=== PATIENT | female | born 1950 | race Caucasian/White ===

== ENCOUNTER 2025-01-01 12:45 | Inpatient (IN) | payer OTHER ==
[~2025-01-01] VITALS: Ht 154.9 cm; Wt 61.6 kg
[2025-01-01] MEDS: FUROSEMIDE 40 MG/4 ML VIAL IV ONE (13:15)
--- NOTE | 2025-01-01 13:16 | ED.PDOC ---
History of Present Illness HPI Comments 74Y F with PMHx CHF presents to ED for chief complaint abd swelling x4days with weight gain and SOB. Pt states she gained 13pounds over the last few days. Pt reports she is restricted to 15cc of liquid per day but she was recently ill and was consuming more fluids. Pt denies fever, chills, chest pain, and n/v/d. Pt says she usually does not use oxygen supplementation but sometimes uses 3L/min at night. SpO2 during triage 86% on RA. Time Seen by MD: 13:07 Reviewed Notes: Nurses Notes, Medications, Allergies Allergies: Coded Allergies: NO KNOWN ALLERGIES (Unverified , 01/01/25) Home Meds Reported Medications Selexipag (Uptravi) 1,800 Mcg Inj, 1600 MCG IV, TAB 01/01/25 Metoprolol Succinate (Metoprolol Succinate Er) 25 Mg Tab, 25 MG PO DAILY for 30 Days, MG 01/01/25 Ri[place] Base (Adempas) 2.5 Mg Tab, 2.5 MG PO TID, TAB 01/01/25 Apixaban Base (ELIQUIS) 2.5 Mg Tab, 2.5 MG PO BID, TAB 01/01/25 Macitentan (Opsumit) 10 Mg Tab, 10 MG PO, TAB 01/01/25 Omeprazole (Gnp Omeprazole) 20 Mg Tab, 1 TAB PO DAILY, #90 TAB 1 Refill 01/01/25 Spironolactone (Spironolactone) 25 Mg Tab, 1 TAB PO DAILY, #90 TAB 1 Refill 01/01/25 Bumetanide (Bumex Tablet) 1 Mg Tab, 1 MG PO BID, TAB BLK BX WARNING-CAN LEAD TO PROFOUND DIURESIS WITH FLUID- ELECTROLYTE LOSS 01/01/25 Information Source: Patient Mode of Arrival: Ambulatory Severity: Mild Timing: Days Duration: Since onset Past Medical History PAST MEDICAL HISTORY: CHF Surgical History: Denies all surgeries PAPER TWISTER TENDER History: No Pertinent PAPER TWISTER TENDER History Family History Family History: Unknown Social History Smoker: Non-Smoker Alcohol: Denies ETOH Use Drugs: Denies Drug Use Lives In: Home Constitutional: denies: chills, diaphoresis, fatigue, fever, malaise, sweats, weakness, others EENTM: denies: blurred vision, double vision, ear bleeding, ear discharge, ear drainage, ear pain, ear ringing, eye pain, eye redness, hearing loss, mouth pain, mouth swelling, nasal discharge, nose bleeding, nose congestion, nose pain, photophobia, tearing, throat pain, throat swelling, voice changes, others Respiratory: reports: shortness of breath; denies: cough, hemoptysis, orthopnea, SOB at rest, SOB with excertion, stridor, wheezing, others Cardiovascular: reports: edema; denies: chest pain, dizzy spells, diaphoresis, Dyspnea on exertion, irregular heart beat, left arm pain, lightheadedness, palpitations, PND, syncope, others Gastrointestinal: reports: abdomen distended, others (weight gain); denies: abdominal pain, blood streaked bowels, constipated, diarrhea, dysphagia, difficulty swallowing, hematemesis, melena, nausea, poor appetite, poor fluid intake, rectal bleeding, rectal pain, vomiting Genitourinary: denies: abnormal vagina bleeding, burning, dyspareunia, dysuria, flank pain, frequency, hematuria, incontinence, pain, , vagina discharge, urgency, others Neurological: denies: dizziness, fainting, headache, left sided numbness, left sided weakness, numbness, paresthesia, pre-existing deficit, right sided numbness, right sided weakness, seizure, speech problems, tingling, tremors, weakness, others Musculoskeletal: denies: back pain, gout, joint pain, joint swelling, muscle pain, muscle stiffness, neck pain, others Integumetry: denies: bruises, change in color, change in hair/nails, dryness, laceration, lesions, lumps, rash, wounds, others Allergic/Immunocompromised: denies: Difficulty Healing, Frequent Infections, Hives, Itching, others Hematologic/Lymphatic: denies: anemia, blood clots, easy bleeding, easy bruising, swollen glands, others Endocrine: denies: excessive hunger, excessive sweating, excessive thirst, excessive urination, flushing, intolerance to cold, intolerance to heat, unexplained weight gain, unexplained weight loss, others Psychiatric: denies: anxiety, bipolar disorder, depression, hopeless, panic disorder, schizophrenia, sleepless, suicidal, others All Other Systems: Reviewed and Negative Physical Exam General Appearance: No Apparent Distress, Normal HEENT: Normal ENT Inspection, Pharynx Normal, TMs Normal Neck: Full Range of Motion, Non-Tender, Normal, Normal Inspection Respiratory: Chest Non-Tender, Crackles (coarse breath sounds) Cardiovascular: No JVD, No Murmur, No Gallop, Normal Peripheral Pulses, Regular Rate/Rhythm Breast Exam: Deferred Gastrointestinal: No Organomegaly, Non Tender, No Pulsatile Mass, Normal Bowel Sounds, Soft Genitalia: Deferred Pelvic: Deferred Rectal: Deferred Extremities: Leg edema (2+ pitting edema), Normal capillary refill, Normal insp ection, Normal range of motion, Non-tender Musculoskeletal : Apperance: Normal Neurologic: Alert, production corrugator II-XII nml as Tested, No Motor Deficits, Normal Affect, Normal Mood, No Sensory Deficits Cerebellar Function: NOT DONE Reflexes: NOT DONE Skin: Dry, Normal Color, Warm Lymphatic: No Adenopathy Was a procedure done? Was a procedure done?: No Differential Dx Considerations may include: ACS, electrolyte abnormality, CHF exacerbation COPD exacerbation X-Ray, Labs, Meds, VS Vital Signs Date Time Temp Pulse Resp B/P (MAP) Pulse Ox O2 Delivery O2 Flow Rate FiO2 01/01/25 13:42 141 01/01/25 13:27 98.3 147 20 92/64 (73) 88 98.3 01/01/25 13:16 98.1 66 18 109/74 (86) 88 01/01/25 13:15 18 88 Room Air* 0 21 01/01/25 13:15 112/67 Lab Test 01/01/25 14:28 01/01/25 13:33 Range/Units Troponin I High Sensitivity 18 20 </=34 ng/L White Blood Count 6.6 4.4-10.8 10^3/uL Red Blood Count 4.46 4.0-5.20 10^6/uL Hemoglobin 13.3 12.2-16.2 g/dL Hematocrit 42.1 36.0-46.0 % Mean Corpuscular Volume 94.4 80.0-100.0 fL Mean Corpuscular Hemoglobin 29.8 28.0-32.0 pg Mean Corpuscular Hemoglobin Concent 31.5 L 32.0-36.0 g/dL Red Cell Distribution Width 17.1 H 11.8-14.3 % Platelet Count 211 140-450 10^3/uL Mean Platelet Volume 7.2 6.9-10.8 fL Neutrophils (%) (Auto) 37.0-80.0 % Lymphocytes (%) (Auto) 10.0-50.0 % Monocytes (%) (Auto) 0.0-12.0 % Basophils (%) (Auto) 0.0-2.0 % Neutrophils # (Auto) 1.6-8.6 10 ^3/uL Lymphocytes # (Auto) 0.4-5.4 10 ^3/uL Monocytes # (Auto) 0-1.3 10 ^3/uL Differential Total Cells Counted 100.0 100 Neutrophils % (Manual) 66 37.0-80.0 Band Neutrophils % (Manual) 6 Lymphocytes % (Manual) 24 10.0-50.0 Monocytes % (Manual) 4 0-12 Eosinophils % (Manual) 0 0-7 Basophils % (Manual) 0 0.0-2.0 Metamyelocytes % (manual) 0 Myelocytes % (Manual) 0 Promyelocytes % (Manual) 0 Blast Cells % (Manual) 0 Reactive Lymphocytes 0 Platelet Estimate Adequate Prothrombin Time 11.5 9.3-11.8 sec Prothrombin Time INR 1.09 0.9-1.15 Activated Partial Thromboplast Time 34.4 24.5-34.5 SEC Sodium Level 141 136-145 mmol/L Potassium Level 4.2 3.5-5.1 mmol/L Chloride Level 107 98-107 mmol/L Carbon Dioxide Level 26 20-31 mmol/L Anion Gap 8 5-15 Blood Urea Nitrogen 40 H 9-23 mg/dL Creatinine 1.51 H 0.550-1.02 mg/dL Glomerular Filtration Rate Calc 36 >90 mL/min BUN/Creatinine Ratio 26.5 H 10.0-20.0 Serum Glucose 139 H 74-106 mg/dL Calcium Level 9.9 8.7-10.4 mg/dL Magnesium Level 1.6 1.6-2.6 mg/dL Total Bilirubin 0.4 0.2-1.0 mg/dL Aspartate Amino Transferase (AST) 12 L 13-40 U/L Alanine Aminotransferase (ALT) 11 7-40 U/L Alkaline Phosphatase 101 46-116 U/L B-Type Natriuretic Peptide 630.80 0-100 pg/mL Total Protein 6.6 5.7-8.2 g/dL Albumin 4.5 3.2-4.8 g/dL Current Medications Medications (Trade) Dose Ordered Sig/Julian Route Start Time Stop Time Status Last Admin Sodium Chloride (Saline Lock Ns) 10 ml Q8HR IV 01/01/25 14:00 01/01/25 14:39 Furosemide (Lasix Injection) 40 mg ONCE ONCE IV 01/01/25 13:15 01/01/25 13:16 DC 01/01/25 13:15 Sodium Chloride 500 ml @ 500 mls/hr Q1H ONCE IV 01/01/25 13:30 01/01/25 14:29 DC 01/01/25 13:59 [place] [id number] Ph: [phone] DIAGNOSTIC IMAGING Diagnostic Imaging Report : [id number] Signed PATIENT: SAY ROSALES ACCT: [id number] UNIT: [id number] : 1950 LOC: ER ROOM / BED: / AGE / SEX: 74 / F ADM STATUS: REG ER SERVICE 1312 ORDERING PHYSICIAN: ESTELA YOO MD PROCEDURE(s): CXRP - CHEST PORTABLE REASON: sob ORDER NUMBER(s): [id number], ACCESSION NUMBER(s): [id number] CHEST RADIOGRAPH Indication: sob Technique: Single frontal view of the chest was obtained COMPARISON: None FINDINGS: Lines and Tubes: None Lungs: Pulmonary vascular congestion Pleura: No effusion. No pneumothorax. Cardiomediastinal contours: Cardiomegaly Bones: Unremarkable IMPRESSION: Cardiomegaly. Pulmonary vascular congestion. ATED BY: ANGEL LAYTON MD DICTATED DATE/TIME: 01/01/251403 SIGNED BY: ANGEL LAYTON MD SIGNED DATE/TIME: 01/01/251403 CC: Time of 1ST Reevaluation: 13:37 Reevaluation 1ST: Unchanged Patient Education/Counseling: Diagnosis, Treatment Family Education/Counseling: No Family Present Departure 1 Departure Time of Disposition: 16:17 (Patient with a worsening heart failure and volume overload. We will give patient Lasix put on oxygen and admit patient for further workup) Impression: Primary Impression: Acute on chronic systolic (congestive) heart failure Additional Impressions: Shortness of breath Generalized weakness Disposition: 09 ADMITTED INPATIENT Admit to: Tele Condition: Guarded Critical Care Note Critical Care Time?: Yes Critical care comment: Acute heart failure Authorized and Performed by: Estela Yoo MD Total critical care time: Approximately 39 minutes Due to a high probability of clinically significant, life threatening deterioration, the patient required my highest level of preparedness to intervene emergently and I personally spent this critical care time directly and personally managing the patient. This critical care time included obtaining a history; examining the patient; pulse oximetry; ordering and review of studies; arranging urgent treatment with development of a management plan; evaluation of patient's response to treatment; frequent reassessment; and, discussions with other providers. This critical care time was performed to assess and manage the high probability of imminent, life-threatening deterioration that could result in multi-organ failure. It was exclusive of separately billable procedures and treating other patients and teaching time. Please see my other sections and the rest of the note for further information on patient assessment and treatment. Stability Stability form required: No Heart Score Heart Score: Heart Score Response (Comments) Value History N/A 0 EKG N/A 0 Age N/A 0 Risk Factors N/A 0 Troponin N/A 0 Total 0 I personally scribed for ETSELA YOO MD (JOHN) on 01/01/25 at 13:16. Electronically submitted by Audra Appiah (Guerrilla RF). I personally scribed for ESTELA YOO MD (ANUP) on 01/01/25 at 13:48. Electronically submitted by Audra Appiah (Guerrilla RF). I personally scribed for ESTELA YOO MD (ANUP) on 01/01/25 at 14:11. Electronically submitted by Audra Appiah (Guerrilla RF). ESTELA YOO MD Jan 01, 2025 13:16
[2025-01-01 13:48] LABS: Hematocrit 42.1 % (36.0-46.0); Hemoglobin 13.3 g/dL (12.2-16.2); Mean Corpuscular Hemoglobin 29.8 pg (28.0-32.0); Mean Corpuscular Hgb Conc. 31.5 g/dL (32.0-36.0); Mean Corpuscular Volume 94.4 fL (80.0-100.0); Platelet Count (auto) 211 10^3/uL (140-450); Red Blood Cells 4.46 10^6/uL (4.0-5.20); Red Cell Distribution Width 17.1 % (11.8-14.3); White Blood Cell 6.6 10^3/uL (4.4-10.8)
[2025-01-01 13:50] LABS: Basophils % (manual) 0 (0.0-2.0); Blast Cells 0; Eosinophils % (manual) 0 (0-7); Metamyelocytes % 0; Myelocytes % 0; Promyelocytes % 0; Reactive Lymphocytes 0
[2025-01-01] MEDS: SODIUM CHLORIDE 0.9% 500 ML IV ONE (13:59)
[2025-01-01 14:06] LABS: INR 1.09 (0.9-1.15); Partial Thromboplastin Time 34.4 SEC (24.5-34.5); Prothrombin Time 11.5 sec (9.3-11.8)
--- NOTE | 2025-01-01 14:07 | DVH ---
CHEST RADIOGRAPH Indication: sob Technique: Single frontal view of the chest was obtained COMPARISON: None FINDINGS: Lines and Tubes: None Lungs: Pulmonary vascular congestion Pleura: No effusion. No pneumothorax. Cardiomediastinal contours: Cardiomegaly Bones: Unremarkable IMPRESSION: Cardiomegaly. Pulmonary vascular congestion.
[2025-01-01 14:08] LABS: Band Neutrophils % (manual) 6; Lymphocytes % (manual) 24 (10.0-50.0); Monocytes % (manual) 4 (0-12); Platelet Estimate Adequate
[2025-01-01 14:11] LABS: Alanine Aminotransferase 11 U/L (7-40); Albumin 4.5 g/dL (3.2-4.8); Alkaline Phosphatase 101 U/L (46-116); Anion Gap 8 (5-15); BUN/Creatinine Ratio 26.5 (10.0-20.0); Bilirubin, Total 0.4 mg/dL (0.2-1.0); Calcium 9.9 mg/dL (8.7-10.4); Carbon Dioxide 26 mmol/L (20-31); Chloride 107 mmol/L (98-107); Potassium 4.2 mmol/L (3.5-5.1); Sodium 141 mmol/L (136-145); Total Protein 6.6 g/dL (5.7-8.2)
[2025-01-01 14:18] LABS: Aspartate Aminotransferase 12 U/L (13-40); Blood Urea Nitrogen 40 mg/dL (9-23); Glucose 139 mg/dL (74-106); Magnesium 1.6 mg/dL (1.6-2.6)
[2025-01-01] MEDS ORDERED: BUM1T PO (14:19)
[2025-01-01] MEDS ORDERED: METO25TA93 PO (14:25)
[2025-01-01] MEDS ORDERED: SELE IV (14:25)
[2025-01-01] MEDS ORDERED: RIOC1TAB15 PO (14:25)
[2025-01-01] MEDS ORDERED: APIX2.5T PO (14:25)
[2025-01-01] MEDS ORDERED: MACI1TAB2 PO (14:25)
[2025-01-01] MEDS ORDERED: SPIR25TA8 PO (14:25)
[2025-01-01] MEDS ORDERED: OMEP20TA PO (14:25)
[2025-01-01 14:30] VITALS: PULSE 115; RESP 21; O2SAT 92
[2025-01-01] MEDS: SODIUM CHLOR 0.9% PF (SALINE LOCK) 10ML VIAL/SYR IV SCH (14:39)
--- NOTE | 2025-01-01 18:01 | ECG ---
[facility] Test Date: 2025-01-01 Test Time: 13:42:21 Pat Name: SAY ROSALES Department: ER Room: 0297 Gender: F Dials Inspector: FABIO : 1950 Requested By: ESTELA PELAEZ Order Number: [id number] Reading MD: Grant Pacheco Measurements Intervals [place] Rate: 141 P: 0 SC: 0 QRS: 147 QRSD: 110 T: -34 QT: 289 QTc: 443 Interpretive Statements Atrial fibrillation Low voltage, precordial leads RVH with secondary repolarization abnrm Baseline wander in lead(s) V1,V4,V5,V6 Electronically Signed On 01-02-2025 12:00:25 PST by Grant Pacheco Please click the below link to view image of tracing.
[2025-01-01] MEDS ORDERED: ONDANSETRON HCL 4 MG/2 ML VIAL IV PRN (19:15)
[2025-01-01] MEDS ORDERED: ACETAMINOPHEN 325 MG TAB PO PRN (19:15)
[2025-01-01 19:30] VITALS: PULSE 81; RESP 18; O2SAT 94
[2025-01-01] MEDS: APIXABAN 2.5 MG TAB PO SCH (21:55)
--- NOTE | 2025-01-01 21:57 | DVHHP2 ---
History of Present Illness Reason for Visit: Shortness of breath History of Present Illness 74-year-old female presents for evaluation of shortness for breath. The patient endorses a four day history of worsening abdominal distention and gaining approximately 13 lb over the past one-week. Reports chest pressure system. She states breathing becomes difficulty when laying flat. Denies cough or fever. No other acute complaints. Past Medical History Congestive heart failure and hypertension Past Surgical History Denies Family History Noncontributory Smoke: No ALCOHOL: none Drugs: None Lives: with Family Review of Systems Review of Systems Review of systems are currently negative otherwise addressed in HPI. Allergies: Coded Allergies: NO KNOWN ALLERGIES (Unverified , 01/01/25) Medications Current Medications Medications Dose Ordered Sig/Julian Route Start Time Stop Time Status Last Admin Dose Admin Sodium Chloride 10 ml Q8HR IV 01/01/25 14:00 01/01/25 14:39 10 ML Metoprolol Succinate 25 mg DAILY PO 01/02/25 10:00 Spironolactone 25 mg DAILY PO 01/02/25 10:00 Apixaban 2.5 mg BID PO 01/01/25 22:00 Furosemide 20 mg BIDD IV 01/02/25 06:00 Ondansetron HCl 4 mg Q4HP PRN IV 01/01/25 19:15 Acetaminophen 650 mg Q6HP PRN PO 01/01/25 19:15 Exam Vital Signs Vital Signs Date Time Temp Pulse Resp B/P (MAP) Pulse Ox O2 Delivery O2 Flow Rate FiO2 01/01/25 21:00 113 16 105/54 (71) 94 01/01/25 14:30 Nasal Cannula* 3 32 01/01/25 13:27 98.3 98.3 Exam Gen: 74-year-old female in mild distress. Skin: Warm, dry, normal color and texture, no rash. HEENT: Normocephalic atraumatic, mucous membranes moist and pink. Neck: Cervical and supraclavicular nodes normal without enlargement, trachea is midline, thyroid gland is normal without masses. Pulmonary: Clear to auscultation and percussion bilaterally. Cardiac: Regular rate and rhythm. No murmur Abdomen: Soft, nontender, mild distention, bowel sounds present all 4 quadrants, no guarding, no rigidity, no organomegaly. Extremities: No cyanosis, clubbing, no edema Neuro: Cranial nerves II through XII grossly intact, normal affect and speech, no focal motor deficits. Labs/Xrays ORDERING PHYSICIAN: ESTELA PELAEZ MD PROCEDURE(s): CXRP - CHEST PORTABLE REASON: sob ORDER NUMBER(s): [id number], ACCESSION NUMBER(s): [id number] CHEST RADIOGRAPH Indication: sob Technique: Single frontal view of the chest was obtained COMPARISON: None FINDINGS: Lines and Tubes: None Lungs: Pulmonary vascular congestion Pleura: No effusion. No pneumothorax. Cardiomediastinal contours: Cardiomegaly Bones: Unremarkable IMPRESSION: Cardiomegaly. Pulmonary vascular congestion. Labs Test 01/01/25 18:00 01/01/25 13:33 Range/Units Troponin I High Sensitivity 22 </=34 ng/L White Blood Count 6.6 4.4-10.8 10^3/uL Red Blood Count 4.46 4.0-5.20 10^6/uL Hemoglobin 13.3 12.2-16.2 g/dL Hematocrit 42.1 36.0-46.0 % Mean Corpuscular Volume 94.4 80.0-100.0 fL Mean Corpuscular Hemoglobin 29.8 28.0-32.0 pg Mean Corpuscular Hemoglobin Concent 31.5 L 32.0-36.0 g/dL Red Cell Distribution Width 17.1 H 11.8-14.3 % Platelet Count 211 140-450 10^3/uL Mean Platelet Volume 7.2 6.9-10.8 fL Neutrophils (%) (Auto) 37.0-80.0 % Lymphocytes (%) (Auto) 10.0-50.0 % Monocytes (%) (Auto) 0.0-12.0 % Basophils (%) (Auto) 0.0-2.0 % Neutrophils # (Auto) 1.6-8.6 10 ^3/uL Lymphocytes # (Auto) 0.4-5.4 10 ^3/uL Monocytes # (Auto) 0-1.3 10 ^3/uL Differential Total Cells Counted 100.0 100 Neutrophils % (Manual) 66 37.0-80.0 Band Neutrophils % (Manual) 6 Lymphocytes % (Manual) 24 10.0-50.0 Monocytes % (Manual) 4 0-12 Eosinophils % (Manual) 0 0-7 Basophils % (Manual) 0 0.0-2.0 Metamyelocytes % (manual) 0 Myelocytes % (Manual) 0 Promyelocytes % (Manual) 0 Blast Cells % (Manual) 0 Reactive Lymphocytes 0 Platelet Estimate Adequate Prothrombin Time 11.5 9.3-11.8 sec Prothrombin Time INR 1.09 0.9-1.15 Activated Partial Thromboplast Time 34.4 24.5-34.5 SEC Sodium Level 141 136-145 mmol/L Potassium Level 4.2 3.5-5.1 mmol/L Chloride Level 107 98-107 mmol/L Carbon Dioxide Level 26 20-31 mmol/L Anion Gap 8 5-15 Blood Urea Nitrogen 40 H 9-23 mg/dL Creatinine 1.51 H 0.550-1.02 mg/dL Glomerular Filtration Rate Calc 36 >90 mL/min BUN/Creatinine Ratio 26.5 H 10.0-20.0 Serum Glucose 139 H 74-106 mg/dL Calcium Level 9.9 8.7-10.4 mg/dL Magnesium Level 1.6 1.6-2.6 mg/dL Total Bilirubin 0.4 0.2-1.0 mg/dL Aspartate Amino Transferase (AST) 12 L 13-40 U/L Alanine Aminotransferase (ALT) 11 7-40 U/L Alkaline Phosphatase 101 46-116 U/L B-Type Natriuretic Peptide 630.80 0-100 pg/mL Total Protein 6.6 5.7-8.2 g/dL Albumin 4.5 3.2-4.8 g/dL Assessment/Plan Assessment/Plan Assessment Acute on chronic congestive heart failure Hypertension Acute kidney injury Plan Admit the patient to [facility] to the hospitalist Cardiology consultation Echocardiogram pending Resume home medications Continue treatment per orders. Plan discussed with: Patient My Orders Orders - NELA MARIE AGACNP Procedure Category Date Status Time Metoprolol Xl PHA 01/02/25 In Process Succinate (Toprol Xl) 10:00 Spironolactone PHA 01/02/25 In Process (Aldactone) 10:00 Apixaban (Eliquis) PHA 01/01/25 In Process 22:00 Furosemide Injection PHA 01/02/25 In Process (Lasix Injection) 06:00 * Cardiology Consult CONS 01/01/25 Transmitted 19:06 Basic Metabolic Panel LAB 01/02/25 Verified 04:00 Admit ADMIT 01/01/25 Transmitted 19:06 Ondansetron Hcl PHA 01/01/25 In Process (Zofran) 19:15 Cardiac DIET 01/02/25 Transmitted Diet-2gna,Lofat,Lochol Breakfast Echo 2d Mode Cardiac US 01/01/25 Logged DOP 19:06 Condition: Stable DANA 01/01/25 In Process 19:06 Acetaminophen Tablet PHA 01/01/25 In Process (Tylenol Tablet) 19:15 Bedrest With Bathroom DANA 01/01/25 In Process Privileg 19:06 Date of Service: Jan 01, 2025 Billing Provider: NELA MARIE Common Visit Codes: [id number] INP/OBS CARE (HIGH) NELA MARIE Jan 01, 2025 21:57
[2025-01-01 23:43] VITALS: BP 119/65; PULSE 108; RESP 18; TEMP 98.2; O2SAT 91
[2025-01-01 23:53] VITALS: BP 119/65; PULSE 74; RESP 16; RESP 18; TEMP 98.2; O2SAT 91
[2025-01-02 05:00] VITALS: BP 118/60; PULSE 93; RESP 18; TEMP 98.3; O2SAT 95
[2025-01-02] MEDS: FUROSEMIDE 20 MG/2 ML VIAL IV SCH ×2 (05:46→17:52)
[2025-01-02 07:15] LABS: Chloride 105 mmol/L (98-107); Potassium 3.7 mmol/L (3.5-5.1); Sodium 142 mmol/L (136-145)
[2025-01-02 07:16] LABS: Anion Gap 10 (5-15); Carbon Dioxide 27 mmol/L (20-31)
[2025-01-02 07:17] LABS: Calcium 10.2 mg/dL (8.7-10.4)
[2025-01-02 07:21] LABS: BUN/Creatinine Ratio 26.4 (10.0-20.0); Glucose 79 mg/dL (74-106)
[2025-01-02 07:22] LABS: Blood Urea Nitrogen 37 mg/dL (9-23)
[2025-01-02 08:43] VITALS: BP 129/84; PULSE 89; RESP 16; TEMP 98.3; O2SAT 96
[2025-01-02 08:49] LABS: Magnesium 1.5 mg/dL (1.6-2.6)
--- NOTE | 2025-01-02 10:06 | DVHCONRES ---
Date Seen: Jan 02, 2025 Resident Creating Document: CINTIA KAUFMAN RESIDENT Referring Physician GIULIA Cr Reason for Consultation CHF History of Present Illness This is a 74-year-old female who comes into the ED with chief complain of shortness of Breath. She has a past medical history relevant for CHF, hypertension, pulmonary artery hypertension, atrial fibrillation. Denies any past surgical history. Past social history: Prior smoker, quit alcohol use, denies drug use. Home medications: Apixaban 2.5 mg p.o. b.i.d., Bumex 1 mg p.o. b.i.d., macitentan 10 mg p.o. q.d., metoprolol 25 mg p.o. q.d., Aldactone 25 mg p.o. q.d., omeprazole 20 mg p.o. q.d., riociguat 2.5 mg p.o. t.i.d., selexipag 1,800 mcg iv monthly Patient stated that for the last four days she has been having worsening abdominal distention, states gained about 13 lb in one week, she said that yesterday she started experiencing worsening shortness of breath, inability to lay flat. Denies any fever, cough, chest pain, lightheadedness, dizziness. In the ED patient is initially received normal saline, later received Lasix, chest x-ray revealed moderate vascular congestion, blood work revealed CHRISTINA, troponins were negative, BNP was 630. An echocardiogram was ordered. Patient currently states feeling better, vital signs unremarkable, she is currently on nasal cannula 3 L. EKG revealed AFib with RVR at 141, right axis deviation, no ST changes. Currently telemetry shows controlled rate. Allergies: Coded Allergies: NO KNOWN ALLERGIES (Unverified , 01/01/25) Home Meds Reported Medications Selexipag (Uptravi) 1,800 Mcg Inj, 1600 MCG IV, TAB 01/01/25 Metoprolol Succinate (Metoprolol Succinate Er) 25 Mg Tab, 25 MG PO DAILY for 30 Days, MG 01/01/25 Riociguat Base (Adempas) 2.5 Mg Tab, 2.5 MG PO TID, TAB 01/01/25 Apixaban Base (ELIQUIS) 2.5 Mg Tab, 2.5 MG PO BID, TAB 01/01/25 Macitentan (Opsumit) 10 Mg Tab, 10 MG PO, TAB 01/01/25 Omeprazole (Gnp Omeprazole) 20 Mg Tab, 1 TAB PO DAILY, #90 TAB 1 Refill 01/01/25 Spironolactone (Spironolactone) 25 Mg Tab, 1 TAB PO DAILY, #90 TAB 1 Refill 01/01/25 Bumetanide (Bumex Tablet) 1 Mg Tab, 1 MG PO BID, TAB BLK BX WARNING-CAN LEAD TO PROFOUND DIURESIS WITH FLUID- ELECTROLYTE LOSS 01/01/25 Current Medications Current Medications Medications (Trade) Dose Ordered Sig/Julian Route PRN Reason Start Time Stop Time Status Last Admin Sodium Chloride (Saline Lock Ns) 10 ml Q8HR IV 01/01/25 14:00 01/02/25 05:47 Metoprolol Succinate (Toprol Xl) 25 mg DAILY PO 01/02/25 10:00 Spironolactone (Aldactone) 25 mg DAILY PO 01/02/25 10:00 Apixaban (Eliquis) 2.5 mg BID PO 01/01/25 22:00 Furosemide (Lasix Injection) 20 mg BIDD IV 01/02/25 06:00 01/02/25 05:46 Ondansetron HCl (Zofran) 4 mg Q4HP PRN IV NAUSEA / VOMITING 01/01/25 19:15 Acetaminophen (Tylenol Tablet) 650 mg Q6HP PRN PO PAIN SCALE 1-3 OR TEMP>100.4 01/01/25 19:15 Magnesium Sulfate/ Dextrose 100 ml @ 100 mls/hr Q1HR IV 01/02/25 10:00 01/02/25 11:59 Review of Systems Constitutional: Patient denies fevers, chills, sweats and weight changes. Eyes: Patient denies any visual symptoms. Ears, Nose, and Throat: No difficulties with hearing. No symptoms of rhinitis or sore throat. Cardiovascular: Patient denies chest pains, palpitations, orthopnea and paroxysmal nocturnal dyspnea. Respiratory: Shortness of breath GI: Abdominal distention : No urinary hesitancy or dribbling. No nocturia or urinary frequency. No abnormal urethral discharge. Musculoskeletal: No myalgias, arthralgias or edema. Neurologic: No chronic headaches, no seizures. Patient denies numbness, tingling or weakness. Psychiatric: Patient denies problems with mood disturbance. No problems with anxiety. Endocrine: No excessive urination or excessive thirst. Dermatologic: Patient denies any rashes or skin changes. Vital Signs Vital Signs Date Time Temp Pulse Resp B/P (MAP) Pulse Ox O2 Delivery O2 Flow Rate FiO2 01/02/25 08:43 98.3 89 16 129/84 (99) 96 98.3 01/01/25 23:53 Nasal Cannula* 3 32 Physical Exam General: Awake, alert, comfortable appearing, in no acute distress. HEENT: Head is normocephalic and atraumatic. Pupils are equal, round, and reactive to light. Extraocular muscles are intact. No nasal discharge. No facial trauma. Intraoral exam shows moist mucous membranes with no tonsillar enlargement or exudate. Neck: Supple with no cervical lymphadenopathy No meningismus. No goiter. Heart: Regular rate without murmur, rub, or gallop. Lungs: Mild bilateral basal crackles Abdomen: No external sign of injury. Bowel sounds are present. Abdomen is soft, nontender. No rebound, no guarding, no rigidity. There are no palpable masses. There is no flank pain on exam. Extremities: Strong peripheral pulses. There is no clubbing, no cyanosis, and no edema. Skin: No rash. Neurologic: Cranial nerves II-XII intact without motor, sensory, or cerebellar deficit, no asterixis. Labs/Diagnostic Data Labs Test 01/02/25 06:29 01/01/25 18:00 01/01/25 13:33 Range/Units Sodium Level 142 136-145 mmol/L Potassium Level 3.7 3.5-5.1 mmol/L Chloride Level 105 98-107 mmol/L Carbon Dioxide Level 27 20-31 mmol/L Anion Gap 10 5-15 Blood Urea Nitrogen 37 H 9-23 mg/dL Creatinine 1.40 H 0.550-1.02 mg/dL Glomerular Filtration Rate Calc 40 >90 mL/min BUN/Creatinine Ratio 26.4 H 10.0-20.0 Serum Glucose 79 74-106 mg/dL Calcium Level 10.2 8.7-10.4 mg/dL Magnesium Level 1.5 L 1.6-2.6 mg/dL Triglycerides Level 146 < 150 mg/dL Cholesterol Level 159 < 200 mg/dL LDL Cholesterol 91 < 100 mg/dL HDL Cholesterol 46 40-59 mg/dL Troponin I High Sensitivity 22 </=34 ng/L White Blood Count 6.6 4.4-10.8 10^3/uL Red Blood Count 4.46 4.0-5.20 10^6/uL Hemoglobin 13.3 12.2-16.2 g/dL Hematocrit 42.1 36.0-46.0 % Mean Corpuscular Volume 94.4 80.0-100.0 fL Mean Corpuscular Hemoglobin 29.8 28.0-32.0 pg Mean Corpuscular Hemoglobin Concent 31.5 L 32.0-36.0 g/dL Red Cell Distribution Width 17.1 H 11.8-14.3 % Platelet Count 211 140-450 10^3/uL Mean Platelet Volume 7.2 6.9-10.8 fL Neutrophils (%) (Auto) 37.0-80.0 % Lymphocytes (%) (Auto) 10.0-50.0 % Monocytes (%) (Auto) 0.0-12.0 % Basophils (%) (Auto) 0.0-2.0 % Neutrophils # (Auto) 1.6-8.6 10 ^3/uL Lymphocytes # (Auto) 0.4-5.4 10 ^3/uL Monocytes # (Auto) 0-1.3 10 ^3/uL Differential Total Cells Counted 100.0 100 Neutrophils % (Manual) 66 37.0-80.0 Band Neutrophils % (Manual) 6 Lymphocytes % (Manual) 24 10.0-50.0 Monocytes % (Manual) 4 0-12 Eosinophils % (Manual) 0 0-7 Basophils % (Manual) 0 0.0-2.0 Metamyelocytes % (manual) 0 Myelocytes % (Manual) 0 Promyelocytes % (Manual) 0 Blast Cells % (Manual) 0 Reactive Lymphocytes 0 Platelet Estimate Adequate Prothrombin Time 11.5 9.3-11.8 sec Prothrombin Time INR 1.09 0.9-1.15 Activated Partial Thromboplast Time 34.4 24.5-34.5 SEC Total Bilirubin 0.4 0.2-1.0 mg/dL Aspartate Amino Transferase (AST) 12 L 13-40 U/L Alanine Aminotransferase (ALT) 11 7-40 U/L Alkaline Phosphatase 101 46-116 U/L B-Type Natriuretic Peptide 630.80 0-100 pg/mL Total Protein 6.6 5.7-8.2 g/dL Albumin 4.5 3.2-4.8 g/dL Assessment Acute on chronic systolic/diastolic CHF, NYHA class 3 Non-ischemic cardiomyopathy Acute hypoxic respiratory failure Atrial fibrillation with rapid ventricular response, currently controlled rate Hypertension Pulmonary arterial hypertension CHRISTINA, likely prerenal Plan/Recommendation Continue diuresing Lasix 40 mg IV b.i.d. Maintain fluid restrictions and strict I&Os Maintain potassium >4 and magnesium >2 Continue GDMT: Beta-shaun, Aldactone, Jardiance [id number]: 4 points HAS-BLED: 1 point Anticoagulate with Eliquis 2.5mg po bid Continue rate control with beta-shaun Pending echocardiogram Case was discussed with Dr. Ramirez Patient encounter was reviewed and discussed with Dr Xavi Torre, Resident Physician. All history, meds, vitals, labs, and imaging were reviewed with him. I agree with his A/P which was formulated with me. Plan discussed with: Patient CINTIA KAUFMAN RESIDENT Jan 02, 2025 10:06 MODESTO RAMIREZ DO Jan 02, 2025 21:49
[2025-01-02] MEDS: SPIRONOLACTONE 25 MG TAB PO SCH (10:25)
[2025-01-02] MEDS: MAGNESIUM SULFATE 1GM/100ML 100 ML IV SCH (10:25)
[2025-01-02] MEDS: POTASSIUM CHL 20 Meq TABLET PO ONE (10:25)
[2025-01-02] MEDS: METOPROLOL SUCCINATE XL 50 MG TAB PO SCH (10:26)
[2025-01-02] MEDS: FUROSEMIDE 20 MG/2 ML VIAL IV ONE (10:26)
--- NOTE | 2025-01-02 12:08 | DVHPN2 ---
Subjective She came due to feeling full with fluid overload in her stomach and shortness of breaths Changes from previous H/P or p: Changes Objective Vitals Vital Signs Date Time Temp Pulse Resp B/P (MAP) Pulse Ox O2 Delivery O2 Flow Rate FiO2 01/02/25 10:26 129/84 01/02/25 10: 89 01/02/25 08:43 98.3 16 96 98.3 01/01/25 23:53 Nasal Cannula* 3 32 Intake/Output Intake and Output 01/02/25 07:00 Intake Total 100 ml Balance 100 ml Intake Oral 100 ml # Voids 1 General Appearance: Alert, Oriented X3, Cooperative, No acute distress Lungs: Other (Bilateral rhonchi at the bases) Cardiovascular: Regular rate, Normal S1, Normal S2 Abdomen: Normal bowel sounds, Soft, No tenderness Extremities: No edema Medications Current Medications Medications Dose Ordered Sig/Julian Route Start Time Stop Time Status Last Admin Dose Admin Sodium Chloride 10 ml Q8HR IV 01/01/25 14:00 01/02/25 05:47 10 ML Metoprolol Succinate 25 mg DAILY PO 01/02/25 10:00 01/02/25 10:26 25 MG Spironolactone 25 mg DAILY PO 01/02/25 10:00 01/02/25 10:25 25 MG Apixaban 2.5 mg BID PO 01/01/25 22:00 01/02/25 10:25 2.5 MG Ondansetron HCl 4 mg Q4HP PRN IV 01/01/25 19:15 Acetaminophen 650 mg Q6HP PRN PO 01/01/25 19:15 Empaglifozin 10 mg DAILY PO 01/03/25 10:00 Furosemide 40 mg BIDD IV 01/02/25 18:00 Laboratory Results Laboratory Tests 01/01/25 13:33 01/02/25 06:29 Chemistry Test 01/01/25 13:33 01/02/25 06:29 Albumin 4.5 g/dL (3.2-4.8) Calcium Level 9.9 mg/dL (8.7-10.4) 10.2 mg/dL (8.7-10.4) Magnesium Level 1.6 mg/dL (1.6-2.6) 1.5 mg/dL (1.6-2.6) L Total Protein 6.6 g/dL (5.7-8.2) Coagulation Test 01/01/25 13:33 Prothrombin Time 11.5 sec (9.3-11.8) Prothrombin Time INR 1.09 (0.9-1.15) Activated Partial Thromboplast Time 34.4 SEC (24.5-34.5) Lipid panel Test 01/02/25 06:29 Cholesterol Level 159 mg/dL (< 200) HDL Cholesterol 46 mg/dL (40-59) Triglycerides Level 146 mg/dL (< 150) Cardiac Markers Test 01/01/25 13:33 B-Type Natriuretic Peptide 630.80 pg/mL (0-100) LFT Test 01/01/25 13:33 Alanine Aminotransferase (ALT) 11 U/L (7-40) Alkaline Phosphatase 101 U/L (46-116) Aspartate Amino Transferase (AST) 12 U/L (13-40) L Total Bilirubin 0.4 mg/dL (0.2-1.0) HgA1c, TSH Test 01/02/25 06:29 Thyroid Stimulating Hormone (TSH) Pending Assessment/Plan Assessment/Plan Acute on chronic hypoxic respiratory failure Acute on chronic heart failure, systolic versus diastolic COPD on home oxygen Chronic respiratory failure Nonischemic cardiomyopathy Atrial fibrillation, intermittent paroxysmal Hypertension Pulmonary hypertension Acute kidney injury versus chronic kidney disease Plan Continue IV Lasix 40 mg twice a day Metoprolol Aldactone Jardiance Continue Eliquis Cardiology consult Echocardiogram is pending The rest of the management will depend on the hospital course Full code Advance directives discussed for 18 minute Plan discussed with: Patient Date of Service: Jan 02, 2025 Billing Provider: DEENA MCCRAY MD Common Visit Codes: [id number] INP/OBS CARE(HIGH) Secondary Visit Codes: [id number] CARE PLAN 30 MINUTES DEENA MCCRAY MD Jan 02, 2025 12:07
[2025-01-02 13:00] VITALS: BP 108/69; PULSE 85; RESP 16; TEMP 97.5; O2SAT 97
[2025-01-02 16:54] VITALS: BP 118/78; PULSE 86; RESP 16; TEMP 98.4; O2SAT 96
[2025-01-02 20:00] VITALS: PULSE 80; RESP 20; O2SAT 97
[2025-01-02 21:00] VITALS: BP 111/76; PULSE 88; RESP 20; TEMP 97.4; O2SAT 97
--- NOTE | 2025-01-02 21:36 | DVHSR ---
APPROVED REPORT EXAM: Two-dimensional and M-mode echocardiogram with Doppler and color Doppler. Blood Pressure: 118/60 mmHg INDICATION ef RISK FACTORS Height: 5'1, Weight: 139 DIMENSIONS LVDd4.1 (3.8-5.7cm)LA (2D)4.7 (1.9-4.0cm)Aortic Root3.5 (2.0-3.7cm) LVDs2.4 (2.5-4.0cm)LA (MM) (1.9-4.0cm)Aortic Cusp Exc1.3 (1.5-2.0cm) EF (%) 60.0 (55-70%)Rt. Atrium5.3 (1.9-4.0cm)Asc. Aorta cm IVSd0.9 (0.7-1.1cm)RV (D) (1.8-2.4cm) PWd1.1 (0.7-1.1cm) Mitral Valve MitralMitral Stenosis E wave0.72m/sMV Mean GR.mmHg A wavem/sMV Peak GR.86mmHg E/A ratio0.02D MVAcm2 DECEL [id number] 1/2 Timems Aortic Valve Aortic ValveAortic Stenosis V11.04m/Ebonie Mean GR.7mmHg V21.74m/Ebonie Peak GR.12mmHg LVOT Diameter2.1 (1.8-2.4cm)Doppler AVA2.07cm2 Pulmonic Valve V20.96m/s Tricuspid Valve TR Velocity3.70m/s [id number] Conclusion Normal LV size and systolic function. LVEF 60-65%. Abnormal septal motion due to RV pressure and volu me overload. Unable to assess diastolic function due to AF. [id number] RV enlargement with reduced systolic function. Severe RA enlargement. Moderate LA enlargement Trileaflet aortic valve with mild sclerosis. Mild MAC. Mild MR. [id number] eccentric TR. RVSP estimated at 63 mmHg based on an RAP of 8 mmHg. Dilated IVC with normal collapse. Small pericardial effusion. Atrial fibrillation.
[2025-01-03] VITALS (8 sets, daily range): BP systolic 99–133; BP diastolic 43–88; PULSE 70–99; RESP 16–20; TEMP 97.2–98.7; O2SAT 91–98
[2025-01-03 06:33] LABS: Rapid Influenza A Negative (Negative); Rapid Influenza B Negative (Negative)
[2025-01-03 07:35] LABS: Chloride 103 mmol/L (98-107); Potassium 4.3 mmol/L (3.5-5.1); Sodium 140 mmol/L (136-145)
[2025-01-03 07:36] LABS: Anion Gap 8 (5-15); Calcium 9.7 mg/dL (8.7-10.4); Carbon Dioxide 29 mmol/L (20-31)
[2025-01-03 07:41] LABS: BUN/Creatinine Ratio 29.5 (10.0-20.0); Glucose 87 mg/dL (74-106)
[2025-01-03 07:42] LABS: Blood Urea Nitrogen 43 mg/dL (9-23); Magnesium 1.6 mg/dL (1.6-2.6)
[2025-01-03] MEDS: EMPAGLIFLOZIN 10 MG TAB PO SCH (08:25)
--- NOTE | 2025-01-03 12:27 | DVHPN2 ---
Subjective She is feeling better Less edema Changes from previous H/P or p: Changes Objective Vitals Vital Signs Date Time Temp Pulse Resp B/P (MAP) Pulse Ox O2 Delivery O2 Flow Rate FiO2 01/03/25 10:00 70 99/63 01/03/25 08:58 97.9 16 96 97.9 01/03/25 08:00 Nasal Cannula* 3 32 Intake/Output Intake and Output 01/03/25 07:00 Intake Total 1050 ml Output Total 900 ml Balance 150 ml Intake Oral 850 ml IV Total 200 ml Output Urine Total 900 ml # Voids 10 # Bowel Movements 1 General Appearance: Alert, Oriented X3, Cooperative, No acute distress Lungs: Other Cardiovascular: Regular rate, Normal S1, Normal S2 Abdomen: Normal bowel sounds, Soft, No tenderness Extremities: No edema Medications Current Medications Medications Dose Ordered Sig/Julian Route Start Time Stop Time Status Last Admin Dose Admin Sodium Chloride 10 ml Q8HR IV 01/01/25 14:00 01/03/25 11:49 10 ML Metoprolol Succinate 25 mg DAILY PO 01/02/25 10:00 01/02/25 10:26 25 MG Spironolactone 25 mg DAILY PO 01/02/25 10:00 01/03/25 08:25 25 MG Apixaban 2.5 mg BID PO 01/01/25 22:00 01/03/25 08:25 2.5 MG Ondansetron HCl 4 mg Q4HP PRN IV 01/01/25 19:15 Acetaminophen 650 mg Q6HP PRN PO 01/01/25 19:15 Empaglifozin 10 mg DAILY PO 01/03/25 10:00 01/03/25 08:25 10 MG Furosemide 40 mg BIDD IV 01/02/25 18:00 01/03/25 05:38 40 MG Laboratory Results Laboratory Tests 01/01/25 13:33 01/03/25 06:32 Chemistry Test 01/03/25 06:32 Calcium Level 9.7 mg/dL (8.7-10.4) Magnesium Level 1.6 mg/dL (1.6-2.6) Assessment/Plan Assessment/Plan Acute on chronic hypoxic respiratory failure Acute on chronic heart failure, systolic versus diastolic COPD on home oxygen Chronic respiratory failure Nonischemic cardiomyopathy Atrial fibrillation, intermittent paroxysmal Hypertension Pulmonary hypertension Acute kidney injury versus chronic kidney disease Plan Continue IV Lasix 40 mg twice a day Metoprolol Aldactone Jardiance Continue Eliquis Cardiology consult Echocardiogram is pending The rest of the management will depend on the hospital course Full code Advance directives discussed for 18 minute 01/03/2025: Continue diuresis Continue Eliquis Jardiance Aldactone Oxygen as needed Plan discussed with: Patient Date of Service: Jan 03, 2025 Billing Provider: DEENA MCCRAY MD Common Visit Codes: [id number] INP/OBS CARE(HIGH) DEENA MCCRAY MD Jan 03, 2025 12:27
[2025-01-03 16:37] LABS: COVID19 ANTIGEN SOFIA FIA NEGATIVE (NEGATIVE)
--- NOTE | 2025-01-03 18:12 | DVHPN2 ---
Progress Note Date Seen: Jan 03, 2025 Resident Creating Document: CINTIA KAUFMAN RESIDENT Medical Necessity Reason Pt with a Central, PICC or Fol: No Subjective Review of Systems Patient states feeling better, denies any significant shortness of breath. She is currently on room air Objective vital signs Vital Sign Date Time Temp Pulse Resp B/P (MAP) Pulse Ox O2 Delivery O2 Flow Rate FiO2 01/03/25 17:31 118/69 01/03/25 16:58 98.6 99 17 96 98.6 01/03/25 08:00 Nasal Cannula* 3 32 Total Intake and Output 01/02/25 01/02/25 01/03/25 15:00 23:00 07:00 Intake Total 200 ml 700 ml 150 ml Output Total 900 ml Balance 200 ml -200 ml 150 ml medications Current Medications Medications Dose Ordered Sig/Julian Route Start Time Stop Time Status Last Admin Dose Admin Sodium Chloride 10 ml Q8HR IV 01/01/25 14:00 01/03/25 11:49 10 ML Metoprolol Succinate 25 mg DAILY PO 01/02/25 10:00 01/02/25 10:26 25 MG Spironolactone 25 mg DAILY PO 01/02/25 10:00 01/03/25 08:25 25 MG Apixaban 2.5 mg BID PO 01/01/25 22:00 01/03/25 08:25 2.5 MG Ondansetron HCl 4 mg Q4HP PRN IV 01/01/25 19:15 Acetaminophen 650 mg Q6HP PRN PO 01/01/25 19:15 Empaglifozin 10 mg DAILY PO 01/03/25 10:00 01/03/25 08:25 10 MG Furosemide 40 mg BIDD IV 01/02/25 18:00 01/03/25 17:31 40 MG Examination General: Awake, alert, comfortable appearing, in no acute distress. HEENT: Head is normocephalic and atraumatic. Pupils are equal, round, and reactive to light. Extraocular muscles are intact. No nasal discharge. No facial trauma. Intraoral exam shows moist mucous membranes with no tonsillar enlargement or exudate. Neck: Supple with no cervical lymphadenopathy No meningismus. No goiter. Heart: Regular rate without murmur, rub, or gallop. Lungs: Mild bilateral crackles Abdomen: No external sign of injury. Bowel sounds are present. Abdomen is soft, nontender. No rebound, no guarding, no rigidity. There are no palpable masses. There is no flank pain on exam. Extremities: Strong peripheral pulses. There is no clubbing, no cyanosis, and no edema. Skin: No rash. Neurologic: Cranial nerves II-XII intact without motor, sensory, or cerebellar deficit, no asterixis. laboratory and microbiology Laboratory Tests 01/03/25 06:32 01/01/25 13:33 Test 01/03/25 06:32 Range/Units Serum Glucose 87 74-106 mg/dL Labs and/or images reviewed: Labs reviewed by me, Image(s) reviewed by me Problem List/Assessment/Plan Problem List/Assessment/Plan Acute on chronic systolic/diastolic CHF, NYHA class 3 Non-ischemic cardiomyopathy Acute hypoxic respiratory failure Atrial fibrillation with rapid ventricular response, currently controlled rate Hypertension Pulmonary arterial hypertension CHRISTINA, likely prerenal Plan/Recommendation Continue diuresing Lasix 40 mg IV b.i.d. Maintain fluid restrictions and strict I&Os Maintain potassium >4 and magnesium >2 Continue GDMT: Beta-shaun, Aldactone, Jardiance [id number]: 4 points HAS-BLED: 1 point Anticoagulate with Eliquis 2.5mg po bid Continue rate control with beta-shaun Echocardiogram revealed an ejection fraction of 60%, abnormal septal motion due to RV pressure and volume overload, severe RV enlargement and reduced systolic function, severe RA enlargement, small pericardial effusion, RVSP of 63 Thank you for allowing us to participate in the care of this patient. We will sign off from the case Case was discussed with Dr. Brumfield pt seen with CV resident, agree with plan formulated with myself Plan discussed with: Patient CINTIA KAUFMAN RESIDENT Jan 03, 2025 18:12 JAIDA BRUMFIELD MD Jan 04, 2025 12:05
[2025-01-04] VITALS (8 sets, daily range): BP systolic 100–118; BP diastolic 63–80; PULSE 85–104; RESP 15–20; TEMP 97.8–98.3; O2SAT 92–100
[2025-01-04 08:06] LABS: Alkaline Phosphatase 95 U/L (46-116); Anion Gap 10 (5-15); BUN/Creatinine Ratio 29.7 (10.0-20.0); Calcium 9.7 mg/dL (8.7-10.4); Carbon Dioxide 28 mmol/L (20-31); Chloride 99 mmol/L (98-107); Glucose 92 mg/dL (74-106); Potassium 4.2 mmol/L (3.5-5.1); Sodium 137 mmol/L (136-145)
[2025-01-04 08:07] LABS: Albumin 4.1 g/dL (3.2-4.8)
[2025-01-04 08:08] LABS: Bilirubin, Total 0.3 mg/dL (0.2-1.0); Total Protein 6.2 g/dL (5.7-8.2)
[2025-01-04 08:17] LABS: Alanine Aminotransferase 9 U/L (7-40); Aspartate Aminotransferase 10 U/L (13-40); Blood Urea Nitrogen 44 mg/dL (9-23); Magnesium 1.5 mg/dL (1.6-2.6)
--- NOTE | 2025-01-04 12:25 | DVHPN2 ---
Subjective Doing better Changes from previous H/P or p: Changes Objective Vitals Vital Signs Date Time Temp Pulse Resp B/P (MAP) Pulse Ox O2 Delivery O2 Flow Rate FiO2 01/04/25 09:13 91 102/66 01/04/25 09:00 97.8 20 94 97.8 01/03/25 20:00 Nasal Cannula* 3 32 Intake/Output Intake and Output 01/04/25 07:00 Intake Total 950 ml Output Total 2720 ml Balance -1770 ml Intake Oral 950 ml Output Urine Total 2720 ml # Voids 8 # Bowel Movements 3 General Appearance: Alert, Oriented X3, Cooperative, No acute distress Lungs: Other Cardiovascular: Regular rate, Normal S1, Normal S2 Abdomen: Normal bowel sounds, Soft, No tenderness Extremities: No edema Medications Current Medications Medications Dose Ordered Sig/Julian Route Start Time Stop Time Status Last Admin Dose Admin Sodium Chloride 10 ml Q8HR IV 01/01/25 14:00 01/04/25 05:56 10 ML Metoprolol Succinate 25 mg DAILY PO 01/02/25 10:00 01/02/25 10:26 25 MG Spironolactone 25 mg DAILY PO 01/02/25 10:00 01/04/25 11:14 25 MG Apixaban 2.5 mg BID PO 01/01/25 22:00 01/04/25 11:14 2.5 MG Ondansetron HCl 4 mg Q4HP PRN IV 01/01/25 19:15 Acetaminophen 650 mg Q6HP PRN PO 01/01/25 19:15 Empaglifozin 10 mg DAILY PO 01/03/25 10:00 01/04/25 11:14 10 MG Furosemide 40 mg BIDD IV 01/02/25 18:00 01/04/25 05:56 40 MG Laboratory Results Laboratory Tests 01/01/25 13:33 01/04/25 07:01 Chemistry Test 01/04/25 07:01 Albumin 4.1 g/dL (3.2-4.8) Calcium Level 9.7 mg/dL (8.7-10.4) Magnesium Level 1.5 mg/dL (1.6-2.6) L Total Protein 6.2 g/dL (5.7-8.2) LFT Test 01/04/25 07:01 Alanine Aminotransferase (ALT) 9 U/L (7-40) Alkaline Phosphatase 95 U/L (46-116) Aspartate Amino Transferase (AST) 10 U/L (13-40) L Total Bilirubin 0.3 mg/dL (0.2-1.0) Assessment/Plan Assessment/Plan Acute on chronic hypoxic respiratory failure Acute on chronic heart failure, systolic versus diastolic COPD on home oxygen Chronic respiratory failure Nonischemic cardiomyopathy Atrial fibrillation, intermittent paroxysmal Hypertension Pulmonary hypertension Acute kidney injury versus chronic kidney disease Plan Continue IV Lasix 40 mg twice a day Metoprolol Aldactone Jardiance Continue Eliquis Cardiology consult Echocardiogram is pending The rest of the management will depend on the hospital course Full code Advance directives discussed for 18 minute 01/03/2025: Continue diuresis Continue Eliquis Jardiance Aldactone Oxygen as needed 01/04/2025: Continue current management diuresis, Eliquis, Jardiance, Aldactone P.r.n. oxygen Monitor the patient in the hospital 1 more day Discharge planning for tomorrow Plan discussed with: Patient Date of Service: Jan 04, 2025 Billing Provider: DEENA MCCRAY MD Common Visit Codes: [id number] INP/OBS CARE(HIGH) DEENA MCCRAY MD Jan 04, 2025 12:25
[2025-01-04] MEDS: MAGNESIUM OXIDE 400 MG TAB PO ONE (13:46)
[2025-01-05 01:00] VITALS: BP 107/59; PULSE 73; RESP 19; TEMP 97.5; O2SAT 98
[2025-01-05 05:00] VITALS: BP_SYST 117; BP_SYST 89; BP_DIAS 62; BP_DIAS 72; PULSE 66; RESP 20; TEMP 98.1; O2SAT 99
[2025-01-05 08:00] VITALS: RESP 20; O2SAT 98
[2025-01-05 08:55] VITALS: BP 107/69; PULSE 83; RESP 16; TEMP 97.5; O2SAT 100
[2025-01-05] MEDS: MAGNESIUM OXIDE 400 MG TAB PO SCH (10:35)
[2025-01-05] MEDS ORDERED: EMPA1TAB PO (11:16)
[2025-01-05] MEDS ORDERED: BUM1T PO (11:16)
[2025-01-05] MEDS ORDERED: BUDE1AER16 IN (11:18)
--- NOTE | 2025-01-05 11:22 | DVHDS2 ---
Discharge Summary Date of Admission Jan 01, 2025 at 19:06 Date of Discharge: Jan 05, 2025 Labs/Diagnostic Data: Laboratory Results Test 01/04/25 07:01 01/03/25 05:30 01/02/25 15:52 01/02/25 06:29 Sodium Level 137 mmol/L (136-145) Potassium Level 4.2 mmol/L (3.5-5.1) Chloride Level 99 mmol/L (98-107) Carbon Dioxide Level 28 mmol/L (20-31) Anion Gap 10 (5-15) Blood Urea Nitrogen 44 mg/dL (9-23) Creatinine 1.48 mg/dL (0.550-1.02) Glomerular Filtration Rate Calc 37 mL/min (>90) BUN/Creatinine Ratio 29.7 (10.0-20.0) Serum Glucose 92 mg/dL (74-106) Calcium Level 9.7 mg/dL (8.7-10.4) Magnesium Level 1.5 mg/dL (1.6-2.6) Total Bilirubin 0.3 mg/dL (0.2-1.0) Aspartate Amino Transferase (AST) 10 U/L (13-40) Alanine Aminotransferase (ALT) 9 U/L (7-40) Alkaline Phosphatase 95 U/L (46-116) Total Protein 6.2 g/dL (5.7-8.2) Albumin 4.1 g/dL (3.2-4.8) Influenza Type A Antigen Negative (Negative) Influenza Type B Antigen Negative (Negative) SARS-CoV-2 Antigen (Rapid) Negative (NEGATIVE) Triglycerides Level 146 mg/dL (< 150) Cholesterol Level 159 mg/dL (< 200) LDL Cholesterol 91 mg/dL (< 100) HDL Cholesterol 46 mg/dL (40-59) Thyroid Stimulating Hormone (TSH) 3.97 uIU/mL (0.55-4.78) Test 01/01/25 18:00 01/01/25 13:33 Troponin I High Sensitivity 22 ng/L (</=34) White Blood Count 6.6 10^3/uL (4.4-10.8) Red Blood Count 4.46 10^6/uL (4.0-5.20) Hemoglobin 13.3 g/dL (12.2-16.2) Hematocrit 42.1 % (36.0-46.0) Mean Corpuscular Volume 94.4 fL (80.0-100.0) Mean Corpuscular Hemoglobin 29.8 pg (28.0-32.0) Mean Corpuscular Hemoglobin Concent 31.5 g/dL (32.0-36.0) Red Cell Distribution Width 17.1 % (11.8-14.3) Platelet Count 211 10^3/uL (140-450) Mean Platelet Volume 7.2 fL (6.9-10.8) Neutrophils (%) (Auto) % (37.0-80.0) Lymphocytes (%) (Auto) % (10.0-50.0) Monocytes (%) (Auto) % (0.0-12.0) Basophils (%) (Auto) % (0.0-2.0) Neutrophils # (Auto) 10 ^3/uL (1.6-8.6) Lymphocytes # (Auto) 10 ^3/uL (0.4-5.4) Monocytes # (Auto) 10 ^3/uL (0-1.3) Differential Total Cells Counted 100.0 (100) Neutrophils % (Manual) 66 (37.0-80.0) Band Neutrophils % (Manual) 6 Lymphocytes % (Manual) 24 (10.0-50.0) Monocytes % (Manual) 4 (0-12) Eosinophils % (Manual) 0 (0-7) Basophils % (Manual) 0 (0.0-2.0) Metamyelocytes % (manual) 0 Myelocytes % (Manual) 0 Promyelocytes % (Manual) 0 Blast Cells % (Manual) 0 Reactive Lymphocytes 0 Platelet Estimate Adequate Prothrombin Time 11.5 sec (9.3-11.8) Prothrombin Time INR 1.09 (0.9-1.15) Activated Partial Thromboplast Time 34.4 SEC (24.5-34.5) B-Type Natriuretic Peptide 630.80 pg/mL (0-100) Other Laboratory Tests 01/04/25 07:01 01/01/25 13:33 Brief Hx & Hospital Course: Final diagnoses: Acute on chronic heart failure, most likely diastolic COPD on home oxygen Chronic respiratory failure Nonischemic cardiomyopathy Atrial fibrillation, intermittent paroxysmal Hypertension Pulmonary hypertension Chronic kidney disease 74-year-old female who was admitted for shortness of breaths and abdominal distention due to fluid overload She was diuresed here successfully and she felt better She takes Bumex at home She has oxygen at home She is ready to go home now on Bumex 1 mg twice a day, add Jardiance, continue the other home medications Follow up with the primary care physician as soon as possible Condition at Discharge: Stable Final Diagnosis/Problems List Acute on chronic hypoxic respiratory failure Acute on chronic heart failure, most likely diastolic COPD on home oxygen Chronic respiratory failure Nonischemic cardiomyopathy Atrial fibrillation, intermittent paroxysmal Hypertension Pulmonary hypertension Chronic kidney disease Discharge Disposition: Home SNF Discharge Will this Physician continue t: No Discharge Statement: "Patient was advised to return to the ER or call 911 if any headaches, dizziness, shortness of breath, chest pain, abdominal pain, bleeding, fevers, or worsening of medical condition. Patient was counseled about treatment plan, medications, possible side effects, patientverbalized understanding. All questions were answered to the best of my ability. This discharge took greater then 30 minutes in planning, reviewing documentation, counseling the patient, and discussing with other team members." ASSESSMENT ASSESSMENT Assessment Date of Service: Jan 05, 2025 Billing Provider: DEENA MCCRAY MD Common Visit Codes: 14173-BWT/OBS DISCH DAY >30min DEENA MCCRAY MD Jan 05, 2025 11:22
[2025-01-05 13:00] VITALS: BP 126/73; PULSE 90; RESP 18; TEMP 98; O2SAT 95
[2025-01-05 13:09] VITALS: BP 107/69; PULSE 83; RESP 18; TEMP 97.5; O2SAT 95
== END 2025-01-05 14:51 | disposition home or self-care (01) | DRG 291 ==
LOC: ER 12:51 → OVERFLOW 19:06 → WEST WING 23:28
PROVIDERS: ADMIT Internal Medicine Geriatric Medicine; ATTEND Internal Medicine Geriatric Medicine
DX: I13.0 Hypertensive heart and chronic kidney disease with heart failure and stage 1 through stage 4 chronic kidney disease, or unspecified chronic kidney disease (principal); I50.33 Acute on chronic diastolic (congestive) heart failure; J96.21 Acute and chronic respiratory failure with hypoxia; N17.9 Acute kidney failure, unspecified; Z20.822 Contact with and (suspected) exposure to COVID-19; J44.9 Chronic obstructive pulmonary disease, unspecified; I27.21 Secondary pulmonary arterial hypertension; I42.8 Other cardiomyopathies; N18.9 Chronic kidney disease, unspecified; Z99.81 Dependence on supplemental oxygen; Z79.899 Other long term (current) drug therapy; I48.0 Paroxysmal atrial fibrillation
CPT/HCPCS: 36415; 71045; 80048; 80053; 80061; 83735; 83880; 84443; 84484; 85007; 85027; 85610; 85730; 87426; 87804; 93005; 93306; 99291; G0378

== ENCOUNTER 2025-02-04 13:04 | Inpatient (IN) | payer OTHER ==
[2025-02-04] VITALS (25 sets, daily range): BP systolic 79–127; BP diastolic 38–109; PULSE 88–157; RESP 15–31; TEMP 98.4; O2SAT 76–95
[~2025-02-04] VITALS: Ht 152.4 cm; Wt 62.1 kg
[~2025-02-04 13:04] MED LIST: APIX2.5T PO; BUDE1AER16 IN; BUM1T PO; EMPA1TAB PO; MACI1TAB2 PO; METO25TA93 PO; OMEP20TA PO; RIOC1TAB15 PO; SELE IV; SPIR25TA8 PO
[2025-02-04] MEDS: FUROSEMIDE 20 MG/2 ML VIAL IV ONE (13:30)
--- NOTE | 2025-02-04 13:34 | ED.PDOC ---
SOB-HPI HPI Comments 74 year old female presents to the ED with chief complaint of SOB. Patient reports that she has been experiencing SOB for the past 4 days, worsening over time. Patient relays that she is normally only on 3L of O2 in the night, however, she has had to be on 4L all throughout the day. Patient denies any chest pain, cough, fever, chills, congestion, dizziness, or headache. Chief Complaint: Shortness of Breath Time Seen by MD: 13:29 Reviewed notes: Nurses Notes, Medications, Allergies Information Source: Patient Mode of Arrival: Wheelchair Severity: Moderate Timing: Days Duration: Since onset Context: At Rest PE Risk Factors: None History of: COPD, CHF Prehospital treatment: Oxygen Modifying Factors: Nothing Associated Signs and Symptoms: None Past Medical History PAST MEDICAL HISTORY: CHF, COPD, DM, HTN Past Medical History (Other): Pulmonary HTN Surgical History: Denies all surgeries HIM DIRECTOR History: No Pertinent HIM DIRECTOR History Family History Family History: Unknown Social History Smoker: Non-Smoker, Quit Greater Than 1 Year Alcohol: Denies ETOH Use Drugs: Denies Drug Use Lives In: Home Constitutional: denies: chills, diaphoresis, fatigue, fever, malaise, sweats, weakness, others EENTM: denies: blurred vision, double vision, ear bleeding, ear discharge, ear drainage, ear pain, ear ringing, eye pain, eye redness, hearing loss, mouth pain, mouth swelling, nasal discharge, nose bleeding, nose congestion, nose pain , photophobia, tearing, throat pain, throat swelling, voice changes, others Respiratory: reports: shortness of breath; denies: cough, hemoptysis, orthopnea, SOB at rest, SOB with excertion, stridor, wheezing, others Cardiovascular: denies: chest pain, dizzy spells, diaphoresis, Dyspnea on exertion, edema, irregular heart beat, left arm pain, lightheadedness, palpitations, PND, syncope, others Gastrointestinal: denies: abdomen distended, abdominal pain, blood streaked bowels, constipated, diarrhea, dysphagia, difficulty swallowing, hematemesis, melena, nausea, poor appetite, poor fluid intake, rectal bleeding, rectal pain, vomiting, others Genitourinary: denies: abnormal vagina bleeding, burning, dyspareunia, dysuria, flank pain, frequency, hematuria, incontinence, pain, , vagina discharge, urgency, others Neurological: denies: dizziness, fainting, headache, left sided numbness, left sided weakness, numbness, paresthesia, pre-existing deficit, right sided numbness, right sided weakness, seizure, speech problems, tingling, tremors, weakness, others Musculoskeletal: denies: back pain, gout, joint pain, joint swelling, muscle pain, muscle stiffness, neck pain, others Integumetry: denies: bruises, change in color, change in hair/nails, dryness, laceration, lesions, lumps, rash, wounds, others Allergic/Immunocompromised: denies: Difficulty Healing, Frequent Infections, Hives, Itching, others Hematologic/Lymphatic: denies: anemia, blood clots, easy bleeding, easy bruising, swollen glands, others Endocrine: denies: excessive hunger, excessive sweating, excessive thirst, excessive urination, flushing, intolerance to cold, intolerance to heat, unexplained weight gain, unexplained weight loss, others Psychiatric: denies: anxiety, bipolar disorder, depression, hopeless, panic disorder, schizophrenia, sleepless, suicidal, others All Other Systems: Reviewed and Negative Physical Exam General Appearance: Moderate Distress, Thin HEENT: Normal ENT Inspection, PERRL/EOMI Neck: Full Range of Motion, Non-Tender, Normal, Normal Inspection Respiratory: Accessory Muscle Use, Respiratory Distress, Wheezing Cardiovascular: No Edema, No JVD, No Murmur, No Gallop, Normal Peripheral Pulses, Tachycardia Breast Exam: Deferred Gastrointestinal: No Organomegaly, Non Tender, No Pulsatile Mass, Normal Bowel Sounds, Soft Genitalia: Deferred Pelvic: Deferred Rectal: Deferred Extremities: No calf tenderness, Normal capillary refill, Normal inspection, Normal range of motion, Non-tender, No pedal edema Musculoskeletal : Apperance: Normal Neurologic: Alert, director of institutional giving II-XII nml as Tested, No Motor Deficits, Normal Affect, Normal Mood, No Sensory Deficits Cerebellar Function: NOT DONE Reflexes: NOT DONE Skin: Dry, Normal Color, Warm Peripheral Pulses: 3+ Radial (R), 3+ Radial (L) Lymphatic: No Adenopathy Was a procedure done? Was a procedure done?: No Differential Dx Differential Diagnosis: Anxiety, Asthma, Bronchitis, CHF, COPD X-Ray, Labs, Meds, VS Vital Signs Date Time Temp Pulse Resp B/P (MAP) Pulse Ox O2 Delivery O2 Flow Rate FiO2 02/04/25 16:01 86/62 02/04/25 14:00 105 30 81/60 (67) 88 02/04/25 13:36 26 88 Nasal Cannula* 4 36 02/04/25 13:30 86/61 02/04/25 13:29 98.0 99 26 91/61 (71) 88 98.0 Lab Test 02/04/25 15:44 02/04/25 13:40 Range/Units Troponin I High Sensitivity 32 32 </=34 ng/L White Blood Count 7.1 4.4-10.8 10^3/uL Red Blood Count 3.92 L 4.0-5.20 10^6/uL Hemoglobin 12.2 12.2-16.2 g/dL Hematocrit 37.0 36.0-46.0 % Mean Corpuscular Volume 94.5 80.0-100.0 fL Mean Corpuscular Hemoglobin 31.1 28.0-32.0 pg Mean Corpuscular Hemoglobin Concent 32.9 32.0-36.0 g/dL Red Cell Distribution Width 19.3 H 11.8-14.3 % Platelet Count 218 140-450 10^3/uL Mean Platelet Volume 7.0 6.9-10.8 fL Neutrophils (%) (Auto) 79.7 37.0-80.0 % Lymphocytes (%) (Auto) 10.1 10.0-50.0 % Monocytes (%) (Auto) 9.6 0.0-12.0 % Eosinophils (%) (Auto) 0.3 0.0-7.0 % Basophils (%) (Auto) 0.3 0.0-2.0 % Neutrophils # (Auto) 5.7 1.6-8.6 10 ^3/uL Lymphocytes # (Auto) 0.7 0.4-5.4 10 ^3/uL Monocytes # (Auto) 0.7 0-1.3 10 ^3/uL Eosinophils # (Auto) 0 0-0.8 10 ^3/uL Basophils # (Auto) 0 0-0.2 10 ^3/uL Nucleated Red Blood Cells 0.6 % Sodium Level 135 L 136-145 mmol/L Potassium Level 4.1 3.5-5.1 mmol/L Chloride Level 99 98-107 mmol/L Carbon Dioxide Level 26 20-31 mmol/L Anion Gap 10 5-15 Blood Urea Nitrogen 46 H 9-23 mg/dL Creatinine 2.30 H 0.550-1.02 mg/dL Glomerular Filtration Rate Calc 22 >90 mL/min BUN/Creatinine Ratio 20.0 10.0-20.0 Serum Glucose 131 H 74-106 mg/dL Calcium Level 9.3 8.7-10.4 mg/dL Current Medications Medications (Trade) Dose Ordered Sig/Julian Route Start Time Stop Time Status Last Admin Methylprednisolone Sodium Succinate (Solu Medrol) 125 mg ONCE ONCE IV 02/04/25 13:30 02/04/25 13:31 DC 02/04/25 14:09 Magnesium Sulfate/ Dextrose 100 ml @ 100 mls/hr ONCE ONCE IV 02/04/25 13:30 02/04/25 14:29 DC 02/04/25 14:08 Norepinephrine Bitartrate 250 ml @ 3.75 mls/hr Q24H IV 02/04/25 15:45 02/04/25 16:01 Patient alert. Complaining of shortness a breath. Hypotension. Establish intravenous access. Was given fluids. Was given steroid. Was given magnesium. Continues to have shortness a breath. Using accessory muscles. Kidney function elevated. Possible ATN. Placed on oxygen. Reviewed her history. Explained to the patient. Continue cardiac monitoring. EKG reviewed does not show any acute changes. Cardiac marker within normal limits. Heart rate is difficult to control. Patient does not want to be intubated. Time of 1ST Reevaluation: 14:29 Reevaluation 1ST: Unchanged Patient Education/Counseling: Diagnosis, Treatment Family Education/Counseling: No Family Present Additional Information Previous visit documents reviewed: 01/01/25 for CHF The following tests were ordered, and results were reviewed by me: CBC, BMP, UA, Troponin, Chest XR Additional Information was gathered from interviewing the following independent historians: None I reviewed and agreed with the following test results read by other providers: Chest XR I discussed treatment and results with medical personnel and: Patient Departure 1 Departure Time of Disposition: 15:43 Impression: Primary Impression: Acute respiratory failure Qualified Codes: J96.01 - Acute respiratory failure with hypoxia Additional Impressions: Acute tubular necrosis Hypotension Qualified Codes: I95.9 - Hypotension, unspecified Disposition: ADMITTED INPATIENT Admit to: Med Surg Condition: Guarded Critical Care Note Critical Care Time?: Yes (90 min-critical care time only) Critical care comment: Hypotension continue fluids Stability Stability form required: No Heart Score Heart Score: Heart Score Response (Comments) Value History Highly Suspicious 2 EKG Normal 0 Age >65 2 Risk Factors >3 or Hx ASHD 2 Troponin Normal limit 0 Total 6 I personally scribed for MASSIMO MONZON MD ([email or web address]) on 02/04/25 at 13:33. Electronically submitted by Edmundo Burden ([email or web address]). MASSIMO MONZON MD Feb 04, 2025 13:33
[2025-02-04 13:55] LABS: Basophils # (auto) 0 10 ^3/uL (0-0.2); Basophils % (auto) 0.3 % (0.0-2.0); Eosinophils # (auto) 0 10 ^3/uL (0-0.8); Eosinophils % (auto) 0.3 % (0.0-7.0); Hemoglobin 12.2 g/dL (12.2-16.2); Lymphocytes # (auto) 0.7 10 ^3/uL (0.4-5.4); Lymphocytes % (auto) 10.1 % (10.0-50.0); Mean Corpuscular Hemoglobin 31.1 pg (28.0-32.0); Mean Corpuscular Hgb Conc. 32.9 g/dL (32.0-36.0); Mean Corpuscular Volume 94.5 fL (80.0-100.0); Monocytes # (auto) 0.7 10 ^3/uL (0-1.3); Monocytes % (auto) 9.6 % (0.0-12.0); Neutrophils # (auto) 5.7 10 ^3/uL (1.6-8.6); Neutrophils % (auto) 79.7 % (37.0-80.0); Nucleated Red Blood Cells % 0.6 %; Platelet Count (auto) 218 10^3/uL (140-450); Red Blood Cells 3.92 10^6/uL (4.0-5.20); Red Cell Distribution Width 19.3 % (11.8-14.3); White Blood Cell 7.1 10^3/uL (4.4-10.8)
--- NOTE | 2025-02-04 14:03 | DVH ---
CHEST RADIOGRAPH Indication: sob Technique: Single frontal view of the chest was obtained COMPARISON: XY CHEST PORTABLE on DOS: 01/01/25 FINDINGS: Lines and Tubes: None Lungs: Right lower lobe airspace disease. Congestion. Pleura: Small left pleural effusion No pneumothorax. Cardiomediastinal contours: Cardiomegaly Bones: Unremarkable IMPRESSION: Pulmonary vascular congestion. Right lower lobe airspace disease. Small left pleural effusion.
[2025-02-04] MEDS: MAGNESIUM SULFATE 1GM/100ML 100 ML IV ONE (14:08)
[2025-02-04 14:09] LABS: Chloride 99 mmol/L (98-107); Potassium 4.1 mmol/L (3.5-5.1)
[2025-02-04] MEDS: methylPREDNISolone SOD SUCC 125 MG/2 ML VL IV ONE (14:09)
[2025-02-04 14:10] LABS: Anion Gap 10 (5-15); Carbon Dioxide 26 mmol/L (20-31)
[2025-02-04 14:11] LABS: Calcium 9.3 mg/dL (8.7-10.4)
[2025-02-04 14:18] LABS: Blood Urea Nitrogen 46 mg/dL (9-23); Glucose 131 mg/dL (74-106); Sodium 135 mmol/L (136-145)
[2025-02-04] MEDS: NOREPINEPHRINE 8 MG/250ML KIT 250 ML IV ONE (14:58)
[2025-02-04] MEDS: SODIUM CHLORIDE 0.9% 1,000 ML IV ONE (15:48)
[2025-02-04] MEDS: NOREPINEPHRINE 8 MG/250ML KIT 250 ML IV SCH (16:01)
[2025-02-04 16:36] LABS: Base Excess -1.9 mmol/L (-2.0-3.0)
[2025-02-04] MEDS: LORazepam 2MG/ML-1ML VIAL IV ONE ×2 (16:44→18:05)
[2025-02-04] MEDS: ONDANSETRON HCL 4 MG/2 ML VIAL IV ONE (17:22)
[2025-02-04] MEDS: MORPHINE SULFATE INJ 2 MG/ml SYRG IV ONE (17:57)
[2025-02-04] MEDS ORDERED: ACETAMINOPHEN 325 MG TAB PO PRN (19:30)
[2025-02-04] MEDS ORDERED: MORPHINE SULFATE INJ 2 MG/ml SYRG IV PRN (19:30)
[2025-02-04] MEDS ORDERED: NITROGLYCERIN 0.4 MG SL TAB SL PRN (19:30)
[2025-02-04] MEDS ORDERED: ONDANSETRON HCL 4 MG/2 ML VIAL IV PRN (19:30)
[2025-02-04] MEDS ORDERED: DEXTROSE (50%) 50ML SYRG IV PRN (19:30)
[2025-02-04] MEDS: AMIODARONE BOLUS KIT 100 ML IV ONE (21:38)
[2025-02-04] MEDS: methylPREDNISolone SOD SUCC 40 MG/ML VL IV SCH (21:38)
[2025-02-04] MEDS: ACCU-CHEK COMFORT CURVE STRIP VI SCH (21:39)
[2025-02-04] MEDS: AMIODARONE 360mg/200mL PREMIX 200 ML IV ONE (21:39)
[2025-02-04] MEDS: cefTRIAXone 1GM/50ML D5W 50 ML IV ONE (21:39)
[2025-02-04] MEDS: AZITHROMYCIN 500MG/ 250ML 250 ML IV ONE (21:39)
[2025-02-04] MEDS: HYDROcodone-ACET 5/325MG TAB PO PRN (21:45)
[2025-02-04] MEDS: APIXABAN 2.5 MG TAB PO SCH (22:07)
[2025-02-04] MEDS: InsuLIN REG 1unit/0.01ml Soln (100units/ml) SC SCH (22:08)
--- NOTE | 2025-02-04 23:41 | DVHHP2 ---
History of Present Illness Reason for Visit: Shortness for breath History of Present Illness 74-year-old female presents for evaluation of shortness for breath. Patient reports four day history of worsening shortness for breath. Patient reports using oxygen currently at 3 L per nasal cannula. Denies any chest pain. Patient was noted to be in AFib with rapid ventricular response. Denies cough or fever. No abdominal pain. No other acute symptoms. Past Medical History Hypertension, diabetes mellitus, pulmonary hypertension, COPD, CHF Past Surgical History Denies Family History Noncontributory Smoke: No ALCOHOL: none Drugs: None Lives: with Family Review of Systems Review of Systems Review of systems are currently negative otherwise addressed in HPI. Allergies: Coded Allergies: NO KNOWN ALLERGIES (Unverified , 01/01/25) Medications Current Medications Medications Dose Ordered Sig/Julian Route Start Time Stop Time Status Last Admin Dose Admin Norepinephrine Bitartrate 250 ml @ 3.75 mls/hr Q24H IV 02/04/25 15:45 02/04/25 16:01 3.75 MLS/HR Albuterol 2.5 mg Q6HPRN PRN NEB 02/04/25 19:30 Ipratropium [place] 0.5 mg Q6HPRN PRN NEB 02/04/25 19:30 Apixaban 2.5 mg BID PO 02/04/25 22:00 02/04/25 22:07 2.5 MG Furosemide 20 mg BIDD IV 02/05/25 06:00 Empaglifozin 10 mg DAILY PO 02/05/25 10:00 Methylprednisolone Sodium Succinate 40 mg BID IV 02/04/25 22:00 02/04/25 21:38 40 MG Ceftriaxone Sodium 50 ml @ 100 mls/hr DAILY@09 IV 02/05/25 09:00 Azithromycin 250 ml @ 125 mls/hr DAILY IV 02/05/25 10:00 Diagnostic Test (Pha) 1 strip ACHS 02/04/25 22:00 02/04/25 21:39 1 STRIP Insulin Human Regular ACHS SC 02/04/25 22:00 02/04/25 22:08 6 UNITS Dextrose 50 ml UD PRN IV 02/04/25 19:30 Ondansetron HCl 4 mg Q4HP PRN IV 02/04/25 19:30 Acetaminophen 650 mg Q6HP PRN PO 02/04/25 19:30 Nitroglycerin 0.4 mg Q5MINP PRN SL 02/04/25 19:30 Morphine Sulfate 2 mg Q30M PRN IV 02/04/25 19:30 Acetaminophen/ Hydrocodone Bitart 1 tab Q8HPRN PRN PO 02/04/25 21:15 02/04/25 21:45 1 TAB Exam Vital Signs Vital Signs Date Time Temp Pulse Resp B/P (MAP) Pulse Ox O2 Delivery O2 Flow Rate FiO2 02/04/25 23:20 90/50 02/04/25 20:32 130 02/04/25 19:35 16 95 3.0 02/04/25 19:30 Nasal Cannula* 40 02/04/25 19:15 98.9 98.9 Exam Gen: 74-year-old female in mild distress Skin: Warm, dry, normal color and texture, no rash. HEENT: Normocephalic atraumatic, mucous membranes moist and pink. Neck: Cervical and supraclavicular nodes normal without enlargement, trachea is midline, thyroid gland is normal without masses. Pulmonary: Clear to auscultation and percussion bilaterally. Cardiac: Irregular rhythm Abdomen: Soft, nontender, nondistended, bowel sounds present all 4 quadrants, no guarding, no rigidity, no organomegaly. Extremities: No cyanosis, clubbing, no edema Neuro: Cranial nerves II through XII grossly intact, normal affect and speech, no focal motor deficits. Labs/Xrays ORDERING PHYSICIAN: NELA MARIE PROCEDURE(s): ECIDC - ECHO 2D MODE CARDIAC DOP REASON: ef ORDER NUMBER(s): [id number], ACCESSION NUMBER(s): [id number] APPROVED REPORT EXAM: Two-dimensional and M-mode echocardiogram with Doppler and color Doppler. Blood Pressure: 118/60 mmHg INDICATION ef RISK FACTORS Height: 5'1, Weight: 139 DIMENSIONS LVDd 4.1 (3.8-5.7cm) LA (2D) 4.7 (1.9-4.0cm) Aortic Root 3.5 (2.0- 3.7cm) LVDs 2.4 (2.5-4.0cm) LA (MM) (1.9-4.0cm) Aortic Cusp Exc 1.3 (1.5- 2.0cm) EF (%) 60.0 (55-70%) Rt. Atrium 5.3 (1.9-4.0cm) Asc. Aorta cm IVSd 0.9 (0.7-1.1cm) RV (D) (1.8-2.4cm) PWd 1.1 (0.7-1.1cm) Mitral Valve Mitral Mitral Stenosis E wave 0.72m/s MV Mean GR. mmHg A wave m/s MV Peak GR. 86mmHg E/A ratio 0.0 2D MVA cm2 DECEL Time 139ms PRESS 1/2 Time ms Aortic Valve Aortic Valve Aortic Stenosis V1 1.04m/s AO Mean GR. 7mmHg V2 1.74m/s AO Peak GR. 12mmHg LVOT Diameter 2.1 (1.8-2.4cm) Doppler GRETA 2.07cm2 Pulmonic Valve V2 0.96m/s Tricuspid Valve TR Velocity 3.70m/s RVSP 68mmHg Conclusion Normal LV size and systolic function. LVEF 60-65%. Abnormal septal motion due to RV pressure and volume overload. Unable to assess diastolic function due to AF. [id number] RV enlargement with reduced systolic function. Severe RA enlargement. Moderate LA enlargement Trileaflet aortic valve with mild sclerosis. Mild MAC. Mild MR. [id number]-lc-[id number] eccentric TR. RVSP estimated at 63 mmHg based on an RAP of 8 mmHg. Dilated IVC with normal collapse. Small pericardial effusion. Atrial fibrillation. SIGNED BY: MODESTO COX DO SIGNED DATE/TIME: 01/02/25 CC: ORDERING PHYSICIAN: MASSIMO MONZON MD PROCEDURE(s): CXRP - CHEST PORTABLE REASON: sob ORDER NUMBER(s): [id number], ACCESSION NUMBER(s): [id number] CHEST RADIOGRAPH Indication: sob Technique: Single frontal view of the chest was obtained COMPARISON: XY CHEST PORTABLE on DOS: 01/01/25 FINDINGS: Lines and Tubes: None Lungs: Right lower lobe airspace disease. Congestion. Pleura: Small left pleural effusion No pneumothorax. Cardiomediastinal contours: Cardiomegaly Bones: Unremarkable IMPRESSION: Pulmonary vascular congestion. Right lower lobe airspace disease. Small left pleural effusion. Labs Test 02/04/25 22:00 02/04/25 20:00 02/04/25 19:05 02/04/25 16:31 Range/Units POC Glucose 297 H 70-106 mg/dl D-Dimer, Quantitative 1.30 H 0.0-0.49 mg/L FEU Lactic Acid Level 0.9 0.4-2.0 mmol/L B-Type Natriuretic Peptide 317.58 0-100 pg/mL Troponin I High Sensitivity 30 </=34 ng/L Blood Gas Specimen Type Arterial Blood Gas Sample Site Right radial Blood Gas Patient Temperature 37.0 Arterial Blood Date Drawn [id number] Arterial Blood pH 7.480 H 7.350-7.450 Arterial Blood Partial Pressure CO2 28.1 L 32.0-45.0 mmHg Arterial Blood Partial Pressure O2 62.4 L 83.0-108.0 mmHg Arterial Blood HCO3 20.5 L 21.0-28.0 mmol/L Arterial Blood Oxygen Saturation 90.7 L 94.0-98.0 % Arterial Blood Base Excess -1.9 -2.0-3.0 mmol/L Arterial Blood Oxyhemoglobin 89.4 L 94.0-98.0 % Arterial Blood Carboxyhemoglobin 0.8 0.5-1.5 % Arterial Blood Methemoglobin 0.6 0.0-1.5 % Esvin Test Yes Blood Gas Total Hemoglobin 12.40 12.0-16.0 g/dL Blood Gas Liter Flow 6.00 Blood Gas Modality Nasal cannula FiO2 % 44.0 Test 02/04/25 13:40 Range/Units White Blood Count 7.1 4.4-10.8 10^3/uL Red Blood Count 3.92 L 4.0-5.20 10^6/uL Hemoglobin 12.2 12.2-16.2 g/dL Hematocrit 37.0 36.0-46.0 % Mean Corpuscular Volume 94.5 80.0-100.0 fL Mean Corpuscular Hemoglobin 31.1 28.0-32.0 pg Mean Corpuscular Hemoglobin Concent 32.9 32.0-36.0 g/dL Red Cell Distribution Width 19.3 H 11.8-14.3 % Platelet Count 218 140-450 10^3/uL Mean Platelet Volume 7.0 6.9-10.8 fL Neutrophils (%) (Auto) 79.7 37.0-80.0 % Lymphocytes (%) (Auto) 10.1 10.0-50.0 % Monocytes (%) (Auto) 9.6 0.0-12.0 % Eosinophils (%) (Auto) 0.3 0.0-7.0 % Basophils (%) (Auto) 0.3 0.0-2.0 % Neutrophils # (Auto) 5.7 1.6-8.6 10 ^3/uL Lymphocytes # (Auto) 0.7 0.4-5.4 10 ^3/uL Monocytes # (Auto) 0.7 0-1.3 10 ^3/uL Eosinophils # (Auto) 0 0-0.8 10 ^3/uL Basophils # (Auto) 0 0-0.2 10 ^3/uL Nucleated Red Blood Cells 0.6 % Sodium Level 135 L 136-145 mmol/L Potassium Level 4.1 3.5-5.1 mmol/L Chloride Level 99 98-107 mmol/L Carbon Dioxide Level 26 20-31 mmol/L Anion Gap 10 5-15 Blood Urea Nitrogen 46 H 9-23 mg/dL Creatinine 2.30 H 0.550-1.02 mg/dL Glomerular Filtration Rate Calc 22 >90 mL/min BUN/Creatinine Ratio 20.0 10.0-20.0 Serum Glucose 131 H 74-106 mg/dL Calcium Level 9.3 8.7-10.4 mg/dL Assessment/Plan Assessment/Plan Assessment AFib with RVR Community-acquired pneumonia Acute hypoxic respiratory failure CHF Acute on chronic renal failure Plan Admit the patient to ICU to the hospitalist Rocephin/azithromycin Med nebs Amiodarone drip Cardiology consultation Continue treatment per orders. Total critical care time excluding procedures performed this 50 minutes. Plan discussed with: Patient My Orders Orders - NELA MARIE Procedure Category Date Status Time Albuterol Medneb PHA 02/04/25 In Process (Ventolin Medneb) 19:30 Ipratropium Medneb PHA 02/04/25 In Process (Atrovent Medneb) 19:30 Apixaban (Eliquis) PHA 02/04/25 In Process 22:00 Furosemide Injection PHA 02/05/25 In Process (Lasix Injection) 06:00 Empagliflozin PHA 02/05/25 In Process (Jardiance) 10:00 Methylprednisolone PHA 02/04/25 In Process Sod Succ (Solu Medrol 22:00 Ceftriaxone 1gm/50ml PHA 02/05/25 In Process D5w (Rocephin) 09:00 Azithromycin 500mg/ PHA 02/05/25 In Process 250ml (Zithromax 50 10:00 Glucose Blood PHA 02/04/25 In Process (Accu-Chek Comfort 22:00 Insulin R (Human) PHA 02/04/25 In Process (Insulin R) 22:00 Dextrose 50% Syringe PHA 02/04/25 In Process 19:30 Admit ADMIT 02/04/25 Transmitted 19:17 Renal DIET 02/05/25 Transmitted Standard(2gna,3gk,Lopho) Breakfast Ondansetron Hcl PHA 02/04/25 In Process (Zofran) 19:30 Complete Blood Count LAB 02/05/25 Verified 04:00 Comprehensive LAB 02/05/25 Verified Metabolic Panel 04:00 Condition: Critical DANA 02/04/25 In Process 19:17 Acetaminophen Tablet PHA 02/04/25 In Process (Tylenol Tablet) 19:30 Bedrest With Bathroom DANA 02/04/25 In Process Privileg 19:17 Nitroglycerin PHA 02/04/25 In Process Sublingual (Ntrostat 19:30 Morphine Sulfate PHA 02/04/25 In Process Injection 19:30 Stat Ekg For Chest DANA 02/04/25 In Process Pain 19:17 Notify Of Changes DANA 02/04/25 In Process From Base 19:17 Swabber For DANA 02/04/25 In Process 24 Hours 19:17 Emergency Dysrhythmia DANA 02/04/25 In Process Protocol 19:17 Rhythm Strips Once DANA 02/04/25 In Process Every Shift 19:17 Oxygen By Nasal RT 02/04/25 Transmitted Cannula 19:17 Covid19 Antigen Lisseth LAB 02/04/25 In Process Rapid Influenza A&B LAB 02/04/25 In Process 20:58 * Cardiology Consult CONS 02/04/25 Transmitted 21:10 Hydrocodone-Acet PHA 02/04/25 In Process 5/325mg Tab ([place] 21:15 Electrocardigram EKG 02/04/25 Logged 21:09 Amiodarone PHA 02/04/25 In Process 360mg/200ml Premix 21:45 Amiodarone PHA 02/05/25 In Process 360mg/200ml Premix 03:45 PTPTT LAB 02/05/25 Verified 04:00 Nm Vq Scan NM 02/04/25 Logged 23:25 Mrsa Screen RUSTY 02/04/25 In Process 22:00 Date of Service: Feb 04, 2025 Billing Provider: NELA MARIE Common Visit Codes: [id number] CARE 30-74 MIN NELA MARIE Feb 04, 2025 23:41
[2025-02-05] VITALS (95 sets, daily range): BP systolic 80–139; BP diastolic 42–85; PULSE 54–146; RESP 11–30; TEMP 97.4–98.4; O2SAT 78–100
[2025-02-05 00:30] LABS: COVID19 ANTIGEN SOFIA FIA NEGATIVE (NEGATIVE); Rapid Influenza A Negative (Negative); Rapid Influenza B Negative (Negative)
[2025-02-05 01:17] LABS: INR 1.2 (0.9-1.15); Partial Thromboplastin Time 35.3 SEC (24.5-34.5); Prothrombin Time 12.5 sec (9.3-11.8)
--- NOTE | 2025-02-05 01:17 | DVHNC2 ---
UMANG MACEDO [facility] 02/05/25 0117: Procedure - Central Line Procedure Note Date and time: 02/05/2025, at 12:30 a.m. Indication: Vascular Access Central Line Location: Right Internal Jugular Vein Procedure Hydro Station Operator: Umang Macedo, Resident Attending Physician: Dr. Yoo Consent: Consent was obtained from patient prior to the procedure. Indications, risks and benefits were discussed prior to the procedure. Procedure Summary: A time out was performed. My hands were washed immediately prior to the procedure. I wore a surgical cap, mask with protective eyewear, full gown and sterile gloves throughout the procedure. The patient was placed in Trendelenburg position, with head turned 30 degrees away from the insertion site. The Right neck was prepped using chlorhexidine scrub and draped in sterile fashion using a three quarter sheet drape and sterile towels. Skin preparation was allowed to dry prior to skin puncture. Anatomic landmarks were identified. Anesthesia was achieved over the vein using 5 ml of 1% lidocaine. Using real-time ultrasound, with sterile probe cover and sterile gel, the Right or Jugular Vein was identified on ultrasound using the linear ultrasound probe in the transverse orientation. The carotid artery was identified and avoided utilizing color-flow. The Internal Jugular Vein was then placed in the center of the ultrasound field and compressed for patency. The introducer needle was inserted into the vein under direct ultrasound visualization, and a movement artifact was identified as the needle was advanced through the skin toward the vessel. A real-time hyperechoic signal revealed visualization of vascular needle entry into the lumen as blood was noted to flashback in the syringe. The needle was then held in place, the syringe was removed, and the guide wire was advanced through the needle. Direct visualization of the guide wire location within the vein was noted on ultrasound, indicating proper placement. The needle was then removed. A small incision was made at the skin surface with a scalpel, and a skin dilator was advanced over the guide wire. After appropriate dilation was obtained, the dilator was removed, and a triple-lumen catheter was then advanced over the guide wire into proper position. The guide wire was removed and discarded. The ports were aspirated, which showed good blood return, and then carefully flushed with normal saline. The catheter was stabilized and sutured to the skin with 2-0 silk at two anchor points. A sterile op-site was placed over the catheter and biopatch. The patient tolerated the procedure without any hemodynamic c ompromise. Estimated blood loss: 5 ml Post-procedure chest x-ray: Shows proper positioning of the catheter for use. CHUCHO MOSQUEDA MD 02/05/25 1720: Date of Service: Feb 05, 2025 Billing Provider: CHUCHO MOSQUEDA MD Common Visit Codes: PROCEDURE ONLY Procedure Codes: [id number] NON-TUNNEL CV CATH UMANG MACEDO Feb 05, 2025 01:17 CHUCHO MOSQUEDA MD Feb 05, 2025 17:20
--- NOTE | 2025-02-05 01:55 | DVH ---
CHEST RADIOGRAPH Indication: Central Line Placement Confirmation Technique: Single frontal view of the chest was obtained COMPARISON: XY CHEST PORTABLE on DOS: 02/04/25, XY CHEST PORTABLE on DOS: 01/01/25 FINDINGS / IMPRESSION: Lines and Tubes: Interval insertion of right IJ central venous catheter with its tip projecting over SVC. Lungs / Pleura: Atelectasis/consolidation in left mid to lower lung and possible left pleural effusio n with progression compared to the prior chest x-ray from 02/04/25. No evidence of pulmonary edema. No pneumothorax. Cardiomediastinal contours: Marked cardiomegaly.
[2025-02-05] MEDS: AMIODARONE 360mg/200mL PREMIX 200 ML IV SCH (03:31)
[2025-02-05] MEDS: ALBUTEROL SULF 2.5 MG/0.5ML(0.5%) NEB SOLN NEB PRN (04:28)
[2025-02-05 04:59] LABS: Basophils # (auto) 0 10 ^3/uL (0-0.2); Basophils % (auto) 0.1 % (0.0-2.0); Eosinophils # (auto) 0 10 ^3/uL (0-0.8); Eosinophils % (auto) 0.1 % (0.0-7.0); Hematocrit 34.1 % (36.0-46.0); Hemoglobin 10.9 g/dL (12.2-16.2); Lymphocytes # (auto) 0.3 10 ^3/uL (0.4-5.4); Lymphocytes % (auto) 5.9 % (10.0-50.0); Mean Corpuscular Hemoglobin 30.7 pg (28.0-32.0); Mean Corpuscular Volume 95.8 fL (80.0-100.0); Monocytes # (auto) 0.3 10 ^3/uL (0-1.3); Monocytes % (auto) 4.4 % (0.0-12.0); Neutrophils # (auto) 5.3 10 ^3/uL (1.6-8.6); Neutrophils % (auto) 89.5 % (37.0-80.0); Nucleated Red Blood Cells % 0.7 %; Platelet Count (auto) 208 10^3/uL (140-450); Red Blood Cells 3.56 10^6/uL (4.0-5.20); Red Cell Distribution Width 19.2 % (11.8-14.3); White Blood Cell 5.9 10^3/uL (4.4-10.8)
[2025-02-05 05:14] LABS: INR 1.18 (0.9-1.15); Partial Thromboplastin Time 39.4 SEC (24.5-34.5); Prothrombin Time 12.3 sec (9.3-11.8)
[2025-02-05 05:26] LABS: Alanine Aminotransferase 13 U/L (7-40); Albumin 4.4 g/dL (3.2-4.8); Alkaline Phosphatase 109 U/L (46-116); Anion Gap 13 (5-15); BUN/Creatinine Ratio 18.9 (10.0-20.0); Calcium 9.1 mg/dL (8.7-10.4); Carbon Dioxide 23 mmol/L (20-31); Chloride 98 mmol/L (98-107); Potassium 4.1 mmol/L (3.5-5.1)
[2025-02-05 05:47] LABS: Aspartate Aminotransferase < 8 U/L (13-40); Bilirubin, Total 0.3 mg/dL (0.2-1.0); Blood Urea Nitrogen 54 mg/dL (9-23); Glucose 177 mg/dL (74-106); Sodium 134 mmol/L (136-145)
[2025-02-05] MEDS: FUROSEMIDE 20 MG/2 ML VIAL IV SCH (06:20)
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
[2025-02-05] MEDS: cefTRIAXone 1GM/50ML D5W 50 ML IV SCH (07:42)
[2025-02-05] MEDS: EMPAGLIFLOZIN 10 MG TAB PO SCH (09:18)
[2025-02-05] MEDS: AZITHROMYCIN 500MG/ 250ML 250 ML IV SCH (09:20)
--- NOTE | 2025-02-05 11:20 | DVHINCON2 ---
Date Seen: Feb 05, 2025 Referring Physician GIULIA Cr Reason for Consultation A-fib with RVR History of Present Illness This is a 74-year-old female who presented to the emergency room with a chief complaint of shortness of breath for five days. The patient complains of progressive shortness of breath associated with nausea, vomiting, cough and anxiety. Endorses drinking some bacardi rum during the past few days to help with her symptoms. Denies chest pain, palpitations, diaphoresis, dizziness, or syncopal events. Upon arrival to the emergency room she was found with oxygen saturation levels at 88% on room air for which she was provided supplemental oxygenation. She underwent an initial 12 lead electrocardiogram revealing an atrial fibrillation rhythm with a heart rate in the 130s bpm. At time of assessment, she was found with a-fib at a controlled rate and amiodarone drip infusing. Serial troponin levels are negative. Follows up in the outpatient setting with the primary show card writer at [facility]. States she has undergone multiple unspecified invasive cardiac procedures but no history of PCIs with stent placement. Significant medical history includes unspecified atrial fibrillation on Eliquis/metoprolol therapy, congestive heart failure, pulmonary hypertension, hypertension, and COPD. Past Medical History Past medical history reviewed. No other significant than mentioned above. Past Surgical History Left lumpectomy Family History: FH: cancer G8 SISTER Family History Family history reviewed. Social History Denies the use of illicit drugs or tobacco use. Admits to recent alcohol use. Allergies: Coded Allergies: NO KNOWN ALLERGIES (Unverified , 01/01/25) Home Meds Active Scripts Budesonide-Formoterol Fumarate (Breyna 160-4.5 Mcg/Act) 1 Aer Aer, 1 AER IN BID for 30 Days, #1 INHALER Prov:DEENA MCCRAY MD 01/05/25 Empagliflozin (Jardiance) 10 Mg Tab, 10 MG PO DAILY for 30 Days, #30 TAB 5 Refills Prov:DEENA MCCRAY MD 01/05/25 Bumetanide (Bumex Tablet) 1 Mg Tab, 1 MG PO BID for 30 Days, #60 TAB 5 Refills BLK BX WARNING-CAN LEAD TO PROFOUND DIURESIS WITH FLUID- ELECTROLYTE LOSS Prov:DEENA MCCRAY MD 01/05/25 Reported Medications Selexipag (Uptravi) 1,800 Mcg Inj, 1600 MCG IV, TAB 01/01/25 Metoprolol Succinate (Metoprolol Succinate Er) 25 Mg Tab, 25 MG PO DAILY for 30 Days, MG 01/01/25 Riociguat Base (Adempas) 2.5 Mg Tab, 2.5 MG PO TID, TAB 01/01/25 Apixaban Base (ELIQUIS) 2.5 Mg Tab, 2.5 MG PO BID, TAB 01/01/25 Macitentan (Opsumit) 10 Mg Tab, 10 MG PO, TAB 01/01/25 Omeprazole (Gnp Omeprazole) 20 Mg Tab, 1 TAB PO DAILY, #90 TAB 1 Refill 01/01/25 Home Meds Home medications reviewed. Current Medications Current Medications Medications (Trade) Dose Ordered Sig/Julian Route PRN Reason Start Time Stop Time Status Last Admin Norepinephrine Bitartrate 250 ml @ 3.75 mls/hr Q24H IV 02/04/25 15:45 02/05/25 06:44 Albuterol (Ventolin Medneb) 2.5 mg Q6HPRN PRN NEB SHORTNESS OF BREATH 02/04/25 19:30 02/05/25 04:28 Ipratropium [place] (Atrovent Medneb) 0.5 mg Q6HPRN PRN NEB SHORTNESS OF BREATH 02/04/25 19:30 Apixaban (Eliquis) 2.5 mg BID PO 02/04/25 22:00 02/05/25 09:18 Furosemide (Lasix Injection) 20 mg BIDD IV 02/05/25 06:00 02/05/25 06:20 Empaglifozin (Jardiance) 10 mg DAILY PO 02/05/25 10:00 02/05/25 09:18 Methylprednisolone Sodium Succinate (Solu Medrol) 40 mg BID IV 02/04/25 22:00 02/05/25 09:18 Ceftriaxone Sodium 50 ml @ 100 mls/hr DAILY@09 IV 02/05/25 09:00 02/05/25 07:42 Azithromycin 250 ml @ 125 mls/hr DAILY IV 02/05/25 10:00 02/05/25 09:20 Diagnostic Test (Pha) (Accu-Chek Comfort Curve T) 1 strip ACHS 02/04/25 22:00 02/05/25 06:09 Insulin Human Regular (InsuLIN R) ACHS SC 02/04/25 22:00 02/05/25 06:15 Dextrose 50 ml UD PRN IV Blood Sugar LESS THAN 60 02/04/25 19:30 Ondansetron HCl (Zofran) 4 mg Q4HP PRN IV NAUSEA / VOMITING 02/04/25 19:30 Acetaminophen (Tylenol Tablet) 650 mg Q6HP PRN PO PAIN SCALE 1-3 OR TEMP>100.4 02/04/25 19:30 Nitroglycerin (Ntrostat Sublingual) 0.4 mg Q5MINP PRN SL FOR CHEST PAIN 02/04/25 19:30 Morphine Sulfate 2 mg Q30M PRN IV FOR CHEST PAIN 02/04/25 19:30 Acetaminophen/ Hydrocodone Bitart ([place] 5/325MG Tab) 1 tab Q8HPRN PRN PO MODERATE PAIN (4-6 PAIN SCALE) 02/04/25 21:15 02/05/25 09:29 Review of Systems Constitutional: No symptom reported Ears, Nose, & Throat: No symptom reported Eyes: No symptom reported Neurological: No symptoms reported Pulmonary/Respiratory: SOB Cardiovascular: No symptom reported Gastrointestinal: N/V Genitourinary: No symptom reported Musculoskeletal: No symptom reported Skin: No symptom reported Psychiatric: No symptom reported Endocrine: No symptom reported Hemotologic/Lymphatic: No symptom reported Vital Signs Vital Signs Date Time Temp Pulse Resp B/P (MAP) Pulse Ox O2 Delivery O2 Flow Rate FiO2 02/05/25 10:00 86 18 99/58 (72) 92 02/05/25 10:00 Oxymizer 12 N/A 02/05/25 04:00 98.4 98.4 Physical Exam General Appearance: Cooperative. Well developed. Well nourished. In no acute distress Head Exam: Normal inspection Neck Exam: Normal inspection. Non-tender. Normal alignment Pulmonary/Respiratory: Chest non-tender. Crackles to bilateral breath sounds Cardiovascular/Chest: Irregularly irregular rate and rhythm. AFib, controlled rate. No murmurs. No JVD. Peripheral Pulses: 2+ Radial (R). 2+ Radial (L). 2+ Pedal (R). 2+ Pedal (L) Abdominal Exam: Normal bowel sounds. Soft. Nontender. No hepatospenomegaly. No masses Ankle Exam: Negative ankle edema Lower extremities: Negative lower extremity edema Neuro/Mental Status: A&O x4. Coherent Thoughts/Psych: Normal thought pattern. Appropriate mood and affect. Good judgement and insight Appearance: In no acute distress Skin Exam: Normal inspection. Normal color. Warm. Dry Labs/Diagnostic Data Labs Test 02/05/25 06:00 02/05/25 04:33 02/04/25 22:00 02/04/25 20:00 Range/Units POC Glucose 168 H 70-106 mg/dl White Blood Count 5.9 4.4-10.8 10^3/uL Red Blood Count 3.56 L 4.0-5.20 10^6/uL Hemoglobin 10.9 L 12.2-16.2 g/dL Hematocrit 34.1 L 36.0-46.0 % Mean Corpuscular Volume 95.8 80.0-100.0 fL Mean Corpuscular Hemoglobin 30.7 28.0-32.0 pg Mean Corpuscular Hemoglobin Concent 32.0 32.0-36.0 g/dL Red Cell Distribution Width 19.2 H 11.8-14.3 % Platelet Count 208 140-450 10^3/uL Mean Platelet Volume 7.3 6.9-10.8 fL Neutrophils (%) (Auto) 89.5 H 37.0-80.0 % Lymphocytes (%) (Auto) 5.9 L 10.0-50.0 % Monocytes (%) (Auto) 4.4 0.0-12.0 % Eosinophils (%) (Auto) 0.1 0.0-7.0 % Basophils (%) (Auto) 0.1 0.0-2.0 % Neutrophils # (Auto) 5.3 1.6-8.6 10 ^3/uL Lymphocytes # (Auto) 0.3 L 0.4-5.4 10 ^3/uL Monocytes # (Auto) 0.3 0-1.3 10 ^3/uL Eosinophils # (Auto) 0 0-0.8 10 ^3/uL Basophils # (Auto) 0 0-0.2 10 ^3/uL Nucleated Red Blood Cells 0.7 % Prothrombin Time 12.3 H 9.3-11.8 sec Prothrombin Time INR 1.18 H 0.9-1.15 Activated Partial Thromboplast Time 39.4 H 24.5-34.5 SEC Sodium Level 134 L 136-145 mmol/L Potassium Level 4.1 3.5-5.1 mmol/L Chloride Level 98 98-107 mmol/L Carbon Dioxide Level 23 20-31 mmol/L Anion Gap 13 5-15 Blood Urea Nitrogen 54 H 9-23 mg/dL Creatinine 2.86 H 0.550-1.02 mg/dL Glomerular Filtration Rate Calc 17 >90 mL/min BUN/Creatinine Ratio 18.9 10.0-20.0 Serum Glucose 177 H 74-106 mg/dL Calcium Level 9.1 8.7-10.4 mg/dL Total Bilirubin 0.3 0.2-1.0 mg/dL Aspartate Amino Transferase (AST) < 8 L 13-40 U/L Alanine Aminotransferase (ALT) 13 7-40 U/L Alkaline Phosphatase 109 46-116 U/L Total Protein 7.0 5.7-8.2 g/dL Albumin 4.4 3.2-4.8 g/dL Influenza Type A Antigen Negative Negative Influenza Type B Antigen Negative Negative SARS-CoV-2 Antigen (Rapid) Negative NEGATIVE D-Dimer, Quantitative 1.30 H 0.0-0.49 mg/L FEU Lactic Acid Level 0.9 0.4-2.0 mmol/L B-Type Natriuretic Peptide 317.58 0-100 pg/mL Test 02/04/25 19:05 02/04/25 16:31 Range/Units Troponin I High Sensitivity 30 </=34 ng/L Blood Gas Specimen Type Arterial Blood Gas Sample Site Right radial Blood Gas Patient Temperature 37.0 Arterial Blood Date Drawn [id number] Arterial Blood pH 7.480 H 7.350-7.450 Arterial Blood Partial Pressure CO2 28.1 L 32.0-45.0 mmHg Arterial Blood Partial Pressure O2 62.4 L 83.0-108.0 mmHg Arterial Blood HCO3 20.5 L 21.0-28.0 mmol/L Arterial Blood Oxygen Saturation 90.7 L 94.0-98.0 % Arterial Blood Base Excess -1.9 -2.0-3.0 mmol/L Arterial Blood Oxyhemoglobin 89.4 L 94.0-98.0 % Arterial Blood Carboxyhemoglobin 0.8 0.5-1.5 % Arterial Blood Methemoglobin 0.6 0.0-1.5 % Esvin Test Yes Blood Gas Total Hemoglobin 12.40 12.0-16.0 g/dL Blood Gas Liter Flow 6.00 Blood Gas Modality Nasal cannula FiO2 % 44.0 Assessment Acute on chronic decompensated HFpEF, NYHA Class III Unspecified atrial fibrillation with rapid ventricular rate, now with controlled rate (on Eliquis/metoprolol) Unspecified pulmonary hypertension, severe Acute on chronic hypoxic respiratory failure Hypertension ?Acute alcohol intoxication Plan/Recommendation (Dr. Pacheco) Recent transthoracic echocardiogram revealed EF 60-65% with abnormal septal motion due to RV pressure and volume overload. Moderate to severe RV enlargement with reduced systolic function. Severe RA and moderate LA enlargement. Mild to moderate eccentric TR. RVSP 63 mmHg. Continue preload reduction and initiate afterload with stable BP. Maintain fluid restrictions and strict I&Os. Titrate off vasopressor as tolerated, currently on Levophed drip. Continue amiodarone drip per protocol as well as low-dose Eliquis therapy ([id number] Score: 4 points. HAS-BLED Score: 1 point). Replete electrolytes as necessary, K>4 and Mg>2. Obtain blood alcohol level. Monitor ECG changes closely and notify. Follow-up with primary show card writer at [facility] as scheduled. Thank you for allowing us to participate in this patient's care. Please call if you have any questions or concerns. Critical care time: 40 min. This medical document was created using an electronic medical record system with voice recognition software and computerized dictation system. Although this document has been carefully reviewed, there might still be some phonetic and typographical errors. Occasio nal wrong-word or ``sound-alike substitutions may have occurred due to the inherent limitations of voice recognition software. These areas are purely typographical due to imperfections of the software programs and do not reflect any compromise in the patient's medical care. Please read the chart carefully and recognize, using context, where these substitutions have occurred. Plan discussed with: Patient, Other NYHA Physical activity limitations: Class3(Marked) ordinary (activity causes symtoms) Date of Service: Feb 05, 2025 Billing Provider: MORGAN MERA Cardiology Common Codes: [id number] CARE 30-74 MIN MORGAN MERA Feb 05, 2025 11:20
--- NOTE | 2025-02-05 16:41 | DVHPN2 ---
Subjective Patient continues reporting shortness of breath. Reviewed: Care Plan, H&P, Medications Changes from previous H/P or p: No Changes General: Per HPI Objective Vitals Vital Signs Date Time Temp Pulse Resp B/P (MAP) Pulse Ox O2 Delivery O2 Flow Rate FiO2 02/05/25 16:17 117/68 02/05/25 16:00 62 02/05/25 15:30 19 86 02/05/25 14:00 98.2 98.2 02/05/25 14:00 Oxymizer 12 N/A Intake/Output Intake and Output 02/05/25 07:00 Intake Total 986.415 ml Output Total 100 ml Balance 886.415 ml IV Total 986.415 ml Output Urine Total 100 ml General Appearance: Alert, Oriented X3, Cooperative, mild distress HEENT: Atraumatic, PERRLA Lungs: Clear to auscultation, Normal air movement Cardiovascular: Normal S1, Normal S2 Abdomen: Normal bowel sounds, Soft, No tenderness, No hepatospenomegaly, No masses Genitourinary: No Apparent Abnormalities Musculoskeletal: Normal sensory function, Normal motor function Neuro: Normal gait, Normal speech Skin: Dry, Intact Psych/Mental Status: Mental status NL, Mood NL Medications Current Medications Medications Dose Ordered Sig/Julian Route Start Time Stop Time Status Last Admin Dose Admin Norepinephrine Bitartrate 250 ml @ 3.75 mls/hr Q24H IV 02/04/25 15:45 02/05/25 16:17 33.75 MLS/HR Albuterol 2.5 mg Q6HPRN PRN NEB 02/04/25 19:30 02/05/25 04:28 2.5 MG Ipratropium [place] 0.5 mg Q6HPRN PRN NEB 02/04/25 19:30 Apixaban 2.5 mg BID PO 02/04/25 22:00 02/05/25 09:18 2.5 MG Furosemide 20 mg BIDD IV 02/05/25 06:00 02/05/25 06:20 20 MG Methylprednisolone Sodium Succinate 40 mg BID IV 02/04/25 22:00 02/05/25 09:18 40 MG Ceftriaxone Sodium 50 ml @ 100 mls/hr DAILY@09 IV 02/05/25 09:00 02/05/25 07:42 100 MLS/HR Azithromycin 250 ml @ 125 mls/hr DAILY IV 02/05/25 10:00 02/05/25 09:20 125 MLS/HR Diagnostic Test (Pha) 1 strip ACHS 02/04/25 22:00 02/05/25 11:43 1 STRIP Insulin Human Regular ACHS SC 02/04/25 22:00 02/05/25 06:15 3 UNITS Dextrose 50 ml UD PRN IV 02/04/25 19:30 Ondansetron HCl 4 mg Q4HP PRN IV 02/04/25 19:30 Acetaminophen 650 mg Q6HP PRN PO 02/04/25 19:30 Nitroglycerin 0.4 mg Q5MINP PRN SL 02/04/25 19:30 Morphine Sulfate 2 mg Q30M PRN IV 02/04/25 19:30 Acetaminophen/ Hydrocodone Bitart 1 tab Q8HPRN PRN PO 02/04/25 21:15 02/05/25 09:29 1 TAB Laboratory Results Laboratory Tests 02/05/25 04:33 Chemistry Test 02/05/25 04:33 Albumin 4.4 g/dL (3.2-4.8) Calcium Level 9.1 mg/dL (8.7-10.4) Magnesium Level 2.3 mg/dL (1.6-2.6) Total Protein 7.0 g/dL (5.7-8.2) Coagulation Test 02/04/25 20:00 02/05/25 00:51 02/05/25 04:33 D-Dimer, Quantitative 1.30 mg/L FEU (0.0-0.49) H Prothrombin Time 12.5 sec (9.3-11.8) H 12.3 sec (9.3-11.8) H Prothrombin Time INR 1.20 (0.9-1.15) H 1.18 (0.9-1.15) H Activated Partial Thromboplast Time 35.3 SEC (24.5-34.5) H 39.4 SEC (24.5-34.5) H Cardiac Markers Test 02/04/25 20:00 B-Type Natriuretic Peptide 317.58 pg/mL (0-100) LFT Test 02/05/25 04:33 Alanine Aminotransferase (ALT) 13 U/L (7-40) Alkaline Phosphatase 109 U/L (46-116) Aspartate Amino Transferase (AST) < 8 U/L (13-40) L Total Bilirubin 0.3 mg/dL (0.2-1.0) Microbiology Microbiology Date/Time Source Procedure Growth Status 02/04/25 22:00 Nose MRSA Screen - Final Methicillin Resistant S.aureus Complete Labs and/or images reviewed: Labs reviewed by me, Image(s) reviewed by me Assessment/Plan Assessment/Plan Impression: -AFib with RVR -acute on chronic hypoxic respiratory failure -pulmonary hypertension -acute decompensated right ventricular failure -shock, questionable sepsis etiology -large left pleural effusion -COPD -acute kidney injury, vasomotor nephropathy -primary hypertension Plan: -block cultures -stop amiodarone drip, switched to p.o. 400 mg p.o. daily -cardiology consultation -renal ultrasound -chest ultrasound reviewed: Large left pleural effusion -bronchodilators, Pulmicort -check ESR, CRP, blood and urine cultures -continue norepinephrine keep map greater than 65 mmHg -continue anticoagulation with Eliquis -repeat labs in a.m. Critical care time spent with patient discussing and formulating plan of care: 40 minutes. This does not include time spent performing procedures. This medical document was created using an electronic medical record system with CME dictation system. Although this document has been carefully reviewed, there may still be some phonetic and typographical errors. These areas are purely typographical due to imperfections of the software programs, and do not reflect any compromise in the patient's medical care. Plan discussed with: Patient, Other (RN) My Orders Orders - JIN GANN NP Procedure Category Date Status Time Chest Ultrasound US 02/05/25 Taken 15:37 Amiodarone Tablet PHA 02/06/25 Logged (Cordarone Tablet) 10:00 Blood Culture RUSTY 02/05/25 Transmitted 16:31 Urine Bacterial RUSTY 02/05/25 Transmitted Culture 16:31 Urinalysis LAB 02/05/25 Transmitted 16:31 Kidney US 02/05/25 Logged 16:31 *Dr. [facility] CONS 02/05/25 Transmitted -[place] 16:31 Basic Metabolic Panel LAB 02/06/25 Verified 04:00 C-Reactive Protein LAB 02/06/25 Verified 04:00 Date of Service: Feb 05, 2025 Billing Provider: JIN GANN NP Common Visit Codes: [id number] CARE 30-74 MIN JIN GANN NP Feb 05, 2025 16:41
--- NOTE | 2025-02-05 17:35 | DVH ---
Left Chest Sonogram Date: 02/05/2025 04:08 PM Clinical history: pleural effusion Findings: Limited sonographic evaluation of the left chest was performed to localize and daniel fluid for thorace ntesis. There is a moderate pleural effusion. IMPRESSION: moderate left effusion END IMPRESSION:
--- NOTE | 2025-02-05 17:48 | DVH ---
INDICATION: CHRISTINA TECHNIQUE: Multiple real-time sonographic images of the kidneys and bladder were obtained. COMPARISON: None FINDINGS: RIGHT kidney measures 8.1 cm in length. No hydronephrosis. LEFT kidney measures 8.2 cm in length. No hydronephrosis. Increased echogenicity of bilateral kidneys. No large intraluminal masses are seen in the bladder. IMPRESSION: 1. Increased echogenicity of bilateral kidneys can be seen in chronic medical renal disease.
[2025-02-05] MEDS: HYDROcodone-ACET 5/325MG TAB PO PRN (18:04)
[2025-02-05] MEDS: ALPRAZolam 0.25 MG TAB PO ONE (18:05)
[2025-02-05 22:57] LABS: Urine Bacteria None Seen /hpf (None Seen)
[2025-02-05 23:23] LABS: Urine Blood Negative /uL (Negative); Urine Clarity Clear (Clear); Urine Color Yellow (Yellow); Urine Hyaline Cast MOD /lpf (0 - 2); Urine Mucus FEW (None Seen); Urine Protein, UAD TRACE (Negative); Urine Specific Gravity 1.017 (1.001-1.035); Urine Squamous Epithelial Cell FEW /hpf (<5); Urine Urobilinogen Normal (Negative); Urine WBC 5 /HPF (0-5)
[2025-02-05 23:27] LABS: Amphetamine Screen, Urine Neg (NEGATIVE); Barbiturate Scree,Urine Neg (NEGATIVE); Benzodiazephine Screen, Urine Neg (NEGATIVE); Cannabinoid Screen, Urine Pos (NEGATIVE); Cocaine Screen, Urine Neg (NEGATIVE); Opiate Scree,Urine Pos (NEGATIVE)
[2025-02-05 23:28] LABS: Phencyclidine Screen, Urine Neg (NEGATIVE)
[2025-02-06] VITALS (108 sets, daily range): BP systolic 86–125; BP diastolic 49–88; PULSE 48–138; RESP 9–28; TEMP 97.4–97.8; O2SAT 77–95
[2025-02-06 04:56] LABS: Basophils # (auto) 0.2 10 ^3/uL (0-0.2); Eosinophils # (auto) 0 10 ^3/uL (0-0.8); Hematocrit 30.5 % (36.0-46.0); Hemoglobin 9.8 g/dL (12.2-16.2); Lymphocytes # (auto) 0.5 10 ^3/uL (0.4-5.4); Lymphocytes % (auto) 5.4 % (10.0-50.0); Mean Corpuscular Hgb Conc. 32.2 g/dL (32.0-36.0); Mean Corpuscular Volume 96.1 fL (80.0-100.0); Monocytes # (auto) 0.5 10 ^3/uL (0-1.3); Monocytes % (auto) 6.1 % (0.0-12.0); Neutrophils # (auto) 7.6 10 ^3/uL (1.6-8.6); Neutrophils % (auto) 86.5 % (37.0-80.0); Platelet Count (auto) 171 10^3/uL (140-450); Red Blood Cells 3.17 10^6/uL (4.0-5.20); Red Cell Distribution Width 18.7 % (11.8-14.3); White Blood Cell 8.7 10^3/uL (4.4-10.8)
[2025-02-06 05:08] LABS: Chloride 101 mmol/L (98-107)
[2025-02-06 05:09] LABS: Calcium 8.7 mg/dL (8.7-10.4); Carbon Dioxide 23 mmol/L (20-31)
--- NOTE | 2025-02-06 05:13 | DVH ---
CHEST RADIOGRAPH Indication: f/u pleural effusion Technique: Single frontal view of the chest was obtained COMPARISON: XY CHEST XRAY 1 VIEW on DOS: 02/05/25, XY CHEST PORTABLE on DOS: 02/04/25, XY CHEST PORTABL E on DOS: 01/01/25 FINDINGS: Lines and Tubes: Right central venous catheter in satisfactory position. Lungs: Congestion Pleura: Small left pleural effusion No pneumothorax. Cardiomediastinal contours: Cardiomegaly Bones: Unremarkable IMPRESSION: Pulmonary vascular congestion
[2025-02-06 05:14] LABS: BUN/Creatinine Ratio 20.5 (10.0-20.0)
[2025-02-06 05:15] LABS: Magnesium 2.3 mg/dL (1.6-2.6)
[2025-02-06 05:20] LABS: Blood Urea Nitrogen 67 mg/dL (9-23); Glucose 159 mg/dL (74-106)
[2025-02-06 05:21] LABS: Anion Gap 10 (5-15); Potassium 5.3 mmol/L (3.5-5.1); Sodium 134 mmol/L (136-145)
[2025-02-06 05:32] LABS: CRP High Sensitivity 14.15 mg/dL (<1.0)
[2025-02-06] MEDS: SODIUM ZIRCONIUM CYCL 10 GM PAK PO ONE (06:02)
[2025-02-06] MEDS: IPRATROPIUM BROM 0.5 MG/2.5ML INH SOL NEB PRN (06:53)
--- NOTE | 2025-02-06 08:22 | DVHPN2 ---
Consult Progress Note Date Seen: Feb 06, 2025 Subjective Patient reports: Feels better Review of Systems: CVS:Normal, RESPIRATORY:Normal, NEURO:Normal Other Systems: States feeling better Objective vital signs Vital Sign Date Time Temp Pulse Resp B/P (MAP) Pulse Ox O2 Delivery O2 Flow Rate FiO2 02/06/25 07:15 64 16 109/68 (82) 89 02/06/25 06:55 Oxymizer 13.0 02/06/25 06:55 N/A 02/06/25 04:00 97.4 97.4 Total Intake and Output 02/05/25 02/05/25 02/06/25 15:00 23:00 07:00 Intake Total 923.78 ml 532.48 ml 542.50 ml Output Total 640 ml Balance 923.78 ml 532.48 ml -97.50 ml medications Current Medications Medications Dose Ordered Sig/Julian Route Start Time Stop Time Status Last Admin Dose Admin Norepinephrine Bitartrate 250 ml @ 3.75 mls/hr Q24H IV 02/04/25 15:45 02/06/25 00:12 30 MLS/HR Albuterol 2.5 mg Q6HPRN PRN NEB 02/04/25 19:30 02/06/25 06:53 2.5 MG Ipratropium [place] 0.5 mg Q6HPRN PRN NEB 02/04/25 19:30 02/06/25 06:53 0.5 MG Apixaban 2.5 mg BID PO 02/04/25 22:00 02/05/25 22:29 2.5 MG Furosemide 20 mg BIDD IV 02/05/25 06:00 02/06/25 06:03 20 MG Methylprednisolone Sodium Succinate 40 mg BID IV 02/04/25 22:00 02/05/25 22:29 40 MG Ceftriaxone Sodium 50 ml @ 100 mls/hr DAILY@09 IV 02/05/25 09:00 02/05/25 07:42 100 MLS/HR Azithromycin 250 ml @ 125 mls/hr DAILY IV 02/05/25 10:00 02/05/25 09:20 125 MLS/HR Diagnostic Test (Pha) 1 strip ACHS 02/04/25 22:00 02/06/25 06:50 1 STRIP Insulin Human Regular ACHS SC 02/04/25 22:00 02/06/25 06:50 3 UNITS Dextrose 50 ml UD PRN IV 02/04/25 19:30 Ondansetron HCl 4 mg Q4HP PRN IV 02/04/25 19:30 Acetaminophen 650 mg Q6HP PRN PO 02/04/25 19:30 Nitroglycerin 0.4 mg Q5MINP PRN SL 02/04/25 19:30 Morphine Sulfate 2 mg Q30M PRN IV 02/04/25 19:30 Amiodarone HCl 400 mg DAILY PO 02/06/25 10:00 Acetaminophen/ Hydrocodone Bitart 1 tab Q6HPRN PRN PO 02/05/25 18:00 02/06/25 00:12 1 TAB Examination: LUNGS:Abnormal (O2 via oxymizer at 14 LPM), CVS:Abnormal (On low dose levophed drip. A-fib 90s-100s bpm), NEURO:Normal laboratory and microbiology Laboratory Tests 02/06/25 04:38 Test 02/06/25 04:38 Range/Units Serum Glucose 159 H 74-106 mg/dL Problem List/Assessment/Plan Problem List/Assessment/Plan Acute on chronic decompensated HFpEF, NYHA Class III Unspecified atrial fibrillation with rapid ventricular rate, now with controlled rate (on Eliquis/metoprolol) Unspecified pulmonary hypertension, severe Acute on chronic hypoxic respiratory failure Hypertension Plan/Recommendation (Dr. Pacheco) Recent transthoracic echocardiogram revealed EF 60-65% with abnormal septal motion due to RV pressure and volume overload. Moderate to severe RV enlargement with reduced systolic function. RVSP 63 mmHg. Continue preload reduction and initiate afterload with stable BP. Maintain fluid restrictions and strict I&Os. Titrate off vasopressor as tolerated, currently on Levophed drip. Transition to Flecainide therapy and continue low-dose Eliquis therapy ([id number] Score: 4 points. HAS-BLED Score: 1 point). Replete electrolytes as necessary, K>4 and Mg>2. Monitor ECG changes closely and notify. Continue Nephrology recommendations and avoid nephrotoxic agents. Obtain ABG. Follow-up with primary wool fleece grader at [facility] as scheduled. Thank you for allowing us to participate in this patient's care. Please call if you have any questions or concerns. Critical care time: 30 min. This medical document was created using an electronic medical record system with voice recognition software and computerized dictation system. Although this document has been carefully reviewed, there might still be some phonetic and typographical errors. Occasional wrong-word or ``sound-alike substitutions may have occurred due to the inherent limitations of voice recognition software. These areas are purely typographical due to imperfections of the software programs and do not reflect any compromise in the patient's medical care. Please read the chart carefully and recognize, using context, where these substitutions have occurred. Plan discussed with: Patient, Other Date of Service: Feb 06, 2025 Billing Provider: MORGAN MERA Cardiology Common Codes: 33925-VLVEACEQ CARE 30-74 MIN MORGAN MERA Feb 06, 2025 08:22
[2025-02-06 08:41] LABS: Base Excess -6.1 mmol/L (-2.0-3.0)
--- NOTE | 2025-02-06 09:30 | DVHPN2 ---
Subjective Patient continues reporting shortness of breath. Reviewed: Care Plan, H&P, Medications Changes from previous H/P or p: No Changes General: Per HPI Objective Vitals Vital Signs Date Time Temp Pulse Resp B/P (MAP) Pulse Ox O2 Delivery O2 Flow Rate FiO2 02/06/25 08:00 97.6 59 12 104/66 (79) 88 97.6 02/06/25 06:55 Oxymizer 13.0 02/06/25 06:55 N/A Intake/Output Intake and Output 02/06/25 07:00 Intake Total 1998.76 ml Output Total 640 ml Balance 1358.76 ml Intake Oral 740 ml IV Total 1258.76 ml Output Urine Total 640 ml # Voids 2 General Appearance: Alert, Oriented X3, Cooperative, mild distress HEENT: Atraumatic, PERRLA Lungs: Clear to auscultation, Normal air movement Cardiovascular: Normal S1, Normal S2 Abdomen: Normal bowel sounds, Soft, No tenderness, No hepatospenomegaly, No masses Genitourinary: No Apparent Abnormalities Musculoskeletal: Normal sensory function, Normal motor function Neuro: Normal gait, Normal speech Skin: Dry, Intact Psych/Mental Status: Mental status NL, Mood NL Medications Current Medications Medications Dose Ordered Sig/Julian Route Start Time Stop Time Status Last Admin Dose Admin Norepinephrine Bitartrate 250 ml @ 3.75 mls/hr Q24H IV 02/04/25 15:45 02/06/25 00:12 30 MLS/HR Albuterol 2.5 mg Q6HPRN PRN NEB 02/04/25 19:30 02/06/25 06:53 2.5 MG Ipratropium [place] 0.5 mg Q6HPRN PRN NEB 02/04/25 19:30 02/06/25 06:53 0.5 MG Apixaban 2.5 mg BID PO 02/04/25 22:00 02/05/25 22:29 2.5 MG Furosemide 20 mg BIDD IV 02/05/25 06:00 02/06/25 06:03 20 MG Methylprednisolone Sodium Succinate 40 mg BID IV 02/04/25 22:00 02/05/25 22:29 40 MG Ceftriaxone Sodium 50 ml @ 100 mls/hr DAILY@09 IV 02/05/25 09:00 02/06/25 08:50 100 MLS/HR Azithromycin 250 ml @ 125 mls/hr DAILY IV 02/05/25 10:00 02/05/25 09:20 125 MLS/HR Diagnostic Test (Pha) 1 strip ACHS 02/04/25 22:00 02/06/25 06:50 1 STRIP Insulin Human Regular ACHS SC 02/04/25 22:00 02/06/25 06:50 3 UNITS Dextrose 50 ml UD PRN IV 02/04/25 19:30 Ondansetron HCl 4 mg Q4HP PRN IV 02/04/25 19:30 Acetaminophen 650 mg Q6HP PRN PO 02/04/25 19:30 Nitroglycerin 0.4 mg Q5MINP PRN SL 02/04/25 19:30 Morphine Sulfate 2 mg Q30M PRN IV 02/04/25 19:30 Acetaminophen/ Hydrocodone Bitart 1 tab Q6HPRN PRN PO 02/05/25 18:00 02/06/25 08:48 1 TAB Flecainide Acetate 100 mg Q12HR PO 02/06/25 10:00 Laboratory Results Laboratory Tests 02/06/25 04:38 Chemistry Test 02/06/25 04:38 Calcium Level 8.7 mg/dL (8.7-10.4) Magnesium Level 2.3 mg/dL (1.6-2.6) Urinalysis Test 02/05/25 22:00 Urine Color Yellow (Yellow) Urine Clarity Clear (Clear) Urine pH 5.0 (5.0-9.0) Urine Specific [place] 1.017 (1.001-1.035) Urine Protein Trace (Negative) H Urine Ketones Negative (Negative) Urine Blood Negative /uL (Negative) Urine Nitrite Negative (Negative) Urine Bilirubin Negative (Negative) Urine Urobilinogen Normal mg/dL (Negative) Urine Leukocyte Esterase Negative /uL (Negative) Urine RBC None seen /hpf (0 - 4) Urine Microscopic WBC 5 /HPF (0-5) Urine Squamous Epithelial Cells Few /hpf (<5) Urine Bacteria None seen /hpf (None Seen) Urine Hyaline Casts Mod /lpf (0 - 2) Urine Mucus Few (None Seen) Urine Glucose Normal mg/dL (Normal) Blood Gas Results Test 02/06/25 08:34 Arterial Blood pH 7.291 (7.350-7.450) FiO2 % 82.0 Microbiology Microbiology Date/Time Source Procedure Growth Status 02/04/25 22:00 Nose MRSA Screen - Final Methicillin Resistant S.aureus Complete Labs and/or images reviewed: Labs reviewed by me, Image(s) reviewed by me Assessment/Plan Assessment/Plan Impression: -AFib with RVR -acute on chronic hypoxic respiratory failure -pulmonary hypertension -acute decompensated right ventricular failure -shock, questionable sepsis etiology -large left pleural effusion -COPD -acute kidney injury, vasomotor nephropathy -primary hypertension Plan: Events: Decreased vasopressor therapy. Worsening renal function. Atrial fibrillation controlled. Continues to be are increased O2 requirements. -radiology consultation for possible thoracentesis. Note patient was on Eliquis. -cardiology consultation: Recommendations reviewed -renal ultrasound: Results reviewed -bronchodilators, Pulmicort -check ESR, CRP, blood and urine cultures -continue norepinephrine keep map greater than 65 mmHg -continue anticoagulation with Eliquis -repeat labs in a.m. Critical care time spent with patient discussing and formulating plan of care: 40 minutes. This does not include time spent performing procedures. This medical document was created using an electronic medical record system with paOnde dictation system. Although this document has been carefully reviewed, there may still be some phonetic and typographical errors. These areas are purely typographical due to imperfections of the software programs, and do not reflect any compromise in the patient's medical care. Plan discussed with: Patient, Other (RN) My Orders Orders - JIN GANN NP Procedure Category Date Status Time Chest Ultrasound US 02/05/25 Resulted 15:37 Blood Culture RUSTY 02/05/25 In Process 16:31 Urine Bacterial RUSTY 02/05/25 In Process Culture 16:31 Kidney US 02/05/25 Resulted 16:31 *Dr. [facility] CONS 02/05/25 Transmitted -[place] 16:31 Alprazolam Tablet PHA 02/06/25 Verified (Xanax Tablet) 09:30 * Radiation Therapy CONS 02/06/25 Verified Consult 09:22 Date of Service: Feb 06, 2025 Billing Provider: JIN GANN NP Common Visit Codes: [id number] CARE 30-74 MIN JIN GANN NP Feb 06, 2025 09:30
[2025-02-06] MEDS: FLECAINIDE ACETATE 50 MG TAB PO SCH (09:48)
[2025-02-06] MEDS: PANTOPRAZOLE 40 MG TAB PO SCH (09:59)
[2025-02-06] MEDS ORDERED: AMIODARONE HCL 200 MG TAB PO SCH (10:00)
--- NOTE | 2025-02-06 10:43 | CONS ---
Pharmacy Clinical Information: From Heart Failure Fallout Report on CQM Application, Alida Radha Hermosillo is a 74 year old female with PMH of HTN, DM, PH, COPD, CHF, Afib. Her LFTs are WNL and lipid panel from 01/02/25 is WNL. Per 2024 ADA guidelines, in adults with diabetes aged >75 years, it may be reasonable to initiate moderate-intensity statin therapy after discussion of potential benefits and risks. JARETT DURBIN PHARMACIST Feb 06, 2025 10:43
[2025-02-06] MEDS: ALBUTEROL SULF 2.5 MG/0.5ML(0.5%) NEB SOLN NEB SCH (12:01)
[2025-02-06] MEDS: IPRATROPIUM BROM 0.5 MG/2.5ML INH SOL NEB SCH (12:01)
[2025-02-06] MEDS: ALPRAZolam 0.25 MG TAB PO PRN (14:58)
[2025-02-06] MEDS ORDERED: FUROSEMIDE INJECTION 100 MG in SODIUM CHL 0.9% 100 ML IV SCH (17:00)
[2025-02-06] MEDS: DEXTROSE (50%) 50ML SYRG IV ONE (17:45)
[2025-02-06] MEDS: InsuLIN REG 1unit/0.01ml Soln (100units/ml) IV ONE (17:45)
[2025-02-06] MEDS: SODIUM BICARB 8.4% 50Meq/50ml SYR INJ IV ONE (17:45)
--- NOTE | 2025-02-06 18:22 | DVHCONRES ---
Date Seen: Feb 06, 2025 Resident Creating Document: [facility] L[facility] RESIDENT Referring Physician Dr. Jones Reason for Consultation CHRISTINA History of Present Illness Ms. Irwin, a 74-year-old female with a complex medical history including atrial fibrillation, congestive heart failure, pulmonary hypertension, hypertension, and COPD, presented to the emergency room with shortness of breath for five days, requiring supplemental oxygen and amiodarone drip for controlled A-fib, and has a history of unspecified invasive cardiac procedures and a left lumpectomy. The patient has acute on chronic decompensated heart failure with preserved ejection fraction (HFpEF), classified as NYHA Class III. She also has unspecified atrial fibrillation with a previously rapid ventricular rate, now controlled with Eliquis and metoprolol. Additionally, she suffers from severe unspecified pulmonary hypertension, acute on chronic hypoxic respiratory failure, and hypertension with worsening renal function. Past Medical History atrial fibrillation, congestive heart failure, pulmonary hypertension, hypertension, chronic hypoxic respiratory failure 3L NC and COPD Past Surgical History Lumpectomy Family History: FH: cancer G8 SISTER Family History Unremarkable. Social History Denies the use of illicit drugs or tobacco use. Admits to recent alcohol use. Lives at home with family. Allergies: Coded Allergies: NO KNOWN ALLERGIES (Unverified , 01/01/25) Home Meds Active Scripts Budesonide-Formoterol Fumarate (Breyna 160-4.5 Mcg/Act) 1 Aer Aer, 1 AER IN BID for 30 Days, #1 INHALER Prov:DEENA MCCRAY MD 01/05/25 Empagliflozin (Jardiance) 10 Mg Tab, 10 MG PO DAILY for 30 Days, #30 TAB 5 Refills Prov:DEENA MCCRAY MD 01/05/25 Bumetanide (Bumex Tablet) 1 Mg Tab, 1 MG PO BID for 30 Days, #60 TAB 5 Refills BLK BX WARNING-CAN LEAD TO PROFOUND DIURESIS WITH FLUID- ELECTROLYTE LOSS Prov:DEENA MCCRAY MD 01/05/25 Reported Medications Selexipag (Uptravi) 1,800 Mcg Inj, 1600 MCG IV, TAB 01/01/25 Metoprolol Succinate (Metoprolol Succinate Er) 25 Mg Tab, 25 MG PO DAILY for 30 Days, MG 01/01/25 Ri[place]at Base (Adempas) 2.5 Mg Tab, 2.5 MG PO TID, TAB 01/01/25 Apixaban Base (ELIQUIS) 2.5 Mg Tab, 2.5 MG PO BID, TAB 01/01/25 Macitentan (Opsumit) 10 Mg Tab, 10 MG PO, TAB 01/01/25 Omeprazole (Gnp Omeprazole) 20 Mg Tab, 1 TAB PO DAILY, #90 TAB 1 Refill 01/01/25 Current Medications Current Medications Medications (Trade) Dose Ordered Sig/Julian Route PRN Reason Start Time Stop Time Status Last Admin Amiodarone HCl (Cordarone Tablet) 400 mg DAILY PO 02/06/25 10:00 02/06/25 08:22 DC Acetaminophen/ Hydrocodone Bitart ([place] 5/325MG Tab) 1 tab Q6HPRN PRN PO MODERATE PAIN (4-6 PAIN SCALE) 02/05/25 18:00 02/06/25 08:48 Flecainide Acetate (Tambocor Tablet) 100 mg Q12HR PO 02/06/25 10:00 02/06/25 09:48 Alprazolam (Xanax Tablet) 0.25 mg Q8HP PRN PO ANXIETY 02/06/25 09:30 02/06/25 14:58 Albuterol (Ventolin Medneb) 2.5 mg Q6HWA NEB 02/06/25 12:00 02/06/25 12:01 Ipratropium [place] (Atrovent Medneb) 0.5 mg Q6HWA NEB 02/06/25 12:00 02/06/25 12:01 Pantoprazole Sodium (Protonix Tablet) 40 mg DAILY@0600 PO 02/06/25 09:30 02/06/25 09:59 Furosemide 100 mg/ Sodium Chloride 110 ml @ 5.5 mls/hr Q20H IV 02/06/25 17:00 Zirconium Oxide (Lokelma) 10 gm TID PO 02/06/25 22:00 02/08/25 14:01 UNV Furosemide 100 mg/ Sodium Chloride 110 ml @ 5.5 mls/hr Q20H IV 02/06/25 17:45 UNV Review of Systems Moderate distress, HEENT:Normal, NC CVS:Normal, RESPIRATORY:Normal, on 15 L, mild distress GI:Normal, :Normal, MSK:Normal NEURO:Normal Vital Signs Vital Signs Date Time Temp Pulse Resp B/P (MAP) Pulse Ox O2 Delivery O2 Flow Rate FiO2 02/06/25 13:00 86 13 108/65 (79) 88 02/06/25 12:05 Hi-Flow NC 12 N/A 02/06/25 12:00 97.7 97.7 Physical Exam GENERAL: moderate distress, she was tearful, anxious and reported 'overwhelmed' HEENT:Normal, NECK:Normal, LUNGS:15 L b/l crackles CVS:Normal Afib rvr, ABDOMEN:Normal, MSK:Abnormal, SKIN:Normal, NEURO:Normal, :Normal Not on foelys. Labs/Diagnostic Data Labs Test 02/06/25 11:41 02/06/25 08:34 02/06/25 04:38 02/05/25 22:00 Range/Units POC Glucose 209 H 70-106 mg/dl Blood Gas Specimen Type Arterial Blood Gas Sample Site Right radial Blood Gas Patient Temperature 37.0 Arterial Blood Date Drawn [id number] Arterial Blood pH 7.291 L 7.350-7.450 Arterial Blood Partial Pressure CO2 42.7 32.0-45.0 mmHg Arterial Blood Partial Pressure O2 57.5 L 83.0-108.0 mmHg Arterial Blood HCO3 20.1 L 21.0-28.0 mmol/L Arterial Blood Oxygen Saturation 82.6 *L 94.0-98.0 % Arterial Blood Base Excess -6.1 L -2.0-3.0 mmol/L Arterial Blood Oxyhemoglobin 82.1 L 94.0-98.0 % Arterial Blood Carboxyhemoglobin 0.2 L 0.5-1.5 % Arterial Blood Methemoglobin 0.4 0.0-1.5 % Esvin Test Yes Blood Gas Total Hemoglobin 10.90 L 12.0-16.0 g/dL Blood Gas Liter Flow 12.00 Blood Gas Modality Oxymizer FiO2 % 82.0 Blood Gas Critical Value Read Back Yes Blood Gas Notified Whom S kaelyn kuhn Blood Gas Notified Time [id number] Blood Gas Notified By Meal Attendant erik cheema White Blood Count 8.7 # 4.4-10.8 10^3/uL Red Blood Count 3.17 L 4.0-5.20 10^6/uL Hemoglobin 9.8 L 12.2-16.2 g/dL Hematocrit 30.5 #L 36.0-46.0 % Mean Corpuscular Volume 96.1 80.0-100.0 fL Mean Corpuscular Hemoglobin 31.0 28.0-32.0 pg Mean Corpuscular Hemoglobin Concent 32.2 32.0-36.0 g/dL Red Cell Distribution Width 18.7 H 11.8-14.3 % Platelet Count 171 140-450 10^3/uL Mean Platelet Volume 7.7 6.9-10.8 fL Neutrophils (%) (Auto) 86.5 H 37.0-80.0 % Lymphocytes (%) (Auto) 5.4 L 10.0-50.0 % Monocytes (%) (Auto) 6.1 0.0-12.0 % Eosinophils (%) (Auto) 0.0 0.0-7.0 % Basophils (%) (Auto) 2.0 0.0-2.0 % Neutrophils # (Auto) 7.6 1.6-8.6 10 ^3/uL Lymphocytes # (Auto) 0.5 0.4-5.4 10 ^3/uL Monocytes # (Auto) 0.5 0-1.3 10 ^3/uL Eosinophils # (Auto) 0 0-0.8 10 ^3/uL Basophils # (Auto) 0.2 0-0.2 10 ^3/uL Nucleated Red Blood Cells 3.0 % Sodium Level 134 L 136-145 mmol/L Potassium Level 5.3 H 3.5-5.1 mmol/L Chloride Level 101 98-107 mmol/L Carbon Dioxide Level 23 20-31 mmol/L Anion Gap 10 5-15 Blood Urea Nitrogen 67 #H 9-23 mg/dL Creatinine 3.27 H 0.550-1.02 mg/dL Glomerular Filtration Rate Calc 14 >90 mL/min BUN/Creatinine Ratio 20.5 H 10.0-20.0 Serum Glucose 159 H 74-106 mg/dL Calcium Level 8.7 8.7-10.4 mg/dL Magnesium Level 2.3 1.6-2.6 mg/dL C-Reactive Protein High Sensitivity 14.15 H <1.0 mg/dL Urine Color Yellow Yellow Urine Clarity Clear Clear Urine pH 5.0 5.0-9.0 Urine Specific [place] 1.017 1.001-1.035 Urine Protein Trace H Negative Urine Ketones Negative Negative Urine Blood Negative Negative /uL Urine Nitrite Negative Negative Urine Bilirubin Negative Negative Urine Urobilinogen Normal Negative mg/dL Urine Leukocyte Esterase Negative Negative /uL Urine RBC None seen 0 - 4 /hpf Urine Microscopic WBC 5 0-5 /HPF Urine Squamous Epithelial Cells Few <5 /hpf Urine Bacteria None seen None Seen /hpf Urine Hyaline Casts Mod 0 - 2 /lpf Urine Mucus Few None Seen Urine Glucose Normal Normal mg/dL Urine Opiates Screen Pos NEGATIVE Urine Fentanyl Screen Neg NEGATIVE Urine Barbiturates Screen Neg NEGATIVE Urine Phencyclidine Screen Neg NEGATIVE Urine Amphetamines Screen Neg NEGATIVE Urine Benzodiazepines Screen Neg NEGATIVE Urine Cocaine Screen Neg NEGATIVE Urine Cannabinoids Screen Pos NEGATIVE Test 02/05/25 04:33 02/04/25 22:00 02/04/25 20:00 02/04/25 19:05 Range/Units Prothrombin Time 12.3 H 9.3-11.8 sec Prothrombin Time INR 1.18 H 0.9-1.15 Activated Partial Thromboplast Time 39.4 H 24.5-34.5 SEC Total Bilirubin 0.3 0.2-1.0 mg/dL Aspartate Amino Transferase (AST) < 8 L 13-40 U/L Alanine Aminotransferase (ALT) 13 7-40 U/L Alkaline Phosphatase 109 46-116 U/L Total Protein 7.0 5.7-8.2 g/dL Albumin 4.4 3.2-4.8 g/dL Plasma/Serum Blood Alcohol 3.4 <10 mg/dL Influenza Type A Antigen Negative Negative Influenza Type B Antigen Negative Negative SARS-CoV-2 Antigen (Rapid) Negative NEGATIVE D-Dimer, Quantitative 1.30 H 0.0-0.49 mg/L FEU Lactic Acid Level 0.9 0.4-2.0 mmol/L B-Type Natriuretic Peptide 317.58 0-100 pg/mL Troponin I High Sensitivity 30 </=34 ng/L Microbiology Date/Time Source Procedure Growth Status 02/04/25 22:00 Nose MRSA Screen - Final Methicillin Resistant S.aureus Complete Assessment # CHRISTINA hemodynamic mediated etiology in the setting of AFib with RVR and shock, # CKD stage III A/B # mild hyponatremia # hyperkalemia # metabolic acidosis, NAGMA # CHF exacerbation, decompensated heart failure HFpEF # Cardiogenic shock higer on d/d with hypotension on levophed 6 # 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 # Acute on chronic hypoxic respiratory failure now on NIPPV/ 15 L # Worsening pulmonary edema # Normocytic anemia, likely anemia of chronic disease # polysubstance abuse, ETOH, marijuana # MRSA +ve # moderate left pleural effusion # EtoH abuse, continues use. # Medical nonadherence Findings: #Fluid status: overall +ve fluid #GFR: 22>17>14 #Creatinine: 2.30 >2.86 >3.27 #BUN: 46>54>67 #potassium 5.3 #BUN: CR: 20.5 likely prerenal. #UA -ve #US kidney: Increased echogenicity of bilateral kidneys can be seen in chronic medical renal disease. #I&O: =(+[phone]) no Alonso's. Plan/Recommendation #Hyperkalemia protocol started, lokelma tid and bicarb repeat K pending. #Hold home Bumex 1mg bid, Jardiance 10 mg daily given acute renal injury. #Lasix drip 5mg/hr to accelerate diuretics to accelerate net negative balace, cardiac diet, 2g/24 hour salt restriction. #Strict I&O and check Daily weight, Avoid Nephrotoxics, Avoid hyper/hypo tension, keep map>65, Fluid Restriction 1 L / 24 hour. please use quad conc. of levophed only. #Daily BMP, close followup of Urine, Na, K, Urine electrolytes, osmolality pending. #Close management in JABIER/ICU level of care. Look for alcohol withdrawal symptoms. Rest of the treatment as per primary team, cardiology. Thank you for the opportunity to follow up on your patient. In case of any question feel free to reach out to the Nephrology team. Will follow up. Discussed with Nephrology attending Dr. Cheng. Addendum Patient seen and examined, plan discussed with resident. Agree with above, we will follow closely Hyperkalemia medical management as ordered Lasix drip at 5 mg/hour up titrate diuretics as needed daily based on hemodynamics Amiodarone drip has been turned off Currently on Levophed Patient on high-flow nasal cannula -- Plan discussed with: Patient, Other (RN, primary team. ) [facility] L[facility] RESIDENT Feb 06, 2025 18:22 COREY CHENG MD Feb 06, 2025 21:24
[2025-02-06] MEDS: NOREPINEPHRINE BITARTRATE 32 MG in SODIUM CHL 0.9% 218 ML IV SCH (18:30)
[2025-02-06] MEDS: FUROSEMIDE INJECTION 100 MG in SODIUM CHL 0.9% 100 ML IV SCH (18:33)
[2025-02-06 20:06] LABS: Chloride 100 mmol/L (98-107); Potassium 4.2 mmol/L (3.5-5.1)
[2025-02-06 20:07] LABS: Anion Gap 12 (5-15); Carbon Dioxide 22 mmol/L (20-31)
[2025-02-06 20:12] LABS: BUN/Creatinine Ratio 23.4 (10.0-20.0)
[2025-02-06 20:14] LABS: Blood Urea Nitrogen 71 mg/dL (9-23); Calcium 8.5 mg/dL (8.7-10.4); Glucose 146 mg/dL (74-106); Sodium 134 mmol/L (136-145)
[2025-02-06] MEDS: SODIUM ZIRCONIUM CYCL 10 GM PAK PO SCH (22:00)
[2025-02-07] VITALS (97 sets, daily range): BP systolic 57–129; BP diastolic 30–87; PULSE 71–146; RESP 10–26; TEMP 97.6–98.4; O2SAT 15–93
[2025-02-07 05:13] LABS: Hematocrit 27.7 % (36.0-46.0); Mean Corpuscular Hgb Conc. 32.6 g/dL (32.0-36.0); Mean Corpuscular Volume 95.1 fL (80.0-100.0); Platelet Count (auto) 172 10^3/uL (140-450); Red Blood Cells 2.91 10^6/uL (4.0-5.20); Red Cell Distribution Width 18.8 % (11.8-14.3); White Blood Cell 5.3 10^3/uL (4.4-10.8)
[2025-02-07 05:26] LABS: Anion Gap 10 (5-15); Carbon Dioxide 23 mmol/L (20-31); Chloride 100 mmol/L (98-107); Potassium 4.2 mmol/L (3.5-5.1)
[2025-02-07 05:31] LABS: Basophils % (manual) 0 (0.0-2.0); Blast Cells 0; Eosinophils % (manual) 0 (0-7); Myelocytes % 0; Promyelocytes % 0; Reactive Lymphocytes 0
[2025-02-07 05:32] LABS: BUN/Creatinine Ratio 25.7 (10.0-20.0)
[2025-02-07 05:33] LABS: Blood Urea Nitrogen 73 mg/dL (9-23); Calcium 8.6 mg/dL (8.7-10.4); Glucose 140 mg/dL (74-106); Sodium 133 mmol/L (136-145)
--- NOTE | 2025-02-07 05:52 | DVH ---
EXAM: XR Chest, 1 View CLINICAL INDICATION: PROTOCOL TECHNIQUE: Frontal view of the chest. COMPARISON: XY CHEST XRAY 1 VIEW on DOS: 02/06/25, XY CHEST XRAY 1 VIEW on DOS: 02/05/25, XY CHEST PO RTABLE on DOS: 02/04/25, XY CHEST PORTABLE on DOS: 01/01/25 FINDINGS: LUNGS AND PLEURAL SPACES: See below. HEART: Cardiomegaly with mild congestion. MEDIASTINUM: Unremarkable. Normal mediastinal contour. BONES/JOINTS: Unremarkable. No acute fracture. TUBES, LINES AND DEVICES: Right internal jugular central venous catheter tip in the superior vena c severiano. OTHER FINDINGS: . . IMPRESSION: Cardiomegaly with mild congestion.
[2025-02-07 06:41] LABS: Band Neutrophils % (manual) 5; Lymphocytes % (manual) 7 (10.0-50.0); Metamyelocytes % 2; Monocytes % (manual) 3 (0-12)
[2025-02-07 06:42] LABS: Platelet Estimate Adequate
--- NOTE | 2025-02-07 08:50 | MEDREC ---
[facility] ASP Intervention Section I [facility] Intervention: Review courses of therapy (The MRSA screen was positive on 02/05. Please consider adding Bactroban ointment for patient. ) LIZANDRO COBB [facility] Feb 07, 2025 08:50
--- NOTE | 2025-02-07 10:38 | DVHPN2 ---
Subjective Patient continues reporting shortness of breath. Reviewed: Care Plan, H&P, Medications Changes from previous H/P or p: No Changes General: Per HPI Objective Vitals Vital Signs Date Time Temp Pulse Resp B/P (MAP) Pulse Ox O2 Delivery O2 Flow Rate FiO2 02/07/25 08:00 97.6 78 15 98/62 (74) 88 97.6 02/07/25 06:00 Hi-Flow Heated NC+ 15 100 100 Intake/Output Intake and Output 02/07/25 06:59 Intake Total 1617.0 ml Output Total 1950 ml Balance -333.0 ml Intake Oral 1191 ml IV Total 426.0 ml Output Urine Total 1950 ml # Voids 4 General Appearance: Alert, Oriented X3, Cooperative, mild distress HEENT: Atraumatic, PERRLA Lungs: Clear to auscultation, Normal air movement Cardiovascular: Normal S1, Normal S2 Abdomen: Normal bowel sounds, Soft, No tenderness, No hepatospenomegaly, No masses Genitourinary: No Apparent Abnormalities Musculoskeletal: Normal sensory function, Normal motor function Neuro: Normal gait, Normal speech Skin: Dry, Intact Psych/Mental Status: Mental status NL, Mood NL Medications Current Medications Medications Dose Ordered Sig/Julian Route Start Time Stop Time Status Last Admin Dose Admin Apixaban 2.5 mg BID PO 02/04/25 22:00 02/07/25 10:31 2.5 MG Methylprednisolone Sodium Succinate 40 mg BID IV 02/04/25 22:00 02/07/25 09:22 40 MG Ceftriaxone Sodium 50 ml @ 100 mls/hr DAILY@09 IV 02/05/25 09:00 02/07/25 09:01 100 MLS/HR Azithromycin 250 ml @ 125 mls/hr DAILY IV 02/05/25 10:00 02/07/25 09:23 125 MLS/HR Diagnostic Test (Pha) 1 strip ACHS 02/04/25 22:00 02/07/25 06:08 1 STRIP Insulin Human Regular ACHS SC 02/04/25 22:00 02/07/25 06:08 2 UNITS Dextrose 50 ml UD PRN IV 02/04/25 19:30 Ondansetron HCl 4 mg Q4HP PRN IV 02/04/25 19:30 Acetaminophen 650 mg Q6HP PRN PO 02/04/25 19:30 Nitroglycerin 0.4 mg Q5MINP PRN SL 02/04/25 19:30 Morphine Sulfate 2 mg Q30M PRN IV 02/04/25 19:30 Acetaminophen/ Hydrocodone Bitart 1 tab Q6HPRN PRN PO 02/05/25 18:00 02/07/25 05:48 1 TAB Flecainide Acetate 100 mg Q12HR PO 02/06/25 10:00 02/07/25 09:23 100 MG Alprazolam 0.25 mg Q8HP PRN PO 02/06/25 09:30 02/06/25 22:58 0.25 MG Albuterol 2.5 mg Q6HWA NEB 02/06/25 12:00 02/07/25 06:59 2.5 MG Ipratropium [place] 0.5 mg Q6HWA NEB 02/06/25 12:00 02/07/25 06:59 0.5 MG Pantoprazole Sodium 40 mg DAILY@0600 PO 02/06/25 09:30 02/07/25 05:47 40 MG Furosemide 100 mg/ Sodium Chloride 110 ml @ 5.5 mls/hr Q20H IV 02/06/25 17:00 Hold Zirconium Oxide 10 gm TID PO 02/06/25 22:00 02/08/25 14:01 02/06/25 22:00 10 GM Furosemide 100 mg/ Sodium Chloride 110 ml @ 5.5 mls/hr Q20H IV 02/06/25 17:45 02/06/25 18:33 5.5 MLS/HR Norepinephrine Bitartrate 32 mg/ Sodium Chloride 250 ml @ 0.938 mls/ hr Q24H IV 02/06/25 18:30 Laboratory Results Laboratory Tests 02/07/25 05:00 Chemistry Test 02/06/25 19:49 02/07/25 05:00 Calcium Level 8.5 mg/dL (8.7-10.4) L 8.6 mg/dL (8.7-10.4) L Magnesium Level Pending Phosphorus Level Pending Urinalysis Test 02/05/25 22:00 Urine Color Yellow (Yellow) Urine Clarity Clear (Clear) Urine pH 5.0 (5.0-9.0) Urine Specific [place] 1.017 (1.001-1.035) Urine Protein Trace (Negative) H Urine Ketones Negative (Negative) Urine Blood Negative /uL (Negative) Urine Nitrite Negative (Negative) Urine Bilirubin Negative (Negative) Urine Urobilinogen Normal mg/dL (Negative) Urine Leukocyte Esterase Negative /uL (Negative) Urine RBC None seen /hpf (0 - 4) Urine Microscopic WBC 5 /HPF (0-5) Urine Squamous Epithelial Cells Few /hpf (<5) Urine Bacteria None seen /hpf (None Seen) Urine Hyaline Casts Mod /lpf (0 - 2) Urine Mucus Few (None Seen) Urine Glucose Normal mg/dL (Normal) Microbiology Microbiology Date/Time Source Procedure Growth Status 02/05/25 22:00 Voided Urine Urine Culture - Preliminary Resulted 02/05/25 18:30 Blood Blood Culture - Preliminary NO GROWTH AFTER 24 HOURS OF INCUBATION. Resulted 02/04/25 22:00 Nose MRSA Screen - Final Methicillin Resistant S.aureus Complete Labs and/or images reviewed: Labs reviewed by me, Image(s) reviewed by me Assessment/Plan Assessment/Plan Impression: -AFib with RVR -acute on chronic hypoxic respiratory failure -pulmonary hypertension -acute decompensated right ventricular failure -shock, questionable sepsis etiology -large left pleural effusion -COPD -acute kidney injury, vasomotor nephropathy -primary hypertension Plan: Events: Patient off of norepinephrine. AFib uncontrolled now. Patient 100% FiO2 with saturation 87%. Patient refusing high-flow nasal cannula. Discussion made with the patient regarding code status and plan of care. Patient is requesting to be DNR, DNI status. Continue current medical modalities. Vasopressors are okay. Defer to Cardiology for rate control given patient was placed on flecainide yesterday. -radiology consultation for possible thoracentesis. Note patient was on Eliquis. -cardiology consultation: Recommendations reviewed -renal ultrasound: Results reviewed -bronchodilators, Pulmicort -check ESR, CRP, blood and urine cultures -continue norepinephrine keep map greater than 65 mmHg -continue anticoagulation with Eliquis -repeat labs in a.m. Critical care time spent with patient discussing and formulating plan of care: 40 minutes. This does not include time spent performing procedures. This medical document was created using an electronic medical record system with [employer] system. Although this document has been carefully reviewed, there may still be some phonetic and typographical errors. These areas are purely typographical due to imperfections of the software programs, and do not reflect any compromise in the patient's medical care. Patient refusing to be placed Plan discussed with: Patient, Other (RN) My Orders Orders - JIN GANN NP Procedure Category Date Status Time Renal DIET 02/06/25 Transmitted Standard(2gna,3gk,Lopho) Dinner Chest Portable XY 02/07/25 Resulted 04:00 Oxygen By High-Flow RT 02/07/25 Transmitted 09:11 Parathyroid Hormone LAB 02/07/25 In Process Intact 10:24 Code Status CODE 02/07/25 Transmitted 10:33 Date of Service: Feb 07, 2025 Billing Provider: JIN GANN NP Common Visit Codes: [id number] CARE 30-74 MIN JIN GANN NP Feb 07, 2025 10:37
[2025-02-07 10:47] LABS: Magnesium 2.1 mg/dL (1.6-2.6)
[2025-02-07 10:49] LABS: Phosphorus 6.4 mg/dL (2.4-5.1)
--- NOTE | 2025-02-07 13:42 | DVHPNRES ---
Progress Note Date Seen: Feb 07, 2025 Resident Creating Document: CUCO LEVY RESIDENT Has the PT tested + for MRSA If YES, has PT been informed?: Yes Medical Necessity Reason Pt with a Central, PICC or Fol: No Subjective Other Systems: Patient seen and examined by myself today in round with the resident, I agree with his assessment and plan Objective vital signs Vital Sign Date Time Temp Pulse Resp B/P (MAP) Pulse Ox O2 Delivery O2 Flow Rate FiO2 02/07/25 13:00 79 14 99/57 (71) 89 02/07/25 12:00 Hi-Flow Heated NC+ 15 100 100 02/07/25 11:59 98.0 98.0 Total Intake and Output 02/06/25 02/06/25 02/07/25 15:00 23:00 07:00 Intake Total 1041.0 ml 282.5 ml 284.0 ml Output Total 500 ml 250 ml 1200 ml Balance 541.0 ml 32.5 ml -916.0 ml medications Current Medications Medications Dose Ordered Sig/Julian Route Start Time Stop Time Status Last Admin Dose Admin Apixaban 2.5 mg BID PO 02/04/25 22:00 02/07/25 10:31 2.5 MG Methylprednisolone Sodium Succinate 40 mg BID IV 02/04/25 22:00 02/07/25 09:22 40 MG Ceftriaxone Sodium 50 ml @ 100 mls/hr DAILY@09 IV 02/05/25 09:00 02/07/25 09:01 100 MLS/HR Azithromycin 250 ml @ 125 mls/hr DAILY IV 02/05/25 10:00 02/07/25 09:23 125 MLS/HR Diagnostic Test (Pha) 1 strip ACHS 02/04/25 22:00 02/07/25 12:10 1 STRIP Insulin Human Regular ACHS SC 02/04/25 22:00 02/07/25 12:11 4 UNITS Dextrose 50 ml UD PRN IV 02/04/25 19:30 Ondansetron HCl 4 mg Q4HP PRN IV 02/04/25 19:30 Acetaminophen 650 mg Q6HP PRN PO 02/04/25 19:30 Nitroglycerin 0.4 mg Q5MINP PRN SL 02/04/25 19:30 Morphine Sulfate 2 mg Q30M PRN IV 02/04/25 19:30 Acetaminophen/ Hydrocodone Bitart 1 tab Q6HPRN PRN PO 02/05/25 18:00 02/07/25 12:10 1 TAB Flecainide Acetate 100 mg Q12HR PO 02/06/25 10:00 02/07/25 09:23 100 MG Alprazolam 0.25 mg Q8HP PRN PO 02/06/25 09:30 02/07/25 11:04 0.25 MG Albuterol 2.5 mg Q6HWA NEB 02/06/25 12:00 02/07/25 11:21 2.5 MG Ipratropium [place] 0.5 mg Q6HWA NEB 02/06/25 12:00 02/07/25 11:21 0.5 MG Pantoprazole Sodium 40 mg DAILY@0600 PO 02/06/25 09:30 02/07/25 05:47 40 MG Furosemide 100 mg/ Sodium Chloride 110 ml @ 5.5 mls/hr Q20H IV 02/06/25 17:00 Hold Zirconium Oxide 10 gm TID PO 02/06/25 22:00 02/08/25 14:01 02/06/25 22:00 10 GM Furosemide 100 mg/ Sodium Chloride 110 ml @ 5.5 mls/hr Q20H IV 02/06/25 17:45 02/06/25 18:33 5.5 MLS/HR Norepinephrine Bitartrate 32 mg/ Sodium Chloride 250 ml @ 0.938 mls/ hr Q24H IV 02/06/25 18:30 laboratory and microbiology Laboratory Tests 02/07/25 05:00 Test 02/07/25 05:00 Range/Units Serum Glucose 140 H 74-106 mg/dL Microbiology Date/Time Source Procedure Growth Status 02/05/25 22:00 Voided Urine Urine Culture - Preliminary Resulted 02/05/25 18:30 Blood Blood Culture - Preliminary NO GROWTH AFTER 24 HOURS OF INCUBATION. Resulted 02/04/25 22:00 Nose MRSA Screen - Final Methicillin Resistant S.aureus Complete Labs and/or images reviewed: Labs reviewed by me, Image(s) reviewed by me Problem List/Assessment/Plan Problem List/Assessment/Plan Ms. Irwin, a 74-year-old female with a complex medical history including atrial fibrillation, congestive heart failure, pulmonary hypertension, hypertension, and COPD, presented to the emergency room with shortness of breath for five days, requiring supplemental oxygen and amiodarone drip for controlled A-fib, and has a history of unspecified invasive cardiac procedures and a left lumpectomy. The patient has acute on chronic decompensated heart failure with preserved ejection fraction (HFpEF), classified as NYHA Class III. She also has unspecified atrial fibrillation with a previously rapid ventricular rate, now controlled with Eliquis and metoprolol. Additionally, she suffers from severe unspecified pulmonary hypertension, acute on chronic hypoxic respiratory failure, and hypertension with worsening renal function. She is now modified chemical code and verbally denies to intubation. Ativan helped to reduce anxiety. Last alcohol intake about a week ago. Assessment # CHRISTINA hemodynamic mediated etiology in the setting of AFib with RVR and shock, # CKD stage III A/B # mild hyponatremia # hyperkalemia , improving # hyperphosphatemia # hypovitaminosis D # secondary hyperparthyroidsm. 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 # Acute on chronic hypoxic respiratory failure now on NIPPV/ 15 L # Worsening pulmonary edema # Normocytic anemia, likely anemia of chronic disease # polysubstance abuse, ETOH, marijuana # MRSA +ve # moderate left pleural effusion # EtoH abuse, continues use. # Medical nonadherence Findings: #Fluid status: overall +ve fluid #GFR: 22>17>14>17 #Creatinine: 2.30 >2.86 >3.27>2.84 (1.4) #BUN: 46>54>67 #potassium 5.3>4.2 #Ca: 8.6, Na 133 #BUN: CR: 20.5 likely prerenal. #UA -ve #US kidney: Increased echogenicity of bilateral kidneys can be seen in chronic medical renal disease. #I&O: [id number]=-[id number] no Alonso's. #phosphorus 6.4 #calcium: 8.7> 8.6>8.5 #vit d 22.9 #PTH 818.3 Plan/Recommendation: #Hyperkalemia, improving protocol to complete, K improved. add sevelamer 1200 TID add vitamin D supplement. #Lasix drip 5mg/hr to accelerate diuretics to continue, cardiac diet, 2g/24 hour salt restriction. #Hold home Bumex 1mg bid, Jardiance 10 mg daily given acute renal injury. #Strict I&O and check Daily weight, Avoid Nephrotoxics, Avoid hyper/hypo tension, keep map>65, Fluid Restriction 1 L / 24 hour. please use quad conc. of levophed only. #Daily BMP, close followup of Urine, Na, K, Urine electrolytes, osmolality pending, ur: cr ratio. #Close management in JABIER/ICU level of care. Look for alcohol withdrawal symptoms. Rest of the treatment as per primary team, cardiology. Thank you for the opportunity to follow up on your patient. In case of any question feel free to reach out to the Nephrology team. Will follow up. Discussed with Nephrology attending Dr. Oh. Plan discussed with: Patient, Other My Orders My Orders Orders - CUCO LEVY Procedure Category Date Status Time Sodium Zirconium PHA 02/06/25 In Process Cyclosilicate 22:00 Sodium Chl 0.9% PHA 02/06/25 In Process (So... W/Furosemide 17:45 Osmolality Urine LAB 02/06/25 Logged 18:01 Urine Sodium LAB 02/06/25 Logged 18:01 Urine Protein LAB 02/06/25 Logged 18:01 Urine Potassium LAB 02/06/25 Logged 18:01 Urine Creatinine LAB 02/06/25 Logged 18:01 Urine Dip ED NURSING 02/06/25 Transmitted Sodium Chl 0.9% PHA 02/06/25 In Process (Ns... 18:30 Dietary Evaluation Review Comments: 1) CCHO 60gm + renal specific 40gm protein 2) Refer Private Investigator Surveillance on DC 3) Continue current plan of care Expected Outcomes/Goals: Pt will meet >75% estimated needs Fu 3-5 days CUCO LEVY Feb 07, 2025 13:42 FLYNN OH MD Feb 07, 2025 16:27
--- NOTE | 2025-02-07 16:24 | DVHPN2 ---
Consult Progress Note Subjective Other Systems: Patient remains in atrial fibrillation, now with controlled rate on potline monitor at time of assessment. Objective vital signs Vital Sign Date Time Temp Pulse Resp B/P (MAP) Pulse Ox O2 Delivery O2 Flow Rate FiO2 02/07/25 14:00 15 88 Hi-Flow Heated NC+ 15 100 100 02/07/25 14:00 93 02/07/25 13:00 99/57 (71) 02/07/25 11:59 98.0 98.0 Total Intake and Output 02/06/25 02/06/25 02/07/25 15:00 23:00 07:00 Intake Total 1041.0 ml 282.5 ml 284.0 ml Output Total 500 ml 250 ml 1200 ml Balance 541.0 ml 32.5 ml -916.0 ml medications Current Medications Medications Dose Ordered Sig/Julian Route Start Time Stop Time Status Last Admin Dose Admin Apixaban 2.5 mg BID PO 02/04/25 22:00 02/07/25 10:31 2.5 MG Methylprednisolone Sodium Succinate 40 mg BID IV 02/04/25 22:00 02/07/25 09:22 40 MG Ceftriaxone Sodium 50 ml @ 100 mls/hr DAILY@09 IV 02/05/25 09:00 02/07/25 09:01 100 MLS/HR Azithromycin 250 ml @ 125 mls/hr DAILY IV 02/05/25 10:00 02/07/25 09:23 125 MLS/HR Diagnostic Test (Pha) 1 strip ACHS 02/04/25 22:00 02/07/25 12:10 1 STRIP Insulin Human Regular ACHS SC 02/04/25 22:00 02/07/25 12:11 4 UNITS Dextrose 50 ml UD PRN IV 02/04/25 19:30 Ondansetron HCl 4 mg Q4HP PRN IV 02/04/25 19:30 Acetaminophen 650 mg Q6HP PRN PO 02/04/25 19:30 Nitroglycerin 0.4 mg Q5MINP PRN SL 02/04/25 19:30 Morphine Sulfate 2 mg Q30M PRN IV 02/04/25 19:30 Acetaminophen/ Hydrocodone Bitart 1 tab Q6HPRN PRN PO 02/05/25 18:00 02/07/25 12:10 1 TAB Flecainide Acetate 100 mg Q12HR PO 02/06/25 10:00 02/07/25 09:23 100 MG Alprazolam 0.25 mg Q8HP PRN PO 02/06/25 09:30 02/07/25 11:04 0.25 MG Albuterol 2.5 mg Q6HWA NEB 02/06/25 12:00 02/07/25 11:21 2.5 MG Ipratropium [place] 0.5 mg Q6HWA NEB 02/06/25 12:00 02/07/25 11:21 0.5 MG Pantoprazole Sodium 40 mg DAILY@0600 PO 02/06/25 09:30 02/07/25 05:47 40 MG Furosemide 100 mg/ Sodium Chloride 110 ml @ 5.5 mls/hr Q20H IV 02/06/25 17:00 Hold Zirconium Oxide 10 gm TID PO 02/06/25 22:00 02/08/25 14:01 02/06/25 22:00 10 GM Furosemide 100 mg/ Sodium Chloride 110 ml @ 5.5 mls/hr Q20H IV 02/06/25 17:45 02/06/25 18:33 5.5 MLS/HR Norepinephrine Bitartrate 32 mg/ Sodium Chloride 250 ml @ 0.938 mls/ hr Q24H IV 02/06/25 18:30 Sevelamer HCl 1,200 mg TIDWM PO 02/07/25 18:00 Ergocalciferol 50,000 unit Q7D PO 02/07/25 13:45 Examination: GENERAL:Abnormal (Generalized weakness), LUNGS:Normal, CVS:Normal, NEURO:Normal laboratory and microbiology Laboratory Tests 02/07/25 05:00 Test 02/07/25 05:00 Range/Units Serum Glucose 140 H 74-106 mg/dL Problem List/Assessment/Plan Problem List/Assessment/Plan Acute on chronic decompensated HFpEF, NYHA Class III Unspecified atrial fibrillation with rapid ventricular rate, now with controlled rate (on Eliquis/metoprolol) Unspecified pulmonary hypertension, severe Acute on chronic hypoxic respiratory failure Hypertension Left pleural effusion Acute kidney injury Plan/Recommendation (Dr. Pacheco) Recent transthoracic echocardiogram revealed EF 60-65% with abnormal septal motion due to RV pressure and volume overload. Moderate to severe RV enlargement with reduced systolic function. RVSP 63 mmHg. Continue preload reduction and initiate afterload with stable BP. Maintain fluid restrictions and strict I&Os. Transition to Flecainide therapy and continue low-dose Eliquis therapy ([id number]-NRSq Score: 4 points. HAS-BLED Score: 1 point). Patient now off of vasopressor therapy, BP readings still on lower side. Will initiate low dose beta shaun with stable BP. Replete electrolytes as necessary, K>4 and Mg>2. Monitor ECG changes closely and notify. Continue Nephrology recommendations and avoid nephrotoxic agents. Follow-up with primary boring machine set up operator jig at [facility] as scheduled. Thank you for allowing us to participate in this patient's care. Please call if you have any questions or concerns. Critical care time: 30 min. This medical document was created using an electronic medical record system with voice recognition software and computerized dictation system. Although this document has been carefully reviewed, there might still be some phonetic and typographical errors. Occasional wrong-word or ``sound-alike substitutions may have occurred due to the inherent limitations of voice recognition software. These areas are purely typographical due to imperfections of the software programs and do not reflect any compromise in the patient's medical care. Please read the chart carefully and recognize, using context, where these substitutions have occurred. Plan discussed with: Patient Dietary Evaluation Review Comments: 1) CCHO 60gm + renal specific 40gm protein 2) Refer Express Clerk on DC 3) Continue current plan of care Expected Outcomes/Goals: Pt will meet >75% estimated needs Fu 3-5 days Date of Service: Feb 07, 2025 Billing Provider: URI JAUREGUI Common Visit Codes: [id number] CARE 30-74 MIN URI JAUREGUI Feb 07, 2025 16:24
[2025-02-07] MEDS: SEVELAMER 800 MG TAB PO ONE (17:09)
[2025-02-07] MEDS: ERGOCALCIFEROL 50,000 UNIT(1.25MG) CAP PO SCH (17:10)
[2025-02-07] MEDS: SEVELAMER 800 MG TAB PO SCH (17:21)
[2025-02-07] MEDS: MILK OF MAGNESIA 30ML SUSP PO PRN (22:26)
[2025-02-08] VITALS (91 sets, daily range): BP systolic 90–132; BP diastolic 48–93; PULSE 67–162; RESP 12–26; TEMP 97.6–98.6; O2SAT 7–94
[2025-02-08 06:11] LABS: Anion Gap 10 (5-15)
[2025-02-08 06:12] LABS: Calcium 8.8 mg/dL (8.7-10.4); Carbon Dioxide 25 mmol/L (20-31); Chloride 100 mmol/L (98-107); Potassium 4.1 mmol/L (3.5-5.1); Sodium 135 mmol/L (136-145)
[2025-02-08 06:20] LABS: Glucose 144 mg/dL (74-106)
[2025-02-08 06:22] LABS: Blood Urea Nitrogen 88 mg/dL (9-23)
--- NOTE | 2025-02-08 10:39 | DVHPN2 ---
Progress Note Date Seen: Feb 08, 2025 Has the PT tested + for MRSA If YES, has PT been informed?: Yes Medical Necessity Reason Pt with a Central, PICC or Fol: No Subjective Review of Systems: RESPIRATORY:Abnormal Other Systems: Patient seen and examined by myself today in follow-up Objective vital signs Vital Sign Date Time Temp Pulse Resp B/P (MAP) Pulse Ox O2 Delivery O2 Flow Rate FiO2 02/08/25 08:45 98 17 86 02/08/25 08:00 Hi-Flow Heated NC+ 15 100 100 02/08/25 08:00 97.8 97.8 Total Intake and Output 02/07/25 02/07/25 02/08/25 15:00 23:00 07:00 Intake Total 584.0 ml 278.5 ml 284.0 ml Output Total 500 ml 2200 ml Balance 584.0 ml -221.5 ml -1916.0 ml medications Current Medications Medications Dose Ordered Sig/Julian Route Start Time Stop Time Status Last Admin Dose Admin Apixaban 2.5 mg BID PO 02/04/25 22:00 02/08/25 09:12 2.5 MG Methylprednisolone Sodium Succinate 40 mg BID IV 02/04/25 22:00 02/08/25 09:12 40 MG Ceftriaxone Sodium 50 ml @ 100 mls/hr DAILY@09 IV 02/05/25 09:00 02/08/25 07:51 100 MLS/HR Azithromycin 250 ml @ 125 mls/hr DAILY IV 02/05/25 10:00 02/08/25 09:12 125 MLS/HR Diagnostic Test (Pha) 1 strip ACHS 02/04/25 22:00 02/08/25 06:10 1 STRIP Insulin Human Regular ACHS SC 02/04/25 22:00 02/08/25 06:09 2 UNITS Dextrose 50 ml UD PRN IV 02/04/25 19:30 Ondansetron HCl 4 mg Q4HP PRN IV 02/04/25 19:30 Acetaminophen 650 mg Q6HP PRN PO 02/04/25 19:30 Nitroglycerin 0.4 mg Q5MINP PRN SL 02/04/25 19:30 Morphine Sulfate 2 mg Q30M PRN IV 02/04/25 19:30 Acetaminophen/ Hydrocodone Bitart 1 tab Q6HPRN PRN PO 02/05/25 18:00 02/08/25 02:25 1 TAB Flecainide Acetate 100 mg Q12HR PO 02/06/25 10:00 02/08/25 09:12 100 MG Alprazolam 0.25 mg Q8HP PRN PO 02/06/25 09:30 02/08/25 09:11 0.25 MG Albuterol 2.5 mg Q6HWA [facility] 02/06/25 12:00 02/08/25 06:56 2.5 MG Ipratropium [place] 0.5 mg Q6HWA NEB 02/06/25 12:00 02/08/25 06:56 0.5 MG Pantoprazole Sodium 40 mg DAILY@0600 PO 02/06/25 09:30 02/08/25 06:09 40 MG Furosemide 100 mg/ Sodium Chloride 110 ml @ 5.5 mls/hr Q20H IV 02/06/25 17:00 Hold Zirconium Oxide 10 gm TID PO 02/06/25 22:00 02/08/25 14:01 02/06/25 22:00 10 GM Furosemide 100 mg/ Sodium Chloride 110 ml @ 5.5 mls/hr Q20H IV 02/06/25 17:45 02/07/25 17:20 5.5 MLS/HR Norepinephrine Bitartrate 32 mg/ Sodium Chloride 250 ml @ 0.938 mls/ hr Q24H IV 02/06/25 18:30 Sevelamer HCl 1,200 mg TIDWM PO 02/07/25 18:00 02/08/25 07:51 1,200 MG Ergocalciferol 50,000 unit Q7D PO 02/07/25 13:45 02/07/25 17:10 50,000 UNIT Magnesium Hydroxide 30 ml DAILYP PRN PO 02/07/25 21:30 02/07/25 22:26 30 ML Examination: LUNGS:Normal, CVS:Normal, MSK:Normal laboratory and microbiology Laboratory Tests 02/08/25 04:51 02/07/25 05:00 Test 02/08/25 04:51 Range/Units Serum Glucose 144 H 74-106 mg/dL Microbiology Date/Time Source Procedure Growth Status 02/05/25 22:00 Voided Urine Urine Culture - Preliminary Resulted 02/05/25 18:30 Blood Blood Culture - Preliminary NO GROWTH AFTER 48 HOURS OF INCUBATION. Resulted 02/04/25 22:00 Nose MRSA Screen - Final Methicillin Resistant S.aureus Complete Problem List/Assessment/Plan Problem List/Assessment/Plan Acute kidney injury superimposed Chronic Kidney Disease secondary hemodynamic mediated Acute on chronic respiratory failure, on high-flow oxygen Congestive heart failure exacerbation AFib with RVR mild hyponatremia secondary to excess H2O hyperkalemia , improving hyperphosphatemia hypovitaminosis D Chronic alcohol abuse Large left pleural effusion MRSA positive Recommendation Kidney function slightly improving Increased urine output Strict I&Os Continue furosemide drip KCL replacement Fluid restrictions Thoracentesis We will continue to follow Plan discussed with: Patient Dietary Evaluation Review Comments: 1) CCHO 60gm + renal specific 40gm protein 2) Refer Plumbing Drafter on DC 3) Continue current plan of care Expected Outcomes/Goals: Pt will meet >75% estimated needs Fu 3-5 days FLYNN HOROWITZ MD Feb 08, 2025 10:39
--- NOTE | 2025-02-08 15:07 | DVHPN2 ---
Assessment/Plan Assessment/Plan ICU progress note interval off pressor, improving, tachy when active physical exam aox3 scattered rhonchi, basilar crackles s1 s2 tachy irregular abdomen soft speaking in short sentences no LE edema labs ekg imaging reviewed assesssment and plan AFib with RVR acute on chronic hypoxic respiratory failure pulmonary hypertension acute decompensated right ventricular failure shock, questionable sepsis etiology large left pleural effusion COPD acute kidney injury, vasomotor nephropathy primary hypertension Plan: Events: Decreased vasopressor therapy. Worsening renal function. Atrial fibrillation controlled. Continues to be are increased O2 requirements. -radiology consultation for possible thoracentesis. Note patient was on Eliquis. -cardiology consultation: Recommendations reviewed -renal ultrasound: Results reviewed -bronchodilators, Pulmicort -check ESR, CRP, blood and urine cultures -continue norepinephrine keep map greater than 65 mmHg -continue anticoagulation with Eliquis -repeat labs in a.m. dc levo off pressors c/w bubbler transfer to step down maintain spo2 88% code status DNR DNI prognosis poor 38 minutes critical care tiem spent Plan discussed with: Patient Date of Service: Feb 08, 2025 Billing Provider: MARGAUX BAUTISTA MD Common Visit Codes: [id number] CARE 30-74 MIN MARGAUX BAUTISTA MD Feb 08, 2025 15:07
--- NOTE | 2025-02-08 17:54 | DVHPN2 ---
Consult Progress Note Date Seen: Feb 08, 2025 Subjective Review of Systems: CVS:Normal, RESPIRATORY:Abnormal, NEURO:Normal Other Systems: C/o mild SOB Objective vital signs Vital Sign Date Time Temp Pulse Resp B/P (MAP) Pulse Ox O2 Delivery O2 Flow Rate FiO2 02/08/25 16:30 83 15 78 02/08/25 16:00 Hi-Flow Heated NC+ 15 100 100 02/08/25 12:00 98.5 98.5 Total Intake and Output 02/07/25 02/07/25 02/08/25 15:00 23:00 07:00 Intake Total 584.0 ml 278.5 ml 284.0 ml Output Total 500 ml 2200 ml Balance 584.0 ml -221.5 ml -1916.0 ml medications Current Medications Medications Dose Ordered Sig/Julian Route Start Time Stop Time Status Last Admin Dose Admin Apixaban 2.5 mg BID PO 02/04/25 22:00 02/08/25 09:12 2.5 MG Methylprednisolone Sodium Succinate 40 mg BID IV 02/04/25 22:00 02/08/25 09:12 40 MG Ceftriaxone Sodium 50 ml @ 100 mls/hr DAILY@09 IV 02/05/25 09:00 02/08/25 07:51 100 MLS/HR Azithromycin 250 ml @ 125 mls/hr DAILY IV 02/05/25 10:00 02/08/25 09:12 125 MLS/HR Diagnostic Test (Pha) 1 strip ACHS 02/04/25 22:00 02/08/25 16:59 1 STRIP Insulin Human Regular ACHS SC 02/04/25 22:00 02/08/25 17:02 2 UNITS Dextrose 50 ml UD PRN IV 02/04/25 19:30 Ondansetron HCl 4 mg Q4HP PRN IV 02/04/25 19:30 Acetaminophen 650 mg Q6HP PRN PO 02/04/25 19:30 Nitroglycerin 0.4 mg Q5MINP PRN SL 02/04/25 19:30 Morphine Sulfate 2 mg Q30M PRN IV 02/04/25 19:30 Acetaminophen/ Hydrocodone Bitart 1 tab Q6HPRN PRN PO 02/05/25 18:00 02/08/25 11:11 1 TAB Flecainide Acetate 100 mg Q12HR PO 02/06/25 10:00 02/08/25 09:12 100 MG Alprazolam 0.25 mg Q8HP PRN PO 02/06/25 09:30 02/08/25 17:04 0.25 MG Albuterol 2.5 mg Q6HWA NEB 02/06/25 12:00 02/08/25 12:41 2.5 MG Ipratropium Margaret 0.5 mg Q6HWA NEB 02/06/25 12:00 02/08/25 12:41 0.5 MG Pantoprazole Sodium 40 mg DAILY@0600 PO 02/06/25 09:30 02/08/25 06:09 40 MG Zirconium Oxide 10 gm TID PO 02/06/25 22:00 Hold 02/06/25 22:00 10 GM Furosemide 100 mg/ Sodium Chloride 110 ml @ 5.5 mls/hr Q20H IV 02/06/25 17:45 02/08/25 13:59 5.5 MLS/HR Sevelamer HCl 1,200 mg TIDWM PO 02/07/25 18:00 02/08/25 17:04 1,200 MG Ergocalciferol 50,000 unit Q7D PO 02/07/25 13:45 02/07/25 17:10 50,000 UNIT Magnesium Hydroxide 30 ml DAILYP PRN PO 02/07/25 21:30 02/07/25 22:26 30 ML Examination: GENERAL:Abnormal, LUNGS:Abnormal (High flow O2 associated hypoxia), CVS:Normal (Paroxysmal A-fib), NEURO:Normal laboratory and microbiology Laboratory Tests 02/08/25 04:51 02/07/25 05:00 Test 02/08/25 04:51 Range/Units Serum Glucose 144 H 74-106 mg/dL Problem List/Assessment/Plan Problem List/Assessment/Plan Acute on chronic decompensated HFpEF, NYHA Class III Unspecified atrial fibrillation with rapid ventricular rate, now with controlled rate (on Eliquis/metoprolol) Unspecified pulmonary hypertension, severe Acute on chronic hypoxic respiratory failure Hypertension Plan/Recommendation (Dr. Pacheco) Recent transthoracic echocardiogram revealed EF 60-65% with abnormal septal motion due to RV pressure and volume overload. Moderate to severe RV enlargement with reduced systolic function. RVSP 63 mmHg. Continue preload reduction and initiate afterload with stable BP. Maintain fluid restrictions and strict I&Os. Continue Flecainide and low-dose Eliquis therapy ([id number]- VASc Score: 4 points. HAS-BLED Score: 1 point). Replete electrolytes as necessary, K>4 and Mg>2. Monitor ECG changes closely and notify. Continue Nephrology recommendations and avoid nephrotoxic agents. Follow-up with primary industrial relations counselor at [facility] as scheduled. Thank you for allowing us to participate in this patient's care. Please call if you have any questions or concerns. Critical care time: 30 min. This medical document was created using an electronic medical record system with voice recognition software and computerized dictation system. Although this document has been carefully reviewed, there might still be some phonetic and typographical errors. Occasional wrong-word or ``sound-alike substitutions may have occurred due to the inherent limitations of voice recognition software. These areas are purely typographical due to imperfections of the software programs and do not reflect any compromise in the patient's medical care. Please read the chart carefully and recognize, using context, where these substitutions have occurred. Plan discussed with: Patient, Other Dietary Evaluation Review Comments: 1) CCHO 60gm + renal specific 40gm protein 2) Refer [employer] on DC 3) Continue current plan of care Expected Outcomes/Goals: Pt will meet >75% estimated needs Fu 3-5 days Date of Service: Feb 08, 2025 Billing Provider: MORGAN MERA Cardiology Common Codes: 56178-ORBWOUXI CARE 30-74 MIN MORGAN MERA Feb 08, 2025 17:54
--- NOTE | 2025-02-08 21:08 | DVHINCON2 ---
Date of service: Feb 08, 2025 Referring Physician Pranay Ramirez NP Reason for Consultation Acute on chronic hypoxic respiratory failure, pulmonary hypertension. History of Present Illness A 74-year-old woman with PMHx of pulmonary hypertension, COPD, hypertension, diabetes mellitus, and CHF who presented to ED on 02/04/25 for evaluation of shortness of breath. Patient reported 4-day history of worsening shortness of b reath, using 3 L per nasal cannula at home. She denied any chest pain, cough, fever, abdominal pain or other acute symptoms. Patient was noted to be in AFib with rapid ventricular response. Patient was admitted for further care, and pulmonary consultation is requested for evaluation and management of acute hypoxic respiratory failure and pulmonary hypertension. Review of Systems: 14-point review of systems negative unless otherwise noted above. Past Medical History: Hypertension, diabetes mellitus, pulmonary hypertension, COPD, CHF Past Surgical History: None Medications: Reviewed. Allergies: No known drug allergies. Family History: Cancer. Social History: Nonsmoker. No alcohol or illicit drug use. Family History: FH: cancer G8 SISTER Allergies: Coded Allergies: NO KNOWN ALLERGIES (Unverified , 01/01/25) Home Meds Active Scripts Budesonide-Formoterol Fumarate (Breyna 160-4.5 Mcg/Act) 1 Aer Aer, 1 AER IN BID for 30 Days, #1 INHALER Prov:DEENA MCCRAY MD 01/05/25 Empagliflozin (Jardiance) 10 Mg Tab, 10 MG PO DAILY for 30 Days, #30 TAB 5 Refills Prov:DEENA MCCRAY MD 01/05/25 Bumetanide (Bumex Tablet) 1 Mg Tab, 1 MG PO BID for 30 Days, #60 TAB 5 Refills BLK BX WARNING-CAN LEAD TO PROFOUND DIURESIS WITH FLUID- ELECTROLYTE LOSS Prov:DEENA MCCRAY MD 01/05/25 Reported Medications Selexipag (Uptravi) 1,800 Mcg Inj, 1600 MCG IV, TAB 01/01/25 Metoprolol Succinate (Metoprolol Succinate Er) 25 Mg Tab, 25 MG PO DAILY for 30 Days, MG 01/01/25 Riociguat Base (Adempas) 2.5 Mg Tab, 2.5 MG PO TID, TAB 01/01/25 Apixaban Base (ELIQUIS) 2.5 Mg Tab, 2.5 MG PO BID, TAB 01/01/25 Macitentan (Opsumit) 10 Mg Tab, 10 MG PO, TAB 01/01/25 Omeprazole (Gnp Omeprazole) 20 Mg Tab, 1 TAB PO DAILY, #90 TAB 1 Refill 01/01/25 Current Medications Current Medications Medications (Trade) Dose Ordered Sig/Julian Route PRN Reason Start Time Stop Time Status Last Admin Magnesium Hydroxide (Milk Of Magnesia Oral Suspension) 30 ml DAILYP PRN PO FOR CONSTIPATION 02/07/25 21:30 02/07/25 22:26 Vital Signs Vital Signs Date Time Temp Pulse Resp B/P (MAP) Pulse Ox O2 Delivery O2 Flow Rate FiO2 02/08/25 20:00 97.6 86 15 108/72 (84) 87 97.6 02/08/25 18:45 Nasal Cannula 15.0 02/08/25 18:45 N/A Physical Exam Gen.: Patient lying in bed in no apparent distress. On supplemental oxygen. Head: Normocephalic, atraumatic. Eyes: EOMI/PERRLA. Ears: Normal hearing. Normal anatomy. Neck/trachea: Trachea midline, supple. Nose: Normal external anatomy. Mouth: Moist mucous membranes. Chest: Decreased air entry bilaterally. No wheezing or rhonchi. Cardiovascular: Positive S1, positive S2. Regular rate and rhythm. Abdomen: Positive bowel sounds in all 4 quadrants. Soft, non-tender, non- distended. : Deferred. Rectal: Deferred. Skin: Warm, dry. Intact. Extremities: 2+ radial pulses bilaterally. No lower extremity edema. Neuro: Awake, alert, oriented x3. No gross motor or sensory deficits. Cranial nerves II through XII intact. Gait not assessed. Labs/Diagnostic Data Labs Test 02/08/25 16:58 02/08/25 04:51 02/07/25 10:55 02/07/25 05:00 Range/Units POC Glucose 146 H 70-106 mg/dl Sodium Level 135 L 136-145 mmol/L Potassium Level 4.1 3.5-5.1 mmol/L Chloride Level 100 98-107 mmol/L Carbon Dioxide Level 25 20-31 mmol/L Anion Gap 10 5-15 Blood Urea Nitrogen 88 #*H 9-23 mg/dL Creatinine 2.67 H 0.550-1.02 mg/dL Glomerular Filtration Rate Calc 18 >90 mL/min BUN/Creatinine Ratio 33.0 H 10.0-20.0 Serum Glucose 144 H 74-106 mg/dL Calcium Level 8.8 8.7-10.4 mg/dL Parathyroid Hormone (Intact) 818.3 H 18.4-80.1 pg/mL White Blood Count 5.3 # 4.4-10.8 10^3/uL Red Blood Count 2.91 L 4.0-5.20 10^6/uL Hemoglobin 9.0 L 12.2-16.2 g/dL Hematocrit 27.7 L 36.0-46.0 % Mean Corpuscular Volume 95.1 80.0-100.0 fL Mean Corpuscular Hemoglobin 31.0 28.0-32.0 pg Mean Corpuscular Hemoglobin Concent 32.6 32.0-36.0 g/dL Red Cell Distribution Width 18.8 H 11.8-14.3 % Platelet Count 172 140-450 10^3/uL Mean Platelet Volume 7.2 6.9-10.8 fL Neutrophils (%) (Auto) 37.0-80.0 % Lymphocytes (%) (Auto) 10.0-50.0 % Monocytes (%) (Auto) 0.0-12.0 % Basophils (%) (Auto) 0.0-2.0 % Neutrophils # (Auto) 1.6-8.6 10 ^3/uL Lymphocytes # (Auto) 0.4-5.4 10 ^3/uL Monocytes # (Auto) 0-1.3 10 ^3/uL Differential Total Cells Counted 100.0 100 Neutrophils % (Manual) 83 H 37.0-80.0 Band Neutrophils % (Manual) 5 Lymphocytes % (Manual) 7 L 10.0-50.0 Monocytes % (Manual) 3 0-12 Eosinophils % (Manual) 0 0-7 Basophils % (Manual) 0 0.0-2.0 Metamyelocytes % (manual) 2 Myelocytes % (Manual) 0 Promyelocytes % (Manual) 0 Blast Cells % (Manual) 0 Nucleated Red Blood Cells 9.0 % Reactive Lymphocytes 0 Platelet Estimate Adequate Phosphorus Level 6.4 H 2.4-5.1 mg/dL Magnesium Level 2.1 1.6-2.6 mg/dL Vitamin D 25-Hydroxy 22.9 L 30.0-100 ng/mL Test 02/06/25 08:34 02/06/25 04:38 02/05/25 22:00 02/05/25 04:33 Range/Units Blood Gas Specimen Type Arterial Blood Gas Sample Site Right radial Blood Gas Patient Temperature 37.0 Arterial Blood Date Drawn [id number] Arterial Blood pH 7.291 L 7.350-7.450 Arterial Blood Partial Pressure CO2 42.7 32.0-45.0 mmHg Arterial Blood Partial Pressure O2 57.5 L 83.0-108.0 mmHg Arterial Blood HCO3 20.1 L 21.0-28.0 mmol/L Arterial Blood Oxygen Saturation 82.6 *L 94.0-98.0 % Arterial Blood Base Excess -6.1 L -2.0-3.0 mmol/L Arterial Blood Oxyhemoglobin 82.1 L 94.0-98.0 % Arterial Blood Carboxyhemoglobin 0.2 L 0.5-1.5 % Arterial Blood Methemoglobin 0.4 0.0-1.5 % Esvin Test Yes Blood Gas Total Hemoglobin 10.90 L 12.0-16.0 g/dL Blood Gas Liter Flow 12.00 Blood Gas Modality Oxymizer FiO2 % 82.0 Blood Gas Critical Value Read Back Yes Blood Gas Notified Whom S kaelyn kuhn Blood Gas Notified Time [id number] Blood Gas Notified By Patrol Lady erik cheema Eosinophils (%) (Auto) 0.0 0.0-7.0 % Eosinophils # (Auto) 0 0-0.8 10 ^3/uL Basophils # (Auto) 0.2 0-0.2 10 ^3/uL C-Reactive Protein High Sensitivity 14.15 H <1.0 mg/dL Urine Color Yellow Yellow Urine Clarity Clear Clear Urine pH 5.0 5.0-9.0 Urine Specific [place] 1.017 1.001-1.035 Urine Protein Trace H Negative Urine Ketones Negative Negative Urine Blood Negative Negative /uL Urine Nitrite Negative Negative Urine Bilirubin Negative Negative Urine Urobilinogen Normal Negative mg/dL Urine Leukocyte Esterase Negative Negative /uL Urine RBC None seen 0 - 4 /hpf Urine Microscopic WBC 5 0-5 /HPF Urine Squamous Epithelial Cells Few <5 /hpf Urine Bacteria None seen None Seen /hpf Urine Hyaline Casts Mod 0 - 2 /lpf Urine Mucus Few None Seen Urine Glucose Normal Normal mg/dL Urine Opiates Screen Pos NEGATIVE Urine Fentanyl Screen Neg NEGATIVE Urine Barbiturates Screen Neg NEGATIVE Urine Phencyclidine Screen Neg NEGATIVE Urine Amphetamines Screen Neg NEGATIVE Urine Benzodiazepines Screen Neg NEGATIVE Urine Cocaine Screen Neg NEGATIVE Urine Cannabinoids Screen Pos NEGATIVE Prothrombin Time 12.3 H 9.3-11.8 sec Prothrombin Time INR 1.18 H 0.9-1.15 Activated Partial Thromboplast Time 39.4 H 24.5-34.5 SEC Total Bilirubin 0.3 0.2-1.0 mg/dL Aspartate Amino Transferase (AST) < 8 L 13-40 U/L Alanine Aminotransferase (ALT) 13 7-40 U/L Alkaline Phosphatase 109 46-116 U/L Total Protein 7.0 5.7-8.2 g/dL Albumin 4.4 3.2-4.8 g/dL Plasma/Serum Blood Alcohol 3.4 <10 mg/dL Test 02/04/25 22:00 02/04/25 20:00 02/04/25 19:05 Range/Units Influenza Type A Antigen Negative Negative Influenza Type B Antigen Negative Negative SARS-CoV-2 Antigen (Rapid) Negative NEGATIVE D-Dimer, Quantitative 1.30 H 0.0-0.49 mg/L FEU Lactic Acid Level 0.9 0.4-2.0 mmol/L B-Type Natriuretic Peptide 317.58 0-100 pg/mL Troponin I High Sensitivity 30 </=34 ng/L Microbiology Date/Time Source Procedure Growth Status 02/05/25 22:00 Voided Urine Urine Culture - Final Complete 02/05/25 18:30 Blood Blood Culture - Preliminary NO GROWTH AFTER 72 HOURS OF INCUBATION. Resulted 02/04/25 22:00 Nose MRSA Screen - Final Methicillin Resistant S.aureus Complete Assessment Impression: Acute on chronic hypoxic respiratory failure Dependence on supplemental oxygen Acute on chronic CHF Sepsis Atrial fibrillation with RVR, currently rate controlled Pulmonary hypertension, severe Hypertension Plan: Supplemental oxygen 15 LPM humidified O2 Titrate to keep O2 sats above 92%. Taper O2 as tolerated. Monitor respiratory status closely Continue antibiotics Diurese to euvolemia w/ Lasix drip Monitor renal function. Monitor electrolytes. Supplement as necessary. Monitor ins and outs. Nephrology recs appreciated. On Xanax, anxiolytic DVT prophylaxis. Prognosis: Poor given patient's multiple co-morbidities. Rest of plan per hospitalist and other consultants. Thank you, GIULIA Ramirez, for allowing me to participate in this patient's care. Further recommendations will depend on the patient's clinical course. Please do not hesitate to contact me if you have any questions or concerns. This medical document was created using an electronic medical record system with [employer] dictation system. Although these documentations are being carefully reviewed, there may still be some phonetic and typographical changes. The errors are purely typographical, due to imperfection on the software program, and do not reflect any compromise in the patient's medical care. Plan discussed with: Other (VERNON Lynn/GIULIA Ramirez/) LUIS WOODS MD Feb 08, 2025 21:08
[2025-02-09] VITALS (68 sets, daily range): BP systolic 97–144; BP diastolic 53–95; PULSE 66–157; RESP 12–28; TEMP 97.6–98.5; O2SAT 79–99
[2025-02-09 05:26] LABS: Hematocrit 29.1 % (36.0-46.0); Hemoglobin 9.5 g/dL (12.2-16.2); Mean Corpuscular Hemoglobin 31.1 pg (28.0-32.0); Mean Corpuscular Hgb Conc. 32.8 g/dL (32.0-36.0); Mean Corpuscular Volume 94.8 fL (80.0-100.0); Platelet Count (auto) 246 10^3/uL (140-450); Red Blood Cells 3.07 10^6/uL (4.0-5.20); White Blood Cell 5.3 10^3/uL (4.4-10.8)
[2025-02-09 05:35] LABS: Anion Gap 12 (5-15); Carbon Dioxide 28 mmol/L (20-31); Potassium 4.1 mmol/L (3.5-5.1); Sodium 136 mmol/L (136-145)
[2025-02-09 05:36] LABS: Calcium 9.6 mg/dL (8.7-10.4)
[2025-02-09 05:41] LABS: BUN/Creatinine Ratio 36.3 (10.0-20.0); Band Neutrophils % (manual) 0; Basophils % (manual) 0 (0.0-2.0); Blast Cells 0; Eosinophils % (manual) 0 (0-7); Metamyelocytes % 0; Myelocytes % 0; Promyelocytes % 0; Reactive Lymphocytes 0
[2025-02-09 05:42] LABS: Magnesium 2.6 mg/dL (1.6-2.6)
[2025-02-09 05:43] LABS: Phosphorus 3.9 mg/dL (2.4-5.1)
[2025-02-09 05:44] LABS: Chloride 96 mmol/L (98-107); Glucose 163 mg/dL (74-106)
[2025-02-09 05:45] LABS: Blood Urea Nitrogen 87 mg/dL (9-23)
--- NOTE | 2025-02-09 06:10 | DVH ---
CHEST RADIOGRAPH Indication: SOB Technique: Frontal view of the chest. COMPARISON: XY CHEST PORTABLE on DOS: 02/07/25, XY CHEST XRAY 1 VIEW on DOS: 02/06/25, XY CHEST XRAY 1 VIEW on DOS: 02/05/25, XY CHEST PORTABLE on DOS: 02/04/25, XY CHEST PORTABLE on DOS: 01/01/25, XY CHEST PORTABLE on DOS: 02/07/25 FINDINGS: Lines and Tubes: Right central venous catheter in satisfactory position. Lungs: Congestion Pleura: Small to moderate left pleural effusion. No pneumothorax. Cardiomediastinal contours: Cardiomegaly. Bones: Unremarkable IMPRESSION: No significant interval change.
[2025-02-09 06:16] LABS: Lymphocytes % (manual) 32 (10.0-50.0); Monocytes % (manual) 2 (0-12); Platelet Estimate Adequate
[2025-02-09 07:24] LABS: Base Excess -0.3 mmol/L (-2.0-3.0)
--- NOTE | 2025-02-09 10:01 | DVHPN2 ---
Progress Note Date Seen: Feb 09, 2025 Has the PT tested + for MRSA If YES, has PT been informed?: Yes Medical Necessity Reason Pt with a Central, PICC or Fol: No Subjective Review of Systems: RESPIRATORY:Abnormal Other Systems: Patient seen and examined by myself today in follow-up Patient remained on high flow O2 Objective vital signs Vital Sign Date Time Temp Pulse Resp B/P (MAP) Pulse Ox O2 Delivery O2 Flow Rate FiO2 02/09/25 08:30 98 15 108/53 (71) 89 02/09/25 08:00 97.8 97.8 02/09/25 08:00 Hi-Flow Heated NC+ 15 100 100 Total Intake and Output 02/08/25 02/08/25 02/09/25 15:00 23:00 07:00 Intake Total 344.0 ml 544.0 ml 278.5 ml Output Total 1300 ml 2700 ml Balance 344.0 ml -756.0 ml -2421.5 ml medications Current Medications Medications Dose Ordered Sig/Julian Route Start Time Stop Time Status Last Admin Dose Admin Apixaban 2.5 mg BID PO 02/04/25 22:00 02/08/25 21:23 2.5 MG Methylprednisolone Sodium Succinate 40 mg BID IV 02/04/25 22:00 02/08/25 21:23 40 MG Ceftriaxone Sodium 50 ml @ 100 mls/hr DAILY@09 IV 02/05/25 09:00 02/09/25 08:59 100 MLS/HR Azithromycin 250 ml @ 125 mls/hr DAILY IV 02/05/25 10:00 02/08/25 09:12 125 MLS/HR Diagnostic Test (Pha) 1 strip ACHS 02/04/25 22:00 02/09/25 05:47 1 STRIP Insulin Human Regular ACHS SC 02/04/25 22:00 02/09/25 05:45 3 UNITS Dextrose 50 ml UD PRN IV 02/04/25 19:30 Ondansetron HCl 4 mg Q4HP PRN IV 02/04/25 19:30 Acetaminophen 650 mg Q6HP PRN PO 02/04/25 19:30 Nitroglycerin 0.4 mg Q5MINP PRN SL 02/04/25 19:30 Morphine Sulfate 2 mg Q30M PRN IV 02/04/25 19:30 Acetaminophen/ Hydrocodone Bitart 1 tab Q6HPRN PRN PO 02/05/25 18:00 02/09/25 05:44 1 TAB Flecainide Acetate 100 mg Q12HR PO 02/06/25 10:00 02/08/25 21:18 100 MG Alprazolam 0.25 mg Q8HP PRN PO 02/06/25 09:30 02/09/25 01:03 0.25 MG Albuterol 2.5 mg Q6HWA NEB 02/06/25 12:00 02/09/25 06:43 2.5 MG Ipratropium [place] 0.5 mg Q6HWA NEB 02/06/25 12:00 02/09/25 06:43 0.5 MG Pantoprazole Sodium 40 mg DAILY@0600 PO 02/06/25 09:30 02/09/25 05:45 40 MG Zirconium Oxide 10 gm TID PO 02/06/25 22:00 Hold 02/06/25 22:00 10 GM Furosemide 100 mg/ Sodium Chloride 110 ml @ 5.5 mls/hr Q20H IV 02/06/25 17:45 02/08/25 13:59 5.5 MLS/HR Sevelamer HCl 1,200 mg TIDWM PO 02/07/25 18:00 02/09/25 07:38 1,200 MG Ergocalciferol 50,000 unit Q7D PO 02/07/25 13:45 02/07/25 17:10 50,000 UNIT Magnesium Hydroxide 30 ml DAILYP PRN PO 02/07/25 21:30 02/08/25 21:22 30 ML Examination: LUNGS:Normal, CVS:Normal, MSK:Normal laboratory and microbiology Laboratory Tests 02/09/25 04:47 Test 02/09/25 04:47 Range/Units Serum Glucose 163 H 74-106 mg/dL Microbiology Date/Time Source Procedure Growth Status 02/05/25 22:00 Voided Urine Urine Culture - Final Complete 02/05/25 18:30 Blood Blood Culture - Preliminary NO GROWTH AFTER 72 HOURS OF INCUBATION. Resulted 02/04/25 22:00 Nose MRSA Screen - Final Methicillin Resistant S.aureus Complete Problem List/Assessment/Plan Problem List/Assessment/Plan Acute kidney injury superimposed Chronic Kidney Disease secondary hemodynamic mediated Acute on chronic respiratory failure, on high-flow oxygen Congestive heart failure exacerbation AFib with RVR mild hyponatremia secondary to excess H2O hyperkalemia , improving hyperphosphatemia hypovitaminosis D Chronic alcohol abuse Large left pleural effusion MRSA positive Recommendation Kidney function slightly improving Increased urine output Hyponatremia resolved Strict I&Os Continue furosemide drip KCL replacement Fluid restrictions Thoracentesis We will continue to follow Plan discussed with: Patient, Other (Nurse) Dietary Evaluation Review Comments: 1) CCHO 60gm + renal specific 40gm protein 2) Refer [employer] on DC 3) Continue current plan of care Expected Outcomes/Goals: Pt will meet >75% estimated needs Fu 3-5 days FLYNN HOROWITZ MD Feb 09, 2025 10:01
--- NOTE | 2025-02-09 13:54 | DVHPN2 ---
Assessment/Plan Assessment/Plan ICU progress note interval still on lasix drip, improving physical exam aox3 scattered rhonchi, basilar crackles s1 s2 tachy irregular abdomen soft speaking in short sentences no LE edema labs ekg imaging reviewed assesssment and plan AFib with RVR acute on chronic hypoxic respiratory failure pulmonary hypertension acute decompensated right ventricular failure shock, questionable sepsis etiology large left pleural effusion COPD acute kidney injury, vasomotor nephropathy primary hypertension Plan: Events: Decreased vasopressor therapy. Worsening renal function. Atrial fibrillation controlled. Continues to be are increased O2 requirements. -radiology consultation for possible thoracentesis. Note patient was on Eliquis. -cardiology consultation: Recommendations reviewed -renal ultrasound: Results reviewed -bronchodilators, Pulmicort -check ESR, CRP, blood and urine cultures -continue norepinephrine keep map greater than 65 mmHg -continue anticoagulation with Eliquis -repeat labs in a.m. dc levo off pressors c/w bubbler transfer to step down maintain spo2 88% code status DNR DNI prognosis poor 36 minutes critical care tiem spent Plan discussed with: Patient My Orders Orders - MARGAUX BAUTISTA MD Procedure Category Date Status Time Transfer Orders XFER 02/08/25 Transmitted 15:05 Date of Service: Feb 09, 2025 Billing Provider: MARGAUX BAUTISTA MD Common Visit Codes: [id number] CARE 30-74 MIN MARGAUX BAUTISTA MD Feb 09, 2025 13:54
--- NOTE | 2025-02-09 17:03 | DVHPN2 ---
Consult Progress Note Subjective Other Systems: Patient remains in atrial fibrillation with uncontrolled rate Objective vital signs Vital Sign Date Time Temp Pulse Resp B/P (MAP) Pulse Ox O2 Delivery O2 Flow Rate FiO2 02/09/25 16:00 20 88 Hi-Flow Heated NC+ 15 100 100 02/09/25 15:27 103/67 02/09/25 15:00 82 02/09/25 12:00 98.3 98.3 Total Intake and Output 02/08/25 02/08/25 02/09/25 15:00 23:00 07:00 Intake Total 344.0 ml 544.0 ml 278.5 ml Output Total 1300 ml 2700 ml Balance 344.0 ml -756.0 ml -2421.5 ml medications Current Medications Medications Dose Ordered Sig/Julian Route Start Time Stop Time Status Last Admin Dose Admin Apixaban 2.5 mg BID PO 02/04/25 22:00 02/09/25 10:02 2.5 MG Methylprednisolone Sodium Succinate 40 mg BID IV 02/04/25 22:00 02/09/25 10:01 40 MG Ceftriaxone Sodium 50 ml @ 100 mls/hr DAILY@09 IV 02/05/25 09:00 02/09/25 08:59 100 MLS/HR Azithromycin 250 ml @ 125 mls/hr DAILY IV 02/05/25 10:00 02/09/25 10:02 125 MLS/HR Diagnostic Test (Pha) 1 strip ACHS 02/04/25 22:00 02/09/25 11:40 1 STRIP Insulin Human Regular ACHS SC 02/04/25 22:00 02/09/25 11:41 3 UNITS Dextrose 50 ml UD PRN IV 02/04/25 19:30 Ondansetron HCl 4 mg Q4HP PRN IV 02/04/25 19:30 Acetaminophen 650 mg Q6HP PRN PO 02/04/25 19:30 Nitroglycerin 0.4 mg Q5MINP PRN SL 02/04/25 19:30 Morphine Sulfate 2 mg Q30M PRN IV 02/04/25 19:30 Acetaminophen/ Hydrocodone Bitart 1 tab Q6HPRN PRN PO 02/05/25 18:00 02/09/25 15:26 1 TAB Flecainide Acetate 100 mg Q12HR PO 02/06/25 10:00 02/09/25 10:03 100 MG Alprazolam 0.25 mg Q8HP PRN PO 02/06/25 09:30 02/09/25 10:13 0.25 MG Albuterol 2.5 mg Q6HWA NEB 02/06/25 12:00 02/09/25 12:21 2.5 MG Ipratropium [place] 0.5 mg Q6HWA NEB 02/06/25 12:00 02/09/25 12:21 0.5 MG Pantoprazole Sodium 40 mg DAILY@0600 PO 02/06/25 09:30 02/09/25 05:45 40 MG Zirconium Oxide 10 gm TID PO 02/06/25 22:00 Hold 02/06/25 22:00 10 GM Furosemide 100 mg/ Sodium Chloride 110 ml @ 5.5 mls/hr Q20H IV 02/06/25 17:45 02/09/25 15:27 5.5 MLS/HR Sevelamer HCl 1,200 mg TIDWM PO 02/07/25 18:00 02/09/25 11:41 1,200 MG Ergocalciferol 50,000 unit Q7D PO 02/07/25 13:45 02/07/25 17:10 50,000 UNIT Magnesium Hydroxide 30 ml DAILYP PRN PO 02/07/25 21:30 02/08/25 21:22 30 ML Examination: GENERAL:Abnormal (Generalized weakness), LUNGS:Normal, CVS:Abnormal (Atrial fibrillation with uncontrolled rate), NEURO:Normal laboratory and microbiology Laboratory Tests 02/09/25 04:47 Test 02/09/25 04:47 Range/Units Serum Glucose 163 H 74-106 mg/dL Problem List/Assessment/Plan Problem List/Assessment/Plan Acute on chronic decompensated HFpEF, NYHA Class III Unspecified atrial fibrillation with rapid ventricular rate (on Eliquis/metoprolol) Unspecified pulmonary hypertension, severe Acute on chronic hypoxic respiratory failure Hypertension Plan/Recommendation (Dr. Pacheco) Recent transthoracic echocardiogram revealed EF 60-65% with abnormal septal motion due to RV pressure and volume overload. Moderate to severe RV enlargement with reduced systolic function. RVSP 63 mmHg. Maintain fluid restrictions and strict I&Os. Continue Flecainide and low-dose Eliquis therapy ([id number] Score: 4 points. HAS-BLED Score: 1 point). Initiate low-dose beta-shaun now that patient was off of vasopressor therapy. Replete electrolytes as necessary, K>4 and Mg>2. Monitor ECG changes closely and notify. Continue Nephrology recommendations and avoid nephrotoxic agents. Follow-up with primary physical chemistry professor at [facility] as scheduled. Thank you for allowing us to participate in this patient's care. Please call if you have any questions or concerns. Critical care time: 30 min. This medical document was created using an electronic medical record system with voice recognition software and computerized dictation system. Although this document has been carefully reviewed, there might still be some phonetic and typographical errors. Occasional wrong-word or ``sound-alike substitutions may have occurred due to the inherent limitations of voice recognition software. These areas are purely typographical due to imperfections of the software programs and do not reflect any compromise in the patient's medical care. Please read the chart carefully and recognize, using context, where these substitutions have occurred. Plan discussed with: Patient Dietary Evaluation Review Comments: 1) CCHO 60gm + renal specific 40gm protein 2) Refer Biostatistics Teacher on DC 3) Continue current plan of care Expected Outcomes/Goals: Pt will meet >75% estimated needs Fu 3-5 days Date of Service: Feb 09, 2025 Billing Provider: MOLLY PACHECO Sr., MD Common Visit Codes: [id number] CARE 30-74 MIN URI JAUREGUI Feb 09, 2025 17:03
[2025-02-09] MEDS: METOPROLOL TARTRATE 25 MG TAB PO SCH (22:02)
--- NOTE | 2025-02-09 23:27 | DVHPN2 ---
Progress Note - Dictate Date Seen: Feb 09, 2025 Has the PT tested + for MRSA If YES, has PT been informed?: Yes Medical Necessity Reason Pt with a Central, PICC or Fol: No Subjective Patient seen and examined at bedside. Remains on supplemental oxygen Overnight events reviewed. vital signs Vital Sign Date Time Temp Pulse Resp B/P (MAP) Pulse Ox O2 Delivery O2 Flow Rate FiO2 02/09/25 23:02 75 110/59 02/09/25 23:00 14 97 02/09/25 22:00 Hi-Flow Heated NC+ 15 100 100 02/09/25 20:00 97.6 97.6 Total Intake and Output 02/08/25 02/08/25 02/09/25 15:00 23:00 07:00 Intake Total 344.0 ml 544.0 ml 278.5 ml Output Total 1300 ml 2700 ml Balance 344.0 ml -756.0 ml -2421.5 ml medications Current Medications Medications Dose Ordered Sig/Julian Route Start Time Stop Time Status Last Admin Dose Admin Apixaban 2.5 mg BID PO 02/04/25 22:00 02/09/25 22:03 2.5 MG Methylprednisolone Sodium Succinate 40 mg BID IV 02/04/25 22:00 02/09/25 22:03 40 MG Ceftriaxone Sodium 50 ml @ 100 mls/hr DAILY@09 IV 02/05/25 09:00 02/09/25 08:59 100 MLS/HR Azithromycin 250 ml @ 125 mls/hr DAILY IV 02/05/25 10:00 02/09/25 10:02 125 MLS/HR Diagnostic Test (Pha) 1 strip ACHS 02/04/25 22:00 02/09/25 22:04 1 STRIP Insulin Human Regular ACHS SC 02/04/25 22:00 02/09/25 17:56 3 UNITS Dextrose 50 ml UD PRN IV 02/04/25 19:30 Ondansetron HCl 4 mg Q4HP PRN IV 02/04/25 19:30 Acetaminophen 650 mg Q6HP PRN PO 02/04/25 19:30 Nitroglycerin 0.4 mg Q5MINP PRN SL 02/04/25 19:30 Morphine Sulfate 2 mg Q30M PRN IV 02/04/25 19:30 Acetaminophen/ Hydrocodone Bitart 1 tab Q6HPRN PRN PO 02/05/25 18:00 02/09/25 22:05 1 TAB Flecainide Acetate 100 mg Q12HR PO 02/06/25 10:00 02/09/25 22:23 100 MG Alprazolam 0.25 mg Q8HP PRN PO 02/06/25 09:30 02/09/25 20:48 0.25 MG Albuterol 2.5 mg Q6HWA NEB 02/06/25 12:00 02/09/25 18:36 2.5 MG Ipratropium [place] 0.5 mg Q6HWA NEB 02/06/25 12:00 02/09/25 18:36 0.5 MG Pantoprazole Sodium 40 mg DAILY@0600 PO 02/06/25 09:30 02/09/25 05:45 40 MG Zirconium Oxide 10 gm TID PO 02/06/25 22:00 Hold 02/06/25 22:00 10 GM Furosemide 100 mg/ Sodium Chloride 110 ml @ 5.5 mls/hr Q20H IV 02/06/25 17:45 02/09/25 15:27 5.5 MLS/HR Sevelamer HCl 1,200 mg TIDWM PO 02/07/25 18:00 02/09/25 17:56 1,200 MG Ergocalciferol 50,000 unit Q7D PO 02/07/25 13:45 02/07/25 17:10 50,000 UNIT Magnesium Hydroxide 30 ml DAILYP PRN PO 02/07/25 21:30 02/08/25 21:22 30 ML Metoprolol Tartrate 12.5 mg BID PO 02/09/25 22:00 02/09/25 22:02 12.5 MG objective Gen.: Patient lying in bed in no apparent distress. On supplemental oxygen. Head: Normocephalic, atraumatic. Eyes: EOMI/PERRLA. Ears: Normal hearing. Normal anatomy. Neck/trachea: Trachea midline, supple. Nose: Normal external anatomy. Mouth: Moist mucous membranes. Chest: Decreased air entry bilaterally. No wheezing or rhonchi. Cardiovascular: Positive S1, positive S2. Regular rate and rhythm. Abdomen: Positive bowel sounds in all 4 quadrants. Soft, non-tender, non- distended. : Deferred. Rectal: Deferred. Skin: Warm, dry. Intact. Extremities: 2+ radial pulses bilaterally. No lower extremity edema. Neuro: Awake, alert, oriented x3. No gross motor or sensory deficits. Cranial nerves II through XII intact. Gait not assessed. laboratory and microbiology Laboratory Tests 02/09/25 04:47 Test 02/09/25 04:47 Range/Units Serum Glucose 163 H 74-106 mg/dL Assessment/Plan Impression: Acute on chronic hypoxic respiratory failure Dependence on supplemental oxygen Acute on chronic CHF Sepsis Atrial fibrillation with RVR, currently rate controlled Pulmonary hypertension, severe Hypertension Events: Remains on supplemental oxygen Currently at 15 LPM - on bubbler Taper O2 as tolerated Monitor respiratory status closely. Continue antibiotics Diurese as tolerated - on Lasix drip Monitor renal function. Monitor electrolytes. Supplement as necessary. Monitor ins and outs. Nephrology recs appreciated. Continue anxiolytic, Xanax CXR demonstrates small to moderate left pleural effusion, congestion. No significant interval change. Labs and imaging reviewed. Rest of plan as noted below. Plan: Supplemental oxygen Titrate to keep O2 sats above 92%. Monitor respiratory status closely Continue antibiotics Diurese to euvolemia w/ Lasix drip Monitor renal function. Monitor electrolytes. Supplement as necessary. Monitor ins and outs. Nephrology recs appreciated. On Xanax, anxiolytic DVT prophylaxis. Prognosis: Poor given patient's multiple co-morbidities. Condition: Critical Rest of plan per hospitalist and other consultants. A total of 35 minutes of critical care time was spent reviewing the patient record, examining the patient, making a diagnostic and therapeutic plan, discussing this plan with the medical personnel, following up on diagnostic studies and following the patient for clinical stability excluding any and all procedures. At least 50% of this time was spent in direct, [id number] contact. Thank you, GIULIA Ramirez, for allowing me to participate in this patient's care. Further recommendations will depend on the patient's clinical course. Please do not hesitate to contact me if you have any questions or concerns. This medical document was created using an electronic medical record system with [employer] system. Although these documentations are being carefully reviewed, there may still be some phonetic and typographical changes. The errors are purely typographical, due to imperfection on the software program, and do not reflect any compromise in the patient's medical care. Dietary Evaluation Review Comments: 1) CCHO 60gm + renal specific 40gm protein 2) Refer Cushion Maker Hand on DC 3) Continue current plan of care Expected Outcomes/Goals: Pt will meet >75% estimated needs Fu 3-5 days Plan discussed with: Other (VERNON Don) Critical Care Time(min): 35 LUIS WOODS MD Feb 09, 2025 23:27
[2025-02-10] VITALS (72 sets, daily range): BP systolic 110–140; BP diastolic 62–86; PULSE 59–112; RESP 12–23; TEMP 97.3–98.2; O2SAT 79–100
[2025-02-10] MEDS: diphenhdrAMINE HCL 25 MG CAP PO PRN (01:44)
[2025-02-10 05:18] LABS: Potassium 4.1 mmol/L (3.5-5.1)
[2025-02-10 05:19] LABS: Anion Gap 10 (5-15); Carbon Dioxide 29 mmol/L (20-31)
[2025-02-10 05:20] LABS: Calcium 10.3 mg/dL (8.7-10.4)
[2025-02-10 05:23] LABS: Chloride 96 mmol/L (98-107); Sodium 135 mmol/L (136-145)
[2025-02-10 05:24] LABS: BUN/Creatinine Ratio 42.3 (10.0-20.0)
[2025-02-10 05:27] LABS: Glucose 164 mg/dL (74-106)
[2025-02-10 05:29] LABS: Blood Urea Nitrogen 90 mg/dL (9-23)
--- NOTE | 2025-02-10 10:20 | DVHPN2 ---
Subjective Patient continues reporting shortness of breath. Reviewed: Care Plan, H&P, Medications Changes from previous H/P or p: No Changes General: Per HPI Objective Vitals Vital Signs Date Time Temp Pulse Resp B/P (MAP) Pulse Ox O2 Delivery O2 Flow Rate FiO2 02/10/25 08:00 76 17 97 Hi-Flow Heated NC+ 6 100 100 02/10/25 08:00 98.0 110/81 (91) 98.0 Intake/Output Intake and Output 02/10/25 07:00 Intake Total 1222.0 ml Output Total 4600 ml Balance -3378.0 ml Intake Oral 790 ml IV Total 432.0 ml Output Urine Total 4600 ml # Voids 8 # Bowel Movements 7 General Appearance: Alert, Oriented X3, Cooperative, mild distress HEENT: Atraumatic, PERRLA Lungs: Clear to auscultation, Normal air movement Cardiovascular: Normal S1, Normal S2 Abdomen: Normal bowel sounds, Soft, No tenderness, No hepatospenomegaly, No masses Genitourinary: No Apparent Abnormalities Musculoskeletal: Normal sensory function, Normal motor function Neuro: Normal gait, Normal speech, Cranial nerves 3-12 NL Skin: Dry, Intact Psych/Mental Status: Mental status NL, Mood NL Medications Current Medications Medications Dose Ordered Sig/Julian Route Start Time Stop Time Status Last Admin Dose Admin Apixaban 2.5 mg BID PO 02/04/25 22:00 02/09/25 22:03 2.5 MG Methylprednisolone Sodium Succinate 40 mg BID IV 02/04/25 22:00 02/09/25 22:03 40 MG Ceftriaxone Sodium 50 ml @ 100 mls/hr DAILY@09 IV 02/05/25 09:00 02/10/25 09:00 100 MLS/HR Azithromycin 250 ml @ 125 mls/hr DAILY IV 02/05/25 10:00 02/09/25 10:02 125 MLS/HR Diagnostic Test (Pha) 1 strip ACHS 02/04/25 22:00 02/10/25 05:55 1 STRIP Insulin Human Regular ACHS SC 02/04/25 22:00 02/10/25 06:06 3 UNITS Dextrose 50 ml UD PRN IV 02/04/25 19:30 Ondansetron HCl 4 mg Q4HP PRN IV 02/04/25 19:30 Acetaminophen 650 mg Q6HP PRN PO 02/04/25 19:30 Nitroglycerin 0.4 mg Q5MINP PRN SL 02/04/25 19:30 Morphine Sulfate 2 mg Q30M PRN IV 02/04/25 19:30 Acetaminophen/ Hydrocodone Bitart 1 tab Q6HPRN PRN PO 02/05/25 18:00 02/09/25 22:05 1 TAB Flecainide Acetate 100 mg Q12HR PO 02/06/25 10:00 02/09/25 22:23 100 MG Alprazolam 0.25 mg Q8HP PRN PO 02/06/25 09:30 02/09/25 20:48 0.25 MG Albuterol 2.5 mg Q6HWA NEB 02/06/25 12:00 02/10/25 06:29 2.5 MG Ipratropium [place] 0.5 mg Q6HWA NEB 02/06/25 12:00 02/10/25 06:29 0.5 MG Pantoprazole Sodium 40 mg DAILY@0600 PO 02/06/25 09:30 02/10/25 06:05 40 MG Zirconium Oxide 10 gm TID PO 02/06/25 22:00 Hold 02/06/25 22:00 10 GM Furosemide 100 mg/ Sodium Chloride 110 ml @ 5.5 mls/hr Q20H IV 02/06/25 17:45 02/10/25 06:44 5.5 MLS/HR Sevelamer HCl 1,200 mg TIDWM PO 02/07/25 18:00 02/10/25 07:57 1,200 MG Ergocalciferol 50,000 unit Q7D PO 02/07/25 13:45 02/07/25 17:10 50,000 UNIT Magnesium Hydroxide 30 ml DAILYP PRN PO 02/07/25 21:30 02/08/25 21:22 30 ML Metoprolol Tartrate 12.5 mg BID PO 02/09/25 22:00 02/09/25 22:02 12.5 MG Diphenhydramine HCl 50 mg ONCE PRN PO 02/10/25 01:30 02/10/25 01:44 50 MG Laboratory Results Laboratory Tests 02/09/25 04:47 02/10/25 04:51 Chemistry Test 02/10/25 04:51 Calcium Level 10.3 mg/dL (8.7-10.4) Urinalysis Test 02/05/25 22:00 Urine Color Yellow (Yellow) Urine Clarity Clear (Clear) Urine pH 5.0 (5.0-9.0) Urine Specific [place] 1.017 (1.001-1.035) Urine Protein Trace (Negative) H Urine Ketones Negative (Negative) Urine Blood Negative /uL (Negative) Urine Nitrite Negative (Negative) Urine Bilirubin Negative (Negative) Urine Urobilinogen Normal mg/dL (Negative) Urine Leukocyte Esterase Negative /uL (Negative) Urine RBC None seen /hpf (0 - 4) Urine Microscopic WBC 5 /HPF (0-5) Urine Squamous Epithelial Cells Few /hpf (<5) Urine Bacteria None seen /hpf (None Seen) Urine Hyaline Casts Mod /lpf (0 - 2) Urine Mucus Few (None Seen) Urine Glucose Normal mg/dL (Normal) Microbiology Microbiology Date/Time Source Procedure Growth Status 02/05/25 22:00 Voided Urine Urine Culture - Final Complete 02/05/25 18:30 Blood Blood Culture - Preliminary NO GROWTH AFTER 72 HOURS OF INCUBATION. Resulted 02/04/25 22:00 Nose MRSA Screen - Final Methicillin Resistant S.aureus Complete Labs and/or images reviewed: Labs reviewed by me, Image(s) reviewed by me Assessment/Plan Assessment/Plan Impression: -AFib with RVR -acute on chronic hypoxic respiratory failure -pulmonary hypertension -acute decompensated right ventricular failure -shock, questionable sepsis etiology -large left pleural effusion -COPD -acute kidney injury, vasomotor nephropathy -primary hypertension Plan: Events: Improvement with respiratory status. AFib/flutter now with controlled rate. Improved oxygenation. -continue Lasix drip per Nephrology. -stop azithromycin given completed course. Continue Rocephin -cardiology consultation: Continue rate control per their recommendations, Eliquis -renal ultrasound: Results reviewed -bronchodilators, Pulmicort -continue Solu-Medrol -continue anticoagulation with Eliquis -repeat labs in a.m. Critical care time spent with patient discussing and formulating plan of care: 40 minutes. This does not include time spent performing procedures. This medical document was created using an electronic medical record system with [employer] dictation system. Although this document has been carefully reviewed, there may still be some phonetic and typographical errors. These areas are purely typographical due to imperfections of the software programs, and do not reflect any compromise in the patient's medical care. Patient refusing to be placed Plan discussed with: Patient, Other (RN) Date of Service: Feb 10, 2025 Billing Provider: JIN GANN NP Common Visit Codes: [id number] CARE 30-74 MIN JIN GANN NP Feb 10, 2025 10:20
--- NOTE | 2025-02-10 13:53 | DVHPN2 ---
Progress Note Date Seen: Feb 10, 2025 Has the PT tested + for MRSA If YES, has PT been informed?: Yes Medical Necessity Reason Pt with a Central, PICC or Fol: No Subjective Patient reports: Feels better Review of Systems: RESPIRATORY:Abnormal Objective vital signs Vital Sign Date Time Temp Pulse Resp B/P (MAP) Pulse Ox O2 Delivery O2 Flow Rate FiO2 02/10/25 12:15 76 16 98 02/10/25 12:08 Nasal Cannula 6.0 02/10/25 12:08 55 55 02/10/25 12:00 118/62 (80) 02/10/25 08:00 98.0 98.0 Total Intake and Output 02/09/25 02/09/25 02/10/25 15:00 23:00 07:00 Intake Total 344.0 ml 584.0 ml 294.0 ml Output Total 1800 ml 2800 ml Balance 344.0 ml -1216.0 ml -2506.0 ml medications Current Medications Medications Dose Ordered Sig/Julian Route Start Time Stop Time Status Last Admin Dose Admin Apixaban 2.5 mg BID PO 02/04/25 22:00 02/10/25 10:27 2.5 MG Methylprednisolone Sodium Succinate 40 mg BID IV 02/04/25 22:00 02/10/25 10:27 40 MG Ceftriaxone Sodium 50 ml @ 100 mls/hr DAILY@09 IV 02/05/25 09:00 02/10/25 09:00 100 MLS/HR Diagnostic Test (Pha) 1 strip ACHS 02/04/25 22:00 02/10/25 11:37 1 STRIP Insulin Human Regular ACHS SC 02/04/25 22:00 02/10/25 11:41 3 UNITS Dextrose 50 ml UD PRN IV 02/04/25 19:30 Ondansetron HCl 4 mg Q4HP PRN IV 02/04/25 19:30 Acetaminophen 650 mg Q6HP PRN PO 02/04/25 19:30 Nitroglycerin 0.4 mg Q5MINP PRN SL 02/04/25 19:30 Morphine Sulfate 2 mg Q30M PRN IV 02/04/25 19:30 Acetaminophen/ Hydrocodone Bitart 1 tab Q6HPRN PRN PO 02/05/25 18:00 02/09/25 22:05 1 TAB Flecainide Acetate 100 mg Q12HR PO 02/06/25 10:00 02/10/25 10:54 100 MG Alprazolam 0.25 mg Q8HP PRN PO 02/06/25 09:30 02/10/25 11:01 0.25 MG Albuterol 2.5 mg Q6HWA [facility] 02/06/25 12:00 02/10/25 12:07 2.5 MG Ipratropium [place] 0.5 mg Q6HWA [facility] 02/06/25 12:00 02/10/25 12:07 0.5 MG Pantoprazole Sodium 40 mg DAILY@0600 PO 02/06/25 09:30 02/10/25 06:05 40 MG Zirconium Oxide 10 gm TID PO 02/06/25 22:00 Hold 02/06/25 22:00 10 GM Furosemide 100 mg/ Sodium Chloride 110 ml @ 5.5 mls/hr Q20H IV 02/06/25 17:45 02/10/25 06:44 5.5 MLS/HR Sevelamer HCl 1,200 mg TIDWM PO 02/07/25 18:00 02/10/25 11:37 1,200 MG Ergocalciferol 50,000 unit Q7D PO 02/07/25 13:45 02/07/25 17:10 50,000 UNIT Magnesium Hydroxide 30 ml DAILYP PRN PO 02/07/25 21:30 02/08/25 21:22 30 ML Metoprolol Tartrate 12.5 mg BID PO 02/09/25 22:00 02/10/25 10:27 12.5 MG Diphenhydramine HCl 50 mg ONCE PRN PO 02/10/25 01:30 02/10/25 01:44 50 MG Examination: GENERAL:Abnormal, LUNGS:Abnormal, CVS:Abnormal laboratory and microbiology Laboratory Tests 02/10/25 04:51 02/09/25 04:47 Test 02/10/25 04:51 Range/Units Serum Glucose 164 H 74-106 mg/dL Microbiology Date/Time Source Procedure Growth Status 02/05/25 22:00 Voided Urine Urine Culture - Final Complete 02/05/25 18:30 Blood Blood Culture - Preliminary NO GROWTH AFTER 72 HOURS OF INCUBATION. Resulted 02/04/25 22:00 Nose MRSA Screen - Final Methicillin Resistant S.aureus Complete Problem List/Assessment/Plan Problem List/Assessment/Plan Acute kidney injury superimposed Chronic Kidney Disease secondary hemodynamic mediated Acute on chronic respiratory failure, on high-flow oxygen Congestive heart failure exacerbation AFib with RVR mild hyponatremia secondary to excess H2O hyperkalemia , improving hyperphosphatemia hypovitaminosis D Chronic alcohol abuse Large left pleural effusion MRSA positive Azotemia from diuresis and steroids stop lasix drip will discuss reduction based on assessment, convert to bumex 1mg IV q 12. for outpatient goal dose po will be 1-1.5mg po BID Increased urine output Strict I&Os KCL replacement Fluid restrictions stop phos binder, check phos tomorrow Plan discussed with: Patient Dietary Evaluation Review Comments: 1) CCHO 60gm + renal specific 40gm protein 2) Refer Boom Man on DC 3) Continue current plan of care Expected Outcomes/Goals: Pt will meet >75% estimated needs Fu 3-5 days KRISTINE VERDIN MD Feb 10, 2025 13:53
--- NOTE | 2025-02-10 15:03 | DVHPN2 ---
Consult Progress Note Subjective Other Systems: Patient in atrial flutter on secured entrance monitor with controlled rate Objective vital signs Vital Sign Date Time Temp Pulse Resp B/P (MAP) Pulse Ox O2 Delivery O2 Flow Rate FiO2 02/10/25 14:00 19 87 Hi-Flow Heated NC+ 6 55 55 02/10/25 14:00 91 02/10/25 14:00 120/74 (89) 02/10/25 08:00 98.0 98.0 Total Intake and Output 02/09/25 02/09/25 02/10/25 15:00 23:00 07:00 Intake Total 344.0 ml 584.0 ml 294.0 ml Output Total 1800 ml 2800 ml Balance 344.0 ml -1216.0 ml -2506.0 ml medications Current Medications Medications Dose Ordered Sig/Julian Route Start Time Stop Time Status Last Admin Dose Admin Apixaban 2.5 mg BID PO 02/04/25 22:00 02/10/25 10:27 2.5 MG Methylprednisolone Sodium Succinate 40 mg BID IV 02/04/25 22:00 02/10/25 10:27 40 MG Ceftriaxone Sodium 50 ml @ 100 mls/hr DAILY@09 IV 02/05/25 09:00 02/10/25 09:00 100 MLS/HR Diagnostic Test (Pha) 1 strip ACHS 02/04/25 22:00 02/10/25 11:37 1 STRIP Insulin Human Regular ACHS SC 02/04/25 22:00 02/10/25 11:41 3 UNITS Dextrose 50 ml UD PRN IV 02/04/25 19:30 Ondansetron HCl 4 mg Q4HP PRN IV 02/04/25 19:30 Acetaminophen 650 mg Q6HP PRN PO 02/04/25 19:30 Nitroglycerin 0.4 mg Q5MINP PRN SL 02/04/25 19:30 Morphine Sulfate 2 mg Q30M PRN IV 02/04/25 19:30 Acetaminophen/ Hydrocodone Bitart 1 tab Q6HPRN PRN PO 02/05/25 18:00 02/09/25 22:05 1 TAB Flecainide Acetate 100 mg Q12HR PO 02/06/25 10:00 02/10/25 10:54 100 MG Alprazolam 0.25 mg Q8HP PRN PO 02/06/25 09:30 02/10/25 11:01 0.25 MG Albuterol 2.5 mg Q6HWA NEB 02/06/25 12:00 02/10/25 12:07 2.5 MG Ipratropium [place] 0.5 mg Q6HWA NEB 02/06/25 12:00 02/10/25 12:07 0.5 MG Pantoprazole Sodium 40 mg DAILY@0600 PO 02/06/25 09:30 02/10/25 06:05 40 MG Zirconium Oxide 10 gm TID PO 02/06/25 22:00 Hold 02/06/25 22:00 10 GM Ergocalciferol 50,000 unit Q7D PO 02/07/25 13:45 02/07/25 17:10 50,000 UNIT Magnesium Hydroxide 30 ml DAILYP PRN PO 02/07/25 21:30 02/08/25 21:22 30 ML Metoprolol Tartrate 12.5 mg BID PO 02/09/25 22:00 02/10/25 10:27 12.5 MG Diphenhydramine HCl 50 mg ONCE PRN PO 02/10/25 01:30 02/10/25 01:44 50 MG Bumetanide 1 mg BIDD IV 02/10/25 18:00 Examination: GENERAL:Normal, LUNGS:Abnormal (on 6L bubbler), CVS:Normal, NEURO:Normal laboratory and microbiology Laboratory Tests 02/10/25 04:51 02/09/25 04:47 Test 02/10/25 04:51 Range/Units Serum Glucose 164 H 74-106 mg/dL Problem List/Assessment/Plan Problem List/Assessment/Plan Acute on chronic decompensated HFpEF, NYHA Class III Unspecified atrial fibrillation with rapid ventricular rate, now with controlled rate (on Eliquis/metoprolol) Unspecified pulmonary hypertension, severe Acute on chronic hypoxic respiratory failure Hypertension Left pleural effusion Acute kidney injury Plan/Recommendation (Dr. Pacheco) Recent transthoracic echocardiogram revealed EF 60-65% with abnormal septal motion due to RV pressure and volume overload. Moderate to severe RV enlargement with reduced systolic function. RVSP 63 mmHg. Maintain fluid restrictions and strict I&Os. Continue Flecainide and low-dose Eliquis therapy ([id number] Score: 4 points. HAS-BLED Score: 1 point). Continue with beta- shaun and up-titrate dose as tolerated. Replete electrolytes as necessary, K>4 and Mg>2. Monitor ECG changes closely and notify. Continue Nephrology recommendations and avoid nephrotoxic agents. There is no further inpatient cardiac workup indicated at this time. Please reconsult if needed. Follow-up with primary journeyman carpenter at [facility] as scheduled. Thank you for allowing us to participate in this patient's care. Please call if you have any questions or concerns. Critical care time: 30 min. This medical document was created using an electronic medical record system with voice recognition software and computerized dictation system. Although this document has been carefully reviewed, there might still be some phonetic and typographical errors. Occasional wrong-word or ``sound-alike substitutions may have occurred due to the inherent limitations of voice recognition software. These areas are purely typographical due to imperfections of the software programs and do not reflect any compromise in the patient's medical care. Please read the chart carefully and recognize, using context, where these substitutions have occurred. Plan discussed with: Patient Dietary Evaluation Review Comments: 1) CCHO 60gm + renal specific 40gm protein 2) Refer Agency Sales Development Associate on DC 3) Continue current plan of care Expected Outcomes/Goals: Pt will meet >75% estimated needs Fu 3-5 days Date of Service: Feb 10, 2025 Billing Provider: URI JAUREGUI Common Visit Codes: [id number] INP/OBS CARE(HIGH) URI JAUREGUI Feb 10, 2025 15:03
[2025-02-10] MEDS: BUMETANIDE 1mg/4ml VIAL (0.25mg/ml) IV SCH (17:53)
--- NOTE | 2025-02-10 23:07 | DVHPN2 ---
Progress Note - Dictate Date Seen: Feb 10, 2025 Has the PT tested + for MRSA If YES, has PT been informed?: Yes Medical Necessity Reason Pt with a Central, PICC or Fol: No Subjective Patient seen and examined at bedside. Remains on supplemental oxygen Overnight events reviewed. vital signs Vital Sign Date Time Temp Pulse Resp B/P (MAP) Pulse Ox O2 Delivery O2 Flow Rate FiO2 02/10/25 22:00 16 88 Hi-Flow Heated NC+ 6 55 55 02/10/25 22:00 100 120/78 (92) 02/10/25 20:00 97.8 97.8 Total Intake and Output 02/09/25 02/09/25 02/10/25 15:00 23:00 07:00 Intake Total 344.0 ml 584.0 ml 294.0 ml Output Total 1800 ml 2800 ml Balance 344.0 ml -1216.0 ml -2506.0 ml medications Current Medications Medications Dose Ordered Sig/Julian Route Start Time Stop Time Status Last Admin Dose Admin Apixaban 2.5 mg BID PO 02/04/25 22:00 02/10/25 21:25 2.5 MG Methylprednisolone Sodium Succinate 40 mg BID IV 02/04/25 22:00 02/10/25 21:25 40 MG Ceftriaxone Sodium 50 ml @ 100 mls/hr DAILY@09 IV 02/05/25 09:00 02/10/25 09:00 100 MLS/HR Diagnostic Test (Pha) 1 strip ACHS 02/04/25 22:00 02/10/25 21:27 1 STRIP Insulin Human Regular ACHS SC 02/04/25 22:00 02/10/25 21:34 2 UNITS Dextrose 50 ml UD PRN IV 02/04/25 19:30 Ondansetron HCl 4 mg Q4HP PRN IV 02/04/25 19:30 Acetaminophen 650 mg Q6HP PRN PO 02/04/25 19:30 Nitroglycerin 0.4 mg Q5MINP PRN SL 02/04/25 19:30 Morphine Sulfate 2 mg Q30M PRN IV 02/04/25 19:30 Acetaminophen/ Hydrocodone Bitart 1 tab Q6HPRN PRN PO 02/05/25 18:00 02/10/25 21:26 1 TAB Flecainide Acetate 100 mg Q12HR PO 02/06/25 10:00 02/10/25 21:27 100 MG Alprazolam 0.25 mg Q8HP PRN PO 02/06/25 09:30 02/10/25 11:01 0.25 MG Albuterol 2.5 mg Q6HWA NEB 02/06/25 12:00 02/10/25 18:42 2.5 MG Ipratropium [place] 0.5 mg Q6HWA NEB 02/06/25 12:00 02/10/25 18:42 0.5 MG Pantoprazole Sodium 40 mg DAILY@0600 PO 02/06/25 09:30 02/10/25 06:05 40 MG Zirconium Oxide 10 gm TID PO 02/06/25 22:00 Hold 02/06/25 22:00 10 GM Ergocalciferol 50,000 unit Q7D PO 02/07/25 13:45 02/07/25 17:10 50,000 UNIT Magnesium Hydroxide 30 ml DAILYP PRN PO 02/07/25 21:30 02/08/25 21:22 30 ML Metoprolol Tartrate 12.5 mg BID PO 02/09/25 22:00 02/10/25 21:26 12.5 MG Diphenhydramine HCl 50 mg ONCE PRN PO 02/10/25 01:30 02/10/25 01:44 50 MG Bumetanide 1 mg BIDD IV 02/10/25 18:00 02/10/25 17:53 1 MG objective Gen.: Patient lying in bed in no apparent distress. On supplemental oxygen. Head: Normocephalic, atraumatic. Eyes: EOMI/PERRLA. Ears: Normal hearing. Normal anatomy. Neck/trachea: Trachea midline, supple. Nose: Normal external anatomy. Mouth: Moist mucous membranes. Chest: Decreased air entry bilaterally. No wheezing or rhonchi. Cardiovascular: Positive S1, positive S2. Regular rate and rhythm. Abdomen: Positive bowel sounds in all 4 quadrants. Soft, non-tender, non- distended. : Deferred. Rectal: Deferred. Skin: Warm, dry. Intact. Extremities: 2+ radial pulses bilaterally. No lower extremity edema. Neuro: Awake, alert, oriented x3. No gross motor or sensory deficits. Cranial nerves II through XII intact. Gait not assessed. laboratory and microbiology Laboratory Tests 02/10/25 04:51 02/09/25 04:47 Test 02/10/25 04:51 Range/Units Serum Glucose 164 H 74-106 mg/dL Assessment/Plan Impression: Acute on chronic hypoxic respiratory failure Dependence on supplemental oxygen Acute on chronic CHF Sepsis Atrial fibrillation with RVR, currently rate controlled Pulmonary hypertension, severe Hypertension Events: Remains on supplemental oxygen Currently at 6 LPM HFO2 Taper O2 as tolerated - improving O2 requirements. Monitor respiratory status closely. Consider resuming pulmonary hypertension medications one at a time to see if blood pressure tolerates. Continue antibiotics Diurese as tolerated - on Lasix drip Monitor renal function. Monitor electrolytes. Supplement as necessary. Monitor ins and outs. Nephrology recs appreciated. Continue anxiolytic, Xanax Labs and imaging reviewed. Rest of plan as noted below. Plan: Supplemental oxygen Titrate to keep O2 sats above 92%. Monitor respiratory status closely Continue antibiotics Diurese to euvolemia w/ Lasix drip Monitor renal function. Monitor electrolytes. Supplement as necessary. Monitor ins and outs. Nephrology recs appreciated. On Xanax, anxiolytic DVT prophylaxis. Prognosis: Poor given patient's multiple co-morbidities. Rest of plan per hospitalist and other consultants. Thank you, GIULIA Ramirez, for allowing me to participate in this patient's care. Further recommendations will depend on the patient's clinical course. Please do not hesitate to contact me if you have any questions or concerns. This medical document was created using an electronic medical record system with [employer] dictation system. Although these documentations are being carefully reviewed, there may still be some phonetic and typographical changes. The errors are purely typographical, due to imperfection on the software program, and do not reflect any compromise in the patient's medical care. Dietary Evaluation Review Comments: 1) CCHO 60gm + renal specific 40gm protein 2) Refer Telephone Answerer on DC 3) Continue current plan of care Expected Outcomes/Goals: Pt will meet >75% estimated needs Fu 3-5 days Plan discussed with: Patient, Other (VERNON Lala) LUIS WOODS MD Feb 10, 2025 23:07
[2025-02-11] VITALS (33 sets, daily range): BP systolic 107–135; BP diastolic 52–88; PULSE 66–101; RESP 12–20; TEMP 97.1–98.8; O2SAT 83–99
[2025-02-11] MEDS: diphenhdrAMINE HCL 25 MG CAP PO ONE (01:24)
[2025-02-11 05:51] LABS: Potassium 3.6 mmol/L (3.5-5.1)
[2025-02-11 05:52] LABS: Anion Gap 9 (5-15); Carbon Dioxide 32 mmol/L (20-31); Chloride 94 mmol/L (98-107); Sodium 135 mmol/L (136-145)
[2025-02-11 05:57] LABS: BUN/Creatinine Ratio 45.1 (10.0-20.0)
[2025-02-11 05:58] LABS: Glucose 149 mg/dL (74-106)
[2025-02-11 05:59] LABS: Blood Urea Nitrogen 92 mg/dL (9-23)
[2025-02-11 06:12] LABS: Calcium 10.1 mg/dL (8.7-10.4)
--- NOTE | 2025-02-11 09:58 | DVHPN2 ---
Subjective Patient continues reporting shortness of breath. Reviewed: Care Plan, H&P, Medications Changes from previous H/P or p: No Changes General: Per HPI Objective Vitals Vital Signs Date Time Temp Pulse Resp B/P (MAP) Pulse Ox O2 Delivery O2 Flow Rate FiO2 02/11/25 08:00 98.7 86 14 127/75 (92) 89 98.7 02/11/25 08:00 Hi-Flow Heated NC+ 6 55 55 Intake/Output Intake and Output 02/11/25 07:00 Intake Total 1048.5 ml Output Total 3750 ml Balance -2701.5 ml Intake Oral 960 ml IV Total 88.5 ml Output Urine Total 3750 ml # Voids 5 # Bowel Movements 5 General Appearance: Alert, Oriented X3, Cooperative, mild distress HEENT: Atraumatic, PERRLA Lungs: Clear to auscultation, Normal air movement Cardiovascular: Normal S1, Normal S2 Abdomen: Normal bowel sounds, Soft, No tenderness, No hepatospenomegaly, No masses Genitourinary: No Apparent Abnormalities Musculoskeletal: Normal sensory function, Normal motor function Neuro: Normal gait, Normal speech, Cranial nerves 3-12 NL Skin: Dry, Intact Psych/Mental Status: Mental status NL, Mood NL Medications Current Medications Medications Dose Ordered Sig/Julian Route Start Time Stop Time Status Last Admin Dose Admin Apixaban 2.5 mg BID PO 02/04/25 22:00 02/10/25 21:25 2.5 MG Methylprednisolone Sodium Succinate 40 mg BID IV 02/04/25 22:00 02/10/25 21:25 40 MG Ceftriaxone Sodium 50 ml @ 100 mls/hr DAILY@09 IV 02/05/25 09:00 02/11/25 08:59 100 MLS/HR Diagnostic Test (Pha) 1 strip ACHS 02/04/25 22:00 02/11/25 06:33 1 STRIP Insulin Human Regular ACHS SC 02/04/25 22:00 02/11/25 06:33 2 UNITS Dextrose 50 ml UD PRN IV 02/04/25 19:30 Ondansetron HCl 4 mg Q4HP PRN IV 02/04/25 19:30 Acetaminophen 650 mg Q6HP PRN PO 02/04/25 19:30 Nitroglycerin 0.4 mg Q5MINP PRN SL 02/04/25 19:30 Morphine Sulfate 2 mg Q30M PRN IV 02/04/25 19:30 Acetaminophen/ Hydrocodone Bitart 1 tab Q6HPRN PRN PO 02/05/25 18:00 02/11/25 05:54 1 TAB Flecainide Acetate 100 mg Q12HR PO 02/06/25 10:00 02/10/25 21:27 100 MG Alprazolam 0.25 mg Q8HP PRN PO 02/06/25 09:30 02/10/25 11:01 0.25 MG Albuterol 2.5 mg Q6HWA NEB 02/06/25 12:00 02/11/25 07:04 2.5 MG Ipratropium [place] 0.5 mg Q6HWA NEB 02/06/25 12:00 02/11/25 07:04 0.5 MG Pantoprazole Sodium 40 mg DAILY@0600 PO 02/06/25 09:30 02/11/25 05:53 40 MG Zirconium Oxide 10 gm TID PO 02/06/25 22:00 Hold 02/06/25 22:00 10 GM Ergocalciferol 50,000 unit Q7D PO 02/07/25 13:45 02/07/25 17:10 50,000 UNIT Magnesium Hydroxide 30 ml DAILYP PRN PO 02/07/25 21:30 02/08/25 21:22 30 ML Metoprolol Tartrate 12.5 mg BID PO 02/09/25 22:00 02/10/25 21:26 12.5 MG Diphenhydramine HCl 50 mg ONCE PRN PO 02/10/25 01:30 02/10/25 01:44 50 MG Patient Own Medication 2.5 mg TID PO 02/11/25 14:00 UNV Bumetanide 1 mg DAILY IV 02/11/25 10:00 UNV Laboratory Results Laboratory Tests 02/09/25 04:47 02/11/25 05:00 Chemistry Test 02/11/25 05:00 Calcium Level 10.1 mg/dL (8.7-10.4) Phosphorus Level 4.2 mg/dL (2.4-5.1) Urinalysis Test 02/05/25 22:00 Urine Color Yellow (Yellow) Urine Clarity Clear (Clear) Urine pH 5.0 (5.0-9.0) Urine Specific [place] 1.017 (1.001-1.035) Urine Protein Trace (Negative) H Urine Ketones Negative (Negative) Urine Blood Negative /uL (Negative) Urine Nitrite Negative (Negative) Urine Bilirubin Negative (Negative) Urine Urobilinogen Normal mg/dL (Negative) Urine Leukocyte Esterase Negative /uL (Negative) Urine RBC None seen /hpf (0 - 4) Urine Microscopic WBC 5 /HPF (0-5) Urine Squamous Epithelial Cells Few /hpf (<5) Urine Bacteria None seen /hpf (None Seen) Urine Hyaline Casts Mod /lpf (0 - 2) Urine Mucus Few (None Seen) Urine Glucose Normal mg/dL (Normal) Microbiology Microbiology Date/Time Source Procedure Growth Status 02/05/25 22:00 Voided Urine Urine Culture - Final Complete 02/05/25 18:30 Blood Blood Culture - Final NO GROWTH AFTER 5 DAYS OF INCUBATION. Complete 02/04/25 22:00 Nose MRSA Screen - Final Methicillin Resistant S.aureus Complete Labs and/or images reviewed: Labs reviewed by me, Image(s) reviewed by me Assessment/Plan Assessment/Plan Impression: -AFib with RVR -acute on chronic hypoxic respiratory failure -pulmonary hypertension -acute decompensated right ventricular failure -shock, questionable sepsis etiology -large left pleural effusion -COPD -acute kidney injury, vasomotor nephropathy -primary hypertension Plan: Events: No events overnight. Continues to be on 6 L via high-flow bubbler. Pulmonology recommendations reviewed. Will attempt to get patient is PAH medications from home. -continue Lasix drip per Nephrology. -stop azithromycin given completed course. Continue Rocephin -cardiology consultation: Continue rate control per their recommendations, Eliquis -renal ultrasound: Results reviewed -bronchodilators, Pulmicort -continue Solu-Medrol -continue anticoagulation with Eliquis -repeat labs in a.m. Critical care time spent with patient discussing and formulating plan of care: 40 minutes. This does not include time spent performing procedures. This medical document was created using an electronic medical record system with [employer] system. Although this document has been carefully reviewed, there may still be some phonetic and typographical errors. These areas are purely typographical due to imperfections of the software programs, and do not reflect any compromise in the patient's medical care. Patient refusing to be placed Plan discussed with: Patient, Other (RN) My Orders Orders - JIN GANN NP Procedure Category Date Status Time Oob To Chair DANA 02/10/25 In Process 10:11 Renal DIET 02/10/25 Transmitted Standard(2gna,3gk,Lopho) Dinner *Consult CONS 02/10/25 Transmitted / 13:52 (Nf) [employer] PHA 02/11/25 Logged (Nia) 14:00 Date of Service: Feb 11, 2025 Billing Provider: JIN GANN NP Common Visit Codes: [id number] CARE 30-74 MIN JIN GANN NP Feb 11, 2025 09:58
[2025-02-11] MEDS ORDERED: BUMETANIDE 1mg/4ml VIAL (0.25mg/ml) IV SCH (10:00)
--- NOTE | 2025-02-11 11:11 | DVHPN2 ---
Progress Note Date Seen: Feb 11, 2025 Has the PT tested + for MRSA If YES, has PT been informed?: Yes Medical Necessity Reason Pt with a Central, PICC or Fol: No Subjective Patient reports: Feels better Objective vital signs Vital Sign Date Time Temp Pulse Resp B/P (MAP) Pulse Ox O2 Delivery O2 Flow Rate FiO2 02/11/25 10:09 102 131/87 02/11/25 08:00 98.7 14 89 98.7 02/11/25 08:00 Hi-Flow Heated NC+ 6 55 55 Total Intake and Output 02/10/25 02/10/25 02/11/25 15:00 23:00 07:00 Intake Total 88.5 ml 720 ml 240 ml Output Total 2150 ml 1600 ml Balance 88.5 ml -1430 ml -1360 ml medications Current Medications Medications Dose Ordered Sig/Julian Route Start Time Stop Time Status Last Admin Dose Admin Apixaban 2.5 mg BID PO 02/04/25 22:00 02/11/25 10:09 2.5 MG Methylprednisolone Sodium Succinate 40 mg BID IV 02/04/25 22:00 02/11/25 10:09 40 MG Ceftriaxone Sodium 50 ml @ 100 mls/hr DAILY@09 IV 02/05/25 09:00 02/11/25 08:59 100 MLS/HR Diagnostic Test (Pha) 1 strip ACHS 02/04/25 22:00 02/11/25 06:33 1 STRIP Insulin Human Regular ACHS SC 02/04/25 22:00 02/11/25 06:33 2 UNITS Dextrose 50 ml UD PRN IV 02/04/25 19:30 Ondansetron HCl 4 mg Q4HP PRN IV 02/04/25 19:30 Acetaminophen 650 mg Q6HP PRN PO 02/04/25 19:30 Nitroglycerin 0.4 mg Q5MINP PRN SL 02/04/25 19:30 Morphine Sulfate 2 mg Q30M PRN IV 02/04/25 19:30 Acetaminophen/ Hydrocodone Bitart 1 tab Q6HPRN PRN PO 02/05/25 18:00 02/11/25 05:54 1 TAB Flecainide Acetate 100 mg Q12HR PO 02/06/25 10:00 02/11/25 10:09 100 MG Alprazolam 0.25 mg Q8HP PRN PO 02/06/25 09:30 02/11/25 10:16 0.25 MG Albuterol 2.5 mg Q6HWA NEB 02/06/25 12:00 02/11/25 07:04 2.5 MG Ipratropium [place] 0.5 mg Q6HWA NEB 02/06/25 12:00 02/11/25 07:04 0.5 MG Pantoprazole Sodium 40 mg DAILY@0600 PO 02/06/25 09:30 02/11/25 05:53 40 MG Zirconium Oxide 10 gm TID PO 02/06/25 22:00 Hold 02/06/25 22:00 10 GM Ergocalciferol 50,000 unit Q7D PO 02/07/25 13:45 02/07/25 17:10 50,000 UNIT Magnesium Hydroxide 30 ml DAILYP PRN PO 02/07/25 21:30 02/08/25 21:22 30 ML Metoprolol Tartrate 12.5 mg BID PO 02/09/25 22:00 02/11/25 10:09 12.5 MG Diphenhydramine HCl 50 mg ONCE PRN PO 02/10/25 01:30 02/10/25 01:44 50 MG Patient Own Medication 2.5 mg TID PO 02/11/25 14:00 Bumetanide 1 mg DAILY IV 02/12/25 10:00 laboratory and microbiology Laboratory Tests 02/11/25 05:00 02/09/25 04:47 Test 02/11/25 05:00 Range/Units Serum Glucose 149 H 74-106 mg/dL Microbiology Date/Time Source Procedure Growth Status 02/05/25 22:00 Voided Urine Urine Culture - Final Complete 02/05/25 18:30 Blood Blood Culture - Final NO GROWTH AFTER 5 DAYS OF INCUBATION. Complete 02/04/25 22:00 Nose MRSA Screen - Final Methicillin Resistant S.aureus Complete Problem List/Assessment/Plan Problem List/Assessment/Plan Acute kidney injury superimposed Chronic Kidney Disease secondary hemodynamic mediated Acute on chronic respiratory failure, on high-flow oxygen Congestive heart failure exacerbation AFib with RVR mild hyponatremia secondary to excess H2O hyperkalemia , improving hyperphosphatemia hypovitaminosis D Chronic alcohol abuse Large left pleural effusion MRSA positive Azotemia from diuresis and steroids bumex reduced to bumex IV today for outpatient goal dose po will be 1-1.5mg po BID Increased urine output Strict I&Os KCL replacement Fluid restrictions stop phos binder Plan discussed with: Patient My Orders My Orders Orders - KRISTINE VERDIN MD Procedure Category Date Status Time Bumetanide Injection PHA 02/12/25 In Process (Bumex Injection) 10:00 Dietary Evaluation Review Comments: 1) CCHO 60gm + renal specific 40gm protein 2) Refer Skip Locator on DC 3) Continue current plan of care Expected Outcomes/Goals: Pt will meet >75% estimated needs Fu 3-5 days KRISTINE VERDIN MD Feb 11, 2025 11:11
[2025-02-11] MEDS: POTASSIUM CHL 20 Meq TABLET PO ONE (11:45)
[2025-02-11] MEDS: RIOCIGUAT BASE 2.5 MG PO SCH (14:00)
[2025-02-12] VITALS (32 sets, daily range): BP systolic 99–135; BP diastolic 51–93; PULSE 62–96; RESP 13–92; TEMP 97.1–98.7; O2SAT 85–98
[2025-02-12 05:41] LABS: Anion Gap 8 (5-15); Carbon Dioxide 30 mmol/L (20-31); Potassium 3.8 mmol/L (3.5-5.1)
[2025-02-12 05:43] LABS: Chloride 97 mmol/L (98-107); Sodium 135 mmol/L (136-145)
[2025-02-12 05:47] LABS: BUN/Creatinine Ratio 39.8 (10.0-20.0)
[2025-02-12 06:03] LABS: Blood Urea Nitrogen 84 mg/dL (9-23); Glucose 179 mg/dL (74-106)
[2025-02-12] MEDS: BUMETANIDE 1mg/4ml VIAL (0.25mg/ml) IV SCH (10:15)
--- NOTE | 2025-02-12 11:05 | DVHPN2 ---
Subjective Patient continues reporting shortness of breath. Reviewed: Care Plan, H&P, Medications Changes from previous H/P or p: No Changes General: Per HPI Objective Vitals Vital Signs Date Time Temp Pulse Resp B/P (MAP) Pulse Ox O2 Delivery O2 Flow Rate FiO2 02/12/25 10:17 95 124/81 02/12/25 10:00 92 Nasal Cannula* 4 36 02/12/25 10:00 18 02/12/25 08:00 97.9 97.9 Intake/Output Intake and Output 02/12/25 07:00 Intake Total 1250 ml Output Total 2100 ml Balance -850 ml Intake Oral 1200 ml IV Total 50 ml Output Urine Total 2100 ml # Voids 4 # Bowel Movements 1 General Appearance: Alert, Oriented X3, Cooperative, mild distress HEENT: Atraumatic, PERRLA Lungs: Clear to auscultation, Normal air movement Cardiovascular: Normal S1, Normal S2 Abdomen: Normal bowel sounds, Soft, No tenderness, No hepatospenomegaly, No masses Genitourinary: No Apparent Abnormalities Musculoskeletal: Normal sensory function, Normal motor function Neuro: Normal gait, Normal speech, Cranial nerves 3-12 NL Skin: Dry, Intact Psych/Mental Status: Mental status NL, Mood NL Medications Current Medications Medications Dose Ordered Sig/Julian Route Start Time Stop Time Status Last Admin Dose Admin Apixaban 2.5 mg BID PO 02/04/25 22:00 02/12/25 10:17 2.5 MG Methylprednisolone Sodium Succinate 40 mg BID IV 02/04/25 22:00 02/12/25 10:16 40 MG Ceftriaxone Sodium 50 ml @ 100 mls/hr DAILY@09 IV 02/05/25 09:00 02/12/25 08:33 100 MLS/HR Diagnostic Test (Pha) 1 strip ACHS 02/04/25 22:00 02/12/25 06:06 1 STRIP Insulin Human Regular ACHS SC 02/04/25 22:00 02/12/25 06:07 3 UNITS Dextrose 50 ml UD PRN IV 02/04/25 19:30 Ondansetron HCl 4 mg Q4HP PRN IV 02/04/25 19:30 Acetaminophen 650 mg Q6HP PRN PO 02/04/25 19:30 Nitroglycerin 0.4 mg Q5MINP PRN SL 02/04/25 19:30 Hold Morphine Sulfate 2 mg Q30M PRN IV 02/04/25 19:30 Acetaminophen/ Hydrocodone Bitart 1 tab Q6HPRN PRN PO 02/05/25 18:00 02/12/25 08:32 1 TAB Flecainide Acetate 100 mg Q12HR PO 02/06/25 10:00 02/12/25 10:17 100 MG Alprazolam 0.25 mg Q8HP PRN PO 02/06/25 09:30 02/12/25 03:39 0.25 MG Albuterol 2.5 mg Q6HWA NEB 02/06/25 12:00 02/12/25 06:09 2.5 MG Ipratropium [place] 0.5 mg Q6HWA NEB 02/06/25 12:00 02/12/25 06:09 0.5 MG Pantoprazole Sodium 40 mg DAILY@0600 PO 02/06/25 09:30 02/12/25 06:06 40 MG Ergocalciferol 50,000 unit Q7D PO 02/07/25 13:45 02/07/25 17:10 50,000 UNIT Magnesium Hydroxide 30 ml DAILYP PRN PO 02/07/25 21:30 02/08/25 21:22 30 ML Metoprolol Tartrate 12.5 mg BID PO 02/09/25 22:00 02/12/25 10:17 12.5 MG Diphenhydramine HCl 50 mg ONCE PRN PO 02/10/25 01:30 02/10/25 01:44 50 MG Patient Own Medication 2.5 mg TID PO 02/11/25 14:00 Bumetanide 1 mg DAILY IV 02/12/25 10:00 02/12/25 10:15 1 MG Laboratory Results Laboratory Tests 02/09/25 04:47 02/12/25 05:00 Chemistry Test 02/12/25 05:00 Calcium Level 9.0 mg/dL (8.7-10.4) Urinalysis Test 02/05/25 22:00 Urine Color Yellow (Yellow) Urine Clarity Clear (Clear) Urine pH 5.0 (5.0-9.0) Urine Specific [place] 1.017 (1.001-1.035) Urine Protein Trace (Negative) H Urine Ketones Negative (Negative) Urine Blood Negative /uL (Negative) Urine Nitrite Negative (Negative) Urine Bilirubin Negative (Negative) Urine Urobilinogen Normal mg/dL (Negative) Urine Leukocyte Esterase Negative /uL (Negative) Urine RBC None seen /hpf (0 - 4) Urine Microscopic WBC 5 /HPF (0-5) Urine Squamous Epithelial Cells Few /hpf (<5) Urine Bacteria None seen /hpf (None Seen) Urine Hyaline Casts Mod /lpf (0 - 2) Urine Mucus Few (None Seen) Urine Glucose Normal mg/dL (Normal) Microbiology Microbiology Date/Time Source Procedure Growth Status 02/05/25 22:00 Voided Urine Urine Culture - Final Complete 02/05/25 18:30 Blood Blood Culture - Final NO GROWTH AFTER 5 DAYS OF INCUBATION. Complete 02/04/25 22:00 Nose MRSA Screen - Final Methicillin Resistant S.aureus Complete Labs and/or images reviewed: Labs reviewed by me, Image(s) reviewed by me Assessment/Plan Assessment/Plan Impression: -AFib with RVR -acute on chronic hypoxic respiratory failure -pulmonary hypertension -acute decompensated right ventricular failure -shock, questionable sepsis etiology -large left pleural effusion -COPD -acute kidney injury, vasomotor nephropathy -primary hypertension Plan: Events: No events overnight. Patient was assessed sitting in a chair. Currently on 4 L via nasal cannula with saturation 91%. Patient clinically states she was feeling better. Family was unable to bring in pulmonary hypertension medications from home. Discussed with the patient that medication should be restarted in the hospital to assure that she does not have any further bouts of hypotension. Patient was agreeable to this plan of care. -PT consultation -continue diuresis per Nephrology -stop azithromycin given completed course. Continue Rocephin -cardiology consultation: Continue rate control per their recommendations, Eliquis -renal ultrasound: Results reviewed -bronchodilators, Pulmicort -continue Solu-Medrol, wean -continue anticoagulation with Eliquis -repeat labs in a.m. Total time spent with patient discussing and formulating plan of care: 35 minutes. This medical document was created using an electronic medical record system with [employer] system. Although this document has been carefully reviewed, there may still be some phonetic and typographical errors. These areas are purely typographical due to imperfections of the software programs, and do not reflect any compromise in the patient's medical care. Patient refusing to be placed Plan discussed with: Patient, Other (RN) My Orders Orders - JIN GANN NP Procedure Category Date Status Time Renal DIET 02/12/25 Transmitted Standard(2gna,3gk,Lopho) Lunch Date of Service: Feb 12, 2025 Billing Provider: JIN GANN NP Common Visit Codes: [id number] INP/OBS CARE(HIGH) JIN GANN NP Feb 12, 2025 11:05
--- NOTE | 2025-02-12 11:38 | DVHPN2 ---
Progress Note - Dictate Date Seen: Feb 11, 2025 Has the PT tested + for MRSA If YES, has PT been informed?: Yes Medical Necessity Reason Pt with a Central, PICC or Fol: No Subjective Patient seen and examined at bedside. Remains on supplemental oxygen Overnight events reviewed. vital signs Vital Sign Date Time Temp Pulse Resp B/P (MAP) Pulse Ox O2 Delivery O2 Flow Rate FiO2 02/12/25 11:17 78 120/84 02/12/25 10:00 92 Nasal Cannula* 4 36 02/12/25 10:00 18 02/12/25 08:00 97.9 97.9 Total Intake and Output 02/11/25 02/11/25 02/12/25 15:00 23:00 07:00 Intake Total 50 ml 720 ml 480 ml Output Total 1200 ml 900 ml Balance 50 ml -480 ml -420 ml medications Current Medications Medications Dose Ordered Sig/Julian Route Start Time Stop Time Status Last Admin Dose Admin Apixaban 2.5 mg BID PO 02/04/25 22:00 02/12/25 10:17 2.5 MG Ceftriaxone Sodium 50 ml @ 100 mls/hr DAILY@09 IV 02/05/25 09:00 02/12/25 08:33 100 MLS/HR Diagnostic Test (Pha) 1 strip ACHS 02/04/25 22:00 02/12/25 06:06 1 STRIP Insulin Human Regular ACHS SC 02/04/25 22:00 02/12/25 06:07 3 UNITS Dextrose 50 ml UD PRN IV 02/04/25 19:30 Ondansetron HCl 4 mg Q4HP PRN IV 02/04/25 19:30 Acetaminophen 650 mg Q6HP PRN PO 02/04/25 19:30 Nitroglycerin 0.4 mg Q5MINP PRN SL 02/04/25 19:30 Hold Morphine Sulfate 2 mg Q30M PRN IV 02/04/25 19:30 Acetaminophen/ Hydrocodone Bitart 1 tab Q6HPRN PRN PO 02/05/25 18:00 02/12/25 08:32 1 TAB Flecainide Acetate 100 mg Q12HR PO 02/06/25 10:00 02/12/25 10:17 100 MG Alprazolam 0.25 mg Q8HP PRN PO 02/06/25 09:30 02/12/25 03:39 0.25 MG Albuterol 2.5 mg Q6HWA NEB 02/06/25 12:00 02/12/25 06:09 2.5 MG Ipratropium [place] 0.5 mg Q6HWA NEB 02/06/25 12:00 02/12/25 06:09 0.5 MG Pantoprazole Sodium 40 mg DAILY@0600 PO 02/06/25 09:30 02/12/25 06:06 40 MG Ergocalciferol 50,000 unit Q7D PO 02/07/25 13:45 02/07/25 17:10 50,000 UNIT Magnesium Hydroxide 30 ml DAILYP PRN PO 02/07/25 21:30 02/08/25 21:22 30 ML Metoprolol Tartrate 12.5 mg BID PO 02/09/25 22:00 02/12/25 10:17 12.5 MG Diphenhydramine HCl 50 mg ONCE PRN PO 02/10/25 01:30 02/10/25 01:44 50 MG Patient Own Medication 2.5 mg TID PO 02/11/25 14:00 Bumetanide 1 mg DAILY IV 02/12/25 10:00 02/12/25 10:15 1 MG Methylprednisolone Sodium Succinate 20 mg BID IV 02/12/25 22:00 objective Gen.: Patient lying in bed in no apparent distress. On supplemental oxygen. Head: Normocephalic, atraumatic. Eyes: EOMI/PERRLA. Ears: Normal hearing. Normal anatomy. Neck/trachea: Trachea midline, supple. Nose: Normal external anatomy. Mouth: Moist mucous membranes. Chest: Decreased air entry bilaterally. No wheezing or rhonchi. Cardiovascular: Positive S1, positive S2. Regular rate and rhythm. Abdomen: Positive bowel sounds in all 4 quadrants. Soft, non-tender, non- distended. : Deferred. Rectal: Deferred. Skin: Warm, dry. Intact. Extremities: 2+ radial pulses bilaterally. No lower extremity edema. Neuro: Awake, alert, oriented x3. No gross motor or sensory deficits. Cranial nerves II through XII intact. Gait not assessed. laboratory and microbiology Laboratory Tests 02/12/25 05:00 02/09/25 04:47 Test 02/12/25 05:00 Range/Units Serum Glucose 179 H 74-106 mg/dL Assessment/Plan Impression: Acute on chronic hypoxic respiratory failure Dependence on supplemental oxygen Acute on chronic CHF Sepsis Atrial fibrillation with RVR, currently rate controlled Pulmonary hypertension, severe Hypertension Events: Remains on supplemental oxygen Currently at 6 LPM NC bubbler Taper O2 as tolerated - improving O2 requirements. Monitor respiratory status closely. Resume pulmonary hypertension medications one at a time to see if blood pressure tolerates. Continue antibiotics Follow up Cardiology recommendations Diurese as tolerated - on Lasix drip Monitor renal function. Monitor electrolytes. Supplement as necessary. Monitor ins and outs. Nephrology recs appreciated. Anxiolytic PRN Labs and imaging reviewed. Rest of plan as noted below. Plan: Supplemental oxygen Titrate to keep O2 sats above 92%. Monitor respiratory status closely Continue antibiotics Diurese to euvolemia w/ Lasix drip Monitor renal function. Monitor electrolytes. Supplement as necessary. Monitor ins and outs. Nephrology recs appreciated. DVT prophylaxis. Prognosis: Poor given patient's multiple co-morbidities. Rest of plan per hospitalist and other consultants. Thank you, GIULIA Ramirez, for allowing me to participate in this patient's care. Further recommendations will depend on the patient's clinical course. Please do not hesitate to contact me if you have any questions or concerns. This medical document was created using an electronic medical record system with [employer] dictation system. Although these documentations are being carefully reviewed, there may still be some phonetic and typographical changes. The errors are purely typographical, due to imperfection on the software program, and do not reflect any compromise in the patient's medical care. Dietary Evaluation Review Comments: 1) CCHO 60gm + renal specific 40gm protein 2) Refer Slip Cover Seamstress on DC 3) Continue current plan of care Expected Outcomes/Goals: Pt will meet >75% estimated needs Fu 3-5 days Plan discussed with: Patient, Other (VERNON Lala) LUIS WOODS MD Feb 12, 2025 11:38
--- NOTE | 2025-02-12 15:01 | DVHPN2 ---
Progress Note Date Seen: Feb 12, 2025 Has the PT tested + for MRSA If YES, has PT been informed?: Yes Medical Necessity Reason Pt with a Central, PICC or Fol: No Subjective Patient reports: Feels better Objective vital signs Vital Sign Date Time Temp Pulse Resp B/P (MAP) Pulse Ox O2 Delivery O2 Flow Rate FiO2 02/12/25 14:00 20 94 Nasal Cannula* 3 32 02/12/25 14:00 87 02/12/25 13:00 115/75 (88) 02/12/25 11:48 98.7 98.7 Total Intake and Output 02/11/25 02/11/25 02/12/25 15:00 23:00 07:00 Intake Total 50 ml 720 ml 480 ml Output Total 1200 ml 900 ml Balance 50 ml -480 ml -420 ml medications Current Medications Medications Dose Ordered Sig/Julian Route Start Time Stop Time Status Last Admin Dose Admin Apixaban 2.5 mg BID PO 02/04/25 22:00 02/12/25 10:17 2.5 MG Ceftriaxone Sodium 50 ml @ 100 mls/hr DAILY@09 IV 02/05/25 09:00 02/12/25 08:33 100 MLS/HR Diagnostic Test (Pha) 1 strip ACHS 02/04/25 22:00 02/12/25 11:37 1 STRIP Insulin Human Regular ACHS SC 02/04/25 22:00 02/12/25 11:36 3 UNITS Dextrose 50 ml UD PRN IV 02/04/25 19:30 Ondansetron HCl 4 mg Q4HP PRN IV 02/04/25 19:30 Acetaminophen 650 mg Q6HP PRN PO 02/04/25 19:30 Nitroglycerin 0.4 mg Q5MINP PRN SL 02/04/25 19:30 Hold Morphine Sulfate 2 mg Q30M PRN IV 02/04/25 19:30 Acetaminophen/ Hydrocodone Bitart 1 tab Q6HPRN PRN PO 02/05/25 18:00 02/12/25 08:32 1 TAB Flecainide Acetate 100 mg Q12HR PO 02/06/25 10:00 02/12/25 10:17 100 MG Alprazolam 0.25 mg Q8HP PRN PO 02/06/25 09:30 02/12/25 11:42 0.25 MG Albuterol 2.5 mg Q6HWA NEB 02/06/25 12:00 02/12/25 12:34 2.5 MG Ipratropium [place] 0.5 mg Q6HWA NEB 02/06/25 12:00 02/12/25 12:34 0.5 MG Pantoprazole Sodium 40 mg DAILY@0600 PO 02/06/25 09:30 02/12/25 06:06 40 MG Ergocalciferol 50,000 unit Q7D PO 02/07/25 13:45 02/07/25 17:10 50,000 UNIT Magnesium Hydroxide 30 ml DAILYP PRN PO 02/07/25 21:30 02/08/25 21:22 30 ML Metoprolol Tartrate 12.5 mg BID PO 02/09/25 22:00 02/12/25 10:17 12.5 MG Diphenhydramine HCl 50 mg ONCE PRN PO 02/10/25 01:30 02/10/25 01:44 50 MG Patient Own Medication 2.5 mg TID PO 02/11/25 14:00 02/12/25 13:42 2.5 MG Methylprednisolone Sodium Succinate 20 mg BID IV 02/12/25 22:00 Bumetanide 1 mg DAILY PO 02/13/25 10:00 Examination: GENERAL:Abnormal, LUNGS:Abnormal, CVS:Abnormal laboratory and microbiology Laboratory Tests 02/12/25 05:00 02/09/25 04:47 Test 02/12/25 05:00 Range/Units Serum Glucose 179 H 74-106 mg/dL Microbiology Date/Time Source Procedure Growth Status 02/05/25 22:00 Voided Urine Urine Culture - Final Complete 02/05/25 18:30 Blood Blood Culture - Final NO GROWTH AFTER 5 DAYS OF INCUBATION. Complete 02/04/25 22:00 Nose MRSA Screen - Final Methicillin Resistant S.aureus Complete Problem List/Assessment/Plan Problem List/Assessment/Plan Acute kidney injury superimposed Chronic Kidney Disease secondary hemodynamic mediated Acute on chronic respiratory failure, on high-flow oxygen Congestive heart failure exacerbation AFib with RVR mild hyponatremia secondary to excess H2O hyperkalemia , improving hyperphosphatemia hypovitaminosis D Chronic alcohol abuse Large left pleural effusion MRSA positive Azotemia from diuresis and steroids bumex reduced to bumex IV today tomorrow po started for outpatient goal dose po will be 1-1.5mg po BID Increased urine output Strict I&Os KCL replacement Fluid restrictions stop phos binder Plan discussed with: Patient My Orders My Orders Orders - KRISTINE VERDIN MD Procedure Category Date Status Time Potassium Er Tablet PHA 02/12/25 Logged (Klor-Con Tablet) 15:00 Bumetanide Tablet PHA 02/13/25 In Process (Bumex Tablet) 10:00 Dietary Evaluation Review Comments: 1) CCHO 60gm + renal specific 40gm protein 2) Refer Director Of Clinical Applications on DC 3) Continue current plan of care Expected Outcomes/Goals: Pt will meet >75% estimated needs Fu 3-5 days KRISTINE VERDIN MD Feb 12, 2025 15:01
[2025-02-12] MEDS: POTASSIUM CHL 20 Meq TABLET PO ONE (15:13)
[2025-02-12] MEDS: methylPREDNISolone SOD SUCC 40 MG/ML VL IV SCH (21:34)
--- NOTE | 2025-02-12 23:25 | DVHPN2 ---
Progress Note - Dictate Date Seen: Feb 12, 2025 Has the PT tested + for MRSA If YES, has PT been informed?: Yes Medical Necessity Reason Pt with a Central, PICC or Fol: No Subjective Patient seen and examined at bedside. Remains on supplemental oxygen Overnight events reviewed. vital signs Vital Sign Date Time Temp Pulse Resp B/P (MAP) Pulse Ox O2 Delivery O2 Flow Rate FiO2 02/12/25 23:00 74 14 99/56 (70) 96 02/12/25 22:00 Nasal Cannula* 3 32 02/12/25 16:00 98.4 98.4 Total Intake and Output 02/11/25 02/11/25 02/12/25 14:59 22:59 06:59 Intake Total 50 ml 720 ml 480 ml Output Total 1200 ml 900 ml Balance 50 ml -480 ml -420 ml medications Current Medications Medications Dose Ordered Sig/Julian Route Start Time Stop Time Status Last Admin Dose Admin Apixaban 2.5 mg BID PO 02/04/25 22:00 02/12/25 21:31 2.5 MG Ceftriaxone Sodium 50 ml @ 100 mls/hr DAILY@09 IV 02/05/25 09:00 02/12/25 08:33 100 MLS/HR Diagnostic Test (Pha) 1 strip ACHS 02/04/25 22:00 02/12/25 21:28 1 STRIP Insulin Human Regular ACHS SC 02/04/25 22:00 02/12/25 21:30 3 UNITS Dextrose 50 ml UD PRN IV 02/04/25 19:30 Ondansetron HCl 4 mg Q4HP PRN IV 02/04/25 19:30 Acetaminophen 650 mg Q6HP PRN PO 02/04/25 19:30 Nitroglycerin 0.4 mg Q5MINP PRN SL 02/04/25 19:30 Hold Morphine Sulfate 2 mg Q30M PRN IV 02/04/25 19:30 Acetaminophen/ Hydrocodone Bitart 1 tab Q6HPRN PRN PO 02/05/25 18:00 02/12/25 22:31 1 TAB Flecainide Acetate 100 mg Q12HR PO 02/06/25 10:00 02/12/25 21:32 100 MG Alprazolam 0.25 mg Q8HP PRN PO 02/06/25 09:30 02/12/25 21:21 0.25 MG Albuterol 2.5 mg Q6HWA NEB 02/06/25 12:00 02/12/25 18:14 2.5 MG Ipratropium [place] 0.5 mg Q6HWA NEB 02/06/25 12:00 02/12/25 18:14 0.5 MG Pantoprazole Sodium 40 mg DAILY@0600 PO 02/06/25 09:30 02/12/25 06:06 40 MG Ergocalciferol 50,000 unit Q7D PO 02/07/25 13:45 02/07/25 17:10 50,000 UNIT Magnesium Hydroxide 30 ml DAILYP PRN PO 02/07/25 21:30 02/08/25 21:22 30 ML Metoprolol Tartrate 12.5 mg BID PO 02/09/25 22:00 02/12/25 22:31 12.5 MG Diphenhydramine HCl 50 mg ONCE PRN PO 02/10/25 01:30 02/10/25 01:44 50 MG Patient Own Medication 2.5 mg TID PO 02/11/25 14:00 02/12/25 21:33 2.5 MG Methylprednisolone Sodium Succinate 20 mg BID IV 02/12/25 22:00 02/12/25 21:34 20 MG Bumetanide 1 mg DAILY PO 02/13/25 10:00 objective Gen.: Patient lying in bed in no apparent distress. On supplemental oxygen. Head: Normocephalic, atraumatic. Eyes: EOMI/PERRLA. Ears: Normal hearing. Normal anatomy. Neck/trachea: Trachea midline, supple. Nose: Normal external anatomy. Mouth: Moist mucous membranes. Chest: Decreased air entry bilaterally. No wheezing or rhonchi. Cardiovascular: Positive S1, positive S2. Regular rate and rhythm. Abdomen: Positive bowel sounds in all 4 quadrants. Soft, non-tender, non- distended. : Deferred. Rectal: Deferred. Skin: Warm, dry. Intact. Extremities: 2+ radial pulses bilaterally. No lower extremity edema. Neuro: Awake, alert, oriented x3. No gross motor or sensory deficits. Cranial nerves II through XII intact. Gait not assessed. laboratory and microbiology Laboratory Tests 02/12/25 05:00 02/09/25 04:47 Test 02/12/25 05:00 Range/Units Serum Glucose 179 H 74-106 mg/dL Assessment/Plan Impression: Acute on chronic hypoxic respiratory failure Dependence on supplemental oxygen Acute on chronic CHF Sepsis Atrial fibrillation with RVR, currently rate controlled Pulmonary hypertension, severe Hypertension Events: Remains on supplemental oxygen Currently at 3-4 LPM NC Taper O2 as tolerated - improving O2 requirements. Resume [place] for pulmonary hypertension Continue antibiotics Cardiology recommendations appreciated Diurese as tolerated - on Bumex Off Lasix drip Monitor renal function. Monitor electrolytes. Supplement as necessary. Monitor ins and outs. Nephrology recs appreciated. Anxiolytic/Xanax Labs and imaging reviewed. Rest of plan as noted below. Plan: Supplemental oxygen Titrate to keep O2 sats between 88-94%. Monitor respiratory status closely Continue antibiotics Diurese to euvolemia Monitor renal function. Monitor electrolytes. Supplement as necessary. Monitor ins and outs. Nephrology recs appreciated. DVT prophylaxis. Prognosis: Poor given patient's multiple co-morbidities. Rest of plan per hospitalist and other consultants. Thank you, GIULIA Ramirez, for allowing me to participate in this patient's care. Further recommendations will depend on the patient's clinical course. Please do not hesitate to contact me if you have any questions or concerns. This medical document was created using an electronic medical record system with [employer] computerized dictation system. Although these documentations are being carefully reviewed, there may still be some phonetic and typographical changes. The errors are purely typographical, due to imperfection on the software program, and do not reflect any compromise in the patient's medical care. Dietary Evaluation Review Comments: 1) CCHO 60gm + renal specific 40gm protein 2) Refer Pencil Sorter on DC 3) Continue current plan of care Expected Outcomes/Goals: Pt will meet >75% estimated needs Fu 3-5 days Plan discussed with: Patient, Other (RN Chiquita) LUIS WOODS MD Feb 12, 2025 23:25
[2025-02-13] VITALS (27 sets, daily range): BP systolic 90–118; BP diastolic 49–81; PULSE 69–102; RESP 12–20; TEMP 97.7–98.2; O2SAT 83–98
[2025-02-13 06:43] LABS: Chloride 99 mmol/L (98-107); Potassium 4.9 mmol/L (3.5-5.1)
[2025-02-13 06:45] LABS: Anion Gap 6 (5-15); Carbon Dioxide 29 mmol/L (20-31); Sodium 134 mmol/L (136-145)
[2025-02-13 06:49] LABS: BUN/Creatinine Ratio 39.6 (10.0-20.0)
[2025-02-13 06:53] LABS: Glucose 138 mg/dL (74-106)
[2025-02-13 06:55] LABS: Blood Urea Nitrogen 89 mg/dL (9-23)
[2025-02-13 07:02] LABS: Hemoglobin 10.7 g/dL (12.2-16.2); Mean Corpuscular Hemoglobin 32.4 pg (28.0-32.0); Mean Corpuscular Hgb Conc. 33.6 g/dL (32.0-36.0); Mean Corpuscular Volume 96.4 fL (80.0-100.0); Platelet Count (auto) 341 10^3/uL (140-450); Red Blood Cells 3.32 10^6/uL (4.0-5.20); White Blood Cell 10.1 10^3/uL (4.4-10.8)
[2025-02-13 07:16] LABS: Basophils % (manual) 0 (0.0-2.0); Blast Cells 0; Eosinophils % (manual) 0 (0-7); Metamyelocytes % 0; Myelocytes % 0; Promyelocytes % 0; Reactive Lymphocytes 0
[2025-02-13 07:23] LABS: Calcium 9.2 mg/dL (8.7-10.4)
--- NOTE | 2025-02-13 07:48 | DVHPN2 ---
Subjective Patient reports that her shortness of breath has improved. She now reports that she was able to get out of bed to a chair without assistance. Reviewed: Care Plan, H&P, Medications Changes from previous H/P or p: Changes General: Per HPI Objective Vitals Vital Signs Date Time Temp Pulse Resp B/P (MAP) Pulse Ox O2 Delivery O2 Flow Rate FiO2 02/13/25 07:00 79 15 104/67 (79) 88 02/13/25 06:05 Nasal Cannula* 3 32 02/13/25 04:00 97.7 97.7 Intake/Output Intake and Output 02/13/25 07:00 Intake Total 1300 ml Output Total 2150 ml Balance -850 ml Intake Oral 1250 ml IV Total 50 ml Output Urine Total 2150 ml # Voids 5 # Bowel Movements 2 General Appearance: Alert, Oriented X3, Cooperative, No acute distress HEENT: Atraumatic, PERRLA Lungs: Clear to auscultation, Normal air movement Cardiovascular: Normal S1, Normal S2 Abdomen: Normal bowel sounds, Soft, No tenderness, No hepatospenomegaly, No masses Genitourinary: No Apparent Abnormalities Musculoskeletal: Normal sensory function, Normal motor function Neuro: Normal gait, Normal speech, Cranial nerves 3-12 NL Skin: Dry, Intact Psych/Mental Status: Mental status NL, Mood NL Medications Current Medications Medications Dose Ordered Sig/Julian Route Start Time Stop Time Status Last Admin Dose Admin Apixaban 2.5 mg BID PO 02/04/25 22:00 02/12/25 21:31 2.5 MG Ceftriaxone Sodium 50 ml @ 100 mls/hr DAILY@09 IV 02/05/25 09:00 02/12/25 08:33 100 MLS/HR Diagnostic Test (Pha) 1 strip ACHS 02/04/25 22:00 02/13/25 06:18 1 STRIP Insulin Human Regular ACHS SC 02/04/25 22:00 02/13/25 06:19 2 UNITS Dextrose 50 ml UD PRN IV 02/04/25 19:30 Ondansetron HCl 4 mg Q4HP PRN IV 02/04/25 19:30 Acetaminophen 650 mg Q6HP PRN PO 02/04/25 19:30 Nitroglycerin 0.4 mg Q5MINP PRN SL 02/04/25 19:30 Hold Morphine Sulfate 2 mg Q30M PRN IV 02/04/25 19:30 Acetaminophen/ Hydrocodone Bitart 1 tab Q6HPRN PRN PO 02/05/25 18:00 02/12/25 22:31 1 TAB Flecainide Acetate 100 mg Q12HR PO 02/06/25 10:00 02/12/25 21:32 100 MG Alprazolam 0.25 mg Q8HP PRN PO 02/06/25 09:30 02/13/25 04:24 0.25 MG Albuterol 2.5 mg Q6HWA NEB 02/06/25 12:00 02/13/25 06:02 2.5 MG Ipratropium [place] 0.5 mg Q6HWA NEB 02/06/25 12:00 02/13/25 06:02 0.5 MG Pantoprazole Sodium 40 mg DAILY@0600 PO 02/06/25 09:30 02/13/25 06:15 40 MG Ergocalciferol 50,000 unit Q7D PO 02/07/25 13:45 02/07/25 17:10 50,000 UNIT Magnesium Hydroxide 30 ml DAILYP PRN PO 02/07/25 21:30 02/08/25 21:22 30 ML Metoprolol Tartrate 12.5 mg BID PO 02/09/25 22:00 02/12/25 22:31 12.5 MG Diphenhydramine HCl 50 mg ONCE PRN PO 02/10/25 01:30 02/10/25 01:44 50 MG Patient Own Medication 2.5 mg TID PO 02/11/25 14:00 02/13/25 06:15 2.5 MG Methylprednisolone Sodium Succinate 20 mg BID IV 02/12/25 22:00 02/12/25 21:34 20 MG Bumetanide 1 mg DAILY PO 02/13/25 10:00 Laboratory Results Laboratory Tests 02/13/25 06:15 Chemistry Test 02/13/25 06:15 Calcium Level 9.2 mg/dL (8.7-10.4) Urinalysis Test 02/05/25 22:00 Urine Color Yellow (Yellow) Urine Clarity Clear (Clear) Urine pH 5.0 (5.0-9.0) Urine Specific [place] 1.017 (1.001-1.035) Urine Protein Trace (Negative) H Urine Ketones Negative (Negative) Urine Blood Negative /uL (Negative) Urine Nitrite Negative (Negative) Urine Bilirubin Negative (Negative) Urine Urobilinogen Normal mg/dL (Negative) Urine Leukocyte Esterase Negative /uL (Negative) Urine RBC None seen /hpf (0 - 4) Urine Microscopic WBC 5 /HPF (0-5) Urine Squamous Epithelial Cells Few /hpf (<5) Urine Bacteria None seen /hpf (None Seen) Urine Hyaline Casts Mod /lpf (0 - 2) Urine Mucus Few (None Seen) Urine Glucose Normal mg/dL (Normal) Microbiology Microbiology Date/Time Source Procedure Growth Status 02/05/25 22:00 Voided Urine Urine Culture - Final Complete 02/05/25 18:30 Blood Blood Culture - Final NO GROWTH AFTER 5 DAYS OF INCUBATION. Complete 02/04/25 22:00 Nose MRSA Screen - Final Methicillin Resistant S.aureus Complete Labs and/or images reviewed: Labs reviewed by me, Image(s) reviewed by me Assessment/Plan Assessment/Plan Impression: -AFib with RVR -acute on chronic hypoxic respiratory failure -pulmonary hypertension -acute decompensated right ventricular failure -shock, questionable sepsis etiology -large left pleural effusion -COPD -acute kidney injury, vasomotor nephropathy -primary hypertension Plan: Events: Adempas was restarted yesterday with patient's blood pressure tolerating it. Now on nasal cannula 3 L/min. -PT consultation: Pending -continue diuresis per Nephrology -continue IV Rocephin -bronchodilators -continue Solu-Medrol, wean -continue anticoagulation with Eliquis -repeat labs in a.m. -discontinue central line. -transfer to telemetry unit Total time spent with patient discussing and formulating plan of care: 35 minutes. This medical document was created using an electronic medical record system with [employer] dictation system. Although this document has been carefully reviewed, there may still be some phonetic and typographical errors. These areas are purely typographical due to imperfections of the software programs, and do not reflect any compromise in the patient's medical care. Patient refusing to be placed Plan discussed with: Patient, Other (RN) My Orders Orders - JIN GANN GRADES 1 THRU 6 HOME TEACHER Procedure Category Date Status Time Renal DIET 02/12/25 Transmitted Standard(2gna,3gk,Lopho) Lunch Pt Request For Service PT 02/12/25 Logged 11:02 Methylprednisolone PHA 02/12/25 In Process Sod Succ (Solu Medrol 22:00 Complete Blood Count LAB 02/13/25 In Process 05:00 Manual Differential LAB 02/13/25 In Process 06:15 Communication Order ORDERS 02/13/25 Transmitted 07:43 Basic Metabolic Panel LAB 02/14/25 Verified 04:00 Magnesium LAB 02/14/25 Verified 04:00 Transfer Orders XFER 02/13/25 Transmitted 07:45 Date of Service: Feb 13, 2025 Billing Provider: JIN GANN NP Common Visit Codes: [id number] INP/OBS CARE(HIGH) JIN GANN NP Feb 13, 2025 07:48
[2025-02-13 08:36] LABS: Band Neutrophils % (manual) 1; Lymphocytes % (manual) 13 (10.0-50.0); Monocytes % (manual) 1 (0-12); Platelet Estimate Adequate
[2025-02-13] MEDS: BUMETANIDE 1 MG TAB PO SCH (10:06)
--- NOTE | 2025-02-13 13:22 | DVHPN2 ---
Progress Note Date Seen: Feb 13, 2025 Has the PT tested + for MRSA If YES, has PT been informed?: Yes Medical Necessity Reason Pt with a Central, PICC or Fol: No Subjective Patient reports: Feels better Review of Systems: RESPIRATORY:Abnormal Objective vital signs Vital Sign Date Time Temp Pulse Resp B/P (MAP) Pulse Ox O2 Delivery O2 Flow Rate FiO2 02/13/25 12:00 16 94 Nasal Cannula* 3 32 02/13/25 12:00 98.0 87 108/65 (79) 98.0 Total Intake and Output 02/12/25 02/12/25 02/13/25 15:00 23:00 07:00 Intake Total 50 ml 650 ml 600 ml Output Total 1800 ml 350 ml Balance 50 ml -1150 ml 250 ml medications Current Medications Medications Dose Ordered Sig/Julian Route Start Time Stop Time Status Last Admin Dose Admin Apixaban 2.5 mg BID PO 02/04/25 22:00 02/13/25 09:51 2.5 MG Ceftriaxone Sodium 50 ml @ 100 mls/hr DAILY@09 IV 02/05/25 09:00 02/13/25 08:25 100 MLS/HR Diagnostic Test (Pha) 1 strip ACHS 02/04/25 22:00 02/13/25 11:43 1 STRIP Insulin Human Regular ACHS SC 02/04/25 22:00 02/13/25 11:45 2 UNITS Dextrose 50 ml UD PRN IV 02/04/25 19:30 Ondansetron HCl 4 mg Q4HP PRN IV 02/04/25 19:30 Acetaminophen 650 mg Q6HP PRN PO 02/04/25 19:30 Morphine Sulfate 2 mg Q30M PRN IV 02/04/25 19:30 Acetaminophen/ Hydrocodone Bitart 1 tab Q6HPRN PRN PO 02/05/25 18:00 02/13/25 11:43 1 TAB Flecainide Acetate 100 mg Q12HR PO 02/06/25 10:00 02/13/25 09:51 100 MG Alprazolam 0.25 mg Q8HP PRN PO 02/06/25 09:30 02/13/25 04:24 0.25 MG Albuterol 2.5 mg Q6HWA NEB 02/06/25 12:00 02/13/25 11:21 2.5 MG Ipratropium [place] 0.5 mg Q6HWA NEB 02/06/25 12:00 02/13/25 11:21 0.5 MG Pantoprazole Sodium 40 mg DAILY@0600 PO 02/06/25 09:30 02/13/25 06:15 40 MG Ergocalciferol 50,000 unit Q7D PO 02/07/25 13:45 02/07/25 17:10 50,000 UNIT Magnesium Hydroxide 30 ml DAILYP PRN PO 02/07/25 21:30 02/08/25 21:22 30 ML Metoprolol Tartrate 12.5 mg BID PO 02/09/25 22:00 02/13/25 09:55 12.5 MG Diphenhydramine HCl 50 mg ONCE PRN PO 02/10/25 01:30 02/10/25 01:44 50 MG Patient Own Medication 2.5 mg TID PO 02/11/25 14:00 02/13/25 06:15 2.5 MG Methylprednisolone Sodium Succinate 20 mg BID IV 02/12/25 22:00 02/13/25 09:56 20 MG Bumetanide 1 mg DAILY PO 02/13/25 10:00 02/13/25 10:06 1 MG Examination: GENERAL:Abnormal, LUNGS:Abnormal, CVS:Abnormal laboratory and microbiology Laboratory Tests 02/13/25 06:15 Test 02/13/25 06:15 Range/Units Serum Glucose 138 H 74-106 mg/dL Microbiology Date/Time Source Procedure Growth Status 02/05/25 22:00 Voided Urine Urine Culture - Final Complete 02/05/25 18:30 Blood Blood Culture - Final NO GROWTH AFTER 5 DAYS OF INCUBATION. Complete 02/04/25 22:00 Nose MRSA Screen - Final Methicillin Resistant S.aureus Complete Problem List/Assessment/Plan Problem List/Assessment/Plan Acute kidney injury superimposed Chronic Kidney Disease secondary hemodynamic mediated Acute on chronic respiratory failure, on high-flow oxygen Congestive heart failure exacerbation AFib with RVR mild hyponatremia secondary to excess H2O hyperkalemia , improving hyperphosphatemia hypovitaminosis D Chronic alcohol abuse Large left pleural effusion MRSA positive Azotemia from diuresis and steroids bumex reduced to po 1mg daily continue this dose outpatient. advise patient to take additional dose outpatient PRN if has sob Increased urine output Strict I&Os Fluid restrictions Plan discussed with: Patient My Orders My Orders Orders - KRISTINE VERDIN MD Procedure Category Date Status Time Bumetanide Tablet PHA 02/13/25 In Process (Bumex Tablet) 10:00 Dietary Evaluation Review Comments: 1) CCHO 60gm + renal specific 40gm protein 2) Refer Coremaker Helper on DC 3) Continue current plan of care Expected Outcomes/Goals: Pt will meet >75% estimated needs Fu 3-5 days KRISTINE VERDIN MD Feb 13, 2025 13:22
--- NOTE | 2025-02-13 23:29 | DVHPN2 ---
Progress Note - Dictate Date Seen: Feb 13, 2025 Has the PT tested + for MRSA If YES, has PT been informed?: Yes Medical Necessity Reason Pt with a Central, PICC or Fol: No Subjective Patient seen and examined at bedside. Remains on supplemental oxygen Overnight events reviewed. vital signs Vital Sign Date Time Temp Pulse Resp B/P (MAP) Pulse Ox O2 Delivery O2 Flow Rate FiO2 02/13/25 22:17 98 110/78 02/13/25 21:00 98.0 18 90 98.0 02/13/25 19:20 3.0 32 02/13/25 19:03 Nasal Cannula* Total Intake and Output 02/12/25 02/12/25 02/13/25 14:59 22:59 06:59 Intake Total 50 ml 650 ml 600 ml Output Total 1800 ml 350 ml Balance 50 ml -1150 ml 250 ml medications Current Medications Medications Dose Ordered Sig/Julian Route Start Time Stop Time Status Last Admin Dose Admin Apixaban 2.5 mg BID PO 02/04/25 22:00 02/13/25 22:15 2.5 MG Ceftriaxone Sodium 50 ml @ 100 mls/hr DAILY@09 IV 02/05/25 09:00 02/13/25 08:25 100 MLS/HR Diagnostic Test (Pha) 1 strip ACHS 02/04/25 22:00 02/13/25 22:17 1 STRIP Insulin Human Regular ACHS SC 02/04/25 22:00 02/13/25 22:18 3 UNITS Dextrose 50 ml UD PRN IV 02/04/25 19:30 Ondansetron HCl 4 mg Q4HP PRN IV 02/04/25 19:30 Acetaminophen 650 mg Q6HP PRN PO 02/04/25 19:30 Morphine Sulfate 2 mg Q30M PRN IV 02/04/25 19:30 Acetaminophen/ Hydrocodone Bitart 1 tab Q6HPRN PRN PO 02/05/25 18:00 02/13/25 18:18 1 TAB Flecainide Acetate 100 mg Q12HR PO 02/06/25 10:00 02/13/25 22:17 100 MG Alprazolam 0.25 mg Q8HP PRN PO 02/06/25 09:30 02/13/25 23:14 0.25 MG Albuterol 2.5 mg Q6HWA NEB 02/06/25 12:00 02/13/25 19:06 2.5 MG Ipratropium [place] 0.5 mg Q6HWA NEB 02/06/25 12:00 02/13/25 19:06 0.5 MG Pantoprazole Sodium 40 mg DAILY@0600 PO 02/06/25 09:30 02/13/25 06:15 40 MG Ergocalciferol 50,000 unit Q7D PO 02/07/25 13:45 02/07/25 17:10 50,000 UNIT Magnesium Hydroxide 30 ml DAILYP PRN PO 02/07/25 21:30 02/13/25 22:16 30 ML Metoprolol Tartrate 12.5 mg BID PO 02/09/25 22:00 02/13/25 22:17 12.5 MG Diphenhydramine HCl 50 mg ONCE PRN PO 02/10/25 01:30 02/10/25 01:44 50 MG Patient Own Medication 2.5 mg TID PO 02/11/25 14:00 02/13/25 14:13 2.5 MG Methylprednisolone Sodium Succinate 20 mg BID IV 02/12/25 22:00 02/13/25 22:16 20 MG Bumetanide 1 mg DAILY PO 02/13/25 10:00 02/13/25 10:06 1 MG objective Gen.: Patient lying in bed in no apparent distress. On supplemental oxygen. Head: Normocephalic, atraumatic. Eyes: EOMI/PERRLA. Ears: Normal hearing. Normal anatomy. Neck/trachea: Trachea midline, supple. Nose: Normal external anatomy. Mouth: Moist mucous membranes. Chest: Decreased air entry bilaterally. No wheezing or rhonchi. Cardiovascular: Positive S1, positive S2. Regular rate and rhythm. Abdomen: Positive bowel sounds in all 4 quadrants. Soft, non-tender, non- distended. : Deferred. Rectal: Deferred. Skin: Warm, dry. Intact. Extremities: 2+ radial pulses bilaterally. No lower extremity edema. Neuro: Awake, alert, oriented x3. No gross motor or sensory deficits. Cranial nerves II through XII intact. Gait not assessed. laboratory and microbiology Laboratory Tests 02/13/25 06:15 Test 02/13/25 06:15 Range/Units Serum Glucose 138 H 74-106 mg/dL Assessment/Plan Impression: Acute on chronic hypoxic respiratory failure Dependence on supplemental oxygen Acute on chronic CHF Sepsis Atrial fibrillation with RVR, currently rate controlled Pulmonary hypertension, severe Hypertension Events: Remains on supplemental oxygen On 3 LPM NC Taper O2 as tolerated Continue Adempas for pulmonary hypertension Continue antibiotics Bronchodilators Cardiology recommendations appreciated Diurese as tolerated - on Bumex Monitor renal function. Monitor electrolytes. Supplement as necessary. Monitor ins and outs. Nephrology recs appreciated. Anxiolytic/Xanax Patient is stable for downgrade from the pulmonary standpoint. Labs and imaging reviewed. Rest of plan as noted below. Plan: Supplemental oxygen Titrate to keep O2 sats between 88-94%. Monitor respiratory status closely Continue antibiotics Diurese to euvolemia Monitor renal function. Monitor electrolytes. Supplement as necessary. Monitor ins and outs. Nephrology recs appreciated. DVT prophylaxis. Prognosis: Poor given patient's multiple co-morbidities. Rest of plan per hospitalist and other consultants. Thank you, GIULIA Ramirez, for allowing me to participate in this patient's care. Further recommendations will depend on the patient's clinical course. Please do not hesitate to contact me if you have any questions or concerns. This medical document was created using an electronic medical record system with [employer] dictation system. Although these documentations are being carefully reviewed, there may still be some phonetic and typographical changes. The errors are purely typographical, due to imperfection on the software program, and do not reflect any compromise in the patient's medical care. Dietary Evaluation Review Comments: 1) CCHO 60gm + renal specific 40gm protein 2) Refer [employer] Driving Technician on DC 3) Continue current plan of care Expected Outcomes/Goals: Pt will meet >75% estimated needs Fu 3-5 days Plan discussed with: Patient, Other (VERNON Gilman) LUIS WOODS MD Feb 13, 2025 23:29
[2025-02-14] VITALS (11 sets, daily range): BP systolic 103–125; BP diastolic 52–70; PULSE 56–99; RESP 16–18; TEMP 97.7–98.4; O2SAT 92–95
[2025-02-14 05:58] LABS: Anion Gap 9 (5-15); Carbon Dioxide 27 mmol/L (20-31); Potassium 4.8 mmol/L (3.5-5.1)
[2025-02-14 05:59] LABS: Calcium 9.3 mg/dL (8.7-10.4)
[2025-02-14 06:04] LABS: BUN/Creatinine Ratio 44.7 (10.0-20.0); Magnesium 2.2 mg/dL (1.6-2.6)
[2025-02-14 06:19] LABS: Chloride 97 mmol/L (98-107); Glucose 133 mg/dL (74-106); Sodium 133 mmol/L (136-145)
[2025-02-14 06:22] LABS: Blood Urea Nitrogen 97 mg/dL (9-23)
--- NOTE | 2025-02-14 11:05 | DVHPN2 ---
Reviewed: Care Plan, H&P, Medications General: Per HPI Objective Vitals Vital Signs Date Time Temp Pulse Resp B/P (MAP) Pulse Ox O2 Delivery O2 Flow Rate FiO2 02/14/25 09:41 78 125/52 02/14/25 07:36 98.4 18 95 98.4 02/14/25 06:52 Nasal Cannula* 3 32 Intake/Output Intake and Output 02/14/25 06:59 Intake Total 750 ml Output Total 100 ml Balance 650 ml Intake Oral 650 ml IV Total 100 ml Output Urine Total 100 ml # Voids 2 # Bowel Movements 1 General Appearance: Alert, Oriented X3, Cooperative, No acute distress HEENT: Atraumatic, PERRLA Lungs: Clear to auscultation, Normal air movement Cardiovascular: Normal S1, Normal S2 Abdomen: Normal bowel sounds, Soft, No tenderness, No hepatospenomegaly, No masses Genitourinary: No Apparent Abnormalities Musculoskeletal: Normal sensory function, Normal motor function Neuro: Normal gait, Normal speech, Cranial nerves 3-12 NL Skin: Dry, Intact Psych/Mental Status: Mental status NL, Mood NL Medications Current Medications Medications Dose Ordered Sig/Julian Route Start Time Stop Time Status Last Admin Dose Admin Apixaban 2.5 mg BID PO 02/04/25 22:00 02/14/25 09:24 2.5 MG Ceftriaxone Sodium 50 ml @ 100 mls/hr DAILY@09 IV 02/05/25 09:00 02/14/25 09:23 100 MLS/HR Diagnostic Test (Pha) 1 strip ACHS 02/04/25 22:00 02/14/25 05:58 1 STRIP Insulin Human Regular ACHS SC 02/04/25 22:00 02/14/25 06:07 2 UNITS Dextrose 50 ml UD PRN IV 02/04/25 19:30 Ondansetron HCl 4 mg Q4HP PRN IV 02/04/25 19:30 Acetaminophen 650 mg Q6HP PRN PO 02/04/25 19:30 Morphine Sulfate 2 mg Q30M PRN IV 02/04/25 19:30 Acetaminophen/ Hydrocodone Bitart 1 tab Q6HPRN PRN PO 02/05/25 18:00 02/14/25 10:04 1 TAB Flecainide Acetate 100 mg Q12HR PO 02/06/25 10:00 02/14/25 09:32 100 MG Alprazolam 0.25 mg Q8HP PRN PO 02/06/25 09:30 02/14/25 07:23 0.25 MG Albuterol 2.5 mg Q6HWA NEB 02/06/25 12:00 02/14/25 06:52 2.5 MG Ipratropium [place] 0.5 mg Q6HWA NEB 02/06/25 12:00 02/14/25 06:52 0.5 MG Pantoprazole Sodium 40 mg DAILY@0600 PO 02/06/25 09:30 02/14/25 05:57 40 MG Ergocalciferol 50,000 unit Q7D PO 02/07/25 13:45 02/07/25 17:10 50,000 UNIT Magnesium Hydroxide 30 ml DAILYP PRN PO 02/07/25 21:30 02/13/25 22:16 30 ML Metoprolol Tartrate 12.5 mg BID PO 02/09/25 22:00 02/14/25 09:41 12.5 MG Diphenhydramine HCl 50 mg ONCE PRN PO 02/10/25 01:30 02/10/25 01:44 50 MG Patient Own Medication 2.5 mg TID PO 02/11/25 14:00 02/14/25 07:23 2.5 MG Methylprednisolone Sodium Succinate 20 mg BID IV 02/12/25 22:00 02/14/25 09:36 20 MG Bumetanide 1 mg DAILY PO 02/13/25 10:00 02/14/25 09:28 1 MG Laboratory Results Laboratory Tests 02/13/25 06:15 02/14/25 05:09 Chemistry Test 02/14/25 05:09 Calcium Level 9.3 mg/dL (8.7-10.4) Magnesium Level 2.2 mg/dL (1.6-2.6) Urinalysis Test 02/05/25 22:00 Urine Color Yellow (Yellow) Urine Clarity Clear (Clear) Urine pH 5.0 (5.0-9.0) Urine Specific [place] 1.017 (1.001-1.035) Urine Protein Trace (Negative) H Urine Ketones Negative (Negative) Urine Blood Negative /uL (Negative) Urine Nitrite Negative (Negative) Urine Bilirubin Negative (Negative) Urine Urobilinogen Normal mg/dL (Negative) Urine Leukocyte Esterase Negative /uL (Negative) Urine RBC None seen /hpf (0 - 4) Urine Microscopic WBC 5 /HPF (0-5) Urine Squamous Epithelial Cells Few /hpf (<5) Urine Bacteria None seen /hpf (None Seen) Urine Hyaline Casts Mod /lpf (0 - 2) Urine Mucus Few (None Seen) Urine Glucose Normal mg/dL (Normal) Microbiology Microbiology Date/Time Source Procedure Growth Status 02/05/25 22:00 Voided Urine Urine Culture - Final Complete 02/05/25 18:30 Blood Blood Culture - Final NO GROWTH AFTER 5 DAYS OF INCUBATION. Complete 02/04/25 22:00 Nose MRSA Screen - Final Methicillin Resistant S.aureus Complete Assessment/Plan Assessment/Plan -AFib with RVR -acute on chronic hypoxic respiratory failure -pulmonary hypertension -acute decompensated right ventricular failure -shock, questionable sepsis etiology -large left pleural effusion -COPD -acute kidney injury, vasomotor nephropathy -primary hypertension Plan: Events: Adempas was restarted yesterday with patient's blood pressure tolerating it. Now on nasal cannula 3 L/min. -PT consultation: Pending -continue diuresis per Nephrology -continue IV Rocephin -bronchodilators -continue Solu-Medrol, wean -continue anticoagulation with Eliquis -repeat labs in a.m. -discontinue central line. -transfer to telemetry unit Total time spent with patient discussing and formulating plan of care: 35 minutes. Plan discussed with: Patient CINDI TROTTER MD Feb 14, 2025 11:05
--- NOTE | 2025-02-14 11:27 | DVHDS2 ---
Discharge Summary Date of Admission Feb 04, 2025 at 19:17 Date of Discharge: Feb 14, 2025 Admitting Diagnosis -AFib with RVR -acute on chronic hypoxic respiratory failure -pulmonary hypertension -acute decompensated right ventricular failure -shock, questionable sepsis etiology -large left pleural effusion -COPD -acute kidney injury, vasomotor nephropathy -primary hypertension Labs/Diagnostic Data: Laboratory Results Test 02/14/25 05:41 02/14/25 05:09 02/13/25 06:15 02/11/25 05:00 POC Glucose 144 mg/dl (70-106) Sodium Level 133 mmol/L (136-145) Potassium Level 4.8 mmol/L (3.5-5.1) Chloride Level 97 mmol/L (98-107) Carbon Dioxide Level 27 mmol/L (20-31) Anion Gap 9 (5-15) Blood Urea Nitrogen 97 mg/dL (9-23) Creatinine 2.17 mg/dL (0.550-1.02) Glomerular Filtration Rate Calc 23 mL/min (>90) BUN/Creatinine Ratio 44.7 (10.0-20.0) Serum Glucose 133 mg/dL (74-106) Calcium Level 9.3 mg/dL (8.7-10.4) Magnesium Level 2.2 mg/dL (1.6-2.6) White Blood Count 10.1 10^3/uL (4.4-10.8) Red Blood Count 3.32 10^6/uL (4.0-5.20) Hemoglobin 10.7 g/dL (12.2-16.2) Hematocrit 32.0 % (36.0-46.0) Mean Corpuscular Volume 96.4 fL (80.0-100.0) Mean Corpuscular Hemoglobin 32.4 pg (28.0-32.0) Mean Corpuscular Hemoglobin Concent 33.6 g/dL (32.0-36.0) Red Cell Distribution Width 19.0 % (11.8-14.3) Platelet Count 341 10^3/uL (140-450) Mean Platelet Volume 7.6 fL (6.9-10.8) Neutrophils (%) (Auto) % (37.0-80.0) Lymphocytes (%) (Auto) % (10.0-50.0) Monocytes (%) (Auto) % (0.0-12.0) Basophils (%) (Auto) % (0.0-2.0) Neutrophils # (Auto) 10 ^3/uL (1.6-8.6) Lymphocytes # (Auto) 10 ^3/uL (0.4-5.4) Monocytes # (Auto) 10 ^3/uL (0-1.3) Differential Total Cells Counted 100.0 (100) Neutrophils % (Manual) 85 (37.0-80.0) Band Neutrophils % (Manual) 1 Lymphocytes % (Manual) 13 (10.0-50.0) Monocytes % (Manual) 1 (0-12) Eosinophils % (Manual) 0 (0-7) Basophils % (Manual) 0 (0.0-2.0) Metamyelocytes % (manual) 0 Myelocytes % (Manual) 0 Promyelocytes % (Manual) 0 Blast Cells % (Manual) 0 Nucleated Red Blood Cells 16.0 % Reactive Lymphocytes 0 Platelet Estimate Adequate Phosphorus Level 4.2 mg/dL (2.4-5.1) Test 02/09/25 07:10 02/07/25 10:55 02/07/25 05:00 02/06/25 04:38 Blood Gas Specimen Type Arterial Blood Gas Sample Site Right radial Blood Gas Patient Temperature 37.0 Arterial Blood Date Drawn [id number] Arterial Blood pH 7.427 (7.350-7.450) Arterial Blood Partial Pressure CO2 36.9 mmHg (32.0-45.0) Arterial Blood Partial Pressure O2 44.6 mmHg (83.0-108.0) Arterial Blood HCO3 23.8 mmol/L (21.0-28.0) Arterial Blood Oxygen Saturation 75.6 % (94.0-98.0) Arterial Blood Base Excess -0.3 mmol/L (-2.0-3.0) Arterial Blood Oxyhemoglobin 74.5 % (94.0-98.0) Arterial Blood Carboxyhemoglobin 0.9 % (0.5-1.5) Arterial Blood Methemoglobin 0.6 % (0.0-1.5) Esvin Test Yes Blood Gas Total Hemoglobin 10.80 g/dL (12.0-16.0) Blood Gas Liter Flow 15.00 Blood Gas Modality High flow FiO2 % 76.0 Blood Gas Comments Bubble high flow Blood Gas Critical Value Read Back Yes Blood Gas Notified Whom Cooley, a ventilation worker Blood Gas Notified Time [id number] Blood Gas Notified By Weight Checker genie zuniga Parathyroid Hormone (Intact) 818.3 pg/mL (18.4-80.1) Vitamin D 25-Hydroxy 22.9 ng/mL (30.0-100) Eosinophils (%) (Auto) 0.0 % (0.0-7.0) Eosinophils # (Auto) 0 10 ^3/uL (0-0.8) Basophils # (Auto) 0.2 10 ^3/uL (0-0.2) C-Reactive Protein High Sensitivity 14.15 mg/dL (<1.0) Test 02/05/25 22:00 02/05/25 04:33 02/04/25 22:00 02/04/25 20:00 Urine Color Yellow (Yellow) Urine Clarity Clear (Clear) Urine pH 5.0 (5.0-9.0) Urine Specific Cameron 1.017 (1.001-1.035) Urine Protein Trace (Negative) Urine Ketones Negative (Negative) Urine Blood Negative /uL (Negative) Urine Nitrite Negative (Negative) Urine Bilirubin Negative (Negative) Urine Urobilinogen Normal mg/dL (Negative) Urine Leukocyte Esterase Negative /uL (Negative) Urine RBC None seen /hpf (0 - 4) Urine Microscopic WBC 5 /HPF (0-5) Urine Squamous Epithelial Cells Few /hpf (<5) Urine Bacteria None seen /hpf (None Seen) Urine Hyaline Casts Mod /lpf (0 - 2) Urine Mucus Few (None Seen) Urine Glucose Normal mg/dL (Normal) Urine Opiates Screen Pos (NEGATIVE) Urine Fentanyl Screen Neg (NEGATIVE) Urine Barbiturates Screen Neg (NEGATIVE) Urine Phencyclidine Screen Neg (NEGATIVE) Urine Amphetamines Screen Neg (NEGATIVE) Urine Benzodiazepines Screen Neg (NEGATIVE) Urine Cocaine Screen Neg (NEGATIVE) Urine Cannabinoids Screen Pos (NEGATIVE) Prothrombin Time 12.3 sec (9.3-11.8) Prothrombin Time INR 1.18 (0.9-1.15) Activated Partial Thromboplast Time 39.4 SEC (24.5-34.5) Total Bilirubin 0.3 mg/dL (0.2-1.0) Aspartate Amino Transferase (AST) < 8 U/L (13-40) Alanine Aminotransferase (ALT) 13 U/L (7-40) Alkaline Phosphatase 109 U/L (46-116) Total Protein 7.0 g/dL (5.7-8.2) Albumin 4.4 g/dL (3.2-4.8) Plasma/Serum Blood Alcohol 3.4 mg/dL (<10) Influenza Type A Antigen Negative (Negative) Influenza Type B Antigen Negative (Negative) SARS-CoV-2 Antigen (Rapid) Negative (NEGATIVE) D-Dimer, Quantitative 1.30 mg/L FEU (0.0-0.49) Lactic Acid Level 0.9 mmol/L (0.4-2.0) B-Type Natriuretic Peptide 317.58 pg/mL (0-100) Test 02/04/25 19:05 Troponin I High Sensitivity 30 ng/L (</=34) Other Laboratory Tests 02/14/25 05:09 02/13/25 06:15 Brief Hx & Hospital Course: This is a 74 years old female come to emergency department because severe shortness a breath. The patient apparently had four day history of worsening shortness for breath. The patient using oxygen 3 L nasal cannula at home. The patient was admitted. The patient was found to have atrial fibrillation with RVR. The patient was put on amiodarone drip and subsequently switched to oral amiodarone and flecainide. The patient also required vasopressor and slowly weaned off vasopressor. The patient also was started on IV antibiotics Rocephin and Zithromax. The patient also on Bumex, metoprolol, and Eliquis. Today the patient doing better. Her shortness a breath improved. Her oxygen requirement back to her baseline. I am going to discharge her home. Advised her to follow up with public health teacher per schedule. Follow up with her truckman at [facility] per schedule. Follow up with her primary care physician 1- 2 weeks. Activity as tolerated. Diet per home diet. Recommend low-salt low- cholesterol renal diet. Physical exam: HEENT: Normocephalic atraumatic pupils equal react to light and accommodation. Extraocular muscles intact, conjunctiva pink, oropharynx moist, no thrush, no exudate. Lymphatic: No lymphadenopathy Cardiovascular exam: S1, S2 was heard. No murmurs, rubs, gallops Lung: Clear on auscultation bilaterally, no wheeze, rale, rhonchi. GI: Abdominal soft, nondistended, nontenderness, positive bowel sounds. Extremity: No crepitus, cyanosis, edema. Pedal pulses present bilateral. Full range of motion. Skin: Normal turgor, no rash. Psych: Alert, oriented x3. Neurology: No focal deficits, cranial nerve II to XII grossly intact. This medical document was created using an electronic medical record system with [employer] direct computerized dictation system. Although this document has been carefully reviewed, there may still be some phonetic and typographical errors. These areas are purely typographical due to imperfections of the software programs, and do not reflect any compromise in the patient's medical care. Condition at Discharge: Stable Final Diagnosis/Problems List -AFib with RVR -acute on chronic hypoxic respiratory failure -pulmonary hypertension -acute decompensated right ventricular failure -shock, questionable sepsis etiology -large left pleural effusion -COPD -acute kidney injury, vasomotor nephropathy -primary hypertension Discharge Disposition: Home Discharge Instruct/Medications Diet: Cardiac 2g Na,low cholest, Renal Activity: No Restrictions, As Tolerated Discharge Statement: "Patient was advised to return to the ER or call 911 if any headaches, dizziness, shortness of breath, chest pain, abdominal pain, bleeding, fevers, or worsening of medical condition. Patient was counseled about treatment plan, medications, possible side effects, patientverbalized understanding. All questions were answered to the best of my ability. This discharge took greater then 30 minutes in planning, reviewing documentation, counseling the patient, and discussing with other team members." ASSESSMENT ASSESSMENT Assessment Date of Service: Feb 14, 2025 Billing Provider: CINDI TROTTER MD Common Visit Codes: 62393-WBB/OBS DISCH DAY >30min CINDI TROTTER MD Feb 14, 2025 11:27
[2025-02-14] MEDS ORDERED: METH4PAK PO (11:28)
[2025-02-14] MEDS ORDERED: AZIT-185 PO (11:36)
--- NOTE | 2025-02-14 23:35 | DVHPN2 ---
Progress Note - Dictate Date Seen: Feb 14, 2025 Has the PT tested + for MRSA If YES, has PT been informed?: Yes Medical Necessity Reason Pt with a Central, PICC or Fol: No Subjective Patient seen and examined at bedside. Remains on supplemental oxygen Overnight events reviewed. vital signs Vital Sign Date Time Temp Pulse Resp B/P (MAP) Pulse Ox O2 Delivery O2 Flow Rate FiO2 02/14/25 13:54 97.9 80 18 92 02/14/25 13:00 114/68 (83) 02/14/25 12:18 Nasal Cannula 3.0 02/14/25 12:18 32 Total Intake and Output 02/13/25 02/13/25 02/14/25 15:00 23:00 07:00 Intake Total 100 ml 250 ml 400 ml Output Total 0 ml 100 ml Balance 100 ml 250 ml 300 ml objective Gen.: Patient lying in bed in no apparent distress. On supplemental oxygen. Head: Normocephalic, atraumatic. Eyes: EOMI/PERRLA. Ears: Normal hearing. Normal anatomy. Neck/trachea: Trachea midline, supple. Nose: Normal external anatomy. Mouth: Moist mucous membranes. Chest: Decreased air entry bilaterally. No wheezing or rhonchi. Cardiovascular: Positive S1, positive S2. Regular rate and rhythm. Abdomen: Positive bowel sounds in all 4 quadrants. Soft, non-tender, non- distended. : Deferred. Rectal: Deferred. Skin: Warm, dry. Intact. Extremities: 2+ radial pulses bilaterally. No lower extremity edema. Neuro: Awake, alert, oriented x3. No gross motor or sensory deficits. Cranial nerves II through XII intact. Gait not assessed. laboratory and microbiology Laboratory Tests 02/14/25 05:09 02/13/25 06:15 Test 02/14/25 05:09 Range/Units Serum Glucose 133 H 74-106 mg/dL Assessment/Plan Impression: Acute on chronic hypoxic respiratory failure Dependence on supplemental oxygen Acute on chronic CHF Sepsis Atrial fibrillation with RVR, currently rate controlled Pulmonary hypertension, severe Hypertension Events: Remains on supplemental oxygen On 3 LPM NC Taper O2 as tolerated Continue meds for pulmonary hypertension Continue antibiotics Continue bronchodilators IV steroids Cardiology recommendations appreciated Diurese as tolerated - on Bumex PO Monitor renal function. Monitor electrolytes. Supplement as necessary. Monitor ins and outs. Nephrology recs appreciated. Anxiolytic/Xanax Accu-Cheks, ISS. Disposition per hospitalist. Labs and imaging reviewed. Rest of plan as noted below. Plan: Supplemental oxygen Titrate to keep O2 sats between 88-94%. Monitor respiratory status closely Continue antibiotics Diurese to euvolemia Monitor renal function. Monitor electrolytes. Supplement as necessary. Monitor ins and outs. Nephrology recs appreciated. DVT prophylaxis. Prognosis: Guarded given patient's multiple co-morbidities. Rest of plan per hospitalist and other consultants. Thank you, GIULIA Ramirez, for allowing me to participate in this patient's care. Further recommendations will depend on the patient's clinical course. Please do not hesitate to contact me if you have any questions or concerns. This medical document was created using an electronic medical record system with [employer] dictation system. Although these documentations are being carefully reviewed, there may still be some phonetic and typographical changes. The errors are purely typographical, due to imperfection on the software program, and do not reflect any compromise in the patient's medical care. Dietary Evaluation Review Comments: 1) CCHO 60gm + renal specific 40gm protein 2) Refer Certified Lactation Counselor on DC 3) Continue current plan of care Expected Outcomes/Goals: Pt will meet >75% estimated needs Fu 3-5 days Plan discussed with: Patient, Other (RN Suhas) LUIS WOODS MD Feb 14, 2025 23:35
[2025-02-17] MEDS ORDERED: FLEC100T PO (07:52)
== END 2025-02-14 15:00 | disposition home or self-care (01) | DRG 871 ==
LOC: ER 13:04 → OVERFLOW 19:17 → DOU IN ICU 02-05 17:00 → ICU CENTRL 02-05 18:55 → DOU IN ICU 02-08 15:46 → TELE-EAST 02-13 14:25
PROVIDERS: ADMIT Internal Medicine; ATTEND Internal Medicine
PROC: 02HV33Z Insertion of Infusion Device into Superior Vena Cava, Percutaneous Approach (ICD-10-PCS; principal; 2025-02-05)
PROC: B548ZZA Ultrasonography of Superior Vena Cava, Guidance (ICD-10-PCS; 2025-02-05)
PROC: 5A0945A Assistance with Respiratory Ventilation, 24-96 Consecutive Hours, High Flow/Velocity Cannula (ICD-10-PCS; 2025-02-05)
PROC: 5A0935A Assistance with Respiratory Ventilation, Less than 24 Consecutive Hours, High Flow/Velocity Cannula (ICD-10-PCS; 2025-02-07)
DX: A41.9 Sepsis, unspecified organism (principal); I50.33 Acute on chronic diastolic (congestive) heart failure; J15.69 Pneumonia due to other Gram-negative bacteria; J96.21 Acute and chronic respiratory failure with hypoxia; N17.0 Acute kidney failure with tubular necrosis; R65.21 Severe sepsis with septic shock; J15.9 Unspecified bacterial pneumonia; I13.0 Hypertensive heart and chronic kidney disease with heart failure and stage 1 through stage 4 chronic kidney disease, or unspecified chronic kidney disease; J44.0 Chronic obstructive pulmonary disease with (acute) lower respiratory infection; E87.1 Hypo-osmolality and hyponatremia; I48.91 Unspecified atrial fibrillation; N18.9 Chronic kidney disease, unspecified; E11.22 Type 2 diabetes mellitus with diabetic chronic kidney disease; I27.20 Pulmonary hypertension, unspecified; Z20.822 Contact with and (suspected) exposure to COVID-19; E83.39 Other disorders of phosphorus metabolism; E87.5 Hyperkalemia; F19.10 Other psychoactive substance abuse, uncomplicated; F10.10 Alcohol abuse, uncomplicated; Z79.01 Long term (current) use of anticoagulants; Z79.2 Long term (current) use of antibiotics; Z79.899 Other long term (current) drug therapy; Z99.81 Dependence on supplemental oxygen; Z91.199 Patient's noncompliance with other medical treatment and regimen due to unspecified reason; Z80.8 Family history of malignant neoplasm of other organs or systems; Y90.0 Blood alcohol level of less than 20 mg/100 ml
CPT/HCPCS: 36415; 36556; 36600; 71045; 76604; 76775; 80048; 80053; 80307; 80320; 81001; 82306; 82805; 82962; 83605; 83735; 83880; 83970; 84100; 84132; 84484; 85007; 85025; 85027; 85379; 85610; 85730; 86141; 87040; 87081; 87086; 87426; 87804; 93005; 94640; 96365; 96367; 96375; 96376; 97110; 97116; 97163; 97530; 99291; 99292; G0378; J1815; J2405

== ENCOUNTER 2025-07-11 13:52 | Inpatient (IN) | payer OTHER, MEDICAID ==
[~2025-07-11] VITALS: Ht 154.9 cm; Wt 58.9 kg
[~2025-07-11 13:52] MED LIST changes: +AZIT-185 PO; +FLEC100T PO; +METH4PAK PO; -SPIR25TA8 PO
--- NOTE | 2025-07-11 14:40 | DVH ---
INDICATION: sob TECHNIQUE: Frontal view of the chest. COMPARISON: XY CHEST PORTABLE on DOS: 02/09/25, XY CHEST PORTABLE on DOS: 02/07/25, XY CHEST XRAY 1 VIE W on DOS: 02/06/25, US CHEST ULTRASOUND on DOS: 02/05/25, XY CHEST XRAY 1 VIEW on DOS: 02/05/25 FINDINGS: . Cardiomegaly.. There is no evidence of pleural disease. The lungs are clear. The bony structure s of the chest are intact without fracture. IMPRESSION: 1. Cardiomegaly with CHF.
--- NOTE | 2025-07-11 14:53 | ED.PDOC ---
SOB-HPI HPI Comments 74 y.o female with PMHx of HTN, DM, CHF, COPD, AFIB, presents to the ED for a chief complaint of SOB that started 3 days ago. Patient reports she is on 3 liters of oxygen at home which she has been using and additionally has been using her machine but denies any relief. Daughter who brought patient in to the ED today states that patient is in the process of moving from one family members household to hers and between those days, has not taken any of her home medication. Patient denies any chest pain, fever, chills, or a cough. Chief Complaint: Shortness of Breath Time Seen by MD: 14:42 Reviewed notes: Nurses Notes, Medications, Allergies Information Source: Patient Mode of Arrival: Ambulatory Severity: Moderate Timing: Days (3) Duration: Since onset PE Risk Factors: None History of: COPD, CHF Associated Signs and Symptoms: None Past Medical History PAST MEDICAL HISTORY: AFIB, CHF, COPD, DM, HTN Surgical History: Denies all surgeries SENIOR DESIGN ENGINEERING SPECIALIST History: No Pertinent SENIOR DESIGN ENGINEERING SPECIALIST History Family History Family History: Unknown Social History Smoker: Non-Smoker, Quit Greater Than 1 Year Alcohol: Denies ETOH Use Drugs: Denies Drug Use Lives In: Home Constitutional: denies: chills, diaphoresis, fatigue, fever, malaise, sweats, weakness, others EENTM: denies: blurred vision, double vision, ear bleeding, ear discharge, ear drainage, ear pain, ear ringing, eye pain, eye redness, hearing loss, mouth pain, mouth swelling, nasal discharge, nose bleeding, nose congestion, nose pain, photophobia, tearing, throat pain, throat swelling, voice changes, others Respiratory: reports: SOB at rest, shortness of breath, SOB with excertion; denies: cough, hemoptysis, orthopnea, stridor, wheezing, others Cardiovascular: denies: chest pain, dizzy spells, diaphoresis, Dyspnea on exert ion, edema, irregular heart beat, left arm pain, lightheadedness, palpitations, PND, syncope, others Gastrointestinal: denies: abdomen distended, abdominal pain, blood streaked bowels, constipated, diarrhea, dysphagia, difficulty swallowing, hematemesis, melena, nausea, poor appetite, poor fluid intake, rectal bleeding, rectal pain, vomiting, others Genitourinary: denies: abnormal vagina bleeding, burning, dyspareunia, dysuria, flank pain, frequency, hematuria, incontinence, pain, , vagina discharge, urgency, others Neurological: denies: dizziness, fainting, headache, left sided numbness, left sided weakness, numbness, paresthesia, pre-existing deficit, right sided numbness, right sided weakness, seizure, speech problems, tingling, tremors, weakness, others Musculoskeletal: denies: back pain, gout, joint pain, joint swelling, muscle pain, muscle stiffness, neck pain, others Allergic/Immunocompromised: denies: Difficulty Healing, Frequent Infections, Hives, Itching, others Hematologic/Lymphatic: denies: anemia, blood clots, easy bleeding, easy bruising, swollen glands, others Endocrine: denies: excessive hunger, excessive sweating, excessive thirst, excessive urination, flushing, intolerance to cold, intolerance to heat, unexpl ained weight gain, unexplained weight loss, others Psychiatric: denies: anxiety, bipolar disorder, depression, hopeless, panic disorder, schizophrenia, sleepless, suicidal, others All Other Systems: Reviewed and Negative Physical Exam General Appearance: Mild Distress HEENT: Other (Pupils and face symmetric. Moist mucous membranes.) Neck: Full Range of Motion, Normal Inspection Respiratory: Decreased Breath Sounds, No Accessory Muscle Use, Respiratory Distress (Mild) Cardiovascular: No JVD, Regular Rate/Rhythm Breast Exam: Deferred Gastrointestinal: Non Tender, Soft Genitalia: Deferred Pelvic: Deferred Rectal: Deferred Extremities: Leg edema, Normal range of motion, Pedal edema Neurologic: Alert (Oriented x3), Other (Moves all extremities and follows commands) Cerebellar Function: NOT DONE Reflexes: NOT DONE Skin: Dry, Pallor, Warm Lymphatic: NOT DONE EKG EKG : Comments Sinus rhythm, rate 89, normal intervals, normal axis, normal QRS, anteroseptal T inversion. Multiple PACs and PVCs Was a procedure done? Was a procedure done?: No Differential Dx Differential Diagnosis: Asthma, Bronchitis, CHF, COPD, Dysrhythmia, Pneumonia, Respiratory Distress, URI X-Ray, Labs, Meds, VS Vital Signs Date Time Temp Pulse Resp B/P (MAP) Pulse Ox O2 Delivery O2 Flow Rate FiO2 07/11/25 20:00 106 07/11/25 19:00 67 17 124/85 (98) 98 07/11/25 18:57 90 124/85 07/11/25 18:00 134/68 07/11/25 17:57 154 196/102 07/11/25 17:43 152 07/11/25 16:14 165/96 07/11/25 16:02 14 97 Nasal Cannula* 4 36 07/11/25 16:00 105 24 95 Nasal Cannula* 3 32 07/11/25 16:00 24 95 Nasal Cannula* 3 32 07/11/25 16:00 97.9 105 24 165/96 (119) 95 97.9 07/11/25 15:54 89 07/11/25 15:01 20 96 Nasal Cannula* 4 36 07/11/25 13:57 98.2 104 22 165/94 92 98.2 Lab Test 07/11/25 16:27 07/11/25 16:02 07/11/25 16:01 07/11/25 14:43 Range/Units Urine Color Yellow Yellow Urine Clarity Clear Clear Urine pH 6.0 5.0-9.0 Urine Specific [place] 1.026 1.001-1.035 Urine Protein 3+ H Negative Urine Ketones Negative Negative Urine Blood Trace H Negative /uL Urine Nitrite Negative Negative Urine Bilirubin Negative Negative Urine Urobilinogen Normal Negative mg/dL Urine Leukocyte Esterase 1+ Negative /uL Urine RBC 6 0 - 4 /hpf Urine Microscopic WBC 18 H 0-5 /HPF Urine Squamous Epithelial Cells Few <5 /hpf Urine Bacteria Few H None Seen /hpf Urine Glucose Normal Normal mg/dL POC Glucose 84 70-106 mg/dl Potassium Level 5.7 *H 6.0 *H 3.5-5.1 mmol/L Troponin I High Sensitivity 32 32 </=34 ng/L White Blood Count 6.8 4.4-10.8 10^3/uL Red Blood Count 4.02 4.0-5.20 10^6/uL Hemoglobin 11.9 L 12.2-16.2 g/dL Hematocrit 36.8 36.0-46.0 % Mean Corpuscular Volume 91.3 80.0-100.0 fL Mean Corpuscular Hemoglobin 29.5 28.0-32.0 pg Mean Corpuscular Hemoglobin Concent 32.3 32.0-36.0 g/dL Red Cell Distribution Width 20.4 H 11.8-14.3 % Platelet Count 303 140-450 10^3/uL Mean Platelet Volume 7.3 6.9-10.8 fL Neutrophils (%) (Auto) 70.7 37.0-80.0 % Lymphocytes (%) (Auto) 14.0 10.0-50.0 % Monocytes (%) (Auto) 11.3 0.0-12.0 % Eosinophils (%) (Auto) 2.8 0.0-7.0 % Basophils (%) (Auto) 1.2 0.0-2.0 % Neutrophils # (Auto) 4.8 1.6-8.6 10 ^3/uL Lymphocytes # (Auto) 1.0 0.4-5.4 10 ^3/uL Monocytes # (Auto) 0.8 0-1.3 10 ^3/uL Eosinophils # (Auto) 0.2 0-0.8 10 ^3/uL Basophils # (Auto) 0.1 0-0.2 10 ^3/uL Nucleated Red Blood Cells 0.3 % Sodium Level 138 136-145 mmol/L Chloride Level 110 H 98-107 mmol/L Carbon Dioxide Level 19 L 20-31 mmol/L Anion Gap 9 5-15 Blood Urea Nitrogen 45 H 9-23 mg/dL Creatinine 1.31 H 0.550-1.02 mg/dL Glomerular Filtration Rate Calc 43 >90 mL/min BUN/Creatinine Ratio 34.4 H 10.0-20.0 Serum Glucose 84 74-106 mg/dL Calcium Level 9.3 8.7-10.4 mg/dL B-Type Natriuretic Peptide 1189.97 0-100 pg/mL Current Medications Medications (Trade) Dose Ordered Sig[facility] Route Start Time Stop Time Status Last Admin Ipratropium [place] (Atrovent Medneb) 0.5 mg ONCE ONCE NEB 07/11/25 15:00 07/11/25 15:01 DC 07/11/25 15:00 Methylprednisolone Sodium Succinate (Solu Medrol) 125 mg ONCE ONCE IV 07/11/25 15:00 07/11/25 15:01 DC 07/11/25 16:15 Bumetanide (Bumex Injection) 1 mg ONCE ONCE IV 07/11/25 15:00 07/11/25 15:01 DC 07/11/25 16:14 Levalbuterol HCl (Xopenex Medneb) 1.25 mg ONCE ONCE NEB 07/11/25 15:00 07/11/25 15:01 DC 07/11/25 15:00 Zirconium Oxide (Lokelma) 10 gm ONCE ONCE PO 07/11/25 15:45 07/11/25 15:48 DC 07/11/25 16:14 Insulin Human Regular (InsuLIN R) 10 units ONCE ONCE IV 07/11/25 15:45 07/11/25 15:48 DC 07/11/25 16:16 Dextrose 50 ml ONCE ONCE IV 07/11/25 15:45 07/11/25 15:48 DC 07/11/25 16:14 Sodium Bicarbonate 50 ml ONCE ONCE IV 07/11/25 15:45 07/11/25 15:48 DC 07/11/25 16:13 Calcium Gluconate/ Sodium Chloride 50 ml @ 100 mls/hr ONCE ONCE IV 07/11/25 15:45 07/11/25 16:14 DC 07/11/25 16:14 Albuterol (Ventolin Medneb) 5 mg ONCE ONCE NEB 07/11/25 15:45 07/11/25 15:48 DC 07/11/25 16:07 Furosemide (Lasix Injection) 40 mg BIDD IV 07/11/25 18:00 07/11/25 18:00 Amiodarone HCl 100 ml @ 600 mls/hr ONCE ONCE IV 07/11/25 17:45 07/11/25 17:54 DC 07/11/25 18:06 Metoprolol Tartrate (Lopressor) 1.25 mg ONCE ONCE IV 07/11/25 18:00 07/11/25 18:01 DC 07/11/25 17:57 Zirconium Oxide (Lokelma) 20 gm ONCE ONCE PO 07/11/25 20:00 07/11/25 21:26 DC 07/11/25 20:00 PROCEDURE(s): HWOCT - HEAD WITHOUT CONTRAST REASON: confusion ORDER NUMBER(s): [id number], ACCESSION NUMBER(s): [id number] CT HEAD WITHOUT CONTRAST INDICATION: confusion COMPARISON: None TECHNIQUE: CT of the head without intravenous contrast. RADIATION DOSE: CTDIvol: 61.33 mGy, DLP: 61.33 mGy*cm FINDINGS: There is no evidence of acute intracranial hemorrhage, extra-axial collection, mass effect, midline shift, herniation or hydrocephalus. The ventricles, sulci and cisterns are age appropriate. The brown-white differentiation is intact. The visualized paranasal sinuses and mastoid air cells are clear. The surrounding soft tissues and osseous structures are unremarkable. IMPRESSION: 1. No evidence of acute intracranial hemorrhage, mass effect or hydrocephalus. EDURE(s): CXRP - CHEST PORTABLE REASON: sob ORDER NUMBER(s): [id number], ACCESSION NUMBER(s): [id number] INDICATION: sob TECHNIQUE: Frontal view of the chest. COMPARISON: XY CHEST PORTABLE on DOS: 02/09/25, XY CHEST PORTABLE on DOS: 02/07/25, XY CHEST XRAY 1 VIEW on DOS: 02/06/25, US CHEST ULTRASOUND on DOS: 02/05/25, XY CHEST XRAY 1 VIEW on DOS: 02/05/25 FINDINGS: . Cardiomegaly.. There is no evidence of pleural disease. The lungs are clear. The bony structures of the chest are intact without fracture. IMPRESSION: 1. Cardiomegaly with CHF. X-Ray, Labs, Meds, VS Comment 74 y.o female with PMHx of HTN, DM, CKD, CHF, COPD, AFIB, presents to the ED for a chief complaint of SOB Vitals remarkable for heart rate 105, respiratory rate 24, BP 165/96 Exam remarkable for respiratory distress and breath sounds Rhythm strip independently interpreted by me: Sinus rhythm, rate 89, multiple PACs and PVCs Head CT IMPRESSION: 1. No evidence of acute intracranial hemorrhage, mass effect or hydrocephalus. Chest x-ray IMPRESSION: 1. Cardiomegaly with CHF. CBC unremarkable, metabolic panel remarkable for potassium 6, BUN 45, creatinine 1.31, BNP 1189.97, troponin 32 Patient treated with the following in the ED: Xopenex 1.25/Atrovent 0.5 mg nebulized, Solu-Medrol 125 mg IV, Bumex 1 mg IV, Lokelma 10 g p.o., regular insulin 10 units IV D50 50 mL IV, calcium gluconate 1 g IV, sodium bicarb 50 mL IV, albuterol 5 mg nebulized On re-evaluation, respiratory status has improved, but patient was becoming confused Heart rate increased to the 150s, and patient was noted to be in rapid AFib with multiple PVCs. She was started on the IV amiodarone protocol and also given metoprolol 1.25 mg IV On re-evaluation, patient's heart rate improved to 85, sinus arrhythmia with occasional PVCs, and blood pressure was 124/85. Plan is to admit the patient for electrolyte correction, respiratory support, diuresis and Cardiology evaluation. Time of 1ST Reevaluation: 15:40 Reevaluation 1ST: Unchanged Patient Education/Counseling: Diagnosis, Treatment, Prognosis Family Education/Counseling: Diagnosis, Treatment, Prognosis SEPSIS Sepsis Screen Date sepsis recognized/suspect: Jul 11, 2025 Time Sepsis recognized/suspect: 1401 Recent Procedure: No (N) On Antibiotic Therapy: No Respiratory Rate >20: No Heart Rate >90: No Temp<36 C (96.8 F) or >38.3 C: No SBP <90 or MAP <65 mmHG: No New Acute Mental Status Change: No Is the patient on CPAP, BIPAP,: No Physician Orders Chest Portable (07/11/25 14:06) Electrocardigram (07/11/25 14:06) Saline Lock (07/11/25 15:31) Furosemide Injection (Lasix Injection) (07/11/25 18:00) Urine Bacterial Culture (07/11/25 17:22) Methylprednisolone Sod Succ (Solu Medrol (07/11/25 22:00) Apixaban (Eliquis) (07/11/25 22:00) Empagliflozin (Jardiance) (07/12/25 10:00) Metoprolol Xl Succinate (Toprol Xl) (07/12/25 10:00) Pantoprazole Tablet (Protonix Tablet) (07/12/25 10:00) Comprehensive Metabolic Panel (07/12/25 05:00) Comprehensive Metabolic Panel (07/13/25 05:00) Comprehensive Metabolic Panel (07/14/25 05:00) Comprehensive Metabolic Panel (07/15/25 05:00) Comprehensive Metabolic Panel (07/16/25 05:00) Complete Blood Count (07/12/25 05:00) Complete Blood Count (07/13/25 05:00) Complete Blood Count (07/14/25 05:00) Complete Blood Count (07/15/25 05:00) Complete Blood Count (07/16/25 05:00) Magnesium (07/12/25 05:00) Magnesium (07/13/25 05:00) Magnesium (07/14/25 05:00) Magnesium (07/15/25 05:00) Magnesium (07/16/25 05:00) Daily Weight (07/11/25 17:22) Maintain Fluid Restrictions QSHIFT (07/11/25 17:22) Strict I & O QSHIFT (07/11/25 17:22) *[facility] (07/11/25 17:22) Head Without Contrast (07/11/25 17:35) Amiodarone 360mg/200ml Premix (Nexterone (07/12/25 00:00) Amiodarone 360mg/200ml Premix (Nexterone (07/11/25 18:00) Flecainide Tablet (Tambocor Tablet) (07/12/25 10:00) Vital Signs Date Time Temp Pulse Resp B/P (MAP) Pulse Ox O2 Delivery O2 Flow Rate FiO2 07/11/25 20:00 106 07/11/25 19:00 67 17 124/85 (98) 98 07/11/25 18:57 90 124/85 07/11/25 18:00 134/68 07/11/25 17:57 154 196/102 07/11/25 17:43 152 07/11/25 16:14 165/96 07/11/25 16:02 14 97 Nasal Cannula* 4 36 07/11/25 16:00 105 24 95 Nasal Cannula* 3 32 07/11/25 16:00 24 95 Nasal Cannula* 3 32 07/11/25 16:00 97.9 105 24 165/96 (119) 95 97.9 07/11/25 15:54 89 07/11/25 15:01 20 96 Nasal Cannula* 4 36 07/11/25 13:57 98.2 104 22 165/94 92 98.2 Laboratory Tests Test 07/11/25 14:43 White Blood Count 6.8 10^3/uL (4.4-10.8) Medications Medications Dose Ordered Sig/Julian Route Start Time Stop Time Status Last Admin Dose Admin Albuterol 5 mg ONCE ONCE NEB 07/11/25 15:45 07/11/25 15:48 DC 07/11/25 16:07 Amiodarone HCl 100 ml @ 600 mls/hr ONCE ONCE IV 07/11/25 17:45 07/11/25 17:54 DC 07/11/25 18:06 Bumetanide 1 mg ONCE ONCE IV 07/11/25 15:00 07/11/25 15:01 OR 07/11/25 16:14 Calcium Gluconate/ Sodium Chloride 50 ml @ 100 mls/hr ONCE ONCE IV 07/11/25 15:45 07/11/25 16:14 DC 07/11/25 16:14 Dextrose 50 ml ONCE ONCE IV 07/11/25 15:45 07/11/25 15:48 OR 07/11/25 16:14 Furosemide 40 mg BIDD IV 07/11/25 18:00 07/11/25 18:00 Insulin Human Regular 10 units ONCE ONCE IV 07/11/25 15:45 07/11/25 15:48 OR 07/11/25 16:16 Ipratropium [place] 0.5 mg ONCE ONCE NEB 07/11/25 15:00 07/11/25 15:01 OR 07/11/25 15:00 Levalbuterol HCl 1.25 mg ONCE ONCE NEB 07/11/25 15:00 07/11/25 15:01 OR 07/11/25 15:00 Methylprednisolone Sodium Succinate 125 mg ONCE ONCE IV 07/11/25 15:00 07/11/25 15:01 OR 07/11/25 16:15 Metoprolol Tartrate 1.25 mg ONCE ONCE IV 07/11/25 18:00 07/11/25 18:01 OR 07/11/25 17:57 Sodium Bicarbonate 50 ml ONCE ONCE IV 07/11/25 15:45 07/11/25 15:48 OR 07/11/25 16:13 Zirconium Oxide 10 gm ONCE ONCE PO 07/11/25 15:45 07/11/25 15:48 OR 07/11/25 16:14 Zirconium Oxide 20 gm ONCE ONCE PO 07/11/25 20:00 07/11/25 21:26 OR 07/11/25 20:00 Departure 1 Departure Time of Disposition: 18:00 Impression: Primary Impression: Acute hypoxic respiratory failure Additional Impressions: CHF exacerbation Qualified Codes: I50.9 - Heart failure, unspecified COPD exacerbation Hyperkalemia Rapid atrial fibrillation Encephalopathy acute Disposition: 09 ADMITTED INPATIENT Admit to: [facility] Condition: Serious Critical Care Note Critical Care Time?: Yes (45 min-critical care time only) Critical care comment: Critical care time including multiple bedside re-evaluations, review of lab and imaging studies, and discussion of the case with the admitting provider. Patient is high risk for hemodynamic, respiratory and/or neurologic decompensation. Stability Stability form required: No Heart Score Heart Score: Heart Score Response (Comments) Value History N/A 0 EKG N/A 0 Age N/A 0 Risk Factors N/A 0 Troponin N/A 0 Total 0 I personally scribed for ALESIA HUITRON MD ([email or web address]) on 07/11/25 at 14:53. Electronically submitted by Jen Florentino ([facility]). ALESIA HUITRON MD Jul 11, 2025 14:53
[2025-07-11] MEDS: IPRATROPIUM BROM 0.5 MG/2.5ML INH SOL NEB ONE (15:00)
[2025-07-11] MEDS: LEVALBUTEROL HCL 1.25 MG/3 ML NEB NEB ONE (15:00)
[2025-07-11 15:04] LABS: Hematocrit 36.8 % (36.0-46.0); Hemoglobin 11.9 g/dL (12.2-16.2); Mean Corpuscular Hemoglobin 29.5 pg (28.0-32.0); Mean Corpuscular Volume 91.3 fL (80.0-100.0); Nucleated Red Blood Cells % 0.3 %
[2025-07-11 15:10] LABS: Sodium 138 mmol/L (136-145)
[2025-07-11 15:11] LABS: Anion Gap 9 (5-15); Calcium 9.3 mg/dL (8.7-10.4)
[2025-07-11 15:16] LABS: BUN/Creatinine Ratio 34.4 (10.0-20.0); Glucose 84 mg/dL (74-106)
[2025-07-11 15:19] LABS: Blood Urea Nitrogen 45 mg/dL (9-23); Carbon Dioxide 19 mmol/L (20-31); Chloride 110 mmol/L (98-107)
[2025-07-11 15:23] LABS: Potassium 6.0 mmol/L (3.5-5.1)
[2025-07-11] MEDS: NITROGLYCERIN 2% OINT 1GM PKG TD ONE (15:57)
[2025-07-11 16:00] VITALS: PULSE 105; RESP 24; O2SAT 95
[2025-07-11] MEDS: ALBUTEROL SULF 2.5 MG/0.5ML(0.5%) NEB SOLN NEB ONE (16:07)
[2025-07-11] MEDS: SODIUM BICARB 8.4% 50Meq/50ml SYR Vial IV ONE (16:13)
[2025-07-11] MEDS: BUMETANIDE 1mg/4ml VIAL (0.25mg/ml) IV ONE (16:14)
[2025-07-11] MEDS: CALCIUM GLUC 1,000mg/50ml-NS 50 ML IV ONE (16:14)
[2025-07-11] MEDS: SODIUM ZIRCONIUM CYCL 10 GM PAK PO ONE ×2 (16:14→20:00)
[2025-07-11] MEDS: DEXTROSE (50%) 50ML SYRG IV ONE (16:14)
[2025-07-11] MEDS: methylPREDNISolone SOD SUCC 125 MG/2 ML VL IV ONE (16:15)
[2025-07-11] MEDS: InsuLIN REG 1unit/0.01ml Soln (100units/ml) IV ONE (16:16)
[2025-07-11 16:44] LABS: Urine Protein, UAD 3+ (Negative)
--- NOTE | 2025-07-11 17:19 | DVHHP2 ---
Admitting Diagnosis: Shortness of breaths History of Present Illness 74 y.o female with PMHx of HTN, DM, CHF, COPD, AFIB, presents to the ED for a chief complaint of SOB that started 3 days ago. Patient reports she is on 3 liters of oxygen at home which she has been using and additionally has been using her machine but denies any relief. Daughter who brought patient in to the ED today states that patient is in the process of moving from one family members household to hers and between those days, has not taken any of her home medication. Patient denies any chest pain, fever, chills, or a cough. PAST MEDICAL HISTORY: AFIB, CHF, COPD, DM, HTN Surgical History: Denies all surgeries [employer] History: No Pertinent [employer]CE [employer]ER History Family History Family History: Unknown Social History Smoker: Non-Smoker, Quit Greater Than 1 Year Alcohol: Denies ETOH Use Drugs: Denies Drug Use Lives In: Home Patient Family History: FH: cancer G8 SISTER Allergies: Coded Allergies: NO KNOWN ALLERGIES (Unverified , 01/01/25) Home Meds Active Scripts Flecainide Acetate (Flecainide Acetate) 100 Mg Tab, 1 TAB PO BID, #60 TAB 5 Refills Prov:CINDI TROTTER MD 02/17/25 Azithromycin (ZITHROMAX TABLET) 250 Mg Tb, 250 MG PO DAILY, #6 TAB take 2 tabs orally the first day , then 1 tab PO daily until finish. Prov:CINDI TROTTER MD 02/14/25 Methylprednisolone (Medrol Dosepak) 4 Mg Luis Angel, 4 MG PO UD, #21 TAB UAD Prov:CINDI TROTTER MD 02/14/25 Budesonide-Formoterol Fumarate (Breyna 160-4.5 Mcg/Act) 1 Aer Aer, 1 AER IN BID for 30 Days, #1 INHALER Prov:DEENA MCCRAY MD 01/05/25 Empagliflozin (Jardiance) 10 Mg Tab, 10 MG PO DAILY for 30 Days, #30 TAB 5 Refills Prov:DEENA MCCRAY MD 01/05/25 Bumetanide (Bumex Tablet) 1 Mg Tab, 1 MG PO BID for 30 Days, #60 TAB 5 Refills BLK BX WARNING-CAN LEAD TO PROFOUND DIURESIS WITH FLUID- ELECTROLYTE LOSS Prov:DEENA MCCRAY MD 01/05/25 Reported Medications Selexipag (Uptravi) 1,800 Mcg Inj, 1600 MCG IV, TAB 01/01/25 Metoprolol Succinate (Metoprolol Succinate Er) 25 Mg Tab, 25 MG PO DAILY for 30 Days, MG 01/01/25 Riociguat Base (Adempas) 2.5 Mg Tab, 2.5 MG PO TID, TAB 01/01/25 Apixaban Base (ELIQUIS) 2.5 Mg Tab, 2.5 MG PO BID, TAB 01/01/25 Macitentan (Opsumit) 10 Mg Tab, 10 MG PO, TAB 01/01/25 Omeprazole (Gnp Omeprazole) 20 Mg Tab, 1 TAB PO DAILY, #90 TAB 1 Refill 01/01/25 Current Medications Current Medications Medications (Trade) Dose Ordered Sig/Julian Route PRN Reason Start Time Stop Time Status Last Admin Furosemide (Lasix Injection) 40 mg BIDD IV 07/11/25 18:00 Ceftriaxone Sodium 50 ml @ 100 mls/hr DAILY@09 IV 07/12/25 09:00 Methylprednisolone Sodium Succinate (Solu Medrol) 60 mg Q8HR IV 07/11/25 22:00 Apixaban (Eliquis) 2.5 mg BID PO 07/11/25 22:00 Empaglifozin (Jardiance) 10 mg DAILY PO 07/12/25 10:00 Patient Own Medication 1 aer BID IN 07/11/25 22:00 UNV Flecainide Acetate (Tambocor Tablet) 100 mg BID PO 07/12/25 10:00 Metoprolol Succinate (Toprol Xl) 25 mg DAILY PO 07/12/25 10:00 Pantoprazole Sodium (Protonix Tablet) 40 mg DAILY PO 07/12/25 10:00 Vital Signs Vital Signs Date Time Temp Pulse Resp B/P (MAP) Pulse Ox O2 Delivery O2 Flow Rate FiO2 07/11/25 19:00 67 17 124/85 (98) 98 07/11/25 16:02 Nasal Cannula* 4 36 07/11/25 16:00 97.9 97.9 SEPSIS Sepsis Screen Date sepsis recognized/suspect: Jul 11, 2025 Time Sepsis recognized/suspect: 1402 Recent Procedure: No (N) On Antibiotic Therapy: No Respiratory Rate >20: No Heart Rate >90: No Temp<36 C (96.8 F) or >38.3 C: No SBP <90 or MAP <65 mmHG: No New Acute Mental Status Change: No Is the patient on CPAP, BIPAP,: No Physician Orders Chest Portable (07/11/25 14:06) Electrocardigram (07/11/25 14:06) Saline Lock (07/11/25 15:31) Furosemide Injection (Lasix Injection) (07/11/25 18:00) Ceftriaxone 1gm/50ml D5w (Rocephin) (07/12/25 09:00) Urine Bacterial Culture (07/11/25 17:22) Methylprednisolone Sod Succ (Solu Medrol (07/11/25 22:00) Apixaban (Eliquis) (07/11/25 22:00) Empagliflozin (Jardiance) (07/12/25 10:00) (Nf) Budesonide-Formoterol Fumarate ([place]hal (07/11/25 22:00) Metoprolol Xl Succinate (Toprol Xl) (07/12/25 10:00) Pantoprazole Tablet (Protonix Tablet) (07/12/25 10:00) Comprehensive Metabolic Panel (07/12/25 05:00) Comprehensive Metabolic Panel (07/13/25 05:00) Comprehensive Metabolic Panel (07/14/25 05:00) Comprehensive Metabolic Panel (07/15/25 05:00) Comprehensive Metabolic Panel (07/16/25 05:00) Complete Blood Count (07/12/25 05:00) Complete Blood Count (07/13/25 05:00) Complete Blood Count (07/14/25 05:00) Complete Blood Count (07/15/25 05:00) Complete Blood Count (07/16/25 05:00) Magnesium (07/12/25 05:00) Magnesium (07/13/25 05:00) Magnesium (07/14/25 05:00) Magnesium (07/15/25 05:00) Magnesium (07/16/25 05:00) Daily Weight (07/11/25 17:22) Maintain Fluid Restrictions QSHIFT (07/11/25 17:22) Strict I & O QSHIFT (07/11/25 17:22) *[facility] (07/11/25 17:22) Head Without Contrast (07/11/25 17:35) Amiodarone 360mg/200ml Premix (Nexterone (07/12/25 00:00) Amiodarone 360mg/200ml Premix (Nexterone (07/11/25 18:00) Flecainide Tablet (Tambocor Tablet) (07/12/25 10:00) Sodium Zirconium Cyclosilicate (Lokelma) (07/11/25 20:00) Admit (07/11/25 20:11) Code Status (07/11/25 20:11) Vital Signs .PER UNIT PROTOCOL (07/11/25 20:11) Review Orders With Adm.Md (07/11/25 20:11) Encourage Activity As Tolerate (07/11/25 20:11) Sodium Chloride Lock (Saline Lock Ns) (07/11/25 22:00) Docusate Sodium Capsule (Colace Capsule) (07/11/25 20:15) Acetaminophen Tablet (Tylenol Tablet) (07/11/25 20:15) Notify Md Of Changes From Base (07/11/25 20:11) Advance Directive (07/11/25 20:11) Patient Condition (07/11/25 20:11) Allergies (07/11/25 20:11) Hydrocodone-Acet 5/325mg Tab ([place] 5/32 (07/11/25 20:15) Hydromorphone Injection (Dilaudid Inject (07/11/25 20:15) Ondansetron Hcl (Zofran) (07/11/25 20:15) Lovenox 40mg (07/12/25 10:00) Renal Standard(2gna,3gk,Lopho) (07/12/25 Breakfast) Ceftriaxone Ivpb Rocephin (07/12/25 09:00) Vital Signs Date Time Temp Pulse Resp B/P (MAP) Pulse Ox O2 Delivery O2 Flow Rate FiO2 07/11/25 19:00 67 17 124/85 (98) 98 07/11/25 18:57 90 124/85 07/11/25 17:57 154 196/102 07/11/25 17:43 152 07/11/25 16:14 165/96 07/11/25 16:02 14 97 Nasal Cannula* 4 36 07/11/25 16:00 105 24 95 Nasal Cannula* 3 32 07/11/25 16:00 24 95 Nasal Cannula* 3 32 07/11/25 16:00 97.9 105 24 165/96 (119) 95 97.9 07/11/25 15:54 89 07/11/25 15:01 20 96 Nasal Cannula* 4 36 07/11/25 13:57 98.2 104 22 165/94 92 98.2 Laboratory Tests Test 07/11/25 14:43 White Blood Count 6.8 10^3/uL (4.4-10.8) Medications Medications Dose Ordered Sig/Julian Route Start Time Stop Time Status Last Admin Dose Admin Albuterol 5 mg ONCE ONCE NEB 07/11/25 15:45 07/11/25 15:48 DC 07/11/25 16:07 Amiodarone HCl 100 ml @ 600 mls/hr ONCE ONCE IV 07/11/25 17:45 07/11/25 17:54 DC 07/11/25 18:06 Bumetanide 1 mg ONCE ONCE IV 07/11/25 15:00 07/11/25 15:01 DC 07/11/25 16:14 Calcium Gluconate/ Sodium Chloride 50 ml @ 100 mls/hr ONCE ONCE IV 07/11/25 15:45 07/11/25 16:14 DC 07/11/25 16:14 Dextrose 50 ml ONCE ONCE IV 07/11/25 15:45 07/11/25 15:48 [place] 07/11/25 16:14 Insulin Human Regular 10 units ONCE ONCE IV 07/11/25 15:45 07/11/25 15:48 DC 07/11/25 16:16 Ipratropium [place] 0.5 mg ONCE ONCE NEB 07/11/25 15:00 07/11/25 15:01 [place] 07/11/25 15:00 Levalbuterol HCl 1.25 mg ONCE ONCE NEB 07/11/25 15:00 07/11/25 15:01 [place] 07/11/25 15:00 Methylprednisolone Sodium Succinate 125 mg ONCE ONCE IV 07/11/25 15:00 07/11/25 15:01 [place] 07/11/25 16:15 Metoprolol Tartrate 1.25 mg ONCE ONCE IV 07/11/25 18:00 07/11/25 18:01 DC 07/11/25 17:57 Sodium Bicarbonate 50 ml ONCE ONCE IV 07/11/25 15:45 07/11/25 15:48 DC 07/11/25 16:13 Zirconium Oxide 10 gm ONCE ONCE PO 07/11/25 15:45 07/11/25 15:48 DC 07/11/25 16:14 Results Labs Test 07/11/25 16:27 07/11/25 16:02 07/11/25 16:01 07/11/25 14:43 Range/Units Urine Color Yellow Yellow Urine Clarity Clear Clear Urine pH 6.0 5.0-9.0 Urine Specific [place] 1.026 1.001-1.035 Urine Protein 3+ H Negative Urine Ketones Negative Negative Urine Blood Trace H Negative /uL Urine Nitrite Negative Negative Urine Bilirubin Negative Negative Urine Urobilinogen Normal Negative mg/dL Urine Leukocyte Esterase 1+ Negative /uL Urine RBC 6 0 - 4 /hpf Urine Microscopic WBC 18 H 0-5 /HPF Urine Squamous Epithelial Cells Few <5 /hpf Urine Bacteria Few H None Seen /hpf Urine Glucose Normal Normal mg/dL POC Glucose 84 70-106 mg/dl Potassium Level 5.7 *H 3.5-5.1 mmol/L Troponin I High Sensitivity 32 </=34 ng/L White Blood Count 6.8 4.4-10.8 10^3/uL Red Blood Count 4.02 4.0-5.20 10^6/uL Hemoglobin 11.9 L 12.2-16.2 g/dL Hematocrit 36.8 36.0-46.0 % Mean Corpuscular Volume 91.3 80.0-100.0 fL Mean Corpuscular Hemoglobin 29.5 28.0-32.0 pg Mean Corpuscular Hemoglobin Concent 32.3 32.0-36.0 g/dL Red Cell Distribution Width 20.4 H 11.8-14.3 % Platelet Count 303 140-450 10^3/uL Mean Platelet Volume 7.3 6.9-10.8 fL Neutrophils (%) (Auto) 70.7 37.0-80.0 % Lymphocytes (%) (Auto) 14.0 10.0-50.0 % Monocytes (%) (Auto) 11.3 0.0-12.0 % Eosinophils (%) (Auto) 2.8 0.0-7.0 % Basophils (%) (Auto) 1.2 0.0-2.0 % Neutrophils # (Auto) 4.8 1.6-8.6 10 ^3/uL Lymphocytes # (Auto) 1.0 0.4-5.4 10 ^3/uL Monocytes # (Auto) 0.8 0-1.3 10 ^3/uL Eosinophils # (Auto) 0.2 0-0.8 10 ^3/uL Basophils # (Auto) 0.1 0-0.2 10 ^3/uL Nucleated Red Blood Cells 0.3 % Sodium Level 138 136-145 mmol/L Chloride Level 110 H 98-107 mmol/L Carbon Dioxide Level 19 L 20-31 mmol/L Anion Gap 9 5-15 Blood Urea Nitrogen 45 H 9-23 mg/dL Creatinine 1.31 H 0.550-1.02 mg/dL Glomerular Filtration Rate Calc 43 >90 mL/min BUN/Creatinine Ratio 34.4 H 10.0-20.0 Serum Glucose 84 74-106 mg/dL Calcium Level 9.3 8.7-10.4 mg/dL B-Type Natriuretic Peptide 1189.97 0-100 pg/mL Primary Diagnosis Shortness of breaths likely due to CHF exacerbation Hyperkalemia CHRISTINA COPD exacerbation UTI Plan Chest x-ray shows no acute infection. Cardiomegaly Check echo of the heart IV Lasix 40 mg b.i.d. Daily weight Strict in and out Fluid restriction AFib with RVR Patient is on amiodarone drip Eliquis b.i.d. Nephrology consult Ceftriaxone 1 g q.day for urinary tract infection. Follow urine culture Solu-Medrol 60 mg IV q.6 hours for COPD exacerbation Check ABG Full code Eliquis for DVT prophylaxis PPI for GI prophylaxis while on steroids Plan discussed with: Patient Problems List: (1) Acute respiratory failure Status: Acute (2) Acute on chronic systolic (congestive) heart failure Status: Acute (3) Generalized weakness Status: Acute (4) Shortness of breath Status: Acute Date of Service: Jul 11, 2025 Billing Provider: MICHAEL GUADARRAMA MD Common Visit Codes: [id number] INP/OBS CARE (HIGH) MICHAEL GUADARRAMA MD Jul 11, 2025 17:19
[2025-07-11] MEDS: METOPROLOL TARTRATE 1MG/1ML-5ML VIAL IV ONE (17:57)
[2025-07-11] MEDS: FUROSEMIDE 40 MG/4 ML VIAL IV SCH (18:00)
[2025-07-11] MEDS: AMIODARONE BOLUS KIT 100 ML IV ONE (18:06)
[2025-07-11] MEDS: AMIODARONE 360mg/200mL PREMIX 200 ML IV ONE (18:11)
[2025-07-11] MEDS ORDERED: AMIODARONE 360mg/200mL PREMIX 200 ML IV ONE (18:15)
--- NOTE | 2025-07-11 18:44 | DVH ---
CT HEAD WITHOUT CONTRAST INDICATION: confusion COMPARISON: None TECHNIQUE: CT of the head without intravenous contrast. RADIATION DOSE: CTDIvol: 61.33 mGy, DLP: 61.33 mGy*cm FINDINGS: There is no evidence of acute intracranial hemorrhage, extra-axial collection, mass effect, midline s hift, herniation or hydrocephalus. The ventricles, sulci and cisterns are age appropriate. The brown -white differentiation is intact. The visualized paranasal sinuses and mastoid air cells are clear. The surrounding soft tissues and osseous structures are unremarkable. IMPRESSION: 1. No evidence of acute intracranial hemorrhage, mass effect or hydrocephalus.
[2025-07-11 20:15] VITALS: RESP 20; O2SAT 98
[2025-07-11] MEDS ORDERED: ONDANSETRON HCL 4 MG/2 ML VIAL IV PRN (20:15)
[2025-07-11] MEDS: PHENAZOPYRIDINE HCL 100 MG TAB PO STA (21:39)
[2025-07-11] MEDS: SODIUM CHLOR 0.9% PF (SALINE LOCK) 10ML VIAL/SYR IV SCH (21:39)
[2025-07-11] MEDS: methylPREDNISolone SOD SUCC 125 MG/2 ML VL IV SCH (21:44)
[2025-07-11] MEDS: APIXABAN 2.5 MG TAB PO SCH (21:45)
[2025-07-11] MEDS ORDERED: BUDESONIDE FORMOTEROL FUMARATE IN SCH (22:00)
[2025-07-11 23:28] VITALS: BP 157/87; PULSE 85; RESP 28; TEMP 98; O2SAT 95
[2025-07-11] MEDS: AMIODARONE 360mg/200mL PREMIX 200 ML IV SCH (23:56)
[2025-07-12] VITALS (90 sets, daily range): BP systolic 99–167; BP diastolic 49–91; PULSE 64–110; RESP 12–41; TEMP 97.9–98.7; O2SAT 84–100
[2025-07-12] MEDS: ALBUTEROL MEDNEB 2.5 mg/3ml NEB NEB SCH (02:34)
[2025-07-12] MEDS: ALBUTEROL SULF 2.5 MG/0.5ML(0.5%) NEB SOLN ONE ×2 (02:34→05:58)
[2025-07-12] MEDS: HYDROcodone-ACET 5/325MG TAB PO PRN (02:38)
[2025-07-12 04:44] LABS: Hematocrit 33.7 % (36.0-46.0); Hemoglobin 11.1 g/dL (12.2-16.2); Mean Corpuscular Hemoglobin 30.2 pg (28.0-32.0); Mean Corpuscular Volume 91.8 fL (80.0-100.0); Nucleated Red Blood Cells % 0.1 %
[2025-07-12 05:01] LABS: Albumin 4.0 g/dL (3.2-4.8); Anion Gap 14 (5-15); BUN/Creatinine Ratio 26.5 (10.0-20.0); Bilirubin, Total 0.4 mg/dL (0.2-1.0); Calcium 9.3 mg/dL (8.7-10.4); Carbon Dioxide 20 mmol/L (20-31); Chloride 105 mmol/L (98-107); Potassium 4.2 mmol/L (3.5-5.1); Sodium 139 mmol/L (136-145); Total Protein 6.2 g/dL (5.7-8.2)
[2025-07-12 05:02] LABS: Alanine Aminotransferase 41 U/L (7-40); Alkaline Phosphatase 156 U/L (46-116); Blood Urea Nitrogen 39 mg/dL (9-23); Glucose 235 mg/dL (74-106); Magnesium 1.4 mg/dL (1.6-2.6)
[2025-07-12] MEDS: MAGNESIUM SULFATE 1GM/100ML 100 ML IV ONE (06:09)
[2025-07-12] MEDS: BUDESONIDE (INHALATION) 0.5 MG/2 ML NEB NEB SCH (06:28)
--- NOTE | 2025-07-12 08:55 | DVHINCON2 ---
Date of service: Jul 12, [address] House Reason for Consultation Acute kidney injury History of Present Illness Patient is 74-year-old female with past medical history significant for AFIB, CHF, COPD, DM, and HTN on home O2 is admitted due to worsening shortness of breath for three days. On admission patient found to have elevated BUN creatinine nephrology is consulted for acute kidney injury Past Medical History PAST MEDICAL HISTORY: AFIB, CHF, COPD, DM, HTN Past Surgical History Surgical History: Denies all surgeries Allergies: Coded Allergies: NO KNOWN ALLERGIES (Unverified , 01/01/25) Home Meds Active Scripts Flecainide Acetate (Flecainide Acetate) 100 Mg Tab, 1 TAB PO BID, #60 TAB 5 Refills Prov:CINDI TROTTER MD 02/17/25 Azithromycin (ZITHROMAX TABLET) 250 Mg Tb, 250 MG PO DAILY, #6 TAB take 2 tabs orally the first day , then 1 tab PO daily until finish. Prov:CINDI TROTTER MD 02/14/25 Methylprednisolone (Medrol Dosepak) 4 Mg Luis Angel, 4 MG PO UD, #21 TAB UAD Prov:CINDI TROTTER MD 02/14/25 Budesonide-Formoterol Fumarate (Breyna 160-4.5 Mcg/Act) 1 Aer Aer, 1 AER IN BID for 30 Days, #1 INHALER Prov:DEENA MCCRAY MD 01/05/25 Empagliflozin (Jardiance) 10 Mg Tab, 10 MG PO DAILY for 30 Days, #30 TAB 5 R efills Prov:DEENA MCCRAY MD 01/05/25 Bumetanide (Bumex Tablet) 1 Mg Tab, 1 MG PO BID for 30 Days, #60 TAB 5 Refills BLK BX WARNING-CAN LEAD TO PROFOUND DIURESIS WITH FLUID- ELECTROLYTE LOSS Prov:DEENA MCCRAY MD 01/05/25 Reported Medications Selexipag (Uptravi) 1,800 Mcg Inj, 1600 MCG IV, TAB 01/01/25 Metoprolol Succinate (Metoprolol Succinate Er) 25 Mg Tab, 25 MG PO DAILY for 30 Days, MG 01/01/25 Riociguat Base (Adempas) 2.5 Mg Tab, 2.5 MG PO TID, TAB 01/01/25 Apixaban Base (ELIQUIS) 2.5 Mg Tab, 2.5 MG PO BID, TAB 01/01/25 Macitentan (Opsumit) 10 Mg Tab, 10 MG PO, TAB 01/01/25 Omeprazole (Gnp Omeprazole) 20 Mg Tab, 1 TAB PO DAILY, #90 TAB 1 Refill 01/01/25 Current Medications Current Medications Medications (Trade) Dose Ordered Sig/Julian Route PRN Reason Start Time Stop Time Status Last Admin Furosemide (Lasix Injection) 40 mg BIDD IV 07/11/25 18:00 07/12/25 06:14 Ceftriaxone Sodium 50 ml @ 100 mls/hr DAILY@09 IV 07/12/25 09:00 07/11/25 21:27 DC Methylprednisolone Sodium Succinate (Solu Medrol) 60 mg Q8HR IV 07/11/25 22:00 07/12/25 06:13 Apixaban (Eliquis) 2.5 mg BID PO 07/11/25 22:00 07/12/25 09:03 Empaglifozin (Jardiance) 10 mg DAILY PO 07/12/25 10:00 07/12/25 09:03 Patient Own Medication 1 aer BID IN 07/11/25 22:00 07/11/25 22:35 DC Flecainide Acetate (Tambocor Tablet) 100 mg BID PO 07/12/25 10:00 Metoprolol Succinate (Toprol Xl) 25 mg DAILY PO 07/12/25 10:00 07/12/25 09:06 Pantoprazole Sodium (Protonix Tablet) 40 mg DAILY PO 07/12/25 10:00 07/12/25 09:03 Sodium Chloride (Saline Lock Ns) 10 ml Q8HR IV 07/11/25 22:00 07/12/25 06:14 Docusate Sodium (Colace Capsule) 100 mg BIDPRN PRN PO FOR CONSTIPATION 07/11/25 20:15 Acetaminophen (Tylenol Tablet) 650 mg Q6HP PRN PO PAIN SCALE 1-3 OR TEMP>100.4 07/11/25 20:15 Acetaminophen/ Hydrocodone Bitart ([place] 5/325MG Tab) 1 tab Q4HP PRN PO MODERATE PAIN (4-6 PAIN SCALE) 07/11/25 20:15 07/12/25 06:15 Hydromorphone HCl (Dilaudid Injection) 0.5 mg Q4HP PRN IV SEVERE PAIN (7-10 PAIN SCALE) 07/11/25 20:15 07/12/25 09:09 Ondansetron HCl (Zofran) 4 mg Q4HP PRN IV NAUSEA / VOMITING 07/11/25 20:15 Enoxaparin Sodium (Lovenox) 40 mg DAILY SC 07/12/25 10:00 Hold Ceftriaxone Sodium 50 ml @ 100 mls/hr DAILY@09 IV 07/12/25 09:00 07/12/25 09:02 Pantoprazole Sodium (Protonix) 40 mg DAILY IV 07/12/25 10:00 07/11/25 21:29 DC Phenazopyridine HCl (Pyridium Tablet) 100 mg BID STAT PO 07/11/25 21:23 07/11/25 21:31 DC 07/11/25 21:39 Albuterol (Ventolin Medneb) 2.5 mg Q6HR NEB 07/12/25 00:00 Budesonide (Pulmicort) 0.5 mg BID NEB 07/12/25 10:00 07/12/25 06:28 Family History: FH: cancer G8 SISTER Review of Systems All 12 item review of systems reviewed with the patient nonsignificant except what is mentioned in the history of present illness H&P Exam Vital Signs/I&O Vital Sign Date Time Temp Pulse Resp B/P (MAP) Pulse Ox O2 Delivery O2 Flow Rate FiO2 07/12/25 09:39 88 21 99/69 07/12/25 07:30 96 07/12/25 06:28 Nasal Cannula* 3 32 07/12/25 04:00 98.4 98.4 Intake and Output 07/11/25 07/12/25 19:00 07:00 Intake Total 150 ml 488.29 ml Output Total 350 ml 950 ml Balance -200 ml -461.71 ml Intake Oral 350 ml IV Total 150 ml 138.29 ml Output Urine Total 350 ml 950 ml Physical Exam Patient sitting up in bed no acute distress Lungs bibasilar crackles Cardiac exam regular rate and rhythm GI Soft nontender was normal Extremities no clubbing cyanosis or edema Neuro nonfocal Labs/Diagnostic Data Labs/Diagnostic Data Laboratory Tests Test 07/12/25 04:08 07/11/25 16:27 07/11/25 16:02 07/11/25 16:01 Range/Units White Blood Count 8.5 4.4-10.8 10^3/uL Red Blood Count 3.67 L 4.0-5.20 10^6/uL Hemoglobin 11.1 L 12.2-16.2 g/dL Hematocrit 33.7 L 36.0-46.0 % Mean Corpuscular Volume 91.8 80.0-100.0 fL Mean Corpuscular Hemoglobin 30.2 28.0-32.0 pg Mean Corpuscular Hemoglobin Concent 32.9 32.0-36.0 g/dL Red Cell Distribution Width 19.8 H 11.8-14.3 % Platelet Count 232 140-450 10^3/uL Mean Platelet Volume 7.7 6.9-10.8 fL Neutrophils (%) (Auto) 94.1 H 37.0-80.0 % Lymphocytes (%) (Auto) 4.5 L 10.0-50.0 % Monocytes (%) (Auto) 1.3 0.0-12.0 % Eosinophils (%) (Auto) 0.0 0.0-7.0 % Basophils (%) (Auto) 0.1 0.0-2.0 % Neutrophils # (Auto) 8.0 1.6-8.6 10 ^3/uL Lymphocytes # (Auto) 0.4 0.4-5.4 10 ^3/uL Monocytes # (Auto) 0.1 0-1.3 10 ^3/uL Eosinophils # (Auto) 0 0-0.8 10 ^3/uL Basophils # (Auto) 0 0-0.2 10 ^3/uL Nucleated Red Blood Cells 0.1 % Sodium Level 139 136-145 mmol/L Potassium Level 4.2 5.7 *H 3.5-5.1 mmol/L Chloride Level 105 98-107 mmol/L Carbon Dioxide Level 20 20-31 mmol/L Anion Gap 14 5-15 Blood Urea Nitrogen 39 H 9-23 mg/dL Creatinine 1.47 H 0.550-1.02 mg/dL Glomerular Filtration Rate Calc 37 >90 mL/min BUN/Creatinine Ratio 26.5 H 10.0-20.0 Serum Glucose 235 H 74-106 mg/dL Calcium Level 9.3 8.7-10.4 mg/dL Phosphorus Level 5.5 H 2.4-5.1 mg/dL Magnesium Level 1.4 L 1.6-2.6 mg/dL Total Bilirubin 0.4 0.2-1.0 mg/dL Aspartate Amino Transferase (AST) 30 13-40 U/L Alanine Aminotransferase (ALT) 41 H 7-40 U/L Alkaline Phosphatase 156 H 46-116 U/L Total Protein 6.2 5.7-8.2 g/dL Albumin 4.0 3.2-4.8 g/dL Urine Color Yellow Yellow Urine Clarity Clear Clear Urine pH 6.0 5.0-9.0 Urine Specific [place] 1.026 1.001-1.035 Urine Protein 3+ H Negative Urine Ketones Negative Negative Urine Blood Trace H Negative /uL Urine Nitrite Negative Negative Urine Bilirubin Negative Negative Urine Urobilinogen Normal Negative mg/dL Urine Leukocyte Esterase 1+ Negative /uL Urine RBC 6 0 - 4 /hpf Urine Microscopic WBC 18 H 0-5 /HPF Urine Squamous Epithelial Cells Few <5 /hpf Urine Bacteria Few H None Seen /hpf Urine Glucose Normal Normal mg/dL POC Glucose 84 70-106 mg/dl Troponin I High Sensitivity 32 </=34 ng/L Test 07/11/25 14:43 Range/Units White Blood Count 6.8 4.4-10.8 10^3/uL Red Blood Count 4.02 4.0-5.20 10^6/uL Hemoglobin 11.9 L 12.2-16.2 g/dL Hematocrit 36.8 36.0-46.0 % Mean Corpuscular Volume 91.3 80.0-100.0 fL Mean Corpuscular Hemoglobin 29.5 28.0-32.0 pg Mean Corpuscular Hemoglobin Concent 32.3 32.0-36.0 g/dL Red Cell Distribution Width 20.4 H 11.8-14.3 % Platelet Count 303 140-450 10^3/uL Mean Platelet Volume 7.3 6.9-10.8 fL Neutrophils (%) (Auto) 70.7 37.0-80.0 % Lymphocytes (%) (Auto) 14.0 10.0-50.0 % Monocytes (%) (Auto) 11.3 0.0-12.0 % Eosinophils (%) (Auto) 2.8 0.0-7.0 % Basophils (%) (Auto) 1.2 0.0-2.0 % Neutrophils # (Auto) 4.8 1.6-8.6 10 ^3/uL Lymphocytes # (Auto) 1.0 0.4-5.4 10 ^3/uL Monocytes # (Auto) 0.8 0-1.3 10 ^3/uL Eosinophils # (Auto) 0.2 0-0.8 10 ^3/uL Basophils # (Auto) 0.1 0-0.2 10 ^3/uL Nucleated Red Blood Cells 0.3 % Sodium Level 138 136-145 mmol/L Potassium Level 6.0 *H 3.5-5.1 mmol/L Chloride Level 110 H 98-107 mmol/L Carbon Dioxide Level 19 L 20-31 mmol/L Anion Gap 9 5-15 Blood Urea Nitrogen 45 H 9-23 mg/dL Creatinine 1.31 H 0.550-1.02 mg/dL Glomerular Filtration Rate Calc 43 >90 mL/min BUN/Creatinine Ratio 34.4 H 10.0-20.0 Serum Glucose 84 74-106 mg/dL Calcium Level 9.3 8.7-10.4 mg/dL Troponin I High Sensitivity 32 </=34 ng/L B-Type Natriuretic Peptide 1189.97 0-100 pg/mL Assessment Acute kidney injury superimposed Chronic Kidney Disease secondary hemodynamic mediated Acute on chronic respiratory failure Congestive heart failure exacerbation AFib with RVR Diabetes mellitus type 2 Hyperkalemia Hypomagnesemia Anemia of chronic kidney disease Recommendations Closely monitor fluid and electrolytes Avoid nephrotoxic medication Strict I&Os Check urine electrolytes and protein excretion Check kidney ultrasound I agree with diuresis KCL replacement Magnesium sulfate IV piggyback Cardiology consult We will continue to follow up Patient seen and examined by myself. I discussed my plan of care with the patie nt and primary nurse at the bedside I would like to thank Dr. House for the consult, will follow up Plan discussed with: Patient FLYNN HOROWITZ MD Jul 12, 2025 08:55
[2025-07-12] MEDS ORDERED: cefTRIAXone 1GM/50ML D5W 50 ML IV SCH (09:00)
[2025-07-12] MEDS: cefTRIAXone 1GM/50ML D5W 50 ML IV SCH (09:02)
[2025-07-12] MEDS: EMPAGLIFLOZIN 10 MG TAB PO SCH (09:03)
[2025-07-12] MEDS: PANTOPRAZOLE 40 MG TAB PO SCH (09:03)
[2025-07-12] MEDS: METOPROLOL SUCCINATE XL 50 MG TAB PO SCH (09:06)
[2025-07-12] MEDS: FLECAINIDE ACETATE 50 MG TAB PO SCH (09:07)
[2025-07-12] MEDS: HYDROmorphone HCL 2 MG/ML VL/or syr IV PRN (09:09)
--- NOTE | 2025-07-12 09:43 | DVH ---
INDICATION: leonidas TECHNIQUE: Multiple real-time sonographic images of the kidneys and bladder were obtained. COMPARISON: US KIDNEY on DOS: 02/05/25 FINDINGS: RIGHT kidney measures 7.9 cm in length with moderately increased parenchymal echotexture and otherwis e normal cortical thickness. No nephrolithiasis or hydronephrosis. LEFT kidney measures 7.7 cm in length with moderately increased parenchymal echotexture and Otherwise normal cortical thickness. No nephrolithiasis or hydronephrosis. The urinary bladder is distended. No large intraluminal masses are seen in the bladder. Urinary bladd er wall thickness 0.1 cm. No significant postvoid residual. IMPRESSION: 1. Moderately increased bilateral renal parenchymal echotexture.
[2025-07-12] MEDS ORDERED: ENOXAPARIN SOD 40 MG/0.4 ML SYRINGE SC SCH (10:00)
[2025-07-12] MEDS ORDERED: PANTOPRAZOLE 40 MG/10 ML VIAL INJ IV SCH (10:00)
[2025-07-12] MEDS: ALBUTEROL SULF 2.5 MG/0.5ML(0.5%) NEB SOLN NEB SCH (12:00)
[2025-07-12 16:00] LABS: Protein, Urine 588.1 mg/dL (1-14)
--- NOTE | 2025-07-12 17:47 | DVHPN2 ---
Subjective Cross covering for [facility]ist today. Patient is seen and evaluated and discussed along with the nurse at bedside. Admitted for AFib RVR now rate controlled. No complaints. Changes from previous H/P or p: No Changes Objective Vitals Vital Signs Date Time Temp Pulse Resp B/P (MAP) Pulse Ox O2 Delivery O2 Flow Rate FiO2 07/12/25 11:59 90 Nasal Cannula* 3 32 07/12/25 09:39 88 21 99/69 07/12/25 04:00 98.4 98.4 Intake/Output Intake and Output 07/12/25 07:00 Intake Total 638.29 ml Output Total 1300 ml Balance -661.71 ml Intake Oral 350 ml IV Total 288.29 ml Output Urine Total 1300 ml Exam Alert awake oriented to place and person comfortable in bed without distress. HEENT neck supple no JVD. Heart regular rate and rhythm S1 plus S2. Lungs fair air movement tight air movement no wheezing. Abdomen soft nontender positive bowel sounds. Extremities no edema positive pulses. Medications Current Medications Medications Dose Ordered Sig/Julian Route Start Time Stop Time Status Last Admin Dose Admin Furosemide 40 mg BIDD IV 07/11/25 18:00 07/12/25 06:14 40 MG Methylprednisolone Sodium Succinate 60 mg Q8HR IV 07/11/25 22:00 07/12/25 15:31 60 MG Apixaban 2.5 mg BID PO 07/11/25 22:00 07/12/25 09:03 2.5 MG Empaglifozin 10 mg DAILY PO 07/12/25 10:00 07/12/25 09:03 10 MG Flecainide Acetate 100 mg BID PO 07/12/25 10:00 Metoprolol Succinate 25 mg DAILY PO 07/12/25 10:00 07/12/25 09:06 25 MG Pantoprazole Sodium 40 mg DAILY PO 07/12/25 10:00 07/12/25 09:03 40 MG Sodium Chloride 10 ml Q8HR IV 07/11/25 22:00 07/12/25 15:31 10 ML Docusate Sodium 100 mg BIDPRN PRN PO 07/11/25 20:15 Acetaminophen 650 mg Q6HP PRN PO 07/11/25 20:15 Acetaminophen/ Hydrocodone Bitart 1 tab Q4HP PRN PO 07/11/25 20:15 07/12/25 17:40 1 TAB Hydromorphone HCl 0.5 mg Q4HP PRN IV 07/11/25 20:15 07/12/25 09:09 0.5 MG Ondansetron HCl 4 mg Q4HP PRN IV 07/11/25 20:15 Enoxaparin Sodium 40 mg DAILY SC 07/12/25 10:00 Hold Ceftriaxone Sodium 50 ml @ 100 mls/hr DAILY@09 IV 07/12/25 09:00 07/12/25 09:02 100 MLS/HR Budesonide 0.5 mg BID NEB 07/12/25 10:00 07/12/25 06:28 0.5 MG Albuterol 2.5 mg Q6HR NEB 07/12/25 12:00 Laboratory Results Laboratory Tests 07/12/25 04:08 Chemistry Test 07/12/25 04:08 Albumin 4.0 g/dL (3.2-4.8) Calcium Level 9.3 mg/dL (8.7-10.4) Magnesium Level 1.4 mg/dL (1.6-2.6) L Phosphorus Level 5.5 mg/dL (2.4-5.1) H Total Protein 6.2 g/dL (5.7-8.2) LFT Test 07/12/25 04:08 Alanine Aminotransferase (ALT) 41 U/L (7-40) H Alkaline Phosphatase 156 U/L (46-116) H Aspartate Amino Transferase (AST) 30 U/L (13-40) Total Bilirubin 0.4 mg/dL (0.2-1.0) Urinalysis Test 07/11/25 16:27 Urine Color Yellow (Yellow) Urine Clarity Clear (Clear) Urine pH 6.0 (5.0-9.0) Urine Specific [place] 1.026 (1.001-1.035) Urine Protein 3+ (Negative) H Urine Ketones Negative (Negative) Urine Blood Trace /uL (Negative) H Urine Nitrite Negative (Negative) Urine Bilirubin Negative (Negative) Urine Urobilinogen Normal mg/dL (Negative) Urine Leukocyte Esterase 1+ /uL (Negative) Urine RBC 6 /hpf (0 - 4) Urine Microscopic WBC 18 /HPF (0-5) H Urine Squamous Epithelial Cells Few /hpf (<5) Urine Bacteria Few /hpf (None Seen) H Urine Creatinine 85.28 mg/dL (30.0-125.0) Urine Protein/Creatinine Ratio 6.90 Urine Sodium 51 mmol/L (40-220) Urine Glucose Normal mg/dL (Normal) Urine Total Protein 588.1 mg/dL (1-14) H Microbiology Microbiology Date/Time Source Procedure Growth Status 07/11/25 23:35 Nose MRSA Screen - Final Complete Assessment/Plan Assessment/Plan Atrial fibrillation with a rapid ventricular response now rate controlled Shortness of breaths likely due to CHF exacerbation Hyperkalemia CHRISTINA COPD exacerbation UTI We will discontinue IV amiodarone drip. Heart rate is in the 70s. Continue flecainide and metoprolol. Downgrade her to telemetry floor. Physical therapy evaluation. Continue rest of supportive care and treatment. Discussed with the patient's nurse regarding care plan Plan discussed with: Patient, Other My Orders Orders - NIDA CARRILLO MD Procedure Category Date Status Time Pt Request For Service PT 07/12/25 Verified 17:44 Date of Service: Jul 12, 2025 Billing Provider: NIDA CARRILLO MD Common Visit Codes: [id number] INP/OBS CARE(MOD) NIDA CARRILLO MD Jul 12, 2025 17:47
[2025-07-12] MEDS: FUROSEMIDE 20 MG TAB PO SCH (18:06)
[2025-07-12] MEDS: LIDOCAINE 5% TOPICAL PATCH TOP ONE (20:45)
[2025-07-12] MEDS: ACETAMINOPHEN 325 MG TAB PO PRN (20:51)
[2025-07-13] VITALS (15 sets, daily range): BP systolic 111–141; BP diastolic 60–88; PULSE 53–93; RESP 16–18; TEMP 97.6–98; O2SAT 92–99
[2025-07-13 08:00] LABS: Hematocrit 31.2 % (36.0-46.0); Hemoglobin 10.2 g/dL (12.2-16.2); Mean Corpuscular Hemoglobin 29.7 pg (28.0-32.0); Mean Corpuscular Volume 91.2 fL (80.0-100.0); Nucleated Red Blood Cells % 0.8 %
[2025-07-13 08:27] LABS: Alanine Aminotransferase 34 U/L (7-40); Albumin 3.8 g/dL (3.2-4.8); Anion Gap 11 (5-15); BUN/Creatinine Ratio 26.4 (10.0-20.0); Carbon Dioxide 22 mmol/L (20-31); Chloride 101 mmol/L (98-107); Magnesium 2.0 mg/dL (1.6-2.6); Total Protein 5.9 g/dL (5.7-8.2)
[2025-07-13 08:28] LABS: Alkaline Phosphatase 122 U/L (46-116); Bilirubin, Total 0.3 mg/dL (0.2-1.0); Blood Urea Nitrogen 56 mg/dL (9-23); Calcium 8.6 mg/dL (8.7-10.4); Glucose 192 mg/dL (74-106); Potassium 5.2 mmol/L (3.5-5.1); Sodium 134 mmol/L (136-145)
[2025-07-13 09:06] LABS: Anisocytosis Slight
--- NOTE | 2025-07-13 10:57 | DVHPN2 ---
Progress Note Date Seen: Jul 13, 2025 Medical Necessity Reason Pt with a Central, PICC or Fol: No Subjective Review of Systems: RESPIRATORY:Abnormal Other Systems: Patient seen and examined by myself today in follow-up Objective vital signs Vital Sign Date Time Temp Pulse Resp B/P (MAP) Pulse Ox O2 Delivery O2 Flow Rate FiO2 07/13/25 10:23 62 146/85 07/13/25 10:00 93 Nasal Cannula* 3 32 07/13/25 08:37 97.9 18 97.9 Total Intake and Output 07/12/25 07/12/25 07/13/25 15:00 23:00 07:00 Intake Total 699.96 ml 633.32 ml 200 ml Output Total 1600 ml 100 ml Balance 699.96 ml -966.68 ml 100 ml medications Current Medications Medications Dose Ordered Sig/Julian Route Start Time Stop Time Status Last Admin Dose Admin Methylprednisolone Sodium Succinate 60 mg Q8HR IV 07/11/25 22:00 07/13/25 05:22 60 MG Apixaban 2.5 mg BID PO 07/11/25 22:00 07/13/25 10:24 2.5 MG Empaglifozin 10 mg DAILY PO 07/12/25 10:00 07/13/25 10:24 10 MG Flecainide Acetate 100 mg BID PO 07/12/25 10:00 07/13/25 10:24 100 MG Metoprolol Succinate 25 mg DAILY PO 07/12/25 10:00 07/13/25 10:23 25 MG Pantoprazole Sodium 40 mg DAILY PO 07/12/25 10:00 07/13/25 10:24 40 MG Sodium Chloride 10 ml Q8HR IV 07/11/25 22:00 07/13/25 05:21 10 ML Docusate Sodium 100 mg BIDPRN PRN PO 07/11/25 20:15 Acetaminophen 650 mg Q6HP PRN PO 07/11/25 20:15 07/12/25 20:51 650 MG Acetaminophen/ Hydrocodone Bitart 1 tab Q4HP PRN PO 07/11/25 20:15 07/12/25 23:48 1 TAB Hydromorphone HCl 0.5 mg Q4HP PRN IV 07/11/25 20:15 07/13/25 02:57 0.5 MG Ondansetron HCl 4 mg Q4HP PRN IV 07/11/25 20:15 Ceftriaxone Sodium 50 ml @ 100 mls/hr DAILY@09 IV 07/12/25 09:00 07/13/25 10:47 100 MLS/HR Budesonide 0.5 mg BID NEB 07/12/25 10:00 07/13/25 06:23 0.5 MG Albuterol 2.5 mg Q6HR NEB 07/12/25 12:00 07/13/25 06:23 2.5 MG Furosemide 20 mg BIDD PO 07/12/25 18:00 07/13/25 05:22 20 MG Lidocaine 1 patch DAILY@2100 TOP 07/13/25 21:00 Examination: LUNGS:Normal, CVS:Normal, MSK:Abnormal laboratory and microbiology Laboratory Tests 07/13/25 06:18 Test 07/13/25 06:18 Range/Units Serum Glucose 192 H 74-106 mg/dL Microbiology Date/Time Source Procedure Growth Status 07/11/25 23:35 Nose MRSA Screen - Final Complete Problem List/Assessment/Plan Problem List/Assessment/Plan Acute kidney injury superimposed Chronic Kidney Disease secondary hemodynamic mediated, ATN, FeNa > 2% Acute on chronic respiratory failure, O2 nasal can Congestive heart failure exacerbation AFib with RVR Diabetes mellitus type 2 Hyperkalemia Hypomagnesemia Anemia of chronic kidney disease Nephrotic proteinuria due to underlying diabetic nephropathy, UPCR 7 Recommendations Kidney function worsened today Increased urine output Strict I&Os kidney ultrasound reported bilateral echogenic kidney I agree with diuresis KCL replacement Magnesium sulfate IV piggyback Cardiology consult We will continue to follow up Plan discussed with: Patient FLYNN HOROWITZ MD Jul 13, 2025 10:57
[2025-07-13] MEDS: SODIUM ZIRCONIUM CYCL 10 GM PAK PO SCH (13:59)
--- NOTE | 2025-07-13 13:59 | ECG ---
[facility] Test Date: 2025-07-11 Test Time: 15:54:26 Pat Name: SAY ROSALES Department: [facility] ED Patient ID: [id number] Room: 0288T Gender: F Diamond Setter: nima : 1950 Requested By: ALESIA HAYES Order Number: [id number] Reading MD: Grant Pacheco Measurements Intervals [place] Rate: 89 P: 51 MA: 128 QRS: 128 QRSD: 106 T: 101 QT: 379 QTc: 462 Interpretive Statements Sinus rhythm Multiple premature complexes, vent & supraven Probable left atrial enlargement RVH with secondary repolarization abnrm Electronically Signed On 07-15-2025 14:32:28 PDT by Grant Pacheco Please click the below link to view image of tracing.
[2025-07-13] MEDS ORDERED: SODIUM CHLORIDE 0.9% 250 ML IV SCH (16:45)
[2025-07-13] MEDS: SODIUM CHLORIDE 0.9% 250 ML IV SCH (16:45)
--- NOTE | 2025-07-13 17:19 | DVHPN2 ---
Subjective Cross covering for [facility]ist today. Heart rate is remains controlled. Feels better. However her creatinine has mildly worsened with the hyperkalemia. Evaluated by Nephrology. Changes from previous H/P or p: No Changes Objective Vitals Vital Signs Date Time Temp Pulse Resp B/P (MAP) Pulse Ox O2 Delivery O2 Flow Rate FiO2 07/13/25 12:42 97.9 65 18 111/60 (77) 95 97.9 07/13/25 11:20 Nasal Cannula 3.0 07/13/25 11:20 32 Intake/Output Intake and Output 07/13/25 07:00 Intake Total 1533.28 ml Output Total 1700 ml Balance -166.72 ml Intake Oral 1400 ml IV Total 133.28 ml Output Urine Total 1700 ml # Bowel Movements 1 Exam Alert awake oriented to place and person comfortable in bed without distress. HEENT neck supple no JVD. Heart regular rate and rhythm S1 plus S2. Lungs fair air movement tight air movement no wheezing. Abdomen soft nontender positive bowel sounds. Extremities no edema positive pulses. Medications Current Medications Medications Dose Ordered Sig/Julian Route Start Time Stop Time Status Last Admin Dose Admin Methylprednisolone Sodium Succinate 60 mg Q8HR IV 07/11/25 22:00 07/13/25 14:06 60 MG Apixaban 2.5 mg BID PO 07/11/25 22:00 07/13/25 10:24 2.5 MG Empaglifozin 10 mg DAILY PO 07/12/25 10:00 07/13/25 10:24 10 MG Flecainide Acetate 100 mg BID PO 07/12/25 10:00 07/13/25 10:24 100 MG Metoprolol Succinate 25 mg DAILY PO 07/12/25 10:00 07/13/25 10:23 25 MG Pantoprazole Sodium 40 mg DAILY PO 07/12/25 10:00 07/13/25 10:24 40 MG Sodium Chloride 10 ml Q8HR IV 07/11/25 22:00 07/13/25 13:59 10 ML Docusate Sodium 100 mg BIDPRN PRN PO 07/11/25 20:15 Acetaminophen 650 mg Q6HP PRN PO 07/11/25 20:15 07/12/25 20:51 650 MG Acetaminophen/ Hydrocodone Bitart 1 tab Q4HP PRN PO 07/11/25 20:15 07/13/25 14:12 1 TAB Hydromorphone HCl 0.5 mg Q4HP PRN IV 07/11/25 20:15 07/13/25 02:57 0.5 MG Ondansetron HCl 4 mg Q4HP PRN IV 07/11/25 20:15 Ceftriaxone Sodium 50 ml @ 100 mls/hr DAILY@09 IV 07/12/25 09:00 07/13/25 10:47 100 MLS/HR Budesonide 0.5 mg BID NEB 07/12/25 10:00 07/13/25 06:23 0.5 MG Albuterol 2.5 mg Q6HR NEB 07/12/25 12:00 07/13/25 11:19 2.5 MG Furosemide 20 mg BIDD PO 07/12/25 18:00 07/13/25 05:22 20 MG Lidocaine 1 patch DAILY@2100 TOP 07/13/25 21:00 Zirconium Oxide 10 gm BID PO 07/13/25 12:30 07/13/25 13:59 10 GM Sodium Chloride 250 ml @ 80 mls/hr Q3H8M IV 07/13/25 16:45 07/13/25 20:45 Laboratory Results Laboratory Tests 07/13/25 06:18 Chemistry Test 07/13/25 06:18 Albumin 3.8 g/dL (3.2-4.8) Calcium Level 8.6 mg/dL (8.7-10.4) L Magnesium Level 2.0 mg/dL (1.6-2.6) Total Protein 5.9 g/dL (5.7-8.2) LFT Test 07/13/25 06:18 Alanine Aminotransferase (ALT) 34 U/L (7-40) Alkaline Phosphatase 122 U/L (46-116) H Aspartate Amino Transferase (AST) 17 U/L (13-40) Total Bilirubin 0.3 mg/dL (0.2-1.0) Urinalysis Test 07/11/25 16:27 Urine Color Yellow (Yellow) Urine Clarity Clear (Clear) Urine pH 6.0 (5.0-9.0) Urine Specific [place] 1.026 (1.001-1.035) Urine Protein 3+ (Negative) H Urine Ketones Negative (Negative) Urine Blood Trace /uL (Negative) H Urine Nitrite Negative (Negative) Urine Bilirubin Negative (Negative) Urine Urobilinogen Normal mg/dL (Negative) Urine Leukocyte Esterase 1+ /uL (Negative) Urine RBC 6 /hpf (0 - 4) Urine Microscopic WBC 18 /HPF (0-5) H Urine Squamous Epithelial Cells Few /hpf (<5) Urine Bacteria Few /hpf (None Seen) H Urine Creatinine 85.28 mg/dL (30.0-125.0) Urine Protein/Creatinine Ratio 6.90 Urine Sodium 51 mmol/L (40-220) Urine Glucose Normal mg/dL (Normal) Urine Total Protein 588.1 mg/dL (1-14) H Microbiology Microbiology Date/Time Source Procedure Growth Status 07/11/25 23:40 Voided Urine Urine Culture - Preliminary Resulted 07/11/25 23:35 Nose MRSA Screen - Final Complete Assessment/Plan Assessment/Plan Atrial fibrillation with a rapid ventricular response now rate controlled Shortness of breaths likely due to CHF exacerbation Hyperkalemia CHRISTINA COPD exacerbation UTI Continue current cardiac medications for heart rate control and anticoagulation with the Eliquis as she is on. Given mild hyperkalemia I will give her Lokelma. Give her fluid challenge and monitor her overnight. If he could knee function remains stable consider discharge home tomorrow. Discussed with the nurse and patient Plan discussed with: Patient, Other My Orders Orders - NIDA CARRILLO MD Procedure Category Date Status Time Pt Request For Service PT 07/12/25 Logged 17:44 Furosemide Tablet PHA 07/12/25 In Process (Lasix Tablet) 18:00 Sodium Zirconium PHA 07/13/25 In Process Cyclosilicate 12:30 Sodium Chloride 0.9% PHA 07/13/25 In Process 16:45 Date of Service: Jul 13, 2025 Billing Provider: NIDA CARRILLO MD Common Visit Codes: [id number] INP/OBS CARE(MOD) NIDA CARRILLO MD Jul 13, 2025 17:19
[2025-07-13] MEDS: LIDOCAINE 5% TOPICAL PATCH TOP SCH (21:26)
[2025-07-14] VITALS (16 sets, daily range): BP systolic 101–152; BP diastolic 64–93; PULSE 57–79; RESP 14–20; TEMP 97.4–97.9; O2SAT 90–99
[2025-07-14] MEDS: DOCUSATE SOD 100 MG CAP PO PRN (05:32)
[2025-07-14 07:24] LABS: Hematocrit 31.9 % (36.0-46.0); Hemoglobin 10.6 g/dL (12.2-16.2); Mean Corpuscular Hemoglobin 30.4 pg (28.0-32.0); Mean Corpuscular Volume 91.2 fL (80.0-100.0); Nucleated Red Blood Cells % 2.4 %
[2025-07-14 07:52] LABS: Alanine Aminotransferase 33 U/L (7-40); Anion Gap 11 (5-15); BUN/Creatinine Ratio 26.1 (10.0-20.0); Carbon Dioxide 20 mmol/L (20-31); Chloride 102 mmol/L (98-107); Potassium 4.5 mmol/L (3.5-5.1); Total Protein 6.4 g/dL (5.7-8.2)
[2025-07-14 07:53] LABS: Albumin 4.2 g/dL (3.2-4.8); Bilirubin, Total 0.3 mg/dL (0.2-1.0)
[2025-07-14 07:54] LABS: Alkaline Phosphatase 117 U/L (46-116); Blood Urea Nitrogen 58 mg/dL (9-23); Calcium 8.4 mg/dL (8.7-10.4); Glucose 145 mg/dL (74-106); Sodium 133 mmol/L (136-145)
[2025-07-14 08:00] LABS: Magnesium 2.1 mg/dL (1.6-2.6)
[2025-07-14] MEDS: FUROSEMIDE 40 MG/4 ML VIAL IV ONE (15:29)
[2025-07-14] MEDS ORDERED: FLEC100T PO (15:35)
[2025-07-14] MEDS ORDERED: APIX2.5T PO (15:35)
[2025-07-14] MEDS ORDERED: METO25TA93 PO (15:35)
--- NOTE | 2025-07-14 15:38 | DVHDS2 ---
Discharge Summary Date of Admission Jul 11, 2025 at 20:11 Date of Discharge: Jul 15, 2025 Labs/Diagnostic Data: Laboratory Results Test 07/14/25 05:40 07/13/25 06:18 07/12/25 04:08 07/11/25 16:27 White Blood Count 5.8 10^3/uL (4.4-10.8) Red Blood Count 3.50 10^6/uL (4.0-5.20) Hemoglobin 10.6 g/dL (12.2-16.2) Hematocrit 31.9 % (36.0-46.0) Mean Corpuscular Volume 91.2 fL (80.0-100.0) Mean Corpuscular Hemoglobin 30.4 pg (28.0-32.0) Mean Corpuscular Hemoglobin Concent 33.4 g/dL (32.0-36.0) Red Cell Distribution Width 19.6 % (11.8-14.3) Platelet Count 280 10^3/uL (140-450) Mean Platelet Volume 7.8 fL (6.9-10.8) Neutrophils (%) (Auto) 90.3 % (37.0-80.0) Lymphocytes (%) (Auto) 4.0 % (10.0-50.0) Monocytes (%) (Auto) 5.4 % (0.0-12.0) Eosinophils (%) (Auto) 0.0 % (0.0-7.0) Basophils (%) (Auto) 0.3 % (0.0-2.0) Neutrophils # (Auto) 5.3 10 ^3/uL (1.6-8.6) Lymphocytes # (Auto) 0.2 10 ^3/uL (0.4-5.4) Monocytes # (Auto) 0.3 10 ^3/uL (0-1.3) Eosinophils # (Auto) 0 10 ^3/uL (0-0.8) Basophils # (Auto) 0 10 ^3/uL (0-0.2) Nucleated Red Blood Cells 2.4 % Sodium Level 133 mmol/L (136-145) Potassium Level 4.5 mmol/L (3.5-5.1) Chloride Level 102 mmol/L (98-107) Carbon Dioxide Level 20 mmol/L (20-31) Anion Gap 11 (5-15) Blood Urea Nitrogen 58 mg/dL (9-23) Creatinine 2.22 mg/dL (0.550-1.02) Glomerular Filtration Rate Calc 23 mL/min (>90) BUN/Creatinine Ratio 26.1 (10.0-20.0) Serum Glucose 145 mg/dL (74-106) Hemoglobin A1c 5.7 % A1C (<5.7) Calcium Level 8.4 mg/dL (8.7-10.4) Magnesium Level 2.1 mg/dL (1.6-2.6) Total Bilirubin 0.3 mg/dL (0.2-1.0) Aspartate Amino Transferase (AST) 17 U/L (13-40) Alanine Aminotransferase (ALT) 33 U/L (7-40) Alkaline Phosphatase 117 U/L (46-116) Total Protein 6.4 g/dL (5.7-8.2) Albumin 4.2 g/dL (3.2-4.8) Platelet Estimate Adequate Anisocytosis (manual) Slight Phosphorus Level 5.5 mg/dL (2.4-5.1) Vitamin D 25-Hydroxy 27.4 ng/mL (30.0-100) Parathyroid Hormone (Intact) 156.8 pg/mL (18.4-80.1) Urine Color Yellow (Yellow) Urine Clarity Clear (Clear) Urine pH 6.0 (5.0-9.0) Urine Specific [place] 1.026 (1.001-1.035) Urine Protein 3+ (Negative) Urine Ketones Negative (Negative) Urine Blood Trace /uL (Negative) Urine Nitrite Negative (Negative) Urine Bilirubin Negative (Negative) Urine Urobilinogen Normal mg/dL (Negative) Urine Leukocyte Esterase 1+ /uL (Negative) Urine RBC 6 /hpf (0 - 4) Urine Microscopic WBC 18 /HPF (0-5) Urine Squamous Epithelial Cells Few /hpf (<5) Urine Bacteria Few /hpf (None Seen) Urine Creatinine 85.28 mg/dL (30.0-125.0) Urine Protein/Creatinine Ratio 6.90 Urine Sodium 51 mmol/L (40-220) Urine Glucose Normal mg/dL (Normal) Urine Total Protein 588.1 mg/dL (1-14) Test 07/11/25 16:02 07/11/25 16:01 07/11/25 14:43 POC Glucose 84 mg/dl (70-106) Troponin I High Sensitivity 32 ng/L (</=34) B-Type Natriuretic Peptide 1189.97 pg/mL (0-100) Other Laboratory Tests 07/14/25 05:40 Brief Hx & Hospital Course: 74 y.o female with PMHx of HTN, DM, CHF, COPD, AFIB, presents to the ED for a chief complaint of SOB that started 3 days ago. Patient reports she is on 3 liters of oxygen at home which she has been using and additionally has been using her machine but denies any relief. Daughter who brought patient in to the ED today states that patient is in the process of moving from one family members household to hers and between those days, has not taken any of her home medication. Patient denies any chest pain, fever, chills, or a cough. Patient did not get discharged. Patient discharges orders were written and IV was taken out and she is apparently sitting in the wheelchair to be take and downstairs to her car by family member. However patient add sudden change in her mentation and code blue was called and resuscitative measures were unsuccessful and she is eventually in the hospital. Please see the detailed summary for further information. Condition at Discharge: Critical Final Diagnosis/Problems List Atrial fibrillation with a rapid ventricular response now rate controlled Shortness of breaths likely due to CHF exacerbation Hyperkalemia CHRISTINA COPD exacerbation Discharge Disposition: Home Discharge Instruct/Medications Diet: Consistent carbohydrate, Cardiac 2g Na,low cholest Activity: No Restrictions, As Tolerated Follow Up/Referral: Follow up with the primary care physician next week to repeat your kidney function. To follow up with electronic game developer Dr.Mehta Henley and kidney doctor Althea after two weeks. Medications: To take all medication As prescribed and home medications per discharge med reconciliation list Scheduled Apixaban Base (Eliquis), 2.5 MG PO BID Budesonide-Formoterol Fumarate (Breyna 160-4.5 Mcg/Act), 1 AER IN BID Bumetanide (Bumex Tablet), 1 MG PO BID Empagliflozin (Jardiance), 10 MG PO DAILY Flecainide Acetate (Flecainide Acetate), 1 TAB PO BID Flecainide Acetate (Flecainide Acetate), 1 TAB PO BID Metoprolol Succinate (Metoprolol Succinate Er), 25 MG PO DAILY Omeprazole (Gnp Omeprazole), 1 TAB PO DAILY, (Reported) Riociguat Base (Adempas), 2.5 MG PO TID, (Reported) Miscellaneous Medications Macitentan (Opsumit), 10 MG PO, (Reported) Selexipag (Uptravi), 1,600 MCG IV, (Reported) Discontinued Medications Azithromycin (Zithromax Tablet), 250 MG PO DAILY Methylprednisolone (Medrol Dosepak), 4 MG PO UD Discharge Statement: "Patient was advised to return to the ER or call 911 if any headaches, dizziness, shortness of breath, chest pain, abdominal pain, bleeding, fevers, or worsening of medical condition. Patient was counseled about treatment plan, medications, possible side effects, patientverbalized understanding. All questions were answered to the best of my ability. This discharge took greater then 30 minutes in planning, reviewing documentation, counseling the patient, and discussing with other team members." ASSESSMENT ASSESSMENT Assessment Atrial fibrillation with a rapid ventricular response now rate controlled Shortness of breaths likely due to CHF exacerbation Hyperkalemia CHRISTINA COPD exacerbation Date of Service: Jul 15, 2025 Billing Provider: NIDA CARRILLO MD Common Visit Codes: [id number] DISCH DAY <30MIN NIDA CARRILLO MD Jul 14, 2025 15:38
--- NOTE | 2025-07-14 17:27 | DVH ---
Brain without contrast HISTORY: Dizziness Comparison: CT 07/11/2020 TECHNIQUE: MR was performed with a surface coil at 1.5 T magnet. Sagittal, axial and coronal T1 and T 2-weighted images were obtained. FINDINGS: No areas of restricted diffusion diffusion-weighted images. [place] areas of T2 signal hyperintensity periventricular white matter and punctate areas signal h yperintensity centrum semiovale and mullins radiata on FLAIR imaging sequences No hydrocephalus or midline shift Cortical sulcal markings are prominent particularly in the frontal and temporal lobes with widening o f the sylvian fissures. Orbits paranasal sinuses sella and cerebellopontine angles are all unremarkable appearance IMPRESSION: 1. Atrophy with periventricular leukoencephalopathy. 2. No acute intracranial
--- NOTE | 2025-07-14 17:48 | DVHPN2 ---
Progress Note Date Seen: Jul 14, 2025 Medical Necessity Reason Pt with a Central, PICC or Fol: No Subjective Patient reports: No new complaints, Feels better Review of Systems: HEENT:Normal, CVS:Normal, RESPIRATORY:Normal, GI:Normal, :Normal, MSK:Normal, NEURO:Normal Objective vital signs Vital Sign Date Time Temp Pulse Resp B/P (MAP) Pulse Ox O2 Delivery O2 Flow Rate FiO2 07/14/25 17:01 97.9 63 18 106/64 (78) 95 97.9 07/14/25 11:52 Nasal Cannula* 3 32 Total Intake and Output 07/13/25 07/13/25 07/14/25 15:00 23:00 07:00 Intake Total 50 ml 200 ml 800 ml Output Total 300 ml 900 ml Balance 50 ml -100 ml -100 ml medications Current Medications Medications Dose Ordered Sig/Julian Route Start Time Stop Time Status Last Admin Dose Admin Methylprednisolone Sodium Succinate 60 mg Q8HR IV 07/11/25 22:00 07/14/25 15:39 60 MG Apixaban 2.5 mg BID PO 07/11/25 22:00 07/14/25 10:00 2.5 MG Flecainide Acetate 100 mg BID PO 07/12/25 10:00 07/14/25 10:00 100 MG Metoprolol Succinate 25 mg DAILY PO 07/12/25 10:00 07/14/25 10:00 25 MG Pantoprazole Sodium 40 mg DAILY PO 07/12/25 10:00 07/14/25 10:00 40 MG Sodium Chloride 10 ml Q8HR IV 07/11/25 22:00 07/14/25 15:39 10 ML Docusate Sodium 100 mg BIDPRN PRN PO 07/11/25 20:15 07/14/25 05:32 100 MG Acetaminophen 650 mg Q6HP PRN PO 07/11/25 20:15 07/12/25 20:51 650 MG Acetaminophen/ Hydrocodone Bitart 1 tab Q4HP PRN PO 07/11/25 20:15 07/14/25 15:43 1 TAB Hydromorphone HCl 0.5 mg Q4HP PRN IV 07/11/25 20:15 07/13/25 02:57 0.5 MG Ondansetron HCl 4 mg Q4HP PRN IV 07/11/25 20:15 Budesonide 0.5 mg BID NEB 07/12/25 10:00 07/14/25 08:09 0.5 MG Albuterol 2.5 mg Q6HR NEB 07/12/25 12:00 07/14/25 11:52 2.5 MG Lidocaine 1 patch DAILY@2100 TOP 07/13/25 21:00 07/13/25 21:26 1 PATCH Meclizine HCl 12.5 mg BID PO 07/14/25 22:00 laboratory and microbiology Laboratory Tests 07/14/25 05:40 Test 07/14/25 05:40 Range/Units Serum Glucose 145 H 74-106 mg/dL Microbiology Date/Time Source Procedure Growth Status 07/11/25 23:40 Voided Urine Urine Culture - Final Complete 07/11/25 23:35 Nose MRSA Screen - Final Complete Problem List/Assessment/Plan Problem List/Assessment/Plan Acute kidney injury superimposed Chronic Kidney Disease secondary hemodynamic mediated, ATN, FeNa > 2% Acute on chronic respiratory failure, O2 nasal can Congestive heart failure exacerbation AFib with RVR Diabetes mellitus type 2 Hyperkalemia Hypomagnesemia Anemia of chronic kidney disease Nephrotic proteinuria due to underlying diabetic nephropathy, UPCR 7 Recommendations slightly worse renal function Continue diuretics as ordered Plan discussed with: Patient COREY CHENG MD Jul 14, 2025 17:48
[2025-07-14] MEDS: MECLIZINE HCL 25 MG TAB PO SCH (21:27)
--- NOTE | 2025-07-14 22:25 | DVHPN2 ---
Subjective Cross covering for [facility] today. Heart rate is controlled. Apparently patient had complaints of dizziness after activity today. Changes from previous H/P or p: No Changes Objective Vitals Vital Signs Date Time Temp Pulse Resp B/P (MAP) Pulse Ox O2 Delivery O2 Flow Rate FiO2 07/14/25 21:05 97.6 74 16 101/70 (80) 94 97.6 07/14/25 18:35 Nasal Cannula 3.0 07/14/25 18:35 32 Intake/Output Intake and Output 07/14/25 07:00 Intake Total 1050 ml Output Total 1200 ml Balance -150 ml Intake Oral 1000 ml IV Total 50 ml Output Urine Total 1200 ml Exam Alert awake oriented to place and person comfortable in bed without distress. HEENT neck supple no JVD. Heart regular rate and rhythm S1 plus S2. Lungs fair air movement tight air movement no wheezing. Abdomen soft nontender positive bowel sounds. Extremities no edema positive pulses. Medications Current Medications Medications Dose Ordered Sig/Julian Route Start Time Stop Time Status Last Admin Dose Admin Methylprednisolone Sodium Succinate 60 mg Q8HR IV 07/11/25 22:00 07/14/25 21:27 60 MG Apixaban 2.5 mg BID PO 07/11/25 22:00 07/14/25 21:27 2.5 MG Flecainide Acetate 100 mg BID PO 07/12/25 10:00 07/14/25 21:28 100 MG Metoprolol Succinate 25 mg DAILY PO 07/12/25 10:00 07/14/25 10:00 25 MG Pantoprazole Sodium 40 mg DAILY PO 07/12/25 10:00 07/14/25 10:00 40 MG Sodium Chloride 10 ml Q8HR IV 07/11/25 22:00 07/14/25 21:24 10 ML Docusate Sodium 100 mg BIDPRN PRN PO 07/11/25 20:15 07/14/25 05:32 100 MG Acetaminophen 650 mg Q6HP PRN PO 07/11/25 20:15 07/12/25 20:51 650 MG Acetaminophen/ Hydrocodone Bitart 1 tab Q4HP PRN PO 07/11/25 20:15 07/14/25 20:33 1 TAB Hydromorphone HCl 0.5 mg Q4HP PRN IV 07/11/25 20:15 07/13/25 02:57 0.5 MG Ondansetron HCl 4 mg Q4HP PRN IV 07/11/25 20:15 Budesonide 0.5 mg BID NEB 07/12/25 10:00 07/14/25 18:35 0.5 MG Albuterol 2.5 mg Q6HR NEB 07/12/25 12:00 07/14/25 18:35 2.5 MG Lidocaine 1 patch DAILY@2100 TOP 07/13/25 21:00 07/14/25 21:27 1 PATCH Meclizine HCl 12.5 mg BID PO 07/14/25 22:00 07/14/25 21:27 12.5 MG Laboratory Results Laboratory Tests 07/14/25 05:40 Chemistry Test 07/14/25 05:40 Albumin 4.2 g/dL (3.2-4.8) Calcium Level 8.4 mg/dL (8.7-10.4) L Magnesium Level 2.1 mg/dL (1.6-2.6) Total Protein 6.4 g/dL (5.7-8.2) LFT Test 07/14/25 05:40 Alanine Aminotransferase (ALT) 33 U/L (7-40) Alkaline Phosphatase 117 U/L (46-116) H Aspartate Amino Transferase (AST) 17 U/L (13-40) Total Bilirubin 0.3 mg/dL (0.2-1.0) HgA1c, TSH Test 07/14/25 05:40 Hemoglobin A1c 5.7 % A1C (<5.7) Urinalysis Test 07/11/25 16:27 Urine Color Yellow (Yellow) Urine Clarity Clear (Clear) Urine pH 6.0 (5.0-9.0) Urine Specific [place] 1.026 (1.001-1.035) Urine Protein 3+ (Negative) H Urine Ketones Negative (Negative) Urine Blood Trace /uL (Negative) H Urine Nitrite Negative (Negative) Urine Bilirubin Negative (Negative) Urine Urobilinogen Normal mg/dL (Negative) Urine Leukocyte Esterase 1+ /uL (Negative) Urine RBC 6 /hpf (0 - 4) Urine Microscopic WBC 18 /HPF (0-5) H Urine Squamous Epithelial Cells Few /hpf (<5) Urine Bacteria Few /hpf (None Seen) H Urine Creatinine 85.28 mg/dL (30.0-125.0) Urine Protein/Creatinine Ratio 6.90 Urine Sodium 51 mmol/L (40-220) Urine Glucose Normal mg/dL (Normal) Urine Total Protein 588.1 mg/dL (1-14) H Microbiology Microbiology Date/Time Source Procedure Growth Status 07/11/25 23:40 Voided Urine Urine Culture - Final Complete 07/11/25 23:35 Nose MRSA Screen - Final Complete Assessment/Plan Assessment/Plan Atrial fibrillation with a rapid ventricular response now rate controlled Shortness of breaths likely due to CHF exacerbation Hyperkalemia CHRISTINA COPD exacerbation UTI Given her dizziness I will order MRI of the brain. Put her on meclizine for possible vertigo. Otherwise continue current anticoagulation and cardiac medications. If patient remains stable with unremarkable workup she can be discharged soon. Plan discussed with: Patient, Other My Orders Orders - NIDA CARRILLO MD Procedure Category Date Status Time Follow Up In 2 Wk ORDERS 07/14/25 Transmitted Upon D/C 15:33 Brain Head Wo Contrast MRI 07/14/25 Resulted 16:07 Communication Order ORDERS 07/14/25 Transmitted 16:07 Discharge DISCHARGE 07/14/25 Transmitted 16:07 Meclizine Tablet PHA 07/14/25 In Process (Antivert Tablet) 22:00 Date of Service: Jul 14, 2025 Billing Provider: NIDA CARRILLO MD Common Visit Codes: [id number] INP/OBS CARE(MOD) NIDA CARRILLO MD Jul 14, 2025 22:25
[2025-07-15] VITALS (13 sets, daily range): BP systolic 98–116; BP diastolic 45–60; PULSE 52–76; RESP 14–20; TEMP 97.9–98.2; O2SAT 91–100
[2025-07-15 08:36] LABS: Hematocrit 32.0 % (36.0-46.0); Mean Corpuscular Hemoglobin 30.1 pg (28.0-32.0); Mean Corpuscular Volume 90.2 fL (80.0-100.0)
[2025-07-15 08:45] LABS: Alanine Aminotransferase 33 U/L (7-40); Albumin 4.4 g/dL (3.2-4.8); Alkaline Phosphatase 104 U/L (46-116); Anion Gap 12 (5-15); BUN/Creatinine Ratio 29.5 (10.0-20.0); Carbon Dioxide 23 mmol/L (20-31); Chloride 99 mmol/L (98-107); Magnesium 2.0 mg/dL (1.6-2.6); Potassium 3.7 mmol/L (3.5-5.1); Total Protein 6.5 g/dL (5.7-8.2)
[2025-07-15 08:50] LABS: Hemoglobin 10.7 g/dL (12.2-16.2); Nucleated Red Blood Cells % 4.2 %
[2025-07-15 09:00] LABS: Bilirubin, Total 0.2 mg/dL (0.2-1.0); Blood Urea Nitrogen 71 mg/dL (9-23); Calcium 8.1 mg/dL (8.7-10.4); Glucose 245 mg/dL (74-106); Sodium 134 mmol/L (136-145)
[2025-07-15] MEDS ORDERED: FUROSEMIDE 40 MG/4 ML VIAL IV SCH (10:00)
--- NOTE | 2025-07-15 15:22 | RESUS ---
CODE BLUE ASSESSSMENT History of Events History of Events: REPORTED BY PRIMARY RN ANGELA PATIENT WAS BEING DISCHARGED. DAUGHTER WAS AT BEDSIDE AND PATIENT WAS IN THE WHEELCHAIR GETTING READY TO LEAVE WHEN SHE SLUMPED OVER AND BEGAN MOANING. FAMILY CAME OUT IN THE HALLWAY TO CALL FOR A NURSE. UPON NURSING STAFF ENTERING ROOM CODE WAS CALLED. PATIENT AGONALLY BREATHING WITH FAINT PULSE. NO IV ACCESS AT TIME OF CODE BEING CALLED. Initial Information Date: Jul 15, 2025 Time: 13:30 [place] Witnessed: No CPR started by whom: Hospital Staff Last seen well: PRIOR TO CODE BEING CALLED Pre-Hospital Care: ACLS Type of arrest: Cardiac, Respiratory Spontaneous Respirations: No Pulse Present: Yes Crash Cart Opened and Supplies: Yes Comment: TELEMETRY BOX WAS REMOVED DUE TO PATIENT BEING DISCHARGED. Airway Ventilation Breathing at Onset: Agonal Oxygen Delivery Method: Room Air Artificial Ventilation: Bag/Mask, Bag/Endo tube Intubation Time: 13:40 Intubation Size: 8.0 cuffed Intubated by: DR JARETT WOODS Intubation Attempts: 1 Intubated orally: Yes Intubated Nasaly: No Tube secured at: 25 Cricoid pressure done: No CO2 indicator used: Yes Confirmation: Auscultation, Exhaled CO2 Suctioning (Oral/Tracheal): Yes Comments: PATIENT WAS VOMITNG, ORAL SUCTION PERFORMED Circulation Circulation #1: Time: 13:30 Pulse Rate (adult): 39 Blood Pressure Systolic: 73 Blood Pressure Diastolic: 18 Circulation Comment: PEA Circulation #2: Time: 13:39 Pulse Rate (adult): 97 Circulation Comment: ROSC OBTAINED, WIDE QRS COMPLEX ON MONITOR Circulation #3: Time: 13:42 Pulse Rate (adult): 39 Blood Pressure Systolic: 0 Blood Pressure Diastolic: 0 Circulation Comment: PEA Circulation #4: Time: 13:44 Pulse Rate (adult): 45 Circulation Comment: PEA Circulation #5: Time: 13:46 Pulse Rate (adult): 33 Circulation Comment: PEA Circulation #6: Time: 13:49 Pulse Rate (adult): 29 Circulation Comment: PEA Circulation #7: Time: 13:51 Pulse Rate (adult): 0 Circulation Comment: [place] Circulation #8: Time: 13:52 Pulse Rate (adult): 0 Circulation Comment: REPEATED PULSE CHECK MR REQUEST, [place] Circulation #9: Time: 13:54 Pulse Rate (adult): 0 Circulation Comment: [place] Circulation #10: Time: 13:56 Pulse Rate (adult): 0 Circulation Comment: [place] Circulation #11: Time: 13:59 Pulse Rate (adult): 0 Circulation Comment: [place] Circulation #12: Time: 14:01 Pulse Rate (adult): 0 Circulation Comment: [place] Circulation #13: Time: 14:03 Pulse Rate (adult): 0 Circulation Comment: [place] Circulation #14: Time: 14:05 Pulse Rate (adult): 0 Circulation Comment: [place] Circulation #15: Time: 14:07 Pulse Rate (adult): 0 Circulation Comment: [place] Circulation #16: Time: 14:09 Pulse Rate (adult): 0 Circulation Comment: [place] Procedure - IV Procedure - IV : IV start time: 13:40 IV Side: Left IV Location: Upper Arm Anterior IV Catheter Type: Peripheral IV IV Placed: RN IV Placed by GABRIELA PICC LINE NURSE IV Gauge: 22 IV Line Care: Saline Flush Comment MULTIPLE ATTEMPTS MADE FOR IV ACCESS BY RN AND MD Medications & Response Medications and Responses #1: Medication Time: 13:41 ADULT Medications Given ADULT: Atropine 1 mg Route of Administration: IV EKG Rhythm: Sinus Bradycardia Medications and Responses #2: Medication Time: 13:42 ADULT Medications Given ADULT: Epinephrine 1 mg, Sodium Bacarbinate 50 meq Medications and Responses #3: Medication Time: 13:45 ADULT Medications Given ADULT: Epinephrine 1 mg, Magnesium Sulfate 1 gm Medications and Responses #4: Medication Time: 13:48 ADULT Medications Given ADULT: Epinephrine 1 mg, Calcium Chloride 10 mL Medications and Responses #5: Medication Time: 13:51 ADULT Medications Given ADULT: Epinephrine 1 mg Medications and Responses #6: Medication Time: 13:55 ADULT Medications Given ADULT: Epinephrine 1 mg Medications and Responses #7: Medication Time: 13:58 ADULT Medications Given ADULT: Epinephrine 1 mg Medications and Responses #8: Medication Time: 14:01 ADULT Medications Given ADULT: Epinephrine 1 mg Medications and Responses #9: Medication Time: 14:04 ADULT Medications Given ADULT: Epinephrine 1 mg Medications and Responses #10: Medication Time: 14:07 ADULT Medications Given ADULT: Epinephrine 1 mg Medications and Responses #11: Medication Time: 14:08 ADULT Medications Given ADULT: Sodium Bacarbinate 50 meq Pacing Pacer Pads Applied and Pacing: No Nurses Notes [place] Coma Scale Eye Opening: None (1) [place] Coma Scale Verbal: None (1) Reji Coma Scale Motor: None (1) Time Code Ended Time Code Ended: 14:09 Post Arrest Status: Outcome of code: Unsuccessful Patient pronounced by: DR RENAE Time patient pronounced: 14:09 Family notified: Yes Attending called: Yes Code Team Present: SUNSHINE- CHARGE NURSE, MYRA- CHARGE NURSE, KIET- RT, DR RENAE, DR BAUTISTA, DR QUINN, KELSY MIRANDA- ICU CHARGE, GABRIELLA- ICU RESOURCE RN, MYRA CORTES-RT Post Resuscitation Neurologica Pupil Size: 5 Comment: FIXED Date of Service: Jul 15, 2025 Billing Provider: MARGAUX BAUTISTA MD Common Visit Codes: PROCEDURE ONLY Procedure Codes: [id number] CODE Harmony Clifford Jul 15, 2025 15:22 MARGAUX BAUTISTA MD Jul 22, 2025 21:22
[2025-07-15] MEDS ORDERED: ATROPINE SULF 1 MG/10ml SYR IV ONE (15:56)
[2025-07-15] MEDS ORDERED: ATROPINE SULF 1 MG/10ml SYR IM ONE (19:42)
--- NOTE | 2025-07-15 21:09 | DVHDS2 ---
Summary Date of Admission Jul 11, 2025 at 20:11 Date and Time of Expiration: Jul 15, 2025 14:09 Labs/Diagnostic Data: Laboratory Results Test 07/15/25 07:11 07/14/25 05:40 07/13/25 06:18 07/12/25 04:08 White Blood Count 4.1 10^3/uL (4.4-10.8) Red Blood Count 3.54 10^6/uL (4.0-5.20) Hemoglobin 10.7 g/dL (12.2-16.2) Hematocrit 32.0 % (36.0-46.0) Mean Corpuscular Volume 90.2 fL (80.0-100.0) Mean Corpuscular Hemoglobin 30.1 pg (28.0-32.0) Mean Corpuscular Hemoglobin Concent 33.4 g/dL (32.0-36.0) Red Cell Distribution Width 19.6 % (11.8-14.3) Platelet Count 266 10^3/uL (140-450) Mean Platelet Volume 7.8 fL (6.9-10.8) Neutrophils (%) (Auto) 90.9 % (37.0-80.0) Lymphocytes (%) (Auto) 3.5 % (10.0-50.0) Monocytes (%) (Auto) 5.6 % (0.0-12.0) Eosinophils (%) (Auto) 0.0 % (0.0-7.0) Basophils (%) (Auto) 0.0 % (0.0-2.0) Neutrophils # (Auto) 3.7 10 ^3/uL (1.6-8.6) Lymphocytes # (Auto) 0.1 10 ^3/uL (0.4-5.4) Monocytes # (Auto) 0.2 10 ^3/uL (0-1.3) Eosinophils # (Auto) 0 10 ^3/uL (0-0.8) Basophils # (Auto) 0 10 ^3/uL (0-0.2) Nucleated Red Blood Cells 4.2 % Sodium Level 134 mmol/L (136-145) Potassium Level 3.7 mmol/L (3.5-5.1) Chloride Level 99 mmol/L (98-107) Carbon Dioxide Level 23 mmol/L (20-31) Anion Gap 12 (5-15) Blood Urea Nitrogen 71 mg/dL (9-23) Creatinine 2.41 mg/dL (0.550-1.02) Glomerular Filtration Rate Calc 21 mL/min (>90) BUN/Creatinine Ratio 29.5 (10.0-20.0) Serum Glucose 245 mg/dL (74-106) Calcium Level 8.1 mg/dL (8.7-10.4) Magnesium Level 2.0 mg/dL (1.6-2.6) Total Bilirubin 0.2 mg/dL (0.2-1.0) Aspartate Amino Transferase (AST) 13 U/L (13-40) Alanine Aminotransferase (ALT) 33 U/L (7-40) Alkaline Phosphatase 104 U/L (46-116) Total Protein 6.5 g/dL (5.7-8.2) Albumin 4.4 g/dL (3.2-4.8) Hemoglobin A1c 5.7 % A1C (<5.7) Platelet Estimate Adequate Anisocytosis (manual) Slight Phosphorus Level 5.5 mg/dL (2.4-5.1) Vitamin D 25-Hydroxy 27.4 ng/mL (30.0-100) Parathyroid Hormone (Intact) 156.8 pg/mL (18.4-80.1) Test 07/11/25 16:27 07/11/25 16:02 07/11/25 16:01 07/11/25 14:43 Urine Color Yellow (Yellow) Urine Clarity Clear (Clear) Urine pH 6.0 (5.0-9.0) Urine Specific [place] 1.026 (1.001-1.035) Urine Protein 3+ (Negative) Urine Ketones Negative (Negative) Urine Blood Trace /uL (Negative) Urine Nitrite Negative (Negative) Urine Bilirubin Negative (Negative) Urine Urobilinogen Normal mg/dL (Negative) Urine Leukocyte Esterase 1+ /uL (Negative) Urine RBC 6 /hpf (0 - 4) Urine Microscopic WBC 18 /HPF (0-5) Urine Squamous Epithelial Cells Few /hpf (<5) Urine Bacteria Few /hpf (None Seen) Urine Creatinine 85.28 mg/dL (30.0-125.0) Urine Protein/Creatinine Ratio 6.90 Urine Sodium 51 mmol/L (40-220) Urine Glucose Normal mg/dL (Normal) Urine Total Protein 588.1 mg/dL (1-14) POC Glucose 84 mg/dl (70-106) Troponin I High Sensitivity 32 ng/L (</=34) B-Type Natriuretic Peptide 1189.97 pg/mL (0-100) Other Laboratory Tests 07/15/25 07:11 Brief Hx & Hospital Course: 74 y.o female with PMHx of HTN, DM, CHF, COPD, AFIB, presents to the ED for a chief complaint of SOB that started 3 days ago. Patient reports she is on 3 liters of oxygen at home which she has been using and additionally has been using her machine but denies any relief. Daughter who brought patient in to the ED today states that patient is in the process of moving from one family members household to hers and between those days, has not taken any of her home medication. Patient denies any chest pain, fever, chills, or a cough. She is admitted and noted to be in atrial fibrillation with a rapid ventricular response. Patient received IV amiodarone. Subsequently she is resumed on her home medications include flecainide and beta shaun. Her heart rate is controlled throughout the hospital stay. She has moved to the medical floor. Where she remained stable on her home oxygen. Patient received empiric treatments for her COPD exacerbation. She complained of dizziness therefore she had MRI of the brain did not show any acute pathology. Patient dizziness resolved and feeling better and requesting to go home. Given the patient having necessary workup and evaluations and heart rate is controlled, she is feeling better back to baseline status with the oxygenating normally on her home 3 L oxygen it is felt she could be safely discharged home. Therefore discharge orders were placed and I have talked with the patient regarding discharge plan of care. Subsequently patient's family came to pick her up. Apparently patient took her oxygen off for few minutes per family member who is at bedside while she is getting out of bed into the wheelchair to go downstairs. When she is sat in the wheelchair patient told family member that she is not feeling well and her head leaned down and she became unresponsive. Immediately zainab sampson was called. She is put back on bed and ACLS protocol initiated. Zainab ran for approximately 30 minutes. While zainab is being run by physician/nurses, I came back to her bedside and evaluated her. I have updated patient's sister and other family member who is at bedside/medical floor regarding her critical condition and possible cause of her sudden deterioration could be from her advanced COPD with severe pulmonary hypertension and probable right heart failure with sudden hypotension and comorbid conditions including heart disease with the AFib. Given resuscitative measures were unsuccessful her sister decided to call off the code and request to stop further resuscitative measures. Subsequently patient pronounced around 14:09 an hours. Please see resuscitative report and nurse's notes for further details and information. 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
== END 2025-07-15 20:43 | DRG 291 ==
LOC: ER 13:52 → OVERFLOW 20:11 → ICU CENTRL 23:22 → TELE-WESTW 07-12 22:51
PROVIDERS: ADMIT Hospitalist; ATTEND Hospitalist
PROC: 5A12012 Performance of Cardiac Output, Single, Manual (ICD-10-PCS; principal; 2025-07-15)
PROC: 0BH17EZ Insertion of Endotracheal Airway into Trachea, Via Natural or Artificial Opening (ICD-10-PCS; 2025-07-15)
DX: I13.0 Hypertensive heart and chronic kidney disease with heart failure and stage 1 through stage 4 chronic kidney disease, or unspecified chronic kidney disease (principal); I50.23 Acute on chronic systolic (congestive) heart failure; J96.21 Acute and chronic respiratory failure with hypoxia; N17.0 Acute kidney failure with tubular necrosis; J44.1 Chronic obstructive pulmonary disease with (acute) exacerbation; N39.0 Urinary tract infection, site not specified; G93.40 Encephalopathy, unspecified; D63.1 Anemia in chronic kidney disease; I46.9 Cardiac arrest, cause unspecified; E11.22 Type 2 diabetes mellitus with diabetic chronic kidney disease; E83.42 Hypomagnesemia; E87.5 Hyperkalemia; I48.91 Unspecified atrial fibrillation; N18.9 Chronic kidney disease, unspecified; I27.20 Pulmonary hypertension, unspecified; Z79.2 Long term (current) use of antibiotics; Z79.84 Long term (current) use of oral hypoglycemic drugs; Z79.899 Other long term (current) drug therapy
CPT/HCPCS: 36415; 70450; 70551; 71045; 76775; 80048; 80053; 81001; 82306; 82570; 82962; 83036; 83735; 83880; 83970; 84100; 84132; 84156; 84300; 84484; 85025; 87081; 87086; 92950; 93005; 94640; 96365; 96375; 97110; 97116; 97163; 97530; 99291; G0378; J1815